=== PATIENT | female | born 1985 | race Two or more races ===

== ENCOUNTER 2017-04-11 14:50 | Emergency (ER) | payer MEDICAID ==
[~2017-04-11] VITALS: Ht 160 cm; Wt 89.0 kg
[~2017-04-11 14:50] MED LIST: CLIN-79 PO; COMP-13 TOP; FURO-150 PO; FURO40TA4 PO; INSU100I25 SQ; INSU100V11 SQ; LANC-571; NAPR-1154 PO; NEUPHOSK PO; SYRI-641
[2017-04-11 15:45] LABS: URINE HCG NEGATIVE (NEG)
[2017-04-11 16:03] LABS: BASOPHILS # (AUTO) 0.1 X10'3 (0-0.2); BASOPHILS % (AUTO) 0.8 % (0-1); EOSINOPHILS # (AUTO) 0.4 X10'3 (0-0.9); EOSINOPHILS % (AUTO) 2.3 % (0-6); HEMATOCRIT 37.9 % (35.0-45.0); HEMOGLOBIN 12.8 g/dl (12.0-16.0); LYMPHOCYTES # (AUTO) 2.8 X10'3 (1.1-4.8); LYMPHOCYTES % (AUTO) 16.8 % (21-51); MEAN CORPUSCULAR HEMOGLOBIN 28.5 PG (27.0-31.0); MEAN CORPUSCULAR HGB CONC 33.8 % (33.0-36.5); MEAN CORPUSCULAR VOLUME 84.5 FL (78-98); MEAN PLATELET VOLUME 8.3 FL (7.4-10.4); MONOCYTES % (AUTO) 5.8 % (2-12); NEUTROPHILS # (AUTO) 12.3 X10'3 (1.8-7.7); NEUTROPHILS % (AUTO) 74.3 % (42-75); PLATELET COUNT 382 X10'3 (140-440); RED BLOOD COUNT 4.49 X10'6 (4.20-5.60); RED CELL DISTRIBUTION WIDTH 12.8 % (11.5-14.5); WHITE BLOOD COUNT 16.6 X10'3 (4.5-11.0)
[2017-04-11 16:04] LABS: CLARITY,URINE CLEAR (Clear); COLOR,URINE YELLOW (Yellow); GLUCOSE, URINE 500 mg/dl (Neg); KETONES,URINE NEGATIVE (Neg); LEUKOCYTE ESTERASE ,URINE NEGATIVE (Neg); NITRITES, URINE NEGATIVE (Neg); OCCULT BLOOD,URINE LARGE (Neg); PH,URINE 6.5 (4.8-8.0); PROTEIN,URINE >=300 mg/dl (Neg); UROBILINOGEN,URINE 0.2 E.U/dL (0.2-1.0)
[2017-04-11 16:05] LABS: UA COLLECTION TYPE CLN CATCH MIDSTREAM
[2017-04-11 16:12] LABS: WBC,URINE 50-100 /HPF (0-4)
[2017-04-11 16:13] LABS: BACTERIA,URINE 2+ /HPF (Neg); SQUAMOUS EPITHELIAL CELL,UR NONE SEEN /LPF (FEW); WBC CLUMPS,URINE MODERATE /HPF (NEGATIVE)
[2017-04-11 16:19] LABS: ALANINE AMINOTRANSFERASE 30 U/L (12-78); ALBUMIN 1.4 G/DL (3.4-5.0); ALBUMIN/GLOBULIN RATIO 0.3 (1.1-1.5); ALKALINE PHOSPHATASE 100 IU/L (46-116); ANION GAP 8 (8-16); ASPARTATE AMINO TRANSFERASE 28 U/L (10-37); BILIRUBIN,TOTAL 0.1 MG/DL (0.1-1.0); BLOOD UREA NITROGEN 25 MG/DL (7-18); BUN/CREATININE RATIO 15.6 (6.6-38.0); CALCIUM 8.7 MG/DL (8.5-10.1); CHLORIDE 109 MMOL/L (99-107); GLUCOSE 110 MG/DL (70-104); LIPASE 149 U/L (73-393); POTASSIUM 4.4 MMOL/L (3.5-5.1); SODIUM 140 MMOL/L (135-145); TOTAL PROTEIN 6.6 G/DL (6.4-8.2); eGFR 38 ML/MIN
[2017-04-11] MEDS ORDERED: furosemide 10 MG/1 ML 10ml inj IV ONE (16:55)
[2017-04-11] MEDS ORDERED: sulfamethoxazole/trimethoprim DS (800/160mg) tablet PO ONE (16:55)
[2017-04-11] MEDS ORDERED: SULF1TAB49 PO (17:13)
[2017-04-11] MEDS ORDERED: furosemide 20MG tablet PO ONE (17:20)
[2017-04-11 17:27] VITALS: BP 173/105
== END 2017-04-11 17:29 | disposition home or self-care (01) ==
LOC: ER 14:50
DX: R60.0 Localized edema (principal); N39.0 Urinary tract infection, site not specified; E10.9 Type 1 diabetes mellitus without complications; I10 Essential (primary) hypertension; Z88.0 Allergy status to penicillin; Z88.1 Allergy status to other antibiotic agents; Z91.012 Allergy to eggs; Z79.4 Long term (current) use of insulin
CPT/HCPCS: 36415; 71045; 80053; 81001; 81025; 83690; 83880; 84484; 85025; 87088; 93306; 99285; J1940

== ENCOUNTER 2018-02-05 23:36 | Inpatient (IN) | payer MEDICAID ==
[~2018-02-05] VITALS: Ht 160 cm; Wt 83.0 kg
[~2018-02-05 23:36] MED LIST changes: +APIX2.5T PO; +ATOR20TA66 PO; -CLIN-79 PO; -COMP-13 TOP; +FURO-149 PO; -FURO-150 PO; -FURO40TA4 PO; -INSU100I25 SQ; -INSU100V11 SQ; -LANC-571; +METO50TA16 PO; -NAPR-1154 PO; -NEUPHOSK PO; -SYRI-641
[2018-02-06] MEDS ORDERED: ondansetron/PF 4mg/2ml inj IV ONE (01:35)
[2018-02-06] MEDS ORDERED: normal saline 1000ML IV soln IVB ONE (01:35)
[2018-02-06] MEDS ORDERED: morphine 2 MG/ML inj. syringe IV PRN (01:35)
[2018-02-06 02:16] LABS: BASOPHILS # (AUTO) 0.1 X10'3 (0-0.2); BASOPHILS % (AUTO) 0.4 % (0-1); EOSINOPHILS # (AUTO) 0.4 X10'3 (0-0.9); EOSINOPHILS % (AUTO) 1.4 % (0-6); HEMATOCRIT 30.7 % (35.0-45.0); LYMPHOCYTES # (AUTO) 1.2 X10'3 (1.1-4.8); LYMPHOCYTES % (AUTO) 4.4 % (21-51); MEAN CORPUSCULAR HEMOGLOBIN 28.2 PG (27.0-31.0); MEAN CORPUSCULAR HGB CONC 32.6 % (33.0-36.5); MEAN CORPUSCULAR VOLUME 86.4 FL (78-98); MEAN PLATELET VOLUME 7.8 FL (7.4-10.4); MONOCYTES # (AUTO) 0.8 X10'3 (0-0.9); MONOCYTES % (AUTO) 2.9 % (2-12); NEUTROPHILS # (AUTO) 23.9 X10'3 (1.8-7.7); NEUTROPHILS % (AUTO) 90.9 % (42-75); PLATELET COUNT 421 X10'3 (140-440); RED BLOOD COUNT 3.55 X10'6 (4.20-5.60); RED CELL DISTRIBUTION WIDTH 13.5 % (11.5-14.5)
[2018-02-06 02:17] LABS: WHITE BLOOD COUNT 26.3 X10'3 (4.5-11.0)
[2018-02-06 02:18] LABS: URINE HCG NEGATIVE (NEG)
[2018-02-06 02:21] LABS: CLARITY,URINE CLEAR (Clear); COLOR,URINE YELLOW (Yellow); GLUCOSE, URINE 500 mg/dl (Neg); KETONES,URINE NEGATIVE (Neg); LEUKOCYTE ESTERASE ,URINE NEGATIVE (Neg); NITRITES, URINE NEGATIVE (Neg); OCCULT BLOOD,URINE MODERATE (Neg); PROTEIN,URINE >=300 mg/dl (Neg); UROBILINOGEN,URINE 0.2 E.U/dL (0.2-1.0)
[2018-02-06 02:26] LABS: UA COLLECTION TYPE CLN CATCH MIDSTREAM
[2018-02-06 02:27] LABS: BACTERIA,URINE FEW /HPF (Neg); SQUAMOUS EPITHELIAL CELL,UR FEW /LPF (FEW)
[2018-02-06 02:28] LABS: YEAST FEW /HPF (NEGATIVE)
[2018-02-06 02:31] LABS: ALANINE AMINOTRANSFERASE 18 U/L (12-78); ALBUMIN 1.3 G/DL (3.4-5.0); ALBUMIN/GLOBULIN RATIO 0.3 (1.1-1.5); ALKALINE PHOSPHATASE 104 IU/L (46-116); ANION GAP 13 (8-16); ASPARTATE AMINO TRANSFERASE 17 U/L (10-37); BILIRUBIN,TOTAL 0.2 MG/DL (0.1-1.0); BLOOD UREA NITROGEN 40 MG/DL (7-18); BUN/CREATININE RATIO 12.6 (6.6-38.0); CALCIUM 7.9 MG/DL (8.5-10.1); CHLORIDE 110 MMOL/L (99-107); CREATININE 3.17 MG/DL (0.40-0.90); GLUCOSE 210 MG/DL (70-104); LIPASE 102 U/L (73-393); PLATELET ESTIMATE NORMAL; POTASSIUM 5.4 MMOL/L (3.5-5.1); SODIUM 138 MMOL/L (135-145); TOTAL CARBON DIOXIDE 15.3 MMOL/L (24-32); TOTAL CELLS COUNTED 100; TOTAL PROTEIN 5.7 G/DL (6.4-8.2); eGFR 17 ML/MIN
[2018-02-06] MEDS ORDERED: CefTRIAXone/D5W-Rocephin 1gm 50 ML IV ONE (04:10)
[2018-02-06] MEDS ORDERED: levoFLOXACIN-Levaquin 250mg/D5 50 ML IV ONE ×2 (04:40→08:00)
[2018-02-06] MEDS ORDERED: ROSU40TA PO (04:46)
[2018-02-06] MEDS ORDERED: magnesium hydroxide 30ml (MOM) UD suspension PO PRN (05:10)
[2018-02-06] MEDS ORDERED: mag hydrox/Alum hydrox/simeth 30ml oral suspension PO PRN (05:10)
[2018-02-06] MEDS ORDERED: ondansetron/PF 4mg/2ml inj IV PRN (05:10)
[2018-02-06] MEDS ORDERED: insulin Lispro (HumaLOG) vial - multi-dose SQ SCH (05:20)
[2018-02-06] MEDS ORDERED: MESSAGE TO PHARMACY PO ONE (05:20)
[2018-02-06] MEDS ORDERED: dextrose ORAL solution 15 GM/59 ML bottle PO PRN ×2 (05:20)
[2018-02-06] MEDS ORDERED: glucagon, human recombinant 1mg kit SUBCUT PRN (05:20)
[2018-02-06] MEDS ORDERED: dextrose 50%-water 50ml dispensing syringe IV PRN ×2 (05:20)
[2018-02-06] MEDS: normal saline 1000ml 1,000 ML IV SCH (05:56)
[2018-02-06 07:30] VITALS: BP 132/82
[2018-02-06] MEDS ORDERED: apixaban 2.5mg tablet PO SCH (08:00)
[2018-02-06] MEDS: metoclopramide 5 mg/ml inj IV SCH ×3 (08:03→17:10)
[2018-02-06] MEDS: metoprolol tartrate 50mg tablet PO SCH ×2 (08:03→20:07)
[2018-02-06] MEDS: atorvastatin 20mg tablet PO SCH (08:03)
[2018-02-06] MEDS: furosemide 40mg tablet PO SCH ×2 (08:03→20:06)
[2018-02-06 10:10] LABS: BASOPHILS # (AUTO) 0.1 X10'3 (0-0.2); BASOPHILS % (AUTO) 0.4 % (0-1); EOSINOPHILS # (AUTO) 0.5 X10'3 (0-0.9); HEMATOCRIT 26.2 % (35.0-45.0); HEMOGLOBIN 8.4 g/dl (12.0-16.0); LYMPHOCYTES # (AUTO) 2.1 X10'3 (1.1-4.8); LYMPHOCYTES % (AUTO) 9.2 % (21-51); MEAN CORPUSCULAR HEMOGLOBIN 27.7 PG (27.0-31.0); MEAN CORPUSCULAR VOLUME 86.6 FL (78-98); MONOCYTES % (AUTO) 4.5 % (2-12); NEUTROPHILS # (AUTO) 19.6 X10'3 (1.8-7.7); NEUTROPHILS % (AUTO) 83.9 % (42-75); PLATELET COUNT 372 X10'3 (140-440); RED BLOOD COUNT 3.03 X10'6 (4.20-5.60); RED CELL DISTRIBUTION WIDTH 13.2 % (11.5-14.5); WHITE BLOOD COUNT 23.3 X10'3 (4.5-11.0)
[2018-02-06 10:24] LABS: ANION GAP 11 (8-16); BLOOD UREA NITROGEN 40 MG/DL (7-18); BUN/CREATININE RATIO 12.7 (6.6-38.0); CALCIUM 7.4 MG/DL (8.5-10.1); CHLORIDE 111 MMOL/L (99-107); CREATININE 3.15 MG/DL (0.40-0.90); GLUCOSE 186 MG/DL (70-104); POTASSIUM 5.7 MMOL/L (3.5-5.1); SODIUM 138 MMOL/L (135-145); TOTAL CARBON DIOXIDE 16.4 MMOL/L (24-32); eGFR 17 ML/MIN
[2018-02-06] MEDS ORDERED: RESCUE (10:56)
[2018-02-06 11:00] VITALS: BP 117/67
[2018-02-06] MEDS ORDERED: sodium polystyrene sulfonate 15gm/60ml oral suspension PO ONE (11:00)
[2018-02-06] MEDS: pantoprazole 40 MG vial IV SCH ×2 (11:59→20:04)
[2018-02-06] MEDS: cefepime 1GM/NS ADD-VANTAGE 100 ML IV SCH (14:43)
[2018-02-06 15:00] VITALS: BP 136/81
[2018-02-06] MEDS ORDERED: cefepime 1GM/NS ADD-VANTAGE 100 ML IV SCH (16:00)
[2018-02-06 16:11] LABS: HEMATOCRIT 29.6 % (35.0-45.0); HEMOGLOBIN 9.5 g/dl (12.0-16.0); MEAN CORPUSCULAR HGB CONC 32.1 % (33.0-36.5); MEAN CORPUSCULAR VOLUME 87.3 FL (78-98); MEAN PLATELET VOLUME 8.2 FL (7.4-10.4); PLATELET COUNT 394 X10'3 (140-440); RED BLOOD COUNT 3.39 X10'6 (4.20-5.60); RED CELL DISTRIBUTION WIDTH 13.6 % (11.5-14.5); WHITE BLOOD COUNT 20.6 X10'3 (4.5-11.0)
[2018-02-06 19:00] VITALS: BP 142/84
[2018-02-06] MEDS: acetaminophen 325mg tablet PO PRN (22:27)
[2018-02-06 23:00] VITALS: BP 142/85
[2018-02-07] MEDS: cefepime 1GM/NS ADD-VANTAGE 100 ML IV SCH ×2 (01:30→12:48)
[2018-02-07 02:21] LABS: OCCULT BLOOD STOOL NEGATIVE (Neg)
[2018-02-07 03:00] VITALS: BP 105/56
[2018-02-07 06:00] VITALS: BP 118/65
[2018-02-07 06:08] LABS: BASOPHILS # (AUTO) 0.1 X10'3 (0-0.2); BASOPHILS % (AUTO) 0.7 % (0-1); EOSINOPHILS # (AUTO) 0.6 X10'3 (0-0.9); EOSINOPHILS % (AUTO) 4.1 % (0-6); HEMATOCRIT 25.4 % (35.0-45.0); HEMOGLOBIN 8.1 g/dl (12.0-16.0); LYMPHOCYTES # (AUTO) 3.3 X10'3 (1.1-4.8); LYMPHOCYTES % (AUTO) 22.7 % (21-51); MEAN CORPUSCULAR HGB CONC 31.7 % (33.0-36.5); MEAN CORPUSCULAR VOLUME 88.1 FL (78-98); MEAN PLATELET VOLUME 8.4 FL (7.4-10.4); MONOCYTES # (AUTO) 0.9 X10'3 (0-0.9); MONOCYTES % (AUTO) 6.6 % (2-12); NEUTROPHILS # (AUTO) 9.5 X10'3 (1.8-7.7); NEUTROPHILS % (AUTO) 65.9 % (42-75); PLATELET COUNT 321 X10'3 (140-440); RED BLOOD COUNT 2.88 X10'6 (4.20-5.60); RED CELL DISTRIBUTION WIDTH 13.3 % (11.5-14.5); WHITE BLOOD COUNT 14.4 X10'3 (4.5-11.0)
[2018-02-07] MEDS: normal saline 1000ml 1,000 ML IV SCH (06:08)
[2018-02-07 06:17] LABS: ALANINE AMINOTRANSFERASE 18 U/L (12-78); ALBUMIN/GLOBULIN RATIO 0.3 (1.1-1.5); ALKALINE PHOSPHATASE 86 IU/L (46-116); ANION GAP 12 (8-16); ASPARTATE AMINO TRANSFERASE 16 U/L (10-37); BILIRUBIN,TOTAL 0.2 MG/DL (0.1-1.0); BLOOD UREA NITROGEN 43 MG/DL (7-18); BUN/CREATININE RATIO 11.5 (6.6-38.0); CALCIUM 7.8 MG/DL (8.5-10.1); CHLORIDE 111 MMOL/L (99-107); CREATININE 3.75 MG/DL (0.40-0.90); GLUCOSE 98 MG/DL (70-104); POTASSIUM 4.7 MMOL/L (3.5-5.1); SODIUM 140 MMOL/L (135-145); TOTAL CARBON DIOXIDE 16.7 MMOL/L (24-32); TOTAL PROTEIN 4.7 G/DL (6.4-8.2); eGFR 14 ML/MIN
[2018-02-07] MEDS: metoprolol tartrate 50mg tablet PO SCH ×2 (07:56→20:47)
[2018-02-07] MEDS: pantoprazole 40 MG vial IV SCH ×2 (07:56→20:49)
[2018-02-07] MEDS: furosemide 40mg tablet PO SCH (07:56)
[2018-02-07] MEDS: metoclopramide 5 mg/ml inj IV SCH ×3 (07:56→17:00)
[2018-02-07] MEDS: atorvastatin 20mg tablet PO SCH (07:56)
[2018-02-07] MEDS ORDERED: levoFLOXACIN-Levaquin 500mg/D5 100 ML IV SCH (08:00)
[2018-02-07] MEDS: acetaminophen 325mg tablet PO PRN (08:12)
[2018-02-07 11:00] VITALS: BP 129/79
[2018-02-07 15:00] VITALS: BP 150/88
[2018-02-07 19:00] VITALS: BP 162/99
[2018-02-07] MEDS: lactobacillus rhamnosus 10,000 MMU CELLS/CAPSULE PO SCH (20:47)
[2018-02-07] MEDS: furosemide 40mg/4ml inj IV SCH (20:48)
[2018-02-07 23:00] VITALS: BP 154/93
[2018-02-08] MEDS: cefepime 1GM/NS ADD-VANTAGE 100 ML IV SCH ×2 (01:09→12:15)
[2018-02-08 03:00] VITALS: BP 122/66
[2018-02-08] MEDS: acetaminophen 325mg tablet PO PRN (04:29)
[2018-02-08 06:10] LABS: BASOPHILS # (AUTO) 0.1 X10'3 (0-0.2); BASOPHILS % (AUTO) 0.6 % (0-1); EOSINOPHILS # (AUTO) 0.6 X10'3 (0-0.9); EOSINOPHILS % (AUTO) 4.9 % (0-6); HEMATOCRIT 25.2 % (35.0-45.0); HEMOGLOBIN 8.1 g/dl (12.0-16.0); LYMPHOCYTES # (AUTO) 2.4 X10'3 (1.1-4.8); MEAN CORPUSCULAR HEMOGLOBIN 27.8 PG (27.0-31.0); MEAN CORPUSCULAR VOLUME 86.9 FL (78-98); MEAN PLATELET VOLUME 8.4 FL (7.4-10.4); MONOCYTES # (AUTO) 0.8 X10'3 (0-0.9); MONOCYTES % (AUTO) 6.7 % (2-12); NEUTROPHILS # (AUTO) 7.7 X10'3 (1.8-7.7); NEUTROPHILS % (AUTO) 66.8 % (42-75); PLATELET COUNT 344 X10'3 (140-440); RED BLOOD COUNT 2.89 X10'6 (4.20-5.60); RED CELL DISTRIBUTION WIDTH 13.7 % (11.5-14.5); WHITE BLOOD COUNT 11.6 X10'3 (4.5-11.0)
[2018-02-08 06:46] VITALS: BP 107/57
[2018-02-08 06:58] LABS: ALANINE AMINOTRANSFERASE 18 U/L (12-78); ALBUMIN/GLOBULIN RATIO 0.3 (1.1-1.5); ALKALINE PHOSPHATASE 100 IU/L (46-116); ANION GAP 13 (8-16); ASPARTATE AMINO TRANSFERASE 18 U/L (10-37); BILIRUBIN,TOTAL 0.1 MG/DL (0.1-1.0); BLOOD UREA NITROGEN 43 MG/DL (7-18); BUN/CREATININE RATIO 10.6 (6.6-38.0); CALCIUM 7.6 MG/DL (8.5-10.1); CHLORIDE 110 MMOL/L (99-107); CREATININE 4.05 MG/DL (0.40-0.90); GLUCOSE 88 MG/DL (70-104); POTASSIUM 4.4 MMOL/L (3.5-5.1); SODIUM 140 MMOL/L (135-145); TOTAL CARBON DIOXIDE 16.8 MMOL/L (24-32); TOTAL PROTEIN 4.7 G/DL (6.4-8.2); eGFR 13 ML/MIN
[2018-02-08] MEDS: furosemide 40mg/4ml inj IV SCH (07:54)
[2018-02-08] MEDS: pantoprazole 40 MG vial IV SCH ×2 (07:54→20:28)
[2018-02-08] MEDS: metoclopramide 5 mg/ml inj IV SCH ×3 (07:55→17:53)
[2018-02-08] MEDS: lactobacillus rhamnosus 10,000 MMU CELLS/CAPSULE PO SCH ×2 (07:55→20:28)
[2018-02-08] MEDS: atorvastatin 20mg tablet PO SCH (07:55)
[2018-02-08] MEDS: metoprolol tartrate 50mg tablet PO SCH ×2 (07:56→20:28)
[2018-02-08 14:36] VITALS: BP 126/76
[2018-02-08 19:00] VITALS: BP 160/103
[2018-02-08] MEDS: furosemide 20 MG/2 ML vial IV SCH (20:28)
[2018-02-08 23:00] VITALS: BP 156/95
[2018-02-09] VITALS (7 sets, daily range): BP systolic 138–183; BP diastolic 76–111
[2018-02-09] MEDS: cefepime 1GM/NS ADD-VANTAGE 100 ML IV SCH ×2 (00:55→13:50)
[2018-02-09 05:20] LABS: BASOPHILS # (AUTO) 0.1 X10'3 (0-0.2); BASOPHILS % (AUTO) 1.1 % (0-1); EOSINOPHILS # (AUTO) 0.7 X10'3 (0-0.9); EOSINOPHILS % (AUTO) 6.9 % (0-6); HEMATOCRIT 26.1 % (35.0-45.0); HEMOGLOBIN 8.4 g/dl (12.0-16.0); LYMPHOCYTES # (AUTO) 2.5 X10'3 (1.1-4.8); LYMPHOCYTES % (AUTO) 23.1 % (21-51); MEAN CORPUSCULAR HEMOGLOBIN 27.8 PG (27.0-31.0); MEAN CORPUSCULAR HGB CONC 32.3 % (33.0-36.5); MEAN CORPUSCULAR VOLUME 86.1 FL (78-98); MONOCYTES # (AUTO) 0.8 X10'3 (0-0.9); MONOCYTES % (AUTO) 7.8 % (2-12); NEUTROPHILS # (AUTO) 6.5 X10'3 (1.8-7.7); NEUTROPHILS % (AUTO) 61.1 % (42-75); PLATELET COUNT 364 X10'3 (140-440); RED BLOOD COUNT 3.03 X10'6 (4.20-5.60); RED CELL DISTRIBUTION WIDTH 13.5 % (11.5-14.5); WHITE BLOOD COUNT 10.6 X10'3 (4.5-11.0)
[2018-02-09 05:44] LABS: ALANINE AMINOTRANSFERASE 21 U/L (12-78); ALBUMIN 1.1 G/DL (3.4-5.0); ALBUMIN/GLOBULIN RATIO 0.3 (1.1-1.5); ALKALINE PHOSPHATASE 102 IU/L (46-116); ANION GAP 13 (8-16); ASPARTATE AMINO TRANSFERASE 17 U/L (10-37); BILIRUBIN,TOTAL 0.2 MG/DL (0.1-1.0); BLOOD UREA NITROGEN 46 MG/DL (7-18); BUN/CREATININE RATIO 11.3 (6.6-38.0); CALCIUM 7.5 MG/DL (8.5-10.1); CHLORIDE 109 MMOL/L (99-107); CREATININE 4.08 MG/DL (0.40-0.90); GLUCOSE 93 MG/DL (70-104); POTASSIUM 4.3 MMOL/L (3.5-5.1); SODIUM 138 MMOL/L (135-145); TOTAL CARBON DIOXIDE 15.8 MMOL/L (24-32); TOTAL PROTEIN 5.1 G/DL (6.4-8.2); eGFR 13 ML/MIN
[2018-02-09] MEDS: metoclopramide 5 mg/ml inj IV SCH ×3 (07:49→17:03)
[2018-02-09] MEDS: furosemide 20 MG/2 ML vial IV SCH (07:49)
[2018-02-09] MEDS: pantoprazole 40 MG vial IV SCH (07:49)
[2018-02-09] MEDS: lactobacillus rhamnosus 10,000 MMU CELLS/CAPSULE PO SCH ×3 (07:54→19:47)
[2018-02-09] MEDS: atorvastatin 20mg tablet PO SCH ×2 (07:55→08:03)
[2018-02-09] MEDS: metoprolol tartrate 50mg tablet PO SCH ×3 (07:55→19:47)
[2018-02-09 13:11] LABS: CLARITY,URINE SLIGHTLY CLOUDY (Clear); COLOR,URINE STRAW (Yellow); GLUCOSE, URINE 250 mg/dl (Neg); KETONES,URINE NEGATIVE (Neg); LEUKOCYTE ESTERASE ,URINE NEGATIVE (Neg); NITRITES, URINE NEGATIVE (Neg); OCCULT BLOOD,URINE MODERATE (Neg); PROTEIN,URINE >=300 mg/dl (Neg); UROBILINOGEN,URINE 0.2 E.U/dL (0.2-1.0)
[2018-02-09 13:25] LABS: UA COLLECTION TYPE CLN CATCH MIDSTREAM
[2018-02-09 13:26] LABS: MUCUS STRANDS FEW /LPF (Neg); SQUAMOUS EPITHELIAL CELL,UR MANY /LPF (FEW)
[2018-02-09 13:27] LABS: HYALINE CASTS 0-3 /LPF (NEGATIVE)
[2018-02-09 13:28] LABS: BACTERIA,URINE FEW /HPF (Neg); RBC,URINE 0-2 /HPF (0-2)
[2018-02-09 14:55] LABS: UA EOSINOPHILS NO EOS /HPF
[2018-02-09 17:37] LABS: RHEUM FACTOR QUAL REFLEX TITER NEGATIVE (Neg)
[2018-02-09] MEDS: cloNIDine 0.1 mg tablet PO SCH (19:46)
[2018-02-09] MEDS: heparin, porcine 5000 units/ml vial SQ SCH (19:48)
[2018-02-09] MEDS: sodium bicarbonate 650mg tablet PO SCH (20:51)
[2018-02-10] VITALS (7 sets, daily range): BP systolic 95–168; BP diastolic 61–108
[2018-02-10] MEDS: cefepime 1GM/NS ADD-VANTAGE 100 ML IV SCH ×2 (02:01→12:40)
[2018-02-10] MEDS ORDERED: acetaminophen 325mg tablet PO PRN ×2 (03:05→03:13)
[2018-02-10] MEDS: acetaminophen 325mg tablet PO PRN ×2 (03:57→21:32)
[2018-02-10 06:57] LABS: BASOPHILS # (AUTO) 0.1 X10'3 (0-0.2); EOSINOPHILS # (AUTO) 0.7 X10'3 (0-0.9); HEMATOCRIT 23.8 % (35.0-45.0); HEMOGLOBIN 7.6 g/dl (12.0-16.0); LYMPHOCYTES # (AUTO) 2.5 X10'3 (1.1-4.8); LYMPHOCYTES % (AUTO) 23.1 % (21-51); MEAN CORPUSCULAR HEMOGLOBIN 27.8 PG (27.0-31.0); MEAN CORPUSCULAR HGB CONC 32.1 % (33.0-36.5); MEAN CORPUSCULAR VOLUME 86.6 FL (78-98); MEAN PLATELET VOLUME 8.5 FL (7.4-10.4); MONOCYTES # (AUTO) 0.9 X10'3 (0-0.9); MONOCYTES % (AUTO) 7.8 % (2-12); NEUTROPHILS # (AUTO) 6.7 X10'3 (1.8-7.7); NEUTROPHILS % (AUTO) 62.1 % (42-75); PLATELET COUNT 349 X10'3 (140-440); RED BLOOD COUNT 2.75 X10'6 (4.20-5.60); RED CELL DISTRIBUTION WIDTH 13.3 % (11.5-14.5); WHITE BLOOD COUNT 10.9 X10'3 (4.5-11.0)
[2018-02-10 07:27] LABS: ANION GAP 15 (8-16); BILIRUBIN,TOTAL 0.1 MG/DL (0.1-1.0); BLOOD UREA NITROGEN 47 MG/DL (7-18); BUN/CREATININE RATIO 11.8 (6.6-38.0); CALCIUM 7.6 MG/DL (8.5-10.1); CHLORIDE 110 MMOL/L (99-107); CREATININE 3.99 MG/DL (0.40-0.90); GLUCOSE 102 MG/DL (70-104); MAGNESIUM 1.7 MG/DL (1.5-2.4); PHOSPHORUS 4.8 MG/DL (2.3-4.5); POTASSIUM 4.7 MMOL/L (3.5-5.1); SODIUM 138 MMOL/L (135-145); TOTAL PROTEIN 4.9 G/DL (6.4-8.2); eGFR 13 ML/MIN
[2018-02-10 07:28] LABS: ALANINE AMINOTRANSFERASE 18 U/L (12-78); ALBUMIN/GLOBULIN RATIO 0.3 (1.1-1.5); ALKALINE PHOSPHATASE 97 IU/L (46-116); ASPARTATE AMINO TRANSFERASE 17 U/L (10-37)
[2018-02-10 07:32] LABS: TOTAL CARBON DIOXIDE 13.5 MMOL/L (24-32)
[2018-02-10] MEDS: lactobacillus rhamnosus 10,000 MMU CELLS/CAPSULE PO SCH ×2 (07:59→21:32)
[2018-02-10] MEDS: atorvastatin 20mg tablet PO SCH (07:59)
[2018-02-10] MEDS: cloNIDine 0.1 mg tablet PO SCH ×2 (07:59→21:31)
[2018-02-10] MEDS: metoprolol tartrate 50mg tablet PO SCH ×2 (07:59→21:31)
[2018-02-10] MEDS: metoclopramide 5 mg/ml inj IV SCH ×3 (08:00→16:57)
[2018-02-10] MEDS: heparin, porcine 5000 units/ml vial SQ SCH ×2 (08:00→21:31)
[2018-02-10] MEDS: sodium bicarbonate 650mg tablet PO SCH ×3 (09:28→21:29)
[2018-02-10] MEDS ORDERED: normal saline 1000ml 250 ML IV PRN (09:52)
[2018-02-10] MEDS ORDERED: epoetin 20,000 units/ml inj IV ONE (09:55)
[2018-02-10] MEDS ORDERED: heparin 1,000 units/ml 10ml inj IV ONE (09:55)
[2018-02-10] MEDS ORDERED: LIDOcaine 1% (10mg/ml) 2ml vial SQ ONE (09:55)
[2018-02-10] MEDS: sodium bicarbonate (8.4%) inj. 100 MEQ in sodium chloride 0.45% 1,000 ML IV SCH (10:38)
[2018-02-11] MEDS: cefepime 1GM/NS ADD-VANTAGE 100 ML IV SCH ×2 (01:15→12:14)
[2018-02-11] MEDS: sodium bicarbonate (8.4%) inj. 100 MEQ in sodium chloride 0.45% 1,000 ML IV SCH (01:15)
[2018-02-11 02:00] VITALS: BP 151/77
[2018-02-11 06:00] VITALS: BP 160/77
[2018-02-11 06:14] LABS: HBSAG SCREEN Negative (Negative); HEPATITIS C ANTIBODY <0.1 s/co ratio (0.0-0.9)
[2018-02-11 06:37] LABS: BASOPHILS # (AUTO) 0.1 X10'3 (0-0.2); EOSINOPHILS # (AUTO) 0.6 X10'3 (0-0.9); EOSINOPHILS % (AUTO) 6.2 % (0-6); HEMATOCRIT 25.1 % (35.0-45.0); HEMOGLOBIN 8.2 g/dl (12.0-16.0); LYMPHOCYTES # (AUTO) 2.4 X10'3 (1.1-4.8); LYMPHOCYTES % (AUTO) 23.3 % (21-51); MEAN CORPUSCULAR HEMOGLOBIN 27.9 PG (27.0-31.0); MEAN CORPUSCULAR HGB CONC 32.7 % (33.0-36.5); MEAN CORPUSCULAR VOLUME 85.4 FL (78-98); MEAN PLATELET VOLUME 8.2 FL (7.4-10.4); MONOCYTES # (AUTO) 0.8 X10'3 (0-0.9); MONOCYTES % (AUTO) 7.5 % (2-12); NEUTROPHILS # (AUTO) 6.4 X10'3 (1.8-7.7); PLATELET COUNT 355 X10'3 (140-440); RED BLOOD COUNT 2.94 X10'6 (4.20-5.60); RED CELL DISTRIBUTION WIDTH 13.2 % (11.5-14.5); WHITE BLOOD COUNT 10.3 X10'3 (4.5-11.0)
[2018-02-11 07:04] LABS: ALANINE AMINOTRANSFERASE 18 U/L (12-78); ALBUMIN/GLOBULIN RATIO 0.3 (1.1-1.5); ALKALINE PHOSPHATASE 95 IU/L (46-116); ANION GAP 12 (8-16); ASPARTATE AMINO TRANSFERASE 15 U/L (10-37); BILIRUBIN,TOTAL 0.1 MG/DL (0.1-1.0); BLOOD UREA NITROGEN 47 MG/DL (7-18); BUN/CREATININE RATIO 12.6 (6.6-38.0); CALCIUM 7.5 MG/DL (8.5-10.1); CHLORIDE 109 MMOL/L (99-107); CREATININE 3.74 MG/DL (0.40-0.90); GLUCOSE 135 MG/DL (70-104); MAGNESIUM 1.6 MG/DL (1.5-2.4); PHOSPHORUS 4.1 MG/DL (2.3-4.5); POTASSIUM 4.5 MMOL/L (3.5-5.1); SODIUM 139 MMOL/L (135-145); TOTAL CARBON DIOXIDE 18.3 MMOL/L (24-32); TOTAL PROTEIN 4.7 G/DL (6.4-8.2); eGFR 14 ML/MIN
[2018-02-11] MEDS: sodium bicarbonate 650mg tablet PO SCH ×2 (07:32→12:14)
[2018-02-11] MEDS: metoclopramide 5 mg/ml inj IV SCH ×2 (07:32→12:14)
[2018-02-11] MEDS: lactobacillus rhamnosus 10,000 MMU CELLS/CAPSULE PO SCH (07:32)
[2018-02-11] MEDS: atorvastatin 20mg tablet PO SCH (07:32)
[2018-02-11] MEDS: metoprolol tartrate 50mg tablet PO SCH (07:32)
[2018-02-11] MEDS: cloNIDine 0.1 mg tablet PO SCH (07:32)
[2018-02-11] MEDS: heparin, porcine 5000 units/ml vial SQ SCH (07:33)
[2018-02-11 09:14] LABS: ANTINUCLEAR ANTIBODIES Negative (Negative)
[2018-02-11 11:00] VITALS: BP 151/78
[2018-02-11] MEDS ORDERED: SODI650T29 PO (12:21)
[2018-02-11] MEDS ORDERED: CLON0.1T20 PO (12:21)
[2018-02-11] MEDS ORDERED: CEPH-572 PO (12:21)
[2018-02-11] MEDS ORDERED: APIX2.5T PO (12:21)
[2018-02-11] MEDS ORDERED: pneumococcal 23-VAL P-sac vacc 25 mcg/0.5ml vial IMVAC ONE (14:00)
[2018-02-14 05:32] LABS: COMPLEMENT C3, SERUM 132 mg/dL (82-167); COMPLEMENT C4, SERUM 30 mg/dL (14-44)
== END 2018-02-11 14:15 | disposition home or self-care (01) | DRG 720 ==
LOC: ER 23:37 → ED HOLD 02-06 05:08 → PCU 3S 02-06 07:20
PROVIDERS: ADMIT Internal Medicine; ATTEND Internal Medicine
DX: A41.9 Sepsis, unspecified organism (principal); I50.23 Acute on chronic systolic (congestive) heart failure; J18.9 Pneumonia, unspecified organism; N18.4 Chronic kidney disease, stage 4 (severe); E11.21 Type 2 diabetes mellitus with diabetic nephropathy; N17.9 Acute kidney failure, unspecified; E87.2 Acidosis; E11.40 Type 2 diabetes mellitus with diabetic neuropathy, unspecified; I13.0 Hypertensive heart and chronic kidney disease with heart failure and stage 1 through stage 4 chronic kidney disease, or unspecified chronic kidney disease; I42.9 Cardiomyopathy, unspecified; E11.22 Type 2 diabetes mellitus with diabetic chronic kidney disease; D63.8 Anemia in other chronic diseases classified elsewhere; E78.00 Pure hypercholesterolemia, unspecified; E11.69 Type 2 diabetes mellitus with other specified complication; E87.6 Hypokalemia; H54.62 Unqualified visual loss, left eye, normal vision right eye; N04.9 Nephrotic syndrome with unspecified morphologic changes; N05.9 Unspecified nephritic syndrome with unspecified morphologic changes; E11.319 Type 2 diabetes mellitus with unspecified diabetic retinopathy without macular edema; H54.40 Blindness, one eye, unspecified eye; K31.9 Disease of stomach and duodenum, unspecified; N18.9 Chronic kidney disease, unspecified; Z88.0 Allergy status to penicillin; Z88.8 Allergy status to other drugs, medicaments and biological substances; Z88.1 Allergy status to other antibiotic agents; Z91.012 Allergy to eggs
CPT/HCPCS: 36415; 71045; 74176; 80048; 80053; 81001; 81025; 82272; 82570; 82948; 83036; 83605; 83690; 83735; 84100; 84300; 85025; 85027; 86038; 86160; 86430; 86803; 87040; 87070; 87088; 87207; 87340; 90732; 96365; 96368; 96375; 99285; C9113; G0378; J0692; J0696; J0885; J1644; J1940; J1956; J2270; J2405; J2765; J7030

== ENCOUNTER 2018-02-22 15:07 | Inpatient (IN) | payer MEDICAID ==
[~2018-02-22] VITALS: Ht 160 cm; Wt 70.0 kg
[~2018-02-22 15:07] MED LIST changes: +0.9 % SODIUM CHLORIDE 10 ML VIAL ONE; -ATOR20TA66 PO; +CLON0.1T20 PO; -FURO-149 PO; +RESCUE; +ROSU40TA PO; +SODI650T29 PO; +atropine 1 MG/1 ML vial ONE; +etomidate 2mg/ml inj. ONE; +rocuronium 10mg/ml inj IV ONE
[2018-02-22 18:44] LABS: CLARITY,URINE SLIGHTLY CLOUDY (Clear); COLOR,URINE YELLOW (Yellow); GLUCOSE, URINE >=1000 mg/dl (Neg); KETONES,URINE 15 mg/dl (Neg); LEUKOCYTE ESTERASE ,URINE NEGATIVE (Neg); NITRITES, URINE NEGATIVE (Neg); OCCULT BLOOD,URINE MODERATE (Neg); PH,URINE 6.5 (4.8-8.0); PROTEIN,URINE >=300 mg/dl (Neg); UROBILINOGEN,URINE 0.2 E.U/dL (0.2-1.0)
[2018-02-22 18:47] LABS: UA COLLECTION TYPE CLN CATCH MIDSTREAM
[2018-02-22 18:52] LABS: HYALINE CASTS 0-3 /LPF (NEGATIVE); SQUAMOUS EPITHELIAL CELL,UR FEW /LPF (FEW)
[2018-02-22 18:53] LABS: BACTERIA,URINE 1+ /HPF (Neg)
[2018-02-22] MEDS ORDERED: CefTRIAXone/D5W-Rocephin 1gm 50 ML IV ONE (18:55)
[2018-02-22] MEDS ORDERED: normal saline 1000ML IV soln IV ONE (18:55)
[2018-02-22 18:58] LABS: BASOPHILS # (AUTO) 0.1 X10'3 (0-0.2); BASOPHILS % (AUTO) 0.5 % (0-1); EOSINOPHILS # (AUTO) 0.2 X10'3 (0-0.9); EOSINOPHILS % (AUTO) 1.2 % (0-6); HEMOGLOBIN 11.4 g/dl (12.0-16.0); LYMPHOCYTES # (AUTO) 0.5 X10'3 (1.1-4.8); LYMPHOCYTES % (AUTO) 3.3 % (21-51); MEAN CORPUSCULAR HEMOGLOBIN 27.9 PG (27.0-31.0); MEAN CORPUSCULAR HGB CONC 32.5 % (33.0-36.5); MEAN PLATELET VOLUME 8.9 FL (7.4-10.4); MONOCYTES # (AUTO) 0.3 X10'3 (0-0.9); MONOCYTES % (AUTO) 1.8 % (2-12); NEUTROPHILS # (AUTO) 15.6 X10'3 (1.8-7.7); NEUTROPHILS % (AUTO) 93.2 % (42-75); PLATELET COUNT 434 X10'3 (140-440); RED BLOOD COUNT 4.07 X10'6 (4.20-5.60); RED CELL DISTRIBUTION WIDTH 14.3 % (11.5-14.5); WHITE BLOOD COUNT 16.7 X10'3 (4.5-11.0)
[2018-02-22] MEDS ORDERED: furosemide 10 MG/1 ML 10ml inj IV ONE (19:10)
[2018-02-22] MEDS ORDERED: acetaminophen 325mg tablet PO ONE (19:10)
[2018-02-22] MEDS ORDERED: normal saline 1000ml 1,000 ML IV ONE (19:10)
[2018-02-22 19:12] LABS: ALANINE AMINOTRANSFERASE 25 U/L (12-78); ALBUMIN 1.6 G/DL (3.4-5.0); ALBUMIN/GLOBULIN RATIO 0.3 (1.1-1.5); ALKALINE PHOSPHATASE 156 IU/L (46-116); ANION GAP 16 (8-16); ASPARTATE AMINO TRANSFERASE 19 U/L (10-37); BILIRUBIN,TOTAL 0.3 MG/DL (0.1-1.0); BLOOD UREA NITROGEN 46 MG/DL (7-18); BUN/CREATININE RATIO 13.3 (6.6-38.0); CALCIUM 8.4 MG/DL (8.5-10.1); CHLORIDE 103 MMOL/L (99-107); CREATININE 3.45 MG/DL (0.40-0.90); GLUCOSE 256 MG/DL (70-104); POTASSIUM 5.1 MMOL/L (3.5-5.1); SODIUM 137 MMOL/L (135-145); TOTAL CARBON DIOXIDE 18.1 MMOL/L (24-32); TOTAL PROTEIN 6.4 G/DL (6.4-8.2); eGFR 15 ML/MIN
[2018-02-22 19:19] LABS: INR 1.1 INR; PARTIAL THROMBOPLASTIN TIME 31 SECONDS (22-32); PROTHROMBIN TIME 10.9 SECONDS (9.0-12.0)
[2018-02-22] MEDS ORDERED: ondansetron/PF 4mg/2ml inj IV ONE (19:40)
[2018-02-22] MEDS ORDERED: morphine 4 MG/ML inj SYRINge IV ONE (19:40)
[2018-02-22 20:11] LABS: URINE HCG NEGATIVE (NEG)
--- NOTE | 2018-02-22 20:25 | NUR ---
ASSUMED CARE OF PT FROM VINAY JOINER
--- NOTE | 2018-02-22 20:34 | NUR ---
PT TO CT
--- NOTE | 2018-02-22 21:17 | NUR ---
PT HAS RECEIVED 2 LITERS NS, DR GRANT AT BEDSIDE TO EVALUATE PT, GAVE VERBAL ORDER TO NOT GIVE 3RD LITER OF NS
[2018-02-22] MEDS: furosemide 10 MG/1 ML 10ml inj IV SCH (21:22)
[2018-02-22] MEDS ORDERED: ondansetron/PF 4mg/2ml inj IV PRN (21:25)
--- NOTE | 2018-02-22 21:29 | NUR ---
PT IS RESTING QUIETLY ON GURNEY, RESP EVEN AND SLIGHTLY LABORED, SKIN P/W/D, FAMILY AT BEDSIDE
--- NOTE | 2018-02-22 21:54 | NUR ---
report to Coretta JOINER
--- NOTE | 2018-02-22 22:32 | NUR ---
Patient in room . I have received report from Amy JOINER and had the opportunity to ask questions and assume patient care. Pt arrived from the ED on a gurney with all her belongings. She ambulated to the hospital with a slow and steady gait. Telemetry applied. Pt oriented to room, bed, and call light. Droplet precautions in place. VS stable. BS Addendum: 02/22/18 at 2234 by Mirela Green RN Will continue to monitor.
--- NOTE | 2018-02-22 22:32 | NUR ---
Two RN Skin Assessment has been completed at with Cruz JOINER,all skin assessed,with the no findings. Skin is intact
[2018-02-22 23:00] VITALS: BP 168/83
[2018-02-22] MEDS ORDERED: insulin Lispro (HumaLOG) vial - multi-dose SQ SCH (23:00)
[2018-02-22] MEDS ORDERED: MESSAGE TO PHARMACY PO ONE (23:00)
[2018-02-22] MEDS ORDERED: glucagon, human recombinant 1mg kit SUBCUT PRN (23:00)
[2018-02-22] MEDS ORDERED: dextrose ORAL solution 15 GM/59 ML bottle PO PRN ×2 (23:00)
[2018-02-22] MEDS: insulin glargine (Lantus) pen - multi-dose SQ SCH (23:59)
[2018-02-23] MEDS ORDERED: metoclopramide 5 mg/ml inj IV PRN (00:05)
[2018-02-23] MEDS: ondansetron/PF 4mg/2ml inj IV PRN ×3 (00:23→20:36)
[2018-02-23 03:00] VITALS: BP 166/100
--- NOTE | 2018-02-23 06:24 | NUR ---
A1C was done on 02/06/18 it was 7.2
--- NOTE | 2018-02-23 06:25 | NUR ---
Problems reprioritized. Patient report given, questions answered & plan of care reviewed with Jayesh JOINER.
[2018-02-23 06:56] VITALS: BP 143/89
[2018-02-23] MEDS: CefTRIAXone/D5W-Rocephin 1gm 50 ML IV SCH (07:38)
[2018-02-23] MEDS: apixaban 2.5mg tablet PO SCH ×2 (07:39→20:08)
[2018-02-23] MEDS: sodium bicarbonate 650mg tablet PO SCH ×3 (07:39→20:07)
[2018-02-23] MEDS: cloNIDine 0.1 mg tablet PO SCH ×2 (07:39→20:07)
[2018-02-23] MEDS: atorvastatin 20mg tablet PO SCH (07:40)
[2018-02-23] MEDS: metoprolol tartrate 50mg tablet PO SCH ×2 (07:41→20:08)
[2018-02-23] MEDS: furosemide 10 MG/1 ML 10ml inj IV SCH (07:42)
[2018-02-23] MEDS ORDERED: non-formulary drug (Rosuvastatin Calcium* (Crestor*) 1 TAB) PO SCH (08:00)
[2018-02-23] MEDS ORDERED: heparin, porcine 5000 units/ml vial SQ SCH (08:00)
[2018-02-23] MEDS: oseltamivir 30mg capsule PO SCH (09:53)
[2018-02-23 11:48] VITALS: BP 112/68
--- NOTE | 2018-02-23 13:03 | NUR ---
pt refused to have midline placed even after dr pantoja said it was ok to place it
--- NOTE | 2018-02-23 14:14 | NUR ---
Extended PIV inserted to the right upper arm brachial vein x 1 attempt using ultrasound. Jena well Addendum: 02/23/18 at 1415 by Genny Gomez RN Amended: Links added.
--- NOTE | 2018-02-23 14:39 | NUR ---
Nutrition consult received, A1C is 7.2; patient recently admitted and seen on 02/06/18 for DM education, was given written DM education handout with verbal review. Given additional written DM education handout with verbal reinforcement. Addendum: 02/23/18 at [address] Amended: Links added.
[2018-02-23 15:00] VITALS: BP 149/91
[2018-02-23 15:58] LABS: BASOPHILS # (AUTO) 0.1 X10'3 (0-0.2); BASOPHILS % (AUTO) 0.8 % (0-1); EOSINOPHILS % (AUTO) 0 % (0-6); HEMATOCRIT 29.3 % (35.0-45.0); HEMOGLOBIN 9.2 g/dl (12.0-16.0); LYMPHOCYTES # (AUTO) 0.5 X10'3 (1.1-4.8); LYMPHOCYTES % (AUTO) 4.5 % (21-51); MEAN CORPUSCULAR HEMOGLOBIN 27.1 PG (27.0-31.0); MEAN CORPUSCULAR HGB CONC 31.3 % (33.0-36.5); MEAN CORPUSCULAR VOLUME 86.5 FL (78-98); MONOCYTES # (AUTO) 0.5 X10'3 (0-0.9); MONOCYTES % (AUTO) 4.3 % (2-12); NEUTROPHILS # (AUTO) 9.8 X10'3 (1.8-7.7); NEUTROPHILS % (AUTO) 90.4 % (42-75); PLATELET COUNT 282 X10'3 (140-440); RED BLOOD COUNT 3.39 X10'6 (4.20-5.60); RED CELL DISTRIBUTION WIDTH 14.1 % (11.5-14.5); WHITE BLOOD COUNT 10.9 X10'3 (4.5-11.0)
[2018-02-23 16:10] LABS: ALANINE AMINOTRANSFERASE 20 U/L (12-78); ALBUMIN 1.2 G/DL (3.4-5.0); ALBUMIN/GLOBULIN RATIO 0.3 (1.1-1.5); ALKALINE PHOSPHATASE 84 IU/L (46-116); ANION GAP 9 (8-16); ASPARTATE AMINO TRANSFERASE 25 U/L (10-37); BILIRUBIN,TOTAL 0.2 MG/DL (0.1-1.0); BLOOD UREA NITROGEN 50 MG/DL (7-18); BUN/CREATININE RATIO 12.8 (6.6-38.0); CALCIUM 7.3 MG/DL (8.5-10.1); CHLORIDE 107 MMOL/L (99-107); CREATININE 3.92 MG/DL (0.40-0.90); GLUCOSE 113 MG/DL (70-104); POTASSIUM 5.4 MMOL/L (3.5-5.1); SODIUM 138 MMOL/L (135-145); TOTAL CARBON DIOXIDE 21.7 MMOL/L (24-32); TOTAL PROTEIN 5.3 G/DL (6.4-8.2); eGFR 13 ML/MIN
[2018-02-23 19:00] VITALS: BP 151/91
[2018-02-23] MEDS: sodium polystyrene sulfonate 15gm/60ml oral suspension PO ONE ×2 (20:06→22:07)
[2018-02-23] MEDS: lactobacillus rhamnosus 10,000 MMU CELLS/CAPSULE PO SCH (20:07)
[2018-02-23] MEDS: furosemide 40mg/4ml inj IV SCH (20:07)
--- NOTE | 2018-02-23 20:25 | NUR ---
Paged to Dr. Pineda in regards to pt C/O generalized pain r/t FLU. Requesting Tylenol PO PRN. Pending Response. PAGER ID: [phone] MESSAGE: [phone] Fatuma Maher. pt C/O generalized pain r/t low grade fever due to FLU. Requesting order for Tylenol PO PRN order. Please advise. RHYS Olivier. Isoj - [phone]
--- NOTE | 2018-02-23 20:30 | NUR ---
New order for Tylenol 975mg PO Q 6hrs PRN for Pain. Will cont to monitor.
[2018-02-23] MEDS: acetaminophen 325mg tablet PO PRN (20:36)
[2018-02-23 23:00] VITALS: BP 114/61
[2018-02-23] MEDS ORDERED: albuterol 2.5 MG/3 ML nebule NEB PRN (23:40)
[2018-02-23] MEDS: albuterol 2.5 MG/3 ML nebule NEB SCH (23:55)
[2018-02-24] VITALS (12 sets, daily range): BP systolic 107–169; BP diastolic 67–107
[2018-02-24] MEDS: albuterol 2.5 MG/3 ML nebule NEB SCH ×6 (03:56→23:17)
--- NOTE | 2018-02-24 06:10 | NUR ---
Patient in room PCU 3008. I have received report from RHYS Olivier and had the opportunity to ask questions and assume patient care. Patient resting, no distress, 5L O2.
[2018-02-24 07:06] LABS: BASOPHILS % (AUTO) 0.2 % (0-1); EOSINOPHILS % (AUTO) 0 % (0-6); HEMATOCRIT 27.3 % (35.0-45.0); HEMOGLOBIN 8.7 g/dl (12.0-16.0); LYMPHOCYTES # (AUTO) 0.4 X10'3 (1.1-4.8); LYMPHOCYTES % (AUTO) 4.3 % (21-51); MEAN CORPUSCULAR HEMOGLOBIN 27.6 PG (27.0-31.0); MEAN CORPUSCULAR VOLUME 86.3 FL (78-98); MEAN PLATELET VOLUME 8.8 FL (7.4-10.4); MONOCYTES # (AUTO) 0.2 X10'3 (0-0.9); MONOCYTES % (AUTO) 1.6 % (2-12); NEUTROPHILS # (AUTO) 9.4 X10'3 (1.8-7.7); NEUTROPHILS % (AUTO) 93.9 % (42-75); PLATELET COUNT 226 X10'3 (140-440); RED BLOOD COUNT 3.16 X10'6 (4.20-5.60); RED CELL DISTRIBUTION WIDTH 14.5 % (11.5-14.5); WHITE BLOOD COUNT 10.1 X10'3 (4.5-11.0)
[2018-02-24 07:24] LABS: ALANINE AMINOTRANSFERASE 30 U/L (12-78); ALBUMIN 1.1 G/DL (3.4-5.0); ALBUMIN/GLOBULIN RATIO 0.3 (1.1-1.5); ALKALINE PHOSPHATASE 75 IU/L (46-116); ANION GAP 10 (8-16); ASPARTATE AMINO TRANSFERASE 49 U/L (10-37); BILIRUBIN,TOTAL 0.2 MG/DL (0.1-1.0); BLOOD UREA NITROGEN 58 MG/DL (7-18); BUN/CREATININE RATIO 12.7 (6.6-38.0); CALCIUM 7.1 MG/DL (8.5-10.1); CHLORIDE 108 MMOL/L (99-107); CREATININE 4.58 MG/DL (0.40-0.90); GLUCOSE 132 MG/DL (70-104); POTASSIUM 5.1 MMOL/L (3.5-5.1); SODIUM 139 MMOL/L (135-145); TOTAL CARBON DIOXIDE 20.8 MMOL/L (24-32); eGFR 11 ML/MIN
[2018-02-24] MEDS: apixaban 2.5mg tablet PO SCH (07:35)
[2018-02-24] MEDS: ondansetron/PF 4mg/2ml inj IV PRN (07:35)
[2018-02-24] MEDS: atorvastatin 20mg tablet PO SCH (07:35)
[2018-02-24] MEDS: furosemide 40mg/4ml inj IV SCH ×2 (07:35→20:00)
[2018-02-24] MEDS: lactobacillus rhamnosus 10,000 MMU CELLS/CAPSULE PO SCH ×2 (07:35→20:18)
[2018-02-24] MEDS: CefTRIAXone/D5W-Rocephin 1gm 50 ML IV SCH (07:35)
[2018-02-24] MEDS: metoprolol tartrate 50mg tablet PO SCH ×2 (07:36→20:19)
[2018-02-24] MEDS: cloNIDine 0.1 mg tablet PO SCH ×2 (07:36→20:18)
[2018-02-24] MEDS: sodium bicarbonate 650mg tablet PO SCH ×3 (07:52→20:18)
[2018-02-24] MEDS: oseltamivir 30mg capsule PO SCH (07:53)
[2018-02-24 08:06] LABS: PLATELET ESTIMATE NORMAL; TOTAL CELLS COUNTED 100
[2018-02-24 08:07] LABS: ANISOCYTOSIS 1+; POIKILOCYTOSIS FEW; POLYCHROMASIA FEW
--- NOTE | 2018-02-24 08:30 | NUR ---
Patient blood sugar this am 122, patient states she is nauseous and does not want breakfast. will not administer humalog at this time-will recheck her blood glucose at 1200 and continue to monitor.
--- NOTE | 2018-02-24 12:30 | NUR ---
Patient still feeling nauseous, states does not want lunch. Blood glucose was 110, will not administer humalog at this time. will recheck blood glucose at 1700 and continue to monitor.
[2018-02-24] MEDS ORDERED: furosemide 10 MG/1 ML 10ml inj IV STA (13:17)
--- NOTE | 2018-02-24 15:44 | NUR ---
PAGER ID: [phone] MESSAGE: [phone] RAPID BEING CALLED. MIRIAN MARQUES Addendum: 02/24/18 at 1544 by Mirian Fabian RN Amended: Links added.
--- NOTE | 2018-02-24 15:51 | NUR ---
Rapid Response A rapid response was called on this patient. On arrival to bedside, the patient was hr 134, SHORT OF BREATH, O2 SATS 83, INCREASED O2 TO 13 LITERS. temp 100.6 F RR 24. BP 147./91 Interventions: ICU nurse at bedside, respiratory therapist at bedside, ABG's ordered, Doctor notified, lactic acid and proBNP labs ordered, chest x-ray Rapid response outcome: ABGs, lab draws, O2 saturation increased to 93%, Doctor at bedside interpreting ABGs, chest xray currently being taken, still gathering information. ICU nurse still at bedside.
[2018-02-24 15:56] LABS: ABG BASE EXCESS -6.4 mmol/L (-2.0-3.0); ABG HCO3 18.7 mmol/L (22.0-26.0); ABG PCO2 (T) 37.4 mmHg (32.0-45.0); ABG PH (T) 7.322 (7.350-7.450); ABG PO2 (T) 68.4 mmHg (83-108); FCOHb 0.3 % (0.5-1.5); FLOW 13 L/min; FMetHb 0.3 % (0.3-1.12); FO2Hb 90.5 % (94-100); PATIENT TEMPERATURE 38.1; RESPIRATORY RATE (OBSERVED) 30 b/min; TOTAL HEMOGLOBIN 9.7 G/dl (12.0-16.0)
--- NOTE | 2018-02-24 16:24 | NUR ---
Problems reprioritized. Patient report given, questions answered & plan of care reviewed with RHYS Blanco in ICU.
[2018-02-24 16:27] LABS: ALANINE AMINOTRANSFERASE 35 U/L (12-78); ALBUMIN 1.1 G/DL (3.4-5.0); ALBUMIN/GLOBULIN RATIO 0.3 (1.1-1.5); ALKALINE PHOSPHATASE 79 IU/L (46-116); ANION GAP 14 (8-16); ASPARTATE AMINO TRANSFERASE 72 U/L (10-37); BILIRUBIN,TOTAL 0.2 MG/DL (0.1-1.0); BLOOD UREA NITROGEN 63 MG/DL (7-18); BUN/CREATININE RATIO 13.2 (6.6-38.0); CALCIUM 6.5 MG/DL (8.5-10.1); CHLORIDE 105 MMOL/L (99-107); CREATININE 4.79 MG/DL (0.40-0.90); GLUCOSE 138 MG/DL (70-104); POTASSIUM 4.8 MMOL/L (3.5-5.1); SODIUM 139 MMOL/L (135-145); TOTAL CARBON DIOXIDE 20.1 MMOL/L (24-32); TOTAL PROTEIN 4.8 G/DL (6.4-8.2); eGFR 11 ML/MIN
[2018-02-24] MEDS: acetaminophen 325mg tablet PO PRN (17:04)
[2018-02-24] MEDS ORDERED: midazolam 2 mg/2 ml injection IV ONE (17:15)
[2018-02-24] MEDS: lactose-reduced food (Ensure High Protein) 237ml bottle PO SCH (18:00)
[2018-02-24] MEDS: FENTANYL-0.9 % NACL/PF 100 ML IV PRN (18:25)
--- NOTE | 2018-02-24 18:25 | NUR ---
Patient in room ICU 2041. I have received report from Bella JOINER and had the opportunity to ask questions and assume patient care.
[2018-02-24] MEDS: midazolam 100mg in NS 100ml 100 ML IV PRN (18:26)
[2018-02-24] MEDS: furosemide inj 100 ML IV SCH ×2 (18:27→19:04)
--- NOTE | 2018-02-24 19:04 | NUR ---
1630 Patient transferred from PCU to ICU bed 2041 Patient brought down via bed, stable on 10 liters high flow. AOX4, diaphoretic. C/O generalized all over body. REJ. +4 general b/l upper and lower ext. Labia +4 and painful to touch. [facility]. 1700 Per Pablo intubation done and cebt Addendum: 02/24/18 at 1909 by Bella Cheng RN 173 Per Pablo intubation done, quad lumen central line placed LIJ. Fentanyl @25mg, Versed @4mg
[2018-02-24 19:31] LABS: ABG BASE EXCESS -6.6 mmol/L (-2.0-3.0); ABG HCO3 19.2 mmol/L (22.0-26.0); ABG OXYGEN SATURATION 98.1 % (95-98); ABG PCO2 (T) 42.2 mmHg (32.0-45.0); ABG PH (T) 7.283 (7.350-7.450); ABG PO2 (T) 142.2 mmHg (83-108); ALLEN'S TEST Positive; FCOHb 0.3 % (0.5-1.5); FO2Hb 97.8 % (94-100); MINUTE VOLUME 7 L/min; PATIENT TEMPERATURE 38.5; PEEP 12 cm H2O; RESPIRATORY RATE 16 b/min; RESPIRATORY RATE (OBSERVED) 17 b/min; TIDAL VOLUME 400 mL; TOTAL HEMOGLOBIN 9.6 G/dl (12.0-16.0)
[2018-02-24] MEDS: furosemide 10 MG/1 ML 10ml inj IV SCH (20:00)
[2018-02-24] MEDS: albumin (human) 25% 100ml IV 100 ML IV SCH (20:18)
[2018-02-24] MEDS: insulin glargine (Lantus) pen - multi-dose SQ SCH (20:37)
[2018-02-25] VITALS (28 sets, daily range): BP systolic 86–120; BP diastolic 32–94
[2018-02-25 02:25] LABS: CLARITY,URINE SLIGHTLY CLOUDY (Clear); COLOR,URINE YELLOW (Yellow); GLUCOSE, URINE 100 mg/dl (Neg); KETONES,URINE NEGATIVE (Neg); LEUKOCYTE ESTERASE ,URINE NEGATIVE (Neg); NITRITES, URINE NEGATIVE (Neg); OCCULT BLOOD,URINE MODERATE (Neg); PROTEIN,URINE 100 mg/dl (Neg); UA COLLECTION TYPE CLN CATCH MIDSTREAM; UROBILINOGEN,URINE 0.2 E.U/dL (0.2-1.0)
[2018-02-25 02:38] LABS: BASOPHILS % (AUTO) 0 % (0-1); EOSINOPHILS % (AUTO) 0.1 % (0-6); HEMATOCRIT 22.1 % (35.0-45.0); HEMOGLOBIN 7.3 g/dl (12.0-16.0); LYMPHOCYTES # (AUTO) 0.3 X10'3 (1.1-4.8); LYMPHOCYTES % (AUTO) 10.6 % (21-51); MEAN CORPUSCULAR HEMOGLOBIN 28.4 PG (27.0-31.0); MEAN CORPUSCULAR HGB CONC 32.8 % (33.0-36.5); MEAN CORPUSCULAR VOLUME 86.4 FL (78-98); MEAN PLATELET VOLUME 9.1 FL (7.4-10.4); MONOCYTES % (AUTO) 1.4 % (2-12); NEUTROPHILS # (AUTO) 2.6 X10'3 (1.8-7.7); NEUTROPHILS % (AUTO) 87.9 % (42-75); PLATELET COUNT 185 X10'3 (140-440); RED BLOOD COUNT 2.56 X10'6 (4.20-5.60); RED CELL DISTRIBUTION WIDTH 14.3 % (11.5-14.5)
[2018-02-25] MEDS: albuterol 2.5 MG/3 ML nebule NEB SCH ×6 (02:41→23:39)
[2018-02-25 02:55] LABS: ALANINE AMINOTRANSFERASE 29 U/L (12-78); ALBUMIN 1.3 G/DL (3.4-5.0); ALBUMIN/GLOBULIN RATIO 0.4 (1.1-1.5); ALKALINE PHOSPHATASE 51 IU/L (46-116); ANION GAP 13 (8-16); ASPARTATE AMINO TRANSFERASE 59 U/L (10-37); BILIRUBIN,TOTAL 0.2 MG/DL (0.1-1.0); BLOOD UREA NITROGEN 65 MG/DL (7-18); BUN/CREATININE RATIO 12.7 (6.6-38.0); CHLORIDE 107 MMOL/L (99-107); CREATININE 5.11 MG/DL (0.40-0.90); GLUCOSE 88 MG/DL (70-104); POTASSIUM 3.8 MMOL/L (3.5-5.1); SODIUM 140 MMOL/L (135-145); TOTAL CARBON DIOXIDE 20.3 MMOL/L (24-32); TOTAL PROTEIN 4.2 G/DL (6.4-8.2); eGFR 10 ML/MIN
[2018-02-25] MEDS: midazolam 100mg in NS 100ml 100 ML IV PRN ×2 (02:58→13:50)
[2018-02-25 03:01] LABS: CALCIUM 5.9 MG/DL (8.5-10.1)
[2018-02-25 03:06] LABS: ABG BASE EXCESS -5.9 mmol/L (-2.0-3.0); ABG HCO3 19.5 mmol/L (22.0-26.0); ABG PCO2 (T) 36.1 mmHg (32.0-45.0); ABG PH (T) 7.345 (7.350-7.450); ABG PO2 (T) 125.6 mmHg (83-108); ALLEN'S TEST Positive; FCOHb 0.3 % (0.5-1.5); FMetHb 0.2 % (0.3-1.12); FO2Hb 97.5 % (94-100); MINUTE VOLUME 8 L/min; PATIENT TEMPERATURE 35.9; PEEP 12 cm H2O; RESPIRATORY RATE 16 b/min; RESPIRATORY RATE (OBSERVED) 17 b/min; TIDAL VOLUME 400 mL; TOTAL HEMOGLOBIN 8.2 G/dl (12.0-16.0)
[2018-02-25 03:17] LABS: RBC,URINE 0-2 /HPF (0-2)
[2018-02-25 03:18] LABS: BACTERIA,URINE FEW /HPF (Neg)
[2018-02-25 03:19] LABS: SQUAMOUS EPITHELIAL CELL,UR FEW /LPF (FEW)
[2018-02-25 03:32] LABS: MAGNESIUM 1.5 MG/DL (1.5-2.4)
[2018-02-25] MEDS: FENTANYL-0.9 % NACL/PF 100 ML IV PRN ×2 (03:32→17:01)
[2018-02-25] MEDS ORDERED: calcium chloride 100 MG/1 ML inj IV ONE (04:00)
--- NOTE | 2018-02-25 06:19 | NUR ---
Problems reprioritized. Patient report given, questions answered & plan of care reviewed with Bella JOINER.
--- NOTE | 2018-02-25 06:27 | NUR ---
Late entry, Called Dominic Barton NP with critical Ca of 5.9 received orders for 1gm Calcium chloride IV. H&H drop from previous lab draw, received orders to type and screen.
[2018-02-25 07:49] LABS: ANISOCYTOSIS 1+; LYMPHOCYTES % (MANUAL) 11.5 % (21-51); MONOCYTES % (MANUAL) 1.5 % (2-12); PLATELET ESTIMATE NORMAL; TOTAL CELLS COUNTED 200
[2018-02-25 07:50] LABS: POLYCHROMASIA FEW
[2018-02-25] MEDS: cloNIDine 0.1 mg tablet PO SCH ×2 (08:00→20:00)
[2018-02-25] MEDS: lactose-reduced food (Ensure High Protein) 237ml bottle PO SCH ×3 (08:00→18:00)
[2018-02-25] MEDS: metoprolol tartrate 50mg tablet PO SCH ×2 (08:00→20:00)
[2018-02-25] MEDS: furosemide 40mg/4ml inj IV SCH ×2 (08:00→20:00)
[2018-02-25] MEDS: furosemide 10 MG/1 ML 10ml inj IV SCH ×2 (08:00→20:00)
[2018-02-25] MEDS: albumin (human) 25% 100ml IV 100 ML IV SCH ×2 (08:43→21:25)
[2018-02-25] MEDS: CefTRIAXone/D5W-Rocephin 1gm 50 ML IV SCH (08:43)
[2018-02-25] MEDS: lactobacillus rhamnosus 10,000 MMU CELLS/CAPSULE PO SCH ×2 (08:43→21:28)
[2018-02-25] MEDS: atorvastatin 20mg tablet PO SCH (08:44)
[2018-02-25] MEDS: sodium bicarbonate 650mg tablet PO SCH ×3 (08:46→21:27)
[2018-02-25] MEDS: oseltamivir 30mg capsule PO SCH (12:38)
[2018-02-25] MEDS: dextrose 50%-water 50ml dispensing syringe IV PRN ×2 (14:22→21:04)
[2018-02-25 14:57] LABS: HEMATOCRIT 22.3 % (35.0-45.0); HEMOGLOBIN 7.2 g/dl (12.0-16.0); MEAN CORPUSCULAR HEMOGLOBIN 27.9 PG (27.0-31.0); MEAN CORPUSCULAR HGB CONC 32.1 % (33.0-36.5); MEAN CORPUSCULAR VOLUME 86.8 FL (78-98); MEAN PLATELET VOLUME 8.4 FL (7.4-10.4); PLATELET COUNT 170 X10'3 (140-440); RED BLOOD COUNT 2.57 X10'6 (4.20-5.60); WHITE BLOOD COUNT 8.3 X10'3 (4.5-11.0)
--- NOTE | 2018-02-25 15:15 | NUR ---
Tube feeding consult. Patient was rapid response and now intubated and sedated. Per MD note patient with ARDS and will receive thoracentesis and lasix or dialysis if needed to "dry her out." Patient has a temporary HD catheter. Per MD patient will receive Nepro starting at 10 ml/hr. Recommend a goal rate of 40 ml/hr. This formula will provide concentrated calories and minimal free water however will not meet protein needs on the vent. Patient was admitted with pneumonia and influenza A, h/o DM and CKD. Will continue to follow. Recommend: 1. Per MD begin tube feedings using Nepro at 10 ml/hr. Recommend to advance tube feeding by 20 ml q 8 to goal of 40 ml/hr will provide total volume of 1152 ml, 1728 cals, 78 gm protein, and 698 ml water. Does not meet patient's protein needs without overfeeding. 2. Daily Weight 3. Prealbumin q Tuesday and Addendum: 02/25/18 at [address] Amended: Links added.
[2018-02-25] MEDS ORDERED: LIDOcaine 1%/PF 5ML 10 MG/ML VIAL ONE (15:45)
--- NOTE | 2018-02-25 18:19 | NUR ---
Patient in room ICU 2041. I have received report from Bella JOINER and had the opportunity to ask questions and assume patient care. Pt getting prepared for transfer to IR with IR staff and RT.
[2018-02-25] MEDS ORDERED: heparin sodium, porcine/PF 100unit/ml 5ML syringe ONE ×2 (19:09→19:10)
[2018-02-25] MEDS: insulin glargine (Lantus) pen - multi-dose SQ SCH (21:00)
[2018-02-25 21:16] LABS: ALBUMIN 1.2 G/DL (3.4-5.0); ANION GAP 13 (8-16); BLOOD UREA NITROGEN 69 MG/DL (7-18); BUN/CREATININE RATIO 12.2 (6.6-38.0); CALCIUM 6.1 MG/DL (8.5-10.1); CHLORIDE 107 MMOL/L (99-107); CREATININE 5.64 MG/DL (0.40-0.90); GLUCOSE 53 MG/DL (70-104); MAGNESIUM 1.6 MG/DL (1.5-2.4); POTASSIUM 4.5 MMOL/L (3.5-5.1); SODIUM 141 MMOL/L (135-145); TOTAL CARBON DIOXIDE 20.6 MMOL/L (24-32); eGFR 9 ML/MIN
[2018-02-25] MEDS: mineral oil/petrolatum ophthal oint EACHEYE SCH (21:28)
--- NOTE | 2018-02-25 21:40 | NUR ---
Late entry, 1820: pt to IR with RT and IR RN. 1934: Pt returned from IR, not CT placed, HD cath placed LIJ.
--- NOTE | 2018-02-25 23:18 | NUR ---
Called Jas Barton OIL DRILLER regarding pts BP of 87/50 with MAP of 58. Pt already received 25% Albumin at 2125 per schedule. Received order for 500ML bolus of NS. Will continue to monitor.
[2018-02-25] MEDS ORDERED: normal saline 500ml IV soln 1,000 ML IV ONE (23:20)
[2018-02-26] VITALS (24 sets, daily range): BP systolic 81–119; BP diastolic 47–68
--- NOTE | 2018-02-26 00:34 | NUR ---
Called Jas Barton DAY TREATMENT CLINICIAN/ART THERAPIST regarding BP of 85/51 Map 58, was 78/39 MAP 47. Urine output dropped to 15ml hr when previous was 30-45ml/hr. Received order for Levophed gtt per protocol.
[2018-02-26] MEDS ORDERED: NORepinephrine 8mg/ 250ml NS 250 ML IV ONE (00:38)
[2018-02-26] MEDS: dextrose 50%-water 50ml dispensing syringe IV PRN (00:42)
[2018-02-26] MEDS: NORepinephrine 8mg/ 250ml NS 250 ML IV SCH (00:47)
[2018-02-26] MEDS: mineral oil/petrolatum ophthal oint EACHEYE SCH ×4 (02:26→20:18)
[2018-02-26 02:52] LABS: BASOPHILS % (AUTO) 0 % (0-1); EOSINOPHILS % (AUTO) 0 % (0-6); HEMATOCRIT 23.1 % (35.0-45.0); HEMOGLOBIN 7.3 g/dl (12.0-16.0); LYMPHOCYTES # (AUTO) 0.6 X10'3 (1.1-4.8); LYMPHOCYTES % (AUTO) 5.8 % (21-51); MEAN CORPUSCULAR HEMOGLOBIN 27.3 PG (27.0-31.0); MEAN CORPUSCULAR HGB CONC 31.6 % (33.0-36.5); MEAN CORPUSCULAR VOLUME 86.4 FL (78-98); MEAN PLATELET VOLUME 9.1 FL (7.4-10.4); MONOCYTES # (AUTO) 0.1 X10'3 (0-0.9); MONOCYTES % (AUTO) 0.6 % (2-12); NEUTROPHILS # (AUTO) 9.6 X10'3 (1.8-7.7); NEUTROPHILS % (AUTO) 93.6 % (42-75); PLATELET COUNT 163 X10'3 (140-440); RED BLOOD COUNT 2.67 X10'6 (4.20-5.60); RED CELL DISTRIBUTION WIDTH 14.4 % (11.5-14.5); WHITE BLOOD COUNT 10.3 X10'3 (4.5-11.0)
[2018-02-26 03:04] LABS: ALANINE AMINOTRANSFERASE 37 U/L (12-78); ALBUMIN 1.5 G/DL (3.4-5.0); ALBUMIN/GLOBULIN RATIO 0.6 (1.1-1.5); ALKALINE PHOSPHATASE 90 IU/L (46-116); ANION GAP 12 (8-16); ASPARTATE AMINO TRANSFERASE 96 U/L (10-37); BILIRUBIN,TOTAL 0.4 MG/DL (0.1-1.0); BLOOD UREA NITROGEN 71 MG/DL (7-18); BUN/CREATININE RATIO 12.4 (6.6-38.0); CHLORIDE 108 MMOL/L (99-107); CREATININE 5.73 MG/DL (0.40-0.90); GLUCOSE 88 MG/DL (70-104); MAGNESIUM 1.5 MG/DL (1.5-2.4); POTASSIUM 4.5 MMOL/L (3.5-5.1); SODIUM 142 MMOL/L (135-145); TOTAL CARBON DIOXIDE 22.4 MMOL/L (24-32); TOTAL PROTEIN 4.1 G/DL (6.4-8.2); eGFR 9 ML/MIN
[2018-02-26 03:15] LABS: CALCIUM 5.8 MG/DL (8.5-10.1)
--- NOTE | 2018-02-26 03:33 | NUR ---
critical Calcium level of 5.8 reported to Dominic Barton BUSINESS OBJECTS ARCHITECT, orders received to administer 1gm of calcium chloride.
[2018-02-26] MEDS ORDERED: calcium chloride 100 MG/1 ML inj IV ONE (03:35)
[2018-02-26] MEDS: albuterol 2.5 MG/3 ML nebule NEB SCH ×6 (03:42→23:00)
[2018-02-26 04:06] LABS: ABG OXYGEN SATURATION 95.5 % (95-98); ABG PCO2 (T) 41.6 mmHg (32.0-45.0); ABG PH (T) 7.317 (7.350-7.450); ABG PO2 (T) 80.5 mmHg (83-108); ALLEN'S TEST Positive; FCOHb 0.2 % (0.5-1.5); FMetHb 0.3 % (0.3-1.12); MINUTE VOLUME 7 L/min; PATIENT TEMPERATURE 36.3; PEEP 12 cm H2O; RESPIRATORY RATE 16 b/min; RESPIRATORY RATE (OBSERVED) 16 b/min; TIDAL VOLUME 400 mL; TOTAL HEMOGLOBIN 8.1 G/dl (12.0-16.0)
[2018-02-26] MEDS: midazolam 100mg in NS 100ml 100 ML IV PRN ×2 (04:35→14:38)
--- NOTE | 2018-02-26 06:26 | NUR ---
Problems reprioritized. Patient report given, questions answered & plan of care reviewed with Clarissa JOINER.
[2018-02-26 07:26] LABS: ANISOCYTOSIS 1+; PLATELET ESTIMATE NORMAL; TOTAL CELLS COUNTED 100
[2018-02-26] MEDS ORDERED: normal saline 1000ml 250 ML IV PRN (08:00)
[2018-02-26] MEDS ORDERED: LIDOcaine 1% (10mg/ml) 2ml vial SQ ONE (08:00)
[2018-02-26] MEDS: metoprolol tartrate 50mg tablet PO SCH ×2 (08:00→20:00)
[2018-02-26] MEDS ORDERED: heparin 1,000 units/ml 10ml inj HE ONE ×2 (08:00)
[2018-02-26] MEDS ORDERED: epoetin 20,000 units/ml inj IV ONE ×2 (08:00→11:15)
[2018-02-26] MEDS: furosemide 40mg/4ml inj IV SCH (08:00)
[2018-02-26] MEDS ORDERED: iron sucrose complex injection 100 MG in normal saline 100ml IV soln 95 ML IV SCH (08:00)
[2018-02-26] MEDS: cloNIDine 0.1 mg tablet PO SCH ×2 (08:00→20:00)
[2018-02-26] MEDS ORDERED: normal saline 1000ml 100 ML IV PRN (08:00)
[2018-02-26] MEDS: furosemide 10 MG/1 ML 10ml inj IV SCH (08:00)
[2018-02-26] MEDS: lactose-reduced food (Ensure High Protein) 237ml bottle PO SCH ×3 (08:00→18:00)
[2018-02-26 08:20] LABS: PHOSPHORUS 8.1 MG/DL (2.3-4.5)
[2018-02-26] MEDS: sodium bicarbonate 650mg tablet PO SCH ×3 (08:35→20:26)
[2018-02-26] MEDS: oseltamivir 30mg capsule PO SCH (08:35)
[2018-02-26] MEDS: atorvastatin 20mg tablet PO SCH (08:36)
[2018-02-26] MEDS: CefTRIAXone/D5W-Rocephin 1gm 50 ML IV SCH (08:36)
[2018-02-26] MEDS: albumin (human) 25% 100ml IV 100 ML IV SCH ×2 (08:37→20:19)
[2018-02-26] MEDS: lactobacillus rhamnosus 10,000 MMU CELLS/CAPSULE PO SCH ×2 (08:39→20:20)
[2018-02-26 09:12] LABS: ALBUMIN 1.4 G/DL (3.4-5.0); ANION GAP 13 (8-16); BLOOD UREA NITROGEN 73 MG/DL (7-18); BUN/CREATININE RATIO 12.6 (6.6-38.0); CHLORIDE 107 MMOL/L (99-107); CREATININE 5.81 MG/DL (0.40-0.90); GLUCOSE 79 MG/DL (70-104); MAGNESIUM 1.5 MG/DL (1.5-2.4); POTASSIUM 4.6 MMOL/L (3.5-5.1); SODIUM 141 MMOL/L (135-145); TOTAL CARBON DIOXIDE 21.3 MMOL/L (24-32); eGFR 8 ML/MIN
[2018-02-26] MEDS ORDERED: magnesium 2GM in 50ml NS 50 ML IV PRN (09:40)
[2018-02-26] MEDS ORDERED: magnesium 4gm in 100ml NS 100 ML IV PRN (09:40)
[2018-02-26] MEDS ORDERED: calcium chloride inj. 1,000 MG in normal saline 100ml IV soln 90 ML IV ONE (09:40)
[2018-02-26 10:21] LABS: PHOSPHORUS 8.2 MG/DL (2.3-4.5)
[2018-02-26] MEDS: FENTANYL-0.9 % NACL/PF 100 ML IV PRN (14:37)
[2018-02-26 15:04] LABS: % IRON SATURATION 12 % (11-46); IRON 8 UG/DL (49-151); TOTAL IRON BINDING CAPACITY 67 UG/DL (259-388)
[2018-02-26 15:05] LABS: ALBUMIN 1.8 G/DL (3.4-5.0); ANION GAP 10 (8-16); BLOOD UREA NITROGEN 37 MG/DL (7-18); BUN/CREATININE RATIO 11.1 (6.6-38.0); CALCIUM 6.9 MG/DL (8.5-10.1); CHLORIDE 104 MMOL/L (99-107); CREATININE 3.33 MG/DL (0.40-0.90); GLUCOSE 80 MG/DL (70-104); MAGNESIUM 1.6 MG/DL (1.5-2.4); PHOSPHORUS 4.7 MG/DL (2.3-4.5); POTASSIUM 3.7 MMOL/L (3.5-5.1); SODIUM 140 MMOL/L (135-145); TOTAL CARBON DIOXIDE 25.9 MMOL/L (24-32); eGFR 16 ML/MIN
[2018-02-26] MEDS: insulin glargine (Lantus) pen - multi-dose SQ SCH (21:00)
[2018-02-27] VITALS (26 sets, daily range): BP systolic 94–119; BP diastolic 54–74
[2018-02-27] MEDS: mineral oil/petrolatum ophthal oint EACHEYE SCH ×4 (02:20→21:04)
[2018-02-27 03:07] LABS: ALANINE AMINOTRANSFERASE 42 U/L (12-78); ALBUMIN 1.8 G/DL (3.4-5.0); ALBUMIN/GLOBULIN RATIO 0.8 (1.1-1.5); ALKALINE PHOSPHATASE 181 IU/L (46-116); ANION GAP 10 (8-16); ASPARTATE AMINO TRANSFERASE 122 U/L (10-37); BILIRUBIN,TOTAL 0.4 MG/DL (0.1-1.0); BLOOD UREA NITROGEN 44 MG/DL (7-18); BUN/CREATININE RATIO 10.6 (6.6-38.0); CALCIUM 6.3 MG/DL (8.5-10.1); CHLORIDE 106 MMOL/L (99-107); CREATININE 4.14 MG/DL (0.40-0.90); GLUCOSE 100 MG/DL (70-104); PHOSPHORUS 5.3 MG/DL (2.3-4.5); POTASSIUM 3.6 MMOL/L (3.5-5.1); PREALBUMIN 7.3 MG/DL (19-36); SODIUM 141 MMOL/L (135-145); TOTAL CARBON DIOXIDE 25.1 MMOL/L (24-32); TOTAL PROTEIN 4.2 G/DL (6.4-8.2); eGFR 13 ML/MIN
[2018-02-27 03:18] LABS: BASOPHILS % (AUTO) 0.1 % (0-1); EOSINOPHILS % (AUTO) 0 % (0-6); LYMPHOCYTES # (AUTO) 0.4 X10'3 (1.1-4.8); LYMPHOCYTES % (AUTO) 3.6 % (21-51); MEAN CORPUSCULAR HEMOGLOBIN 27.5 PG (27.0-31.0); MEAN CORPUSCULAR HGB CONC 32.1 % (33.0-36.5); MEAN CORPUSCULAR VOLUME 85.6 FL (78-98); MEAN PLATELET VOLUME 9.2 FL (7.4-10.4); MONOCYTES # (AUTO) 0.1 X10'3 (0-0.9); NEUTROPHILS # (AUTO) 10.1 X10'3 (1.8-7.7); NEUTROPHILS % (AUTO) 95.3 % (42-75); PLATELET COUNT 141 X10'3 (140-440); RED BLOOD COUNT 2.52 X10'6 (4.20-5.60); RED CELL DISTRIBUTION WIDTH 14.2 % (11.5-14.5); WHITE BLOOD COUNT 10.6 X10'3 (4.5-11.0)
[2018-02-27] MEDS: albuterol 2.5 MG/3 ML nebule NEB SCH ×6 (03:21→23:16)
[2018-02-27 03:23] LABS: HEMATOCRIT 21.6 % (35.0-45.0); HEMOGLOBIN 6.9 g/dl (12.0-16.0)
[2018-02-27 03:41] LABS: ABG BASE EXCESS -4.1 mmol/L (-2.0-3.0); ABG HCO3 21.4 mmol/L (22.0-26.0); ABG OXYGEN SATURATION 92.6 % (95-98); ABG PCO2 (T) 39.8 mmHg (32.0-45.0); ABG PH (T) 7.346 (7.350-7.450); ABG PO2 (T) 64.9 mmHg (83-108); ALLEN'S TEST Positive; FCOHb 0.1 % (0.5-1.5); FMetHb 0.3 % (0.3-1.12); FO2Hb 92.2 % (94-100); MINUTE VOLUME 7 L/min; PATIENT TEMPERATURE 36.3; PEEP 10 cm H2O; RESPIRATORY RATE 16 b/min; RESPIRATORY RATE (OBSERVED) 16 b/min; TIDAL VOLUME 400 mL
--- NOTE | 2018-02-27 06:30 | NUR ---
Problems reprioritized. Patient report given, questions answered & plan of care reviewed with Clarissa JOINER.
[2018-02-27] MEDS ORDERED: heparin 1,000 units/ml 10ml inj HE ONE ×2 (08:00)
[2018-02-27] MEDS: cloNIDine 0.1 mg tablet PO SCH ×2 (08:00→19:21)
[2018-02-27] MEDS: metoprolol tartrate 50mg tablet PO SCH ×2 (08:00→21:04)
[2018-02-27] MEDS ORDERED: LIDOcaine 1% (10mg/ml) 2ml vial SQ ONE (08:00)
[2018-02-27] MEDS ORDERED: epoetin 20,000 units/ml inj IV ONE ×2 (08:00→11:30)
[2018-02-27] MEDS: lactose-reduced food (Ensure High Protein) 237ml bottle PO SCH ×3 (08:00→18:00)
[2018-02-27] MEDS ORDERED: heparin 1,000 units/ml 10ml inj IV ONE (08:00)
[2018-02-27] MEDS ORDERED: normal saline 1000ml 250 ML IV PRN (08:00)
[2018-02-27] MEDS: CefTRIAXone/D5W-Rocephin 1gm 50 ML IV SCH (08:25)
[2018-02-27] MEDS: albumin (human) 25% 100ml IV 100 ML IV SCH ×2 (08:26→21:05)
[2018-02-27] MEDS: apixaban 2.5mg tablet PO SCH ×2 (08:27→21:04)
[2018-02-27] MEDS: oseltamivir 30mg capsule PO SCH (08:27)
[2018-02-27] MEDS: sodium bicarbonate 650mg tablet PO SCH ×3 (08:27→21:04)
[2018-02-27] MEDS: lactobacillus rhamnosus 10,000 MMU CELLS/CAPSULE PO SCH ×2 (08:28→21:04)
[2018-02-27] MEDS: atorvastatin 20mg tablet PO SCH (08:28)
[2018-02-27] MEDS: midazolam 100mg in NS 100ml 100 ML IV PRN (08:29)
[2018-02-27] MEDS: FENTANYL-0.9 % NACL/PF 100 ML IV PRN (08:30)
[2018-02-27] MEDS: sodium ferric gluc complex inj 125 MG in normal saline 100ml IV soln 100 ML IV SCH (08:45)
[2018-02-27 09:02] LABS: MAGNESIUM 1.7 MG/DL (1.5-2.4)
--- NOTE | 2018-02-27 09:58 | NUR ---
Reassessment: Pt remains intubated. TF has been advanced to recommended goal rate of 40 mL/hr, pt tolerating with low residuals 10-150 mL. Pt with dialysis with ultrafiltration to reduce edema and pulmonary congestion per MD progress notes. Pt with bilat generalized 4+ edema and bilat labia 4+ edema per physical assessment. LBM 02/26. Will continue to follow. Recommend: 1. Per MD begin tube feedings using Nepro at 10 ml/hr. Recommend to advance tube feeding by 20 ml q 8 to goal of 40 ml/hr will provide total volume of 1152 ml, 1728 cals, 78 gm protein, and 698 ml water. Does not meet patient's protein needs without overfeeding. 2. Daily Weight 3. Prealbumin q Tuesday and Addendum: 02/27/18 at [address] Amended: Links added.
[2018-02-27 10:08] LABS: PLATELET ESTIMATE NORMAL; TOTAL CELLS COUNTED 100
--- NOTE | 2018-02-27 18:30 | NUR ---
Patient in room ICU 2041. I have received report from SOFIA JOINER and had the opportunity to ask questions and assume patient care.
[2018-02-27] MEDS: insulin glargine (Lantus) pen - multi-dose SQ SCH (21:00)
[2018-02-28] VITALS (23 sets, daily range): BP systolic 81–118; BP diastolic 51–79
[2018-02-28] MEDS: NORepinephrine 8mg/ 250ml NS 250 ML IV SCH ×2 (00:35→10:53)
[2018-02-28] MEDS: mineral oil/petrolatum ophthal oint EACHEYE SCH ×4 (02:04→20:30)
[2018-02-28] MEDS: insulin regular, human vial - multi-dose SQ SCH ×4 (02:08→20:33)
[2018-02-28] MEDS: albuterol 2.5 MG/3 ML nebule NEB SCH ×6 (03:12→23:26)
[2018-02-28 04:23] LABS: BASOPHILS % (AUTO) 0.1 % (0-1); EOSINOPHILS # (AUTO) 0.1 X10'3 (0-0.9); EOSINOPHILS % (AUTO) 1.2 % (0-6); HEMATOCRIT 23.7 % (35.0-45.0); HEMOGLOBIN 7.7 g/dl (12.0-16.0); LYMPHOCYTES # (AUTO) 0.6 X10'3 (1.1-4.8); LYMPHOCYTES % (AUTO) 8.5 % (21-51); MEAN CORPUSCULAR HEMOGLOBIN 27.9 PG (27.0-31.0); MEAN CORPUSCULAR HGB CONC 32.4 % (33.0-36.5); MEAN CORPUSCULAR VOLUME 85.9 FL (78-98); MEAN PLATELET VOLUME 9.1 FL (7.4-10.4); MONOCYTES # (AUTO) 0.1 X10'3 (0-0.9); MONOCYTES % (AUTO) 1.2 % (2-12); NEUTROPHILS # (AUTO) 6.2 X10'3 (1.8-7.7); PLATELET COUNT 91 X10'3 (140-440); RED BLOOD COUNT 2.76 X10'6 (4.20-5.60); RED CELL DISTRIBUTION WIDTH 14.4 % (11.5-14.5); WHITE BLOOD COUNT 6.9 X10'3 (4.5-11.0)
[2018-02-28 04:25] LABS: ALANINE AMINOTRANSFERASE 43 U/L (12-78); ALBUMIN 1.9 G/DL (3.4-5.0); ALBUMIN/GLOBULIN RATIO 0.7 (1.1-1.5); ALKALINE PHOSPHATASE 205 IU/L (46-116); ANION GAP 8 (8-16); ASPARTATE AMINO TRANSFERASE 130 U/L (10-37); BILIRUBIN,TOTAL 0.3 MG/DL (0.1-1.0); BLOOD UREA NITROGEN 28 MG/DL (7-18); BUN/CREATININE RATIO 8.5 (6.6-38.0); CALCIUM 6.5 MG/DL (8.5-10.1); CHLORIDE 104 MMOL/L (99-107); GLUCOSE 227 MG/DL (70-104); MAGNESIUM 1.7 MG/DL (1.5-2.4); PHOSPHORUS 2.9 MG/DL (2.3-4.5); POTASSIUM 3.3 MMOL/L (3.5-5.1); SODIUM 139 MMOL/L (135-145); TOTAL CARBON DIOXIDE 26.9 MMOL/L (24-32); TOTAL PROTEIN 4.6 G/DL (6.4-8.2); eGFR 16 ML/MIN
[2018-02-28 05:09] LABS: HBSAG SCREEN Negative (Negative)
[2018-02-28 05:21] LABS: ABG BASE EXCESS -0.8 mmol/L (-2.0-3.0); ABG HCO3 24.4 mmol/L (22.0-26.0); ABG OXYGEN SATURATION 93.4 % (95-98); ABG PCO2 (T) 42.8 mmHg (32.0-45.0); ABG PH (T) 7.374 (7.350-7.450); ABG PO2 (T) 70.5 mmHg (83-108); ALLEN'S TEST Positive; FCOHb 0.3 % (0.5-1.5); FO2Hb 93.1 % (94-100); PATIENT TEMPERATURE 37.1; PEEP 10 cm H2O; RESPIRATORY RATE 16 b/min; RESPIRATORY RATE (OBSERVED) 16 b/min; TIDAL VOLUME 400 mL; TOTAL HEMOGLOBIN 8.7 G/dl (12.0-16.0)
[2018-02-28] MEDS: FENTANYL-0.9 % NACL/PF 100 ML IV PRN (05:30)
[2018-02-28 06:17] LABS: TOTAL CELLS COUNTED 100
--- NOTE | 2018-02-28 06:17 | NUR ---
Problems reprioritized. Patient report given, questions answered & plan of care reviewed with JABIER JOINER.
[2018-02-28 06:18] LABS: HYPOCHROMASIA 1+; PLATELET ESTIMATE DECREASED
[2018-02-28] MEDS: midazolam 100mg in NS 100ml 100 ML IV PRN (06:21)
--- NOTE | 2018-02-28 06:30 | NUR ---
Patient in room ICU 2041. I have received report from Bhavana RN and had the opportunity to ask questions and assume patient care.
[2018-02-28] MEDS ORDERED: epoetin 20,000 units/ml inj IV ONE (08:00)
[2018-02-28] MEDS: lactose-reduced food (Ensure High Protein) 237ml bottle PO SCH ×2 (08:00→13:00)
[2018-02-28] MEDS: cloNIDine 0.1 mg tablet PO SCH ×2 (08:00→20:00)
[2018-02-28] MEDS ORDERED: normal saline 1000ml 250 ML IV PRN (08:00)
[2018-02-28] MEDS ORDERED: albumin (human) 25% 100ml IV 100 ML IV PRN (08:00)
[2018-02-28] MEDS: albumin (human) 25% 100ml IV 100 ML IV SCH (08:28)
[2018-02-28] MEDS: apixaban 2.5mg tablet PO SCH ×2 (08:32→20:30)
[2018-02-28] MEDS: CefTRIAXone/D5W-Rocephin 1gm 50 ML IV SCH (08:32)
[2018-02-28] MEDS: sodium bicarbonate 650mg tablet PO SCH ×2 (08:32→13:16)
[2018-02-28] MEDS: atorvastatin 20mg tablet PO SCH (08:32)
[2018-02-28] MEDS: oseltamivir 30mg capsule PO SCH (08:32)
[2018-02-28] MEDS: lactobacillus rhamnosus 10,000 MMU CELLS/CAPSULE PO SCH ×2 (08:36→20:30)
[2018-02-28] MEDS: metoprolol tartrate 50mg tablet PO SCH ×2 (08:57→20:30)
[2018-02-28] MEDS: sodium ferric gluc complex inj 125 MG in normal saline 100ml IV soln 100 ML IV SCH (10:33)
--- NOTE | 2018-02-28 18:10 | NUR ---
Problems reprioritized. Patient report given, questions answered & plan of care reviewed with Bhavana RN.
--- NOTE | 2018-02-28 18:30 | NUR ---
Patient in room ICU 2041. I have received report from JABIER JOINER and had the opportunity to ask questions and assume patient care. Pt receiving dialysis
[2018-02-28] MEDS: insulin glargine (Lantus) pen - multi-dose SQ SCH (20:33)
[2018-03-01] VITALS (24 sets, daily range): BP systolic 84–121; BP diastolic 52–79
[2018-03-01] MEDS: mineral oil/petrolatum ophthal oint EACHEYE SCH ×4 (02:16→20:46)
[2018-03-01] MEDS: insulin regular, human vial - multi-dose SQ SCH ×4 (02:20→20:52)
[2018-03-01] MEDS: FENTANYL-0.9 % NACL/PF 100 ML IV PRN (02:21)
[2018-03-01] MEDS: midazolam 100mg in NS 100ml 100 ML IV PRN (02:21)
[2018-03-01] MEDS: albuterol 2.5 MG/3 ML nebule NEB SCH ×6 (03:20→23:25)
[2018-03-01 03:36] LABS: ABG BASE EXCESS 2.7 mmol/L (-2.0-3.0); ABG HCO3 27.9 mmol/L (22.0-26.0); ABG OXYGEN SATURATION 95.9 % (95-98); ABG PCO2 (T) 48.1 mmHg (32.0-45.0); ABG PH (T) 7.385 (7.350-7.450); ABG PO2 (T) 83.9 mmHg (83-108); FCOHb 0.3 % (0.5-1.5); FMetHb 0.3 % (0.3-1.12); FO2Hb 95.3 % (94-100); MINUTE VOLUME 7 L/min; PEEP 10 cm H2O; RESPIRATORY RATE 16 b/min; RESPIRATORY RATE (OBSERVED) 16 b/min; TIDAL VOLUME 400 mL; TOTAL HEMOGLOBIN 8.6 G/dl (12.0-16.0)
[2018-03-01 03:54] LABS: BASOPHILS % (AUTO) 0 % (0-1); EOSINOPHILS # (AUTO) 0.1 X10'3 (0-0.9); EOSINOPHILS % (AUTO) 2.2 % (0-6); HEMATOCRIT 24.3 % (35.0-45.0); HEMOGLOBIN 7.7 g/dl (12.0-16.0); LYMPHOCYTES # (AUTO) 1.1 X10'3 (1.1-4.8); LYMPHOCYTES % (AUTO) 15.9 % (21-51); MEAN CORPUSCULAR HEMOGLOBIN 27.4 PG (27.0-31.0); MEAN CORPUSCULAR HGB CONC 31.5 % (33.0-36.5); MEAN PLATELET VOLUME 8.9 FL (7.4-10.4); MONOCYTES # (AUTO) 0.3 X10'3 (0-0.9); MONOCYTES % (AUTO) 5.1 % (2-12); NEUTROPHILS # (AUTO) 5.2 X10'3 (1.8-7.7); NEUTROPHILS % (AUTO) 76.8 % (42-75); PLATELET COUNT 69 X10'3 (140-440); RED BLOOD COUNT 2.79 X10'6 (4.20-5.60); RED CELL DISTRIBUTION WIDTH 14.9 % (11.5-14.5); WHITE BLOOD COUNT 6.8 X10'3 (4.5-11.0)
[2018-03-01 04:10] LABS: ALANINE AMINOTRANSFERASE 43 U/L (12-78); ALBUMIN 2.2 G/DL (3.4-5.0); ALBUMIN/GLOBULIN RATIO 0.8 (1.1-1.5); ALKALINE PHOSPHATASE 262 IU/L (46-116); ANION GAP 8 (8-16); ASPARTATE AMINO TRANSFERASE 122 U/L (10-37); BILIRUBIN,TOTAL 0.3 MG/DL (0.1-1.0); BLOOD UREA NITROGEN 20 MG/DL (7-18); BUN/CREATININE RATIO 7.5 (6.6-38.0); CALCIUM 6.9 MG/DL (8.5-10.1); CHLORIDE 102 MMOL/L (99-107); CREATININE 2.65 MG/DL (0.40-0.90); GLUCOSE 108 MG/DL (70-104); MAGNESIUM 1.7 MG/DL (1.5-2.4); PHOSPHORUS 2.4 MG/DL (2.3-4.5); POTASSIUM 3.5 MMOL/L (3.5-5.1); SODIUM 138 MMOL/L (135-145); TOTAL CARBON DIOXIDE 28.2 MMOL/L (24-32); eGFR 21 ML/MIN
--- NOTE | 2018-03-01 06:18 | NUR ---
Problems reprioritized. Patient report given, questions answered & plan of care reviewed with CHAPARRITA JOINER .
[2018-03-01] MEDS: cloNIDine 0.1 mg tablet PO SCH ×2 (07:10→22:56)
[2018-03-01] MEDS: sodium ferric gluc complex inj 125 MG in normal saline 100ml IV soln 100 ML IV SCH (08:19)
[2018-03-01] MEDS: atorvastatin 20mg tablet PO SCH (08:31)
[2018-03-01] MEDS: metoprolol tartrate 50mg tablet PO SCH ×2 (08:31→20:45)
[2018-03-01] MEDS: CefTRIAXone/D5W-Rocephin 1gm 50 ML IV SCH (08:32)
[2018-03-01] MEDS: lactobacillus rhamnosus 10,000 MMU CELLS/CAPSULE PO SCH ×2 (08:33→20:44)
[2018-03-01] MEDS: apixaban 2.5mg tablet PO SCH ×2 (08:36→20:45)
--- NOTE | 2018-03-01 11:35 | NUR ---
RT notified about blood gas
[2018-03-01] MEDS: pantoprazole 40 MG vial IV SCH (12:23)
[2018-03-01 12:51] LABS: ABG HCO3 29.1 mmol/L (22.0-26.0); ABG OXYGEN SATURATION 94.6 % (95-98); ABG PCO2 (T) 46.5 mmHg (32.0-45.0); ABG PH (T) 7.414 (7.350-7.450); ABG PO2 (T) 68.1 mmHg (83-108); ALLEN'S TEST Positive; FCOHb 0.3 % (0.5-1.5); FO2Hb 94.3 % (94-100); MINUTE VOLUME 7 L/min; PEEP 8 cm H2O; RESPIRATORY RATE 16 b/min; TIDAL VOLUME 400 mL; TOTAL HEMOGLOBIN 8.2 G/dl (12.0-16.0)
--- NOTE | 2018-03-01 14:50 | NUR ---
Dr. Ramirez at bedside wondering if CVP reading of 18 correct. Orders to apply 1inch of Nitro paste for CVP >11 and to hold for dialysis. MD aware of blood pressure. After zeroing/transducing CVP line, CVP ranging from 9-11 with a good waveform. Will hold off on nitro paste until patient meets criteria.
[2018-03-01 15:05] LABS: OXYGEN SATURATION (MIXED VEN) 70.7 % (60-80); PO2 MIXED VENOUS (TEMP COR) 34.4 mmHg (35-46)
[2018-03-01] MEDS: nitroGLYCERIN 1gm ointment UD TP SCH ×2 (16:00→20:00)
--- NOTE | 2018-03-01 17:42 | NUR ---
Patient not voiding or having frequent bowel movements; during rounds, orders from Dr. Ramirez to D/C payton catheter and rectal tube. Both removed at 1715 with no difficulty; patient tolerated well.
--- NOTE | 2018-03-01 18:23 | NUR ---
Problems reprioritized. Patient report given, questions answered & plan of care reviewed with Ken JOINER.
--- NOTE | 2018-03-01 18:30 | NUR ---
Patient in room ICU 2041. I have received report from Sheng JOINER and had the opportunity to ask questions and assume patient care.
--- NOTE | 2018-03-01 20:00 | NUR ---
versed turned off at this time for sedation vacation. continue to monitor.
[2018-03-01] MEDS: insulin glargine (Lantus) pen - multi-dose SQ SCH (20:53)
[2018-03-02] VITALS (24 sets, daily range): BP systolic 87–170; BP diastolic 57–108
--- NOTE | 2018-03-02 | NUR ---
fentanyl turned off at 0000. versed has been off since 1999. pt remains unresponsive a this time. continue to monitor.
[2018-03-02] MEDS: NORepinephrine 8mg/ 250ml NS 250 ML IV SCH (00:35)
[2018-03-02] MEDS: mineral oil/petrolatum ophthal oint EACHEYE SCH ×4 (02:32→19:56)
[2018-03-02] MEDS: insulin regular, human vial - multi-dose SQ SCH ×4 (02:32→20:03)
[2018-03-02] MEDS: albuterol 2.5 MG/3 ML nebule NEB SCH ×6 (03:09→22:57)
[2018-03-02 03:13] LABS: BASOPHILS % (AUTO) 0.2 % (0-1); EOSINOPHILS # (AUTO) 0.2 X10'3 (0-0.9); EOSINOPHILS % (AUTO) 2.3 % (0-6); HEMATOCRIT 23.6 % (35.0-45.0); HEMOGLOBIN 7.7 g/dl (12.0-16.0); LYMPHOCYTES # (AUTO) 0.9 X10'3 (1.1-4.8); MEAN CORPUSCULAR HEMOGLOBIN 27.9 PG (27.0-31.0); MEAN CORPUSCULAR HGB CONC 32.5 % (33.0-36.5); MEAN CORPUSCULAR VOLUME 85.9 FL (78-98); MEAN PLATELET VOLUME 10.3 FL (7.4-10.4); MONOCYTES # (AUTO) 0.9 X10'3 (0-0.9); MONOCYTES % (AUTO) 10.1 % (2-12); NEUTROPHILS # (AUTO) 6.8 X10'3 (1.8-7.7); NEUTROPHILS % (AUTO) 77.4 % (42-75); PLATELET COUNT 67 X10'3 (140-440); RED BLOOD COUNT 2.75 X10'6 (4.20-5.60); RED CELL DISTRIBUTION WIDTH 15.4 % (11.5-14.5); WHITE BLOOD COUNT 8.8 X10'3 (4.5-11.0)
[2018-03-02 03:25] LABS: ABG BASE EXCESS 2.1 mmol/L (-2.0-3.0); ABG HCO3 26.4 mmol/L (22.0-26.0); ABG PCO2 (T) 39.9 mmHg (32.0-45.0); ABG PH (T) 7.439 (7.350-7.450); ABG PO2 (T) 64.2 mmHg (83-108); ALLEN'S TEST Positive; FCOHb 0.3 % (0.5-1.5); FMetHb 0.3 % (0.3-1.12); FO2Hb 93.4 % (94-100); MINUTE VOLUME 7 L/min; PEEP 5 cm H2O; RESPIRATORY RATE 16 b/min; RESPIRATORY RATE (OBSERVED) 17 b/min; TIDAL VOLUME 400 mL; TOTAL HEMOGLOBIN 8.8 G/dl (12.0-16.0)
[2018-03-02 03:36] LABS: ALANINE AMINOTRANSFERASE 43 U/L (12-78); ALBUMIN 1.9 G/DL (3.4-5.0); ALBUMIN/GLOBULIN RATIO 0.6 (1.1-1.5); ALKALINE PHOSPHATASE 303 IU/L (46-116); ANION GAP 9 (8-16); ASPARTATE AMINO TRANSFERASE 106 U/L (10-37); BILIRUBIN,TOTAL 0.3 MG/DL (0.1-1.0); BLOOD UREA NITROGEN 37 MG/DL (7-18); BUN/CREATININE RATIO 10.4 (6.6-38.0); CALCIUM 6.7 MG/DL (8.5-10.1); CHLORIDE 101 MMOL/L (99-107); CREATININE 3.55 MG/DL (0.40-0.90); GLUCOSE 99 MG/DL (70-104); MAGNESIUM 1.9 MG/DL (1.5-2.4); PHOSPHORUS 2.8 MG/DL (2.3-4.5); POTASSIUM 3.6 MMOL/L (3.5-5.1); PREALBUMIN 7.9 MG/DL (19-36); SODIUM 137 MMOL/L (135-145); TOTAL CARBON DIOXIDE 27.2 MMOL/L (24-32); eGFR 15 ML/MIN
[2018-03-02] MEDS: nitroGLYCERIN 1gm ointment UD TP SCH ×4 (04:27→12:00)
--- NOTE | 2018-03-02 04:32 | NUR ---
CVP has robin hanging out around 9-10 most of the shift. around 0400 CVP increased to 12. per MD order, nitro paste applied. administered to left chest. BP at this time is 150/91. continue to monitor closely.
--- NOTE | 2018-03-02 06:22 | NUR ---
Problems reprioritized. Patient report given, questions answered & plan of care reviewed with Sheng JOINER.
[2018-03-02] MEDS: cloNIDine 0.1 mg tablet PO SCH ×2 (08:00→19:55)
[2018-03-02] MEDS: metoprolol tartrate 50mg tablet PO SCH ×2 (08:00→19:56)
[2018-03-02] MEDS: sodium ferric gluc complex inj 125 MG in normal saline 100ml IV soln 100 ML IV SCH (08:21)
[2018-03-02] MEDS: CefTRIAXone/D5W-Rocephin 1gm 50 ML IV SCH (08:34)
[2018-03-02] MEDS: atorvastatin 20mg tablet PO SCH (08:34)
[2018-03-02] MEDS: apixaban 2.5mg tablet PO SCH ×2 (08:34→19:56)
[2018-03-02] MEDS: pantoprazole 40 MG vial IV SCH (08:34)
[2018-03-02] MEDS: lactobacillus rhamnosus 10,000 MMU CELLS/CAPSULE PO SCH ×2 (08:34→19:55)
[2018-03-02] MEDS ORDERED: normal saline 1000ml 250 ML IV PRN (08:53)
[2018-03-02] MEDS ORDERED: heparin 1,000unit/ml 10ml vial 10 ML IV ONE (08:53)
[2018-03-02] MEDS ORDERED: albumin (human) 25% 100ml IV 100 ML IV PRN (08:55)
[2018-03-02] MEDS ORDERED: epoetin 20,000 units/ml inj IV ONE (08:55)
[2018-03-02] MEDS ORDERED: heparin 1,000 units/ml 10ml inj HE ONE ×2 (09:00)
--- NOTE | 2018-03-02 11:00 | NUR ---
Brought up during rounds patient's edematous labia; per Dr. Ramirez he will assess. Patient on dialysis now with a goal to remove 4L to help with generalized edema.
--- NOTE | 2018-03-02 12:11 | NUR ---
Reassessment: Pt continues to tolerate TF at goal with low residuals 7-100 mL. Some decrease in edema per physical assessment. Pt continues with HD with fluid removal per MD. LBM 03/01. Will continue to follow. Recommend: 1. Per MD begin tube feedings using Nepro at 10 ml/hr. Recommend to advance tube feeding by 20 ml q 8 to goal of 40 ml/hr will provide total volume of 1152 ml, 1728 cals, 78 gm protein, and 698 ml water. Does not meet patient's protein needs without overfeeding. 2. Daily Weight 3. Prealbumin q Tuesday and Addendum: 03/02/18 at [address] Amended: Links added.
[2018-03-02] MEDS: FENTANYL-0.9 % NACL/PF 100 ML IV PRN (15:30)
--- NOTE | 2018-03-02 18:15 | NUR ---
Problems reprioritized. Patient report given, questions answered & plan of care reviewed with Ken JOINER.
--- NOTE | 2018-03-02 18:37 | NUR ---
Patient in room ICU 2041. I have received report from and had the opportunity to ask questions and assume patient care.
--- NOTE | 2018-03-02 19:30 | NUR ---
all sedation turned off at 1914. continue to monitor.
[2018-03-02] MEDS: insulin glargine (Lantus) pen - multi-dose SQ SCH (20:02)
[2018-03-03] VITALS (24 sets, daily range): BP systolic 113–156; BP diastolic 66–107
[2018-03-03] MEDS: mineral oil/petrolatum ophthal oint EACHEYE SCH ×4 (02:38→19:59)
[2018-03-03 02:40] LABS: BASOPHILS % (AUTO) 0.2 % (0-1); EOSINOPHILS # (AUTO) 0.3 X10'3 (0-0.9); EOSINOPHILS % (AUTO) 3.1 % (0-6); HEMATOCRIT 24.5 % (35.0-45.0); HEMOGLOBIN 7.9 g/dl (12.0-16.0); LYMPHOCYTES # (AUTO) 0.8 X10'3 (1.1-4.8); MEAN CORPUSCULAR HEMOGLOBIN 27.5 PG (27.0-31.0); MEAN CORPUSCULAR HGB CONC 32.2 % (33.0-36.5); MEAN CORPUSCULAR VOLUME 85.6 FL (78-98); MEAN PLATELET VOLUME 11.3 FL (7.4-10.4); MONOCYTES # (AUTO) 1.2 X10'3 (0-0.9); MONOCYTES % (AUTO) 12.2 % (2-12); NEUTROPHILS # (AUTO) 7.4 X10'3 (1.8-7.7); NEUTROPHILS % (AUTO) 76.5 % (42-75); PLATELET COUNT 80 X10'3 (140-440); RED BLOOD COUNT 2.86 X10'6 (4.20-5.60); RED CELL DISTRIBUTION WIDTH 14.7 % (11.5-14.5); WHITE BLOOD COUNT 9.6 X10'3 (4.5-11.0)
[2018-03-03] MEDS: insulin regular, human vial - multi-dose SQ SCH ×4 (02:41→20:03)
[2018-03-03] MEDS: albuterol 2.5 MG/3 ML nebule NEB SCH ×6 (02:50→23:26)
[2018-03-03 02:57] LABS: ALANINE AMINOTRANSFERASE 39 U/L (12-78); ALBUMIN 1.7 G/DL (3.4-5.0); ALBUMIN/GLOBULIN RATIO 0.5 (1.1-1.5); ALKALINE PHOSPHATASE 281 IU/L (46-116); ANION GAP 8 (8-16); ASPARTATE AMINO TRANSFERASE 69 U/L (10-37); BILIRUBIN,TOTAL 0.3 MG/DL (0.1-1.0); BLOOD UREA NITROGEN 31 MG/DL (7-18); BUN/CREATININE RATIO 10.6 (6.6-38.0); CALCIUM 7.1 MG/DL (8.5-10.1); CHLORIDE 101 MMOL/L (99-107); CREATININE 2.93 MG/DL (0.40-0.90); GLUCOSE 125 MG/DL (70-104); MAGNESIUM 1.9 MG/DL (1.5-2.4); PHOSPHORUS 1.8 MG/DL (2.3-4.5); POTASSIUM 3.7 MMOL/L (3.5-5.1); SODIUM 138 MMOL/L (135-145); TOTAL CARBON DIOXIDE 28.8 MMOL/L (24-32); TOTAL PROTEIN 5.2 G/DL (6.4-8.2); eGFR 19 ML/MIN
[2018-03-03 04:56] LABS: ABG BASE EXCESS 4.1 mmol/L (-2.0-3.0); ABG HCO3 27.5 mmol/L (22.0-26.0); ABG OXYGEN SATURATION 97.5 % (95-98); ABG PCO2 (T) 36.6 mmHg (32.0-45.0); ABG PH (T) 7.494 (7.350-7.450); ABG PO2 (T) 98.1 mmHg (83-108); ALLEN'S TEST Positive; FCOHb 0.3 % (0.5-1.5); FO2Hb 97.2 % (94-100); MINUTE VOLUME 7 L/min; PATIENT TEMPERATURE 37.3; PEEP 5 cm H2O; RESPIRATORY RATE 16 b/min; RESPIRATORY RATE (OBSERVED) 18 b/min; TIDAL VOLUME 400 mL; TOTAL HEMOGLOBIN 8.7 G/dl (12.0-16.0)
--- NOTE | 2018-03-03 06:40 | NUR ---
Problems reprioritized. Patient report given, questions answered & plan of care reviewed with Bella JOINER and Tessa JOINER.
[2018-03-03] MEDS: lactobacillus rhamnosus 10,000 MMU CELLS/CAPSULE PO SCH ×2 (07:49→19:59)
[2018-03-03] MEDS: atorvastatin 20mg tablet PO SCH (07:49)
[2018-03-03] MEDS: pantoprazole 40 MG vial IV SCH (07:49)
[2018-03-03] MEDS: cloNIDine 0.1 mg tablet PO SCH ×2 (07:49→20:00)
[2018-03-03] MEDS: apixaban 2.5mg tablet PO SCH ×2 (07:49→20:00)
[2018-03-03] MEDS: metoprolol tartrate 50mg tablet PO SCH ×2 (07:50→20:00)
[2018-03-03] MEDS: CefTRIAXone/D5W-Rocephin 1gm 50 ML IV SCH (07:50)
[2018-03-03] MEDS: sodium ferric gluc complex inj 125 MG in normal saline 100ml IV soln 100 ML IV SCH (10:13)
[2018-03-03] MEDS: epoetin 20,000 units/ml inj SQ SCH (14:18)
[2018-03-03] MEDS: hydrocortisone acetate 25mg rectal suppository RC SCH (16:16)
[2018-03-03] MEDS: insulin glargine (Lantus) pen - multi-dose SQ SCH (20:03)
[2018-03-04] VITALS (21 sets, daily range): BP systolic 112–163; BP diastolic 71–94
[2018-03-04] MEDS: NORepinephrine 8mg/ 250ml NS 250 ML IV SCH (00:30)
[2018-03-04] MEDS: hydrocortisone acetate 25mg rectal suppository RC SCH ×4 (01:10→23:22)
[2018-03-04] MEDS: mineral oil/petrolatum ophthal oint EACHEYE SCH ×4 (01:10→19:54)
[2018-03-04] MEDS: insulin regular, human vial - multi-dose SQ SCH ×4 (02:31→20:05)
[2018-03-04 02:59] LABS: BASOPHILS % (AUTO) 0.3 % (0-1); EOSINOPHILS # (AUTO) 0.1 X10'3 (0-0.9); HEMATOCRIT 22.3 % (35.0-45.0); HEMOGLOBIN 7.3 g/dl (12.0-16.0); MEAN CORPUSCULAR HEMOGLOBIN 28.4 PG (27.0-31.0); MEAN CORPUSCULAR HGB CONC 32.6 % (33.0-36.5); MEAN CORPUSCULAR VOLUME 86.8 FL (78-98); MONOCYTES # (AUTO) 1.2 X10'3 (0-0.9); MONOCYTES % (AUTO) 10.8 % (2-12); NEUTROPHILS # (AUTO) 8.4 X10'3 (1.8-7.7); NEUTROPHILS % (AUTO) 78.9 % (42-75); PLATELET COUNT 92 X10'3 (140-440); RED BLOOD COUNT 2.57 X10'6 (4.20-5.60); RED CELL DISTRIBUTION WIDTH 13.7 % (11.5-14.5); WHITE BLOOD COUNT 10.7 X10'3 (4.5-11.0)
[2018-03-04 03:07] LABS: ALANINE AMINOTRANSFERASE 36 U/L (12-78); ALBUMIN 1.6 G/DL (3.4-5.0); ALBUMIN/GLOBULIN RATIO 0.4 (1.1-1.5); ALKALINE PHOSPHATASE 274 IU/L (46-116); ANION GAP 9 (8-16); ASPARTATE AMINO TRANSFERASE 64 U/L (10-37); BILIRUBIN,TOTAL 0.2 MG/DL (0.1-1.0); BLOOD UREA NITROGEN 45 MG/DL (7-18); BUN/CREATININE RATIO 12.2 (6.6-38.0); CHLORIDE 100 MMOL/L (99-107); CREATININE 3.68 MG/DL (0.40-0.90); GLUCOSE 150 MG/DL (70-104); MAGNESIUM 2.1 MG/DL (1.5-2.4); POTASSIUM 3.9 MMOL/L (3.5-5.1); SODIUM 137 MMOL/L (135-145); TOTAL CARBON DIOXIDE 28.2 MMOL/L (24-32); TOTAL PROTEIN 5.2 G/DL (6.4-8.2); eGFR 14 ML/MIN
[2018-03-04] MEDS: albuterol 2.5 MG/3 ML nebule NEB SCH ×6 (03:08→22:52)
[2018-03-04 04:11] LABS: ABG BASE EXCESS -0.7 mmol/L (-2.0-3.0); ABG HCO3 22.7 mmol/L (22.0-26.0); ABG PCO2 (T) 32.9 mmHg (32.0-45.0); ABG PH (T) 7.458 (7.350-7.450); ABG PO2 (T) 119.7 mmHg (83-108); ALLEN'S TEST Positive; MINUTE VOLUME 6 L/min; PATIENT TEMPERATURE 37.5; PEEP 5 cm H2O; RESPIRATORY RATE 14 b/min; RESPIRATORY RATE (OBSERVED) 18 b/min; TIDAL VOLUME 400 mL; TOTAL HEMOGLOBIN 8.4 G/dl (12.0-16.0)
[2018-03-04 04:12] LABS: ABG OXYGEN SATURATION 98.4 % (95-98); FCOHb 0.6 % (0.5-1.5); FMetHb 0.3 % (0.3-1.12); FO2Hb 97.5 % (94-100)
--- NOTE | 2018-03-04 06:39 | NUR ---
Problems reprioritized. Patient report given, questions answered & plan of care reviewed with Nataliia JOINER.
--- NOTE | 2018-03-04 06:49 | NUR ---
Patient in room ICU 2041. I have received report from Chano JOINER and had the opportunity to ask questions and assume patient care. Addendum: 03/04/18 at 0650 by Salena Magana RN Ken JOINER
--- NOTE | 2018-03-04 07:00 | NUR ---
Auscultated correct placement of og tube.
[2018-03-04] MEDS: metoprolol tartrate 50mg tablet PO SCH ×2 (08:00→19:54)
[2018-03-04] MEDS ORDERED: heparin 1,000 units/ml 10ml inj HE ONE ×2 (08:00)
[2018-03-04] MEDS: cloNIDine 0.1 mg tablet PO SCH ×2 (08:00→19:53)
[2018-03-04] MEDS ORDERED: heparin 1,000unit/ml 10ml vial 10 ML IV ONE (08:00)
[2018-03-04] MEDS ORDERED: normal saline 1000ml 250 ML IV PRN (08:00)
[2018-03-04] MEDS: lactobacillus rhamnosus 10,000 MMU CELLS/CAPSULE PO SCH ×2 (11:23→19:54)
[2018-03-04] MEDS: pantoprazole 40 MG vial IV SCH (11:23)
[2018-03-04] MEDS: atorvastatin 20mg tablet PO SCH (11:24)
[2018-03-04] MEDS: apixaban 2.5mg tablet PO SCH ×2 (11:24→20:10)
[2018-03-04] MEDS: sodium ferric gluc complex inj 125 MG in normal saline 100ml IV soln 100 ML IV SCH (11:25)
[2018-03-04] MEDS: FENTANYL-0.9 % NACL/PF 100 ML IV PRN (16:48)
--- NOTE | 2018-03-04 18:18 | NUR ---
Problems reprioritized. Patient report given, questions answered & plan of care reviewed with Fiorella JOINER.
--- NOTE | 2018-03-04 18:29 | NUR ---
Patient in room ICU 2041. I have received report from previous shift and had the opportunity to ask questions and assume patient care.
[2018-03-04] MEDS: insulin glargine (Lantus) pen - multi-dose SQ SCH (20:07)
[2018-03-04] MEDS ORDERED: tPA-cathflo 2 MG/2 ml IV flush IVF ONE (20:30)
--- NOTE | 2018-03-04 20:35 | NUR ---
Central line ivan port reopened after cath zaynab. White port remains occluded. TKO attached at 10mL/hr
[2018-03-05] VITALS (27 sets, daily range): BP systolic 84–148; BP diastolic 71–96
[2018-03-05] MEDS: mineral oil/petrolatum ophthal oint EACHEYE SCH ×4 (02:11→20:17)
[2018-03-05] MEDS: insulin regular, human vial - multi-dose SQ SCH ×3 (02:14→20:21)
[2018-03-05 02:24] LABS: BASOPHILS % (AUTO) 0.2 % (0-1); EOSINOPHILS # (AUTO) 0.1 X10'3 (0-0.9); EOSINOPHILS % (AUTO) 1.2 % (0-6); HEMATOCRIT 22.9 % (35.0-45.0); HEMOGLOBIN 7.4 g/dl (12.0-16.0); LYMPHOCYTES % (AUTO) 8.8 % (21-51); MEAN CORPUSCULAR HEMOGLOBIN 28.1 PG (27.0-31.0); MEAN CORPUSCULAR HGB CONC 32.2 % (33.0-36.5); MEAN CORPUSCULAR VOLUME 87.2 FL (78-98); MEAN PLATELET VOLUME 10.6 FL (7.4-10.4); MONOCYTES # (AUTO) 1.3 X10'3 (0-0.9); MONOCYTES % (AUTO) 11.6 % (2-12); NEUTROPHILS # (AUTO) 9.2 X10'3 (1.8-7.7); NEUTROPHILS % (AUTO) 78.2 % (42-75); PLATELET COUNT 126 X10'3 (140-440); RED BLOOD COUNT 2.63 X10'6 (4.20-5.60); RED CELL DISTRIBUTION WIDTH 13.8 % (11.5-14.5); WHITE BLOOD COUNT 11.6 X10'3 (4.5-11.0)
[2018-03-05 02:31] LABS: ALANINE AMINOTRANSFERASE 43 U/L (12-78); ALBUMIN 1.7 G/DL (3.4-5.0); ALBUMIN/GLOBULIN RATIO 0.4 (1.1-1.5); ALKALINE PHOSPHATASE 305 IU/L (46-116); ANION GAP 8 (8-16); ASPARTATE AMINO TRANSFERASE 58 U/L (10-37); BILIRUBIN,TOTAL 0.3 MG/DL (0.1-1.0); BLOOD UREA NITROGEN 33 MG/DL (7-18); BUN/CREATININE RATIO 11.8 (6.6-38.0); CALCIUM 7.1 MG/DL (8.5-10.1); CHLORIDE 100 MMOL/L (99-107); CREATININE 2.79 MG/DL (0.40-0.90); GLUCOSE 106 MG/DL (70-104); MAGNESIUM 2.1 MG/DL (1.5-2.4); PHOSPHORUS 1.6 MG/DL (2.3-4.5); POTASSIUM 3.8 MMOL/L (3.5-5.1); SODIUM 136 MMOL/L (135-145); TOTAL CARBON DIOXIDE 27.9 MMOL/L (24-32); TOTAL PROTEIN 5.7 G/DL (6.4-8.2); eGFR 20 ML/MIN
[2018-03-05] MEDS: albuterol 2.5 MG/3 ML nebule NEB SCH ×6 (03:09→23:16)
--- NOTE | 2018-03-05 03:13 | NUR ---
AM labs reviewed. Phos:1.6, Jenny Black notified, no new orders.
[2018-03-05 03:30] LABS: ABG BASE EXCESS 4.9 mmol/L (-2.0-3.0); ABG HCO3 28.9 mmol/L (22.0-26.0); ABG OXYGEN SATURATION 94.5 % (95-98); ABG PCO2 (T) 40.4 mmHg (32.0-45.0); ABG PH (T) 7.473 (7.350-7.450); ABG PO2 (T) 68.6 mmHg (83-108); ALLEN'S TEST Positive; FCOHb 0.8 % (0.5-1.5); FMetHb 0.3 % (0.3-1.12); FO2Hb 93.5 % (94-100); MINUTE VOLUME 9 L/min; PATIENT TEMPERATURE 37.2; PEEP 5 cm H2O; RESPIRATORY RATE 14 b/min; RESPIRATORY RATE (OBSERVED) 21 b/min; TIDAL VOLUME 400 mL; TOTAL HEMOGLOBIN 7.8 G/dl (12.0-16.0)
--- NOTE | 2018-03-05 06:22 | NUR ---
Problems reprioritized. Patient report given, questions answered & plan of care reviewed with Hazel JOINER.
[2018-03-05] MEDS: atorvastatin 20mg tablet PO SCH (07:51)
[2018-03-05] MEDS: lactobacillus rhamnosus 10,000 MMU CELLS/CAPSULE PO SCH ×2 (07:51→20:17)
[2018-03-05] MEDS: hydrocortisone acetate 25mg rectal suppository RC SCH ×3 (07:52→23:44)
[2018-03-05] MEDS: pantoprazole 40 MG vial IV SCH (07:52)
[2018-03-05] MEDS: apixaban 2.5mg tablet PO SCH ×2 (07:52→20:00)
[2018-03-05] MEDS: metoprolol tartrate 50mg tablet PO SCH ×2 (07:52→20:17)
[2018-03-05] MEDS: sodium ferric gluc complex inj 125 MG in normal saline 100ml IV soln 100 ML IV SCH (08:56)
[2018-03-05] MEDS: dexmedetomidin/NS 400mcg/100ml 100 ML IV SCH ×2 (10:21→20:24)
[2018-03-05] MEDS: cloNIDine 0.1 mg tablet PO SCH ×2 (11:05→20:17)
--- NOTE | 2018-03-05 11:47 | NUR ---
Reassessment: Pt continues to tolerate TF at goal with low residuals 0mL. . Pt continues with HD. LBM 03/01. Would benefit from change to Vital High Protein at 70ml/hr to meet protein needs w/o overfeeding pt in addition to low Phos 1.6 today. Recs below; will address at rounds in AM and continue to follow. Recommend: 1. Per MD begin tube feedings using Nepro at 10 ml/hr. Recommend to advance tube feeding by 20 ml q 8 to goal of 40 ml/hr will provide total volume of 1152 ml, 1728 cals, 78 gm protein, and 698 ml water. Does not meet patient's protein needs without overfeeding. 2. Recommend change to Vital High Protein at 70 to meet protein needs w/o overfeeding on HD/vent per MD approval 3. additional free water per network contract manager 4. Daily Weight; Prealbumin q Tuesday and Addendum: 03/05/18 at [address] Amended: Links added.
[2018-03-05] MEDS: acetaminophen 325mg tablet PO PRN (15:49)
--- NOTE | 2018-03-05 18:23 | NUR ---
Patient in room ICU 2041. I have received report from Hazel JOINER and had the opportunity to ask questions and assume patient care.
--- NOTE | 2018-03-05 19:59 | NUR ---
Pt's tube residual 150mL,dark, thin, rust colored. Jenny Black notified, orders received. Mart foy tonight.
[2018-03-05] MEDS ORDERED: pantoprazole 40 MG vial IV ONE (20:00)
[2018-03-05] MEDS: insulin glargine (Lantus) pen - multi-dose SQ SCH (20:23)
[2018-03-05 20:28] LABS: BASOPHILS % (AUTO) 0.3 % (0-1); EOSINOPHILS # (AUTO) 0.1 X10'3 (0-0.9); EOSINOPHILS % (AUTO) 0.4 % (0-6); LYMPHOCYTES # (AUTO) 1.5 X10'3 (1.1-4.8); LYMPHOCYTES % (AUTO) 11.9 % (21-51); MEAN CORPUSCULAR HEMOGLOBIN 27.8 PG (27.0-31.0); MEAN CORPUSCULAR HGB CONC 31.6 % (33.0-36.5); MEAN CORPUSCULAR VOLUME 87.9 FL (78-98); MEAN PLATELET VOLUME 10.3 FL (7.4-10.4); MONOCYTES # (AUTO) 1.4 X10'3 (0-0.9); MONOCYTES % (AUTO) 11.2 % (2-12); NEUTROPHILS # (AUTO) 9.9 X10'3 (1.8-7.7); NEUTROPHILS % (AUTO) 76.2 % (42-75); PLATELET COUNT 137 X10'3 (140-440); RED BLOOD COUNT 2.46 X10'6 (4.20-5.60); RED CELL DISTRIBUTION WIDTH 13.6 % (11.5-14.5); WHITE BLOOD COUNT 12.9 X10'3 (4.5-11.0)
[2018-03-05 20:39] LABS: HEMOGLOBIN 6.9 g/dl (12.0-16.0)
[2018-03-05 20:40] LABS: HEMATOCRIT 21.6 % (35.0-45.0)
[2018-03-05] MEDS: pantoprazole 40MG/NS 100ML BAG 100 ML IV SCH (20:47)
[2018-03-06] VITALS (24 sets, daily range): BP systolic 83–152; BP diastolic 75–90
[2018-03-06] MEDS: NORepinephrine 8mg/ 250ml NS 250 ML IV SCH (00:35)
[2018-03-06] MEDS: pantoprazole 40MG/NS 100ML BAG 100 ML IV SCH ×5 (00:49→21:00)
[2018-03-06] MEDS: mineral oil/petrolatum ophthal oint EACHEYE SCH ×4 (02:00→19:34)
[2018-03-06] MEDS: albuterol 2.5 MG/3 ML nebule NEB SCH ×6 (03:38→23:06)
[2018-03-06] MEDS: dextrose 50%-water 50ml dispensing syringe IV PRN (03:40)
[2018-03-06 03:50] LABS: ABG BASE EXCESS -0.1 mmol/L (-2.0-3.0); ABG HCO3 23.2 mmol/L (22.0-26.0); ABG OXYGEN SATURATION 96.6 % (95-98); ABG PCO2 (T) 32.6 mmHg (32.0-45.0); ABG PO2 (T) 82.1 mmHg (83-108); ALLEN'S TEST Positive; FCOHb 0.8 % (0.5-1.5); FMetHb 0.3 % (0.3-1.12); FO2Hb 95.5 % (94-100); MINUTE VOLUME 10 L/min; PATIENT TEMPERATURE 37.3; PEEP 5 cm H2O; RESPIRATORY RATE 14 b/min; RESPIRATORY RATE (OBSERVED) 22 b/min; TIDAL VOLUME 400 mL; TOTAL HEMOGLOBIN 8.5 G/dl (12.0-16.0)
[2018-03-06] MEDS: dexmedetomidin/NS 400mcg/100ml 100 ML IV SCH ×3 (04:03→23:58)
[2018-03-06 04:06] LABS: BASOPHILS # (AUTO) 0.1 X10'3 (0-0.2); BASOPHILS % (AUTO) 0.4 % (0-1); EOSINOPHILS # (AUTO) 0.1 X10'3 (0-0.9); EOSINOPHILS % (AUTO) 0.6 % (0-6); HEMATOCRIT 23.3 % (35.0-45.0); HEMOGLOBIN 7.7 g/dl (12.0-16.0); LYMPHOCYTES # (AUTO) 1.7 X10'3 (1.1-4.8); LYMPHOCYTES % (AUTO) 11.7 % (21-51); MEAN CORPUSCULAR HEMOGLOBIN 29.4 PG (27.0-31.0); MEAN CORPUSCULAR HGB CONC 33.2 % (33.0-36.5); MEAN CORPUSCULAR VOLUME 88.4 FL (78-98); MEAN PLATELET VOLUME 10.1 FL (7.4-10.4); MONOCYTES # (AUTO) 1.4 X10'3 (0-0.9); MONOCYTES % (AUTO) 9.7 % (2-12); NEUTROPHILS # (AUTO) 10.8 X10'3 (1.8-7.7); NEUTROPHILS % (AUTO) 77.6 % (42-75); PLATELET COUNT 137 X10'3 (140-440); RED BLOOD COUNT 2.64 X10'6 (4.20-5.60); RED CELL DISTRIBUTION WIDTH 13.9 % (11.5-14.5); WHITE BLOOD COUNT 14.1 X10'3 (4.5-11.0)
[2018-03-06 04:07] LABS: ALANINE AMINOTRANSFERASE 59 U/L (12-78); ALBUMIN 1.7 G/DL (3.4-5.0); ALBUMIN/GLOBULIN RATIO 0.4 (1.1-1.5); ALKALINE PHOSPHATASE 333 IU/L (46-116); ANION GAP 8 (8-16); ASPARTATE AMINO TRANSFERASE 85 U/L (10-37); BILIRUBIN,TOTAL 0.5 MG/DL (0.1-1.0); BLOOD UREA NITROGEN 55 MG/DL (7-18); BUN/CREATININE RATIO 14.7 (6.6-38.0); CALCIUM 7.1 MG/DL (8.5-10.1); CHLORIDE 100 MMOL/L (99-107); CREATININE 3.74 MG/DL (0.40-0.90); GLUCOSE 63 MG/DL (70-104); MAGNESIUM 2.2 MG/DL (1.5-2.4); PHOSPHORUS 2.4 MG/DL (2.3-4.5); POTASSIUM 4.1 MMOL/L (3.5-5.1); SODIUM 135 MMOL/L (135-145); TOTAL PROTEIN 5.7 G/DL (6.4-8.2); eGFR 14 ML/MIN
--- NOTE | 2018-03-06 04:15 | NUR ---
Melody updated regarding pt's latest dark brown, rust colored residual. Requested that AM Eliquis be held until okayed by Dr. Ramirez.
--- NOTE | 2018-03-06 06:22 | NUR ---
Problems reprioritized. Patient report given, questions answered & plan of care reviewed with Hazel JOINER.
[2018-03-06] MEDS: metoprolol tartrate 50mg tablet PO SCH ×2 (07:51→19:33)
[2018-03-06] MEDS: atorvastatin 20mg tablet PO SCH (07:51)
[2018-03-06] MEDS: lactobacillus rhamnosus 10,000 MMU CELLS/CAPSULE PO SCH ×2 (07:51→19:33)
[2018-03-06] MEDS: cloNIDine 0.1 mg tablet PO SCH ×2 (07:51→19:33)
[2018-03-06] MEDS: hydrocortisone acetate 25mg rectal suppository RC SCH ×3 (07:52→23:56)
[2018-03-06] MEDS: insulin regular, human vial - multi-dose SQ SCH ×2 (07:57→20:30)
[2018-03-06] MEDS: pantoprazole 40 MG vial IV SCH (08:00)
[2018-03-06] MEDS: sodium ferric gluc complex inj 125 MG in normal saline 100ml IV soln 100 ML IV SCH (08:42)
[2018-03-06] MEDS: apixaban 2.5mg tablet PO SCH ×2 (13:34→19:33)
--- NOTE | 2018-03-06 18:30 | NUR ---
Patient in room ICU 2041. I have received report from RHYS Oliva and had the opportunity to ask questions and assume patient care.
[2018-03-06] MEDS: insulin glargine (Lantus) pen - multi-dose SQ SCH (20:32)
[2018-03-07] VITALS (24 sets, daily range): BP systolic 99–164; BP diastolic 60–99
[2018-03-07] MEDS: pantoprazole 40MG/NS 100ML BAG 100 ML IV SCH ×5 (01:00→21:00)
[2018-03-07] MEDS: mineral oil/petrolatum ophthal oint EACHEYE SCH ×4 (02:07→20:06)
[2018-03-07] MEDS: insulin regular, human vial - multi-dose SQ SCH ×3 (02:11→20:08)
[2018-03-07] MEDS: albuterol 2.5 MG/3 ML nebule NEB SCH ×6 (02:34→22:36)
[2018-03-07 02:46] LABS: ABG BASE EXCESS -1.7 mmol/L (-2.0-3.0); ABG HCO3 21.8 mmol/L (22.0-26.0); ABG OXYGEN SATURATION 90.2 % (95-98); ABG PCO2 (T) 33.6 mmHg (32.0-45.0); ABG PH (T) 7.434 (7.350-7.450); ABG PO2 (T) 56.7 mmHg (83-108); ALLEN'S TEST Positive; FCOHb 0.6 % (0.5-1.5); FO2Hb 89.7 % (94-100); PATIENT TEMPERATURE 37.7; PEEP 5 cm H2O; RESPIRATORY RATE 14 b/min; RESPIRATORY RATE (OBSERVED) 26 b/min; TIDAL VOLUME 400 mL; TOTAL HEMOGLOBIN 9.8 G/dl (12.0-16.0)
[2018-03-07] MEDS: acetaminophen 325mg tablet PO PRN (02:49)
[2018-03-07 03:09] LABS: BASOPHILS % (AUTO) 0.2 % (0-1); EOSINOPHILS % (AUTO) 0.3 % (0-6); HEMATOCRIT 25.6 % (35.0-45.0); HEMOGLOBIN 8.2 g/dl (12.0-16.0); LYMPHOCYTES % (AUTO) 5.9 % (21-51); MEAN CORPUSCULAR HEMOGLOBIN 28.3 PG (27.0-31.0); MEAN CORPUSCULAR HGB CONC 31.8 % (33.0-36.5); MEAN CORPUSCULAR VOLUME 88.9 FL (78-98); MEAN PLATELET VOLUME 10.1 FL (7.4-10.4); MONOCYTES # (AUTO) 0.1 X10'3 (0-0.9); MONOCYTES % (AUTO) 0.6 % (2-12); NEUTROPHILS # (AUTO) 15.1 X10'3 (1.8-7.7); PLATELET COUNT 152 X10'3 (140-440); RED BLOOD COUNT 2.89 X10'6 (4.20-5.60); RED CELL DISTRIBUTION WIDTH 13.8 % (11.5-14.5); WHITE BLOOD COUNT 16.3 X10'3 (4.5-11.0)
[2018-03-07 03:15] LABS: ALBUMIN 1.7 G/DL (3.4-5.0); ANION GAP 13 (8-16); BLOOD UREA NITROGEN 69 MG/DL (7-18); BUN/CREATININE RATIO 15.4 (6.6-38.0); CALCIUM 7.3 MG/DL (8.5-10.1); CHLORIDE 99 MMOL/L (99-107); CREATININE 4.49 MG/DL (0.40-0.90); GLUCOSE 146 MG/DL (70-104); POTASSIUM 4.6 MMOL/L (3.5-5.1); SODIUM 134 MMOL/L (135-145); TOTAL CARBON DIOXIDE 22.4 MMOL/L (24-32); eGFR 11 ML/MIN
--- NOTE | 2018-03-07 03:54 | NUR ---
March ALUMINUM BOAT ASSEMBLY SUPERVISOR notified of patient's heart rate sustaining in the 130's and WBC trending up. ALUMINUM BOAT ASSEMBLY SUPERVISOR ordered a repeat blood cultures.
--- NOTE | 2018-03-07 06:12 | NUR ---
Problems reprioritized. Patient report given, questions answered & plan of care reviewed with RHYS Oliva.
[2018-03-07] MEDS: cloNIDine 0.1 mg tablet PO SCH ×2 (07:56→20:06)
[2018-03-07] MEDS: lactobacillus rhamnosus 10,000 MMU CELLS/CAPSULE PO SCH ×2 (07:56→20:06)
[2018-03-07] MEDS: atorvastatin 20mg tablet PO SCH (07:56)
[2018-03-07] MEDS: apixaban 2.5mg tablet PO SCH ×2 (07:57→20:06)
[2018-03-07] MEDS: metoprolol tartrate 50mg tablet PO SCH ×2 (07:57→20:06)
[2018-03-07] MEDS: hydrocortisone acetate 25mg rectal suppository RC SCH ×3 (08:04→23:52)
[2018-03-07] MEDS: sodium ferric gluc complex inj 125 MG in normal saline 100ml IV soln 100 ML IV SCH (08:10)
[2018-03-07] MEDS ORDERED: heparin 1,000unit/ml 10ml vial 10 ML IV ONE (08:20)
[2018-03-07] MEDS ORDERED: normal saline 1000ml 250 ML IV PRN (08:20)
[2018-03-07] MEDS ORDERED: heparin 1,000 units/ml 10ml inj HE ONE ×2 (08:25)
--- NOTE | 2018-03-07 13:43 | NUR ---
Reassessment: MD agrees to change TF to Vital High Protein at 70ml/hr goal; additional water per MD. Will be able to meet pt protein needs on vent/HD. EEG results pending. Will continue to monitor. Recommend: 1. Per MD OG feeds using Vital High Protein at 70 ml/hr goal; to provide. 1680ml fluid, 1680 kcals, 147 gm protein, and 1411ml free water. Does not meet patient's protein needs without overfeeding. 2. additional free water per vice president education 3. Daily Weight; Prealbumin q Tuesday and Addendum: 03/07/18 at [address] Amended: Links added.
[2018-03-07] MEDS: epoetin 20,000 units/ml inj SQ SCH (15:30)
[2018-03-07] MEDS: dexmedetomidin/NS 400mcg/100ml 100 ML IV SCH (17:54)
--- NOTE | 2018-03-07 18:30 | NUR ---
Patient in room ICU 2041. I have received report from RHYS Oliva and had the opportunity to ask questions and assume patient care.
[2018-03-07] MEDS: insulin glargine (Lantus) pen - multi-dose SQ SCH (20:09)
[2018-03-08] VITALS (24 sets, daily range): BP systolic 137–159; BP diastolic 75–98
[2018-03-08] MEDS: pantoprazole 40MG/NS 100ML BAG 100 ML IV SCH ×5 (01:00→20:11)
[2018-03-08] MEDS: mineral oil/petrolatum ophthal oint EACHEYE SCH ×4 (02:12→19:30)
[2018-03-08] MEDS: insulin regular, human vial - multi-dose SQ SCH ×4 (02:14→19:51)
[2018-03-08] MEDS: dexmedetomidin/NS 400mcg/100ml 100 ML IV SCH ×2 (02:20→09:56)
[2018-03-08] MEDS: albuterol 2.5 MG/3 ML nebule NEB SCH ×6 (02:24→22:57)
[2018-03-08 02:49] LABS: BASOPHILS % (AUTO) 0.1 % (0-1); EOSINOPHILS # (AUTO) 0.1 X10'3 (0-0.9); EOSINOPHILS % (AUTO) 0.3 % (0-6); HEMATOCRIT 22.9 % (35.0-45.0); HEMOGLOBIN 7.5 g/dl (12.0-16.0); LYMPHOCYTES # (AUTO) 1.4 X10'3 (1.1-4.8); MEAN CORPUSCULAR HEMOGLOBIN 29.1 PG (27.0-31.0); MEAN CORPUSCULAR HGB CONC 32.5 % (33.0-36.5); MEAN CORPUSCULAR VOLUME 89.6 FL (78-98); MONOCYTES # (AUTO) 1.4 X10'3 (0-0.9); NEUTROPHILS # (AUTO) 20.9 X10'3 (1.8-7.7); NEUTROPHILS % (AUTO) 87.6 % (42-75); PLATELET COUNT 169 X10'3 (140-440); RED BLOOD COUNT 2.56 X10'6 (4.20-5.60); RED CELL DISTRIBUTION WIDTH 14.3 % (11.5-14.5); WHITE BLOOD COUNT 23.8 X10'3 (4.5-11.0)
[2018-03-08 02:52] LABS: ALBUMIN 1.6 G/DL (3.4-5.0); ANION GAP 8 (8-16); BLOOD UREA NITROGEN 41 MG/DL (7-18); BUN/CREATININE RATIO 13.3 (6.6-38.0); CALCIUM 7.4 MG/DL (8.5-10.1); CHLORIDE 99 MMOL/L (99-107); CREATININE 3.09 MG/DL (0.40-0.90); GLUCOSE 168 MG/DL (70-104); SODIUM 134 MMOL/L (135-145); TOTAL CARBON DIOXIDE 27.1 MMOL/L (24-32); eGFR 18 ML/MIN
[2018-03-08 03:41] LABS: ABG BASE EXCESS 2.8 mmol/L (-2.0-3.0); ABG OXYGEN SATURATION 94.4 % (95-98); ABG PCO2 (T) 40.3 mmHg (32.0-45.0); ABG PH (T) 7.446 (7.350-7.450); ABG PO2 (T) 70.6 mmHg (83-108); FCOHb 0.8 % (0.5-1.5); FMetHb 0.2 % (0.3-1.12); FO2Hb 93.5 % (94-100); MINUTE VOLUME 10 L/min; PATIENT TEMPERATURE 37.2; PEEP 5 cm H2O; RESPIRATORY RATE 14 b/min; RESPIRATORY RATE (OBSERVED) 20 b/min; TIDAL VOLUME 400 mL
[2018-03-08 04:12] LABS: NUCLEATED RED BLOOD CELLS 1 /100WBC (0-0); PLATELET ESTIMATE NORMAL; TOTAL CELLS COUNTED 100
[2018-03-08 04:13] LABS: ACANTHOCYTES FEW; BURR CELLS FEW; GIANT PLATELET FEW; POIKILOCYTOSIS 1+; POLYCHROMASIA 1+; TARGET CELLS FEW
--- NOTE | 2018-03-08 06:35 | NUR ---
Patient in room ICU 2041. I have received report from Nancy JOINER and had the opportunity to ask questions and assume patient care.
--- NOTE | 2018-03-08 06:39 | NUR ---
Problems reprioritized. Patient report given, questions answered & plan of care reviewed with RHYS Corona.
--- NOTE | 2018-03-08 06:39 | NUR ---
Problems reprioritized. Patient report given, questions answered & plan of care reviewed with RHYS Corona.
[2018-03-08] MEDS: metoprolol tartrate 50mg tablet PO SCH ×2 (08:34→19:29)
[2018-03-08] MEDS: hydrocortisone acetate 25mg rectal suppository RC SCH ×3 (08:34→23:48)
[2018-03-08] MEDS: apixaban 2.5mg tablet PO SCH ×2 (08:34→19:29)
[2018-03-08] MEDS: cloNIDine 0.1 mg tablet PO SCH ×2 (08:34→19:30)
[2018-03-08] MEDS: atorvastatin 20mg tablet PO SCH (08:34)
[2018-03-08] MEDS: lactobacillus rhamnosus 10,000 MMU CELLS/CAPSULE PO SCH ×2 (08:34→19:29)
[2018-03-08] MEDS: sodium ferric gluc complex inj 125 MG in normal saline 100ml IV soln 100 ML IV SCH (09:56)
[2018-03-08] MEDS ORDERED: midazolam 100mg in NS 100ml 100 ML IV PRN (18:10)
--- NOTE | 2018-03-08 18:24 | NUR ---
Problems reprioritized. Patient report given, questions answered & plan of care reviewed with Nancy JOINER.
--- NOTE | 2018-03-08 18:30 | NUR ---
Patient in room ICU 2041. I have received report from RHYS Corona and had the opportunity to ask questions and assume patient care.
--- NOTE | 2018-03-08 18:30 | NUR ---
Patient in room ICU 2041. I have received report from RHYS Corona and had the opportunity to ask questions and assume patient care.
[2018-03-08] MEDS: FENTANYL-0.9 % NACL/PF 100 ML IV PRN (18:52)
[2018-03-08] MEDS: insulin glargine (Lantus) pen - multi-dose SQ SCH (19:52)
[2018-03-08] MEDS: acetaminophen 325mg tablet PO PRN (20:01)
[2018-03-09] VITALS (27 sets, daily range): BP systolic 107–173; BP diastolic 65–94
[2018-03-09] MEDS: pantoprazole 40MG/NS 100ML BAG 100 ML IV SCH ×5 (02:00→23:17)
[2018-03-09] MEDS: mineral oil/petrolatum ophthal oint EACHEYE SCH ×4 (02:01→20:24)
[2018-03-09] MEDS: insulin regular, human vial - multi-dose SQ SCH ×4 (02:25→20:46)
[2018-03-09 02:36] LABS: BASOPHILS % (AUTO) 0.2 % (0-1); EOSINOPHILS % (AUTO) 0.1 % (0-6); LYMPHOCYTES # (AUTO) 1.2 X10'3 (1.1-4.8); MEAN CORPUSCULAR HEMOGLOBIN 29.1 PG (27.0-31.0); MEAN CORPUSCULAR HGB CONC 32.5 % (33.0-36.5); MEAN CORPUSCULAR VOLUME 89.7 FL (78-98); MEAN PLATELET VOLUME 9.6 FL (7.4-10.4); MONOCYTES # (AUTO) 1.1 X10'3 (0-0.9); MONOCYTES % (AUTO) 5.6 % (2-12); NEUTROPHILS # (AUTO) 17.8 X10'3 (1.8-7.7); NEUTROPHILS % (AUTO) 88.1 % (42-75); PLATELET COUNT 230 X10'3 (140-440); RED BLOOD COUNT 2.41 X10'6 (4.20-5.60); RED CELL DISTRIBUTION WIDTH 15.1 % (11.5-14.5); WHITE BLOOD COUNT 20.1 X10'3 (4.5-11.0)
[2018-03-09] MEDS: albuterol 2.5 MG/3 ML nebule NEB SCH ×5 (02:39→18:55)
[2018-03-09 02:46] LABS: ALBUMIN 1.5 G/DL (3.4-5.0); ANION GAP 10 (8-16); BLOOD UREA NITROGEN 61 MG/DL (7-18); BUN/CREATININE RATIO 16.4 (6.6-38.0); CALCIUM 7.4 MG/DL (8.5-10.1); CHLORIDE 98 MMOL/L (99-107); CREATININE 3.72 MG/DL (0.40-0.90); GLUCOSE 185 MG/DL (70-104); HEMATOCRIT 21.6 % (35.0-45.0); POTASSIUM 4.2 MMOL/L (3.5-5.1); SODIUM 134 MMOL/L (135-145); TOTAL CARBON DIOXIDE 26.5 MMOL/L (24-32); eGFR 14 ML/MIN
[2018-03-09 02:56] LABS: ABG BASE EXCESS 2.3 mmol/L (-2.0-3.0); ABG HCO3 26.8 mmol/L (22.0-26.0); ABG OXYGEN SATURATION 96.5 % (95-98); ABG PCO2 (T) 42.1 mmHg (32.0-45.0); ABG PH (T) 7.424 (7.350-7.450); ALLEN'S TEST Positive; FCOHb 0.8 % (0.5-1.5); FMetHb 0.1 % (0.3-1.12); FO2Hb 95.6 % (94-100); MINUTE VOLUME 10 L/min; PATIENT TEMPERATURE 37.6; PEEP 5 cm H2O; RESPIRATORY RATE 14 b/min; RESPIRATORY RATE (OBSERVED) 21 b/min; TIDAL VOLUME 400 mL; TOTAL HEMOGLOBIN 7.8 G/dl (12.0-16.0)
--- NOTE | 2018-03-09 06:00 | NUR ---
report received from third shift lieutenant.
--- NOTE | 2018-03-09 06:27 | NUR ---
Problems reprioritized. Patient report given, questions answered & plan of care reviewed with RHYS Corona.
--- NOTE | 2018-03-09 06:27 | NUR ---
Patient in room ICU 2041. I have received report from Nancy JOINER and had the opportunity to ask questions and assume patient care.
[2018-03-09] MEDS: hydrocortisone acetate 25mg rectal suppository RC SCH ×2 (07:27→16:27)
[2018-03-09] MEDS: cloNIDine 0.1 mg tablet PO SCH ×2 (07:48→20:24)
[2018-03-09] MEDS: atorvastatin 20mg tablet PO SCH (07:49)
[2018-03-09] MEDS: metoprolol tartrate 50mg tablet PO SCH ×2 (07:51→20:24)
[2018-03-09] MEDS: lactobacillus rhamnosus 10,000 MMU CELLS/CAPSULE PO SCH ×2 (07:52→20:24)
[2018-03-09] MEDS: apixaban 2.5mg tablet PO SCH (08:00)
--- NOTE | 2018-03-09 08:45 | NUR ---
weaning attempted by respiratory therapy, unsuccessful, see respiratory notes
[2018-03-09] MEDS ORDERED: epoetin 20,000 units/ml inj IV ONE (09:10)
[2018-03-09] MEDS ORDERED: heparin 1,000unit/ml 10ml vial 10 ML IV ONE (09:10)
[2018-03-09] MEDS ORDERED: normal saline 1000ml 250 ML IV PRN (09:10)
[2018-03-09] MEDS ORDERED: heparin 1,000 units/ml 10ml inj HE ONE (09:15)
[2018-03-09 10:18] LABS: MEAN CORPUSCULAR HEMOGLOBIN 28.6 PG (27.0-31.0); MEAN CORPUSCULAR HGB CONC 32.1 % (33.0-36.5); MEAN CORPUSCULAR VOLUME 89.1 FL (78-98); RED BLOOD COUNT 2.31 X10'6 (4.20-5.60); RED CELL DISTRIBUTION WIDTH 15.9 % (11.5-14.5); WHITE BLOOD COUNT 22.2 X10'3 (4.5-11.0)
[2018-03-09 10:24] LABS: HEMATOCRIT 20.6 % (35.0-45.0); HEMOGLOBIN 6.6 g/dl (12.0-16.0)
[2018-03-09 10:30] LABS: PLATELET COUNT 211 X10'3 (140-440)
[2018-03-09] MEDS: sodium ferric gluc complex inj 125 MG in normal saline 100ml IV soln 100 ML IV SCH (10:30)
[2018-03-09 10:31] LABS: MEAN PLATELET VOLUME 10.2 FL (7.4-10.4)
[2018-03-09 10:38] LABS: LARGE PLATELETS FEW; PLATELET ESTIMATE NORMAL
--- NOTE | 2018-03-09 16:30 | NUR ---
hr elevated and bp elevated, does not appear to be in distress, fent gtt increased and call placed to Dr May to update on same, no orders from same, states just observe for now.
--- NOTE | 2018-03-09 17:00 | NUR ---
dr may making rounds, updated on continued elevated bp and hr, see flowsheet, no orders as per Dr May.
[2018-03-09] MEDS: FENTANYL-0.9 % NACL/PF 100 ML IV PRN ×2 (18:09→20:24)
--- NOTE | 2018-03-09 18:34 | NUR ---
Problems reprioritized. Patient report given, questions answered & plan of care reviewed with Toney Ragsdale RN.
[2018-03-09 19:38] LABS: HEMATOCRIT 23.8 % (35.0-45.0); HEMOGLOBIN 7.9 g/dl (12.0-16.0); MEAN CORPUSCULAR HGB CONC 33.3 % (33.0-36.5); MEAN CORPUSCULAR VOLUME 87.2 FL (78-98); MEAN PLATELET VOLUME 9.2 FL (7.4-10.4); PLATELET COUNT 246 X10'3 (140-440); RED BLOOD COUNT 2.73 X10'6 (4.20-5.60); RED CELL DISTRIBUTION WIDTH 16.5 % (11.5-14.5)
[2018-03-09 19:45] LABS: WHITE BLOOD COUNT 25.2 X10'3 (4.5-11.0)
[2018-03-09] MEDS: dexmedetomidin/NS 400mcg/100ml 100 ML IV SCH (20:06)
[2018-03-09] MEDS: insulin glargine (Lantus) pen - multi-dose SQ SCH (20:45)
[2018-03-10] VITALS (29 sets, daily range): BP systolic 93–150; BP diastolic 56–92
[2018-03-10] MEDS: albuterol 2.5 MG/3 ML nebule NEB SCH ×7 (00:01→23:29)
[2018-03-10] MEDS: hydrocortisone acetate 25mg rectal suppository RC SCH ×3 (00:52→17:06)
[2018-03-10] MEDS: mineral oil/petrolatum ophthal oint EACHEYE SCH ×4 (02:15→19:40)
[2018-03-10] MEDS: insulin regular, human vial - multi-dose SQ SCH ×4 (02:17→19:44)
[2018-03-10 02:46] LABS: BASOPHILS % (AUTO) 0.2 % (0-1); EOSINOPHILS # (AUTO) 0.1 X10'3 (0-0.9); EOSINOPHILS % (AUTO) 0.6 % (0-6); HEMATOCRIT 23.8 % (35.0-45.0); HEMOGLOBIN 7.8 g/dl (12.0-16.0); LYMPHOCYTES # (AUTO) 1.7 X10'3 (1.1-4.8); LYMPHOCYTES % (AUTO) 7.2 % (21-51); MEAN CORPUSCULAR HEMOGLOBIN 29.6 PG (27.0-31.0); MEAN CORPUSCULAR HGB CONC 32.9 % (33.0-36.5); MEAN CORPUSCULAR VOLUME 90.1 FL (78-98); MEAN PLATELET VOLUME 9.3 FL (7.4-10.4); MONOCYTES # (AUTO) 1.4 X10'3 (0-0.9); MONOCYTES % (AUTO) 5.8 % (2-12); NEUTROPHILS # (AUTO) 20.3 X10'3 (1.8-7.7); NEUTROPHILS % (AUTO) 86.2 % (42-75); PLATELET COUNT 264 X10'3 (140-440); RED BLOOD COUNT 2.65 X10'6 (4.20-5.60); RED CELL DISTRIBUTION WIDTH 16.2 % (11.5-14.5); WHITE BLOOD COUNT 23.5 X10'3 (4.5-11.0)
[2018-03-10 02:51] LABS: ALBUMIN 1.6 G/DL (3.4-5.0); ANION GAP 7 (8-16); BLOOD UREA NITROGEN 33 MG/DL (7-18); CALCIUM 7.5 MG/DL (8.5-10.1); CHLORIDE 101 MMOL/L (99-107); CREATININE 2.35 MG/DL (0.40-0.90); GLUCOSE 99 MG/DL (70-104); POTASSIUM 3.8 MMOL/L (3.5-5.1); SODIUM 138 MMOL/L (135-145); TOTAL CARBON DIOXIDE 29.7 MMOL/L (24-32); eGFR 24 ML/MIN
[2018-03-10 02:51] LABS: ABG BASE EXCESS 2.3 mmol/L (-2.0-3.0); ABG OXYGEN SATURATION 94.8 % (95-98); ABG PCO2 (T) 42.7 mmHg (32.0-45.0); ABG PO2 (T) 75.3 mmHg (83-108); ALLEN'S TEST Positive; FCOHb 0.7 % (0.5-1.5); FMetHb 0.3 % (0.3-1.12); FO2Hb 93.9 % (94-100); MINUTE VOLUME 9 L/min; PATIENT TEMPERATURE 37.2; PEEP 5 cm H2O; RESPIRATORY RATE 14 b/min; RESPIRATORY RATE (OBSERVED) 18 b/min; TIDAL VOLUME 400 mL; TOTAL HEMOGLOBIN 8.7 G/dl (12.0-16.0)
[2018-03-10] MEDS: pantoprazole 40MG/NS 100ML BAG 100 ML IV SCH ×5 (05:04→21:09)
--- NOTE | 2018-03-10 06:00 | NUR ---
Patient in room ICU 2041. I have received report from RHYS Rudolph and had the opportunity to ask questions and assume patient care.
[2018-03-10] MEDS: cloNIDine 0.1 mg tablet PO SCH ×2 (07:51→19:40)
[2018-03-10] MEDS: lactobacillus rhamnosus 10,000 MMU CELLS/CAPSULE PO SCH ×2 (07:51→19:40)
[2018-03-10] MEDS: metoprolol tartrate 50mg tablet PO SCH ×2 (07:51→19:40)
[2018-03-10] MEDS: atorvastatin 20mg tablet PO SCH (07:52)
[2018-03-10] MEDS: apixaban 2.5mg tablet PO SCH ×2 (07:56→19:50)
[2018-03-10] MEDS: sodium ferric gluc complex inj 125 MG in normal saline 100ml IV soln 100 ML IV SCH (08:35)
[2018-03-10] MEDS: FENTANYL-0.9 % NACL/PF 100 ML IV PRN (14:53)
[2018-03-10] MEDS: epoetin 20,000 units/ml inj SQ SCH (15:15)
--- NOTE | 2018-03-10 15:17 | NUR ---
Reassessment: Patient is intubated, tolerating tube feeding at goal with low gastric residuals. No changes to nutrition care at this time. Will continue to monitor. Recommend: 1. Continue OG feeds using Vital High Protein at 70 ml/hr goal; to provide. 1680ml fluid, 1680 kcals, 147 gm protein, and 1411ml free water. Does not meet patient's protein needs without overfeeding. 2. additional free water per masking machine operator 3. Daily Weight; Prealbumin q Tuesday and Addendum: 03/10/18 at [address] Amended: Links added.
[2018-03-10] MEDS ORDERED: heparin 1,000unit/ml 10ml vial 10 ML ONE (15:44)
[2018-03-10] MEDS ORDERED: LIDOcaine 1%/PF 5ML 10 MG/ML VIAL ONE (15:44)
--- NOTE | 2018-03-10 15:55 | NUR ---
1500 svn tx not given in procedure IR
--- NOTE | 2018-03-10 18:09 | NUR ---
Problems reprioritized. Patient report given, questions answered & plan of care reviewed with RHYS Rudolph.
--- NOTE | 2018-03-10 18:30 | NUR ---
Patient in room ICU 2041. I have received report from Dashawn JOINER and had the opportunity to ask questions and assume patient care.
[2018-03-10] MEDS: insulin glargine (Lantus) pen - multi-dose SQ SCH (19:43)
--- NOTE | 2018-03-10 20:02 | NUR ---
Pt's Eloquis to be held tonight (per MD) according to directions given by day shift RN.
[2018-03-10] MEDS: dexmedetomidin/NS 400mcg/100ml 100 ML IV SCH (22:40)
[2018-03-11] VITALS (24 sets, daily range): BP systolic 96–169; BP diastolic 65–99
[2018-03-11] MEDS: mineral oil/petrolatum ophthal oint EACHEYE SCH ×4 (02:41→19:29)
[2018-03-11] MEDS: pantoprazole 40MG/NS 100ML BAG 100 ML IV SCH ×5 (02:41→23:25)
[2018-03-11] MEDS: insulin regular, human vial - multi-dose SQ SCH ×4 (02:51→19:46)
[2018-03-11] MEDS: hydrocortisone acetate 25mg rectal suppository RC SCH ×3 (02:51→16:07)
[2018-03-11 03:05] LABS: BASOPHILS % (AUTO) 0.1 % (0-1); EOSINOPHILS # (AUTO) 0.3 X10'3 (0-0.9); EOSINOPHILS % (AUTO) 1.2 % (0-6); HEMOGLOBIN 7.2 g/dl (12.0-16.0); LYMPHOCYTES # (AUTO) 1.4 X10'3 (1.1-4.8); LYMPHOCYTES % (AUTO) 5.4 % (21-51); MEAN CORPUSCULAR HEMOGLOBIN 27.9 PG (27.0-31.0); MEAN CORPUSCULAR HGB CONC 31.3 % (33.0-36.5); MEAN CORPUSCULAR VOLUME 89.3 FL (78-98); MEAN PLATELET VOLUME 9.2 FL (7.4-10.4); MONOCYTES % (AUTO) 7.4 % (2-12); NEUTROPHILS # (AUTO) 23.1 X10'3 (1.8-7.7); NEUTROPHILS % (AUTO) 85.9 % (42-75); PLATELET COUNT 312 X10'3 (140-440); RED BLOOD COUNT 2.58 X10'6 (4.20-5.60); RED CELL DISTRIBUTION WIDTH 18.1 % (11.5-14.5)
[2018-03-11 03:08] LABS: WHITE BLOOD COUNT 26.9 X10'3 (4.5-11.0)
[2018-03-11 03:16] LABS: ALANINE AMINOTRANSFERASE 165 U/L (12-78); ALBUMIN 1.5 G/DL (3.4-5.0); ALBUMIN/GLOBULIN RATIO 0.3 (1.1-1.5); ALKALINE PHOSPHATASE 887 IU/L (46-116); ANION GAP 10 (8-16); ASPARTATE AMINO TRANSFERASE 214 U/L (10-37); BILIRUBIN,TOTAL 0.8 MG/DL (0.1-1.0); BLOOD UREA NITROGEN 53 MG/DL (7-18); BUN/CREATININE RATIO 16.7 (6.6-38.0); CALCIUM 7.9 MG/DL (8.5-10.1); CHLORIDE 99 MMOL/L (99-107); CREATININE 3.18 MG/DL (0.40-0.90); GLUCOSE 115 MG/DL (70-104); POTASSIUM 4.5 MMOL/L (3.5-5.1); SODIUM 137 MMOL/L (135-145); TOTAL CARBON DIOXIDE 28.4 MMOL/L (24-32); TOTAL PROTEIN 6.3 G/DL (6.4-8.2); eGFR 17 ML/MIN
[2018-03-11] MEDS: albuterol 2.5 MG/3 ML nebule NEB SCH ×6 (03:20→23:12)
[2018-03-11 03:35] LABS: ABG BASE EXCESS 3.8 mmol/L (-2.0-3.0); ABG HCO3 28.5 mmol/L (22.0-26.0); ABG PCO2 (T) 44.7 mmHg (32.0-45.0); ABG PH (T) 7.425 (7.350-7.450); ABG PO2 (T) 70.4 mmHg (83-108); ALLEN'S TEST Positive; FCOHb 1.3 % (0.5-1.5); FMetHb 0.3 % (0.3-1.12); FO2Hb 93.5 % (94-100); MINUTE VOLUME 9 L/min; PATIENT TEMPERATURE 37.3; PEEP 5 cm H2O; RESPIRATORY RATE 14 b/min; RESPIRATORY RATE (OBSERVED) 17 b/min; TIDAL VOLUME 400 mL; TOTAL HEMOGLOBIN 8.1 G/dl (12.0-16.0)
--- NOTE | 2018-03-11 06:10 | NUR ---
Patient in room ICU 2041. I have received report from RHYS Rudolph and had the opportunity to ask questions and assume patient care.
--- NOTE | 2018-03-11 06:38 | NUR ---
Problems reprioritized. Patient report given, questions answered & plan of care reviewed with Dashawn RN.
[2018-03-11 06:55] LABS: ANISOCYTOSIS 2+; PLATELET ESTIMATE NORMAL; TOTAL CELLS COUNTED 100
[2018-03-11 06:56] LABS: HYPOCHROMASIA 1+; POIKILOCYTOSIS 1+; POLYCHROMASIA 2+; TARGET CELLS 1+; TOXIC GRANULATION 1+
[2018-03-11] MEDS: apixaban 2.5mg tablet PO SCH ×2 (07:10→19:11)
[2018-03-11] MEDS: atorvastatin 20mg tablet PO SCH (07:22)
[2018-03-11] MEDS: lactobacillus rhamnosus 10,000 MMU CELLS/CAPSULE PO SCH ×2 (07:22→19:29)
[2018-03-11] MEDS: metoprolol tartrate 50mg tablet PO SCH ×2 (07:22→19:29)
[2018-03-11] MEDS: cloNIDine 0.1 mg tablet PO SCH ×2 (07:22→19:29)
[2018-03-11] MEDS ORDERED: normal saline 1000ml 250 ML IV PRN (09:04)
[2018-03-11] MEDS ORDERED: epoetin 20,000 units/ml inj IV ONE (09:05)
[2018-03-11] MEDS ORDERED: heparin 1,000 units/ml 10ml inj HE ONE ×2 (09:10)
[2018-03-11] MEDS: sodium ferric gluc complex inj 125 MG in normal saline 100ml IV soln 100 ML IV SCH (09:32)
[2018-03-11] MEDS: FENTANYL-0.9 % NACL/PF 100 ML IV PRN (10:55)
--- NOTE | 2018-03-11 17:22 | NUR ---
Dr. May notified of increasing BP (172/99). No new orders received. Will continue to monitor.
--- NOTE | 2018-03-11 18:01 | NUR ---
Problems reprioritized. Patient report given, questions answered & plan of care reviewed with RHYS Rudolph.
[2018-03-11] MEDS: insulin glargine (Lantus) pen - multi-dose SQ SCH (19:45)
[2018-03-12] VITALS (17 sets, daily range): BP systolic 122–156; BP diastolic 69–90
[2018-03-12] MEDS: dexmedetomidin/NS 400mcg/100ml 100 ML IV SCH (01:14)
[2018-03-12] MEDS: hydrocortisone acetate 25mg rectal suppository RC SCH ×3 (01:31→16:35)
[2018-03-12] MEDS: mineral oil/petrolatum ophthal oint EACHEYE SCH ×4 (02:07→19:38)
[2018-03-12] MEDS: insulin regular, human vial - multi-dose SQ SCH ×4 (02:38→19:50)
[2018-03-12 03:01] LABS: BASOPHILS # (AUTO) 0.2 X10'3 (0-0.2); BASOPHILS % (AUTO) 0.6 % (0-1); EOSINOPHILS # (AUTO) 0.4 X10'3 (0-0.9); EOSINOPHILS % (AUTO) 1.6 % (0-6); HEMATOCRIT 23.1 % (35.0-45.0); HEMOGLOBIN 7.2 g/dl (12.0-16.0); LYMPHOCYTES # (AUTO) 1.3 X10'3 (1.1-4.8); MEAN CORPUSCULAR HEMOGLOBIN 27.9 PG (27.0-31.0); MEAN CORPUSCULAR HGB CONC 30.9 % (33.0-36.5); MEAN PLATELET VOLUME 8.9 FL (7.4-10.4); MONOCYTES # (AUTO) 1.9 X10'3 (0-0.9); MONOCYTES % (AUTO) 7.4 % (2-12); NEUTROPHILS # (AUTO) 21.8 X10'3 (1.8-7.7); NEUTROPHILS % (AUTO) 85.4 % (42-75); PLATELET COUNT 354 X10'3 (140-440); RED BLOOD COUNT 2.57 X10'6 (4.20-5.60); RED CELL DISTRIBUTION WIDTH 18.6 % (11.5-14.5)
[2018-03-12 03:06] LABS: WHITE BLOOD COUNT 25.6 X10'3 (4.5-11.0)
[2018-03-12 03:09] LABS: ALBUMIN 1.5 G/DL (3.4-5.0); ANION GAP 11 (8-16); BLOOD UREA NITROGEN 32 MG/DL (7-18); BUN/CREATININE RATIO 15.8 (6.6-38.0); CALCIUM 7.9 MG/DL (8.5-10.1); CHLORIDE 99 MMOL/L (99-107); CREATININE 2.03 MG/DL (0.40-0.90); GLUCOSE 83 MG/DL (70-104); SODIUM 139 MMOL/L (135-145); TOTAL CARBON DIOXIDE 29.1 MMOL/L (24-32); eGFR 29 ML/MIN
[2018-03-12] MEDS: albuterol 2.5 MG/3 ML nebule NEB SCH ×6 (03:36→23:00)
[2018-03-12 04:01] LABS: ABG BASE EXCESS 7.7 mmol/L (-2.0-3.0); ABG OXYGEN SATURATION 94.2 % (95-98); ABG PCO2 (T) 51.9 mmHg (32.0-45.0); ABG PH (T) 7.423 (7.350-7.450); ABG PO2 (T) 66.1 mmHg (83-108); ALLEN'S TEST Positive; FCOHb 0.8 % (0.5-1.5); FMetHb 0.3 % (0.3-1.12); FO2Hb 93.2 % (94-100); MINUTE VOLUME 7 L/min; PATIENT TEMPERATURE 37.3; PEEP 5 cm H2O; RESPIRATORY RATE 145 b/min; RESPIRATORY RATE (OBSERVED) 16 b/min; TIDAL VOLUME 400 mL
[2018-03-12] MEDS: FENTANYL-0.9 % NACL/PF 100 ML IV PRN ×2 (04:59→21:29)
[2018-03-12] MEDS: pantoprazole 40MG/NS 100ML BAG 100 ML IV SCH ×5 (05:00→19:39)
--- NOTE | 2018-03-12 06:39 | NUR ---
Problems reprioritized. Patient report given, questions answered & plan of care reviewed with Kesha JOINER.
--- NOTE | 2018-03-12 06:40 | NUR ---
Patient in room ICU 2041. I have received report from RHYS Rudolph and had the opportunity to ask questions and assume patient care.
[2018-03-12] MEDS: dextrose 50%-water 50ml dispensing syringe IV PRN (07:04)
[2018-03-12 07:12] LABS: ANISOCYTOSIS 2+; PLATELET ESTIMATE NORMAL; TOTAL CELLS COUNTED 100
[2018-03-12 07:13] LABS: HYPOCHROMASIA 1+; POLYCHROMASIA 3+; ROULEAUX 1+; TOXIC GRANULATION 1+
[2018-03-12 07:14] LABS: ACANTHOCYTES 1+; TARGET CELLS 1+
[2018-03-12] MEDS: apixaban 2.5mg tablet PO SCH ×2 (08:00→19:48)
[2018-03-12] MEDS: dexamethasone 4mg/ml inj IV SCH ×2 (08:46→19:38)
[2018-03-12] MEDS: lactobacillus rhamnosus 10,000 MMU CELLS/CAPSULE PO SCH ×2 (08:46→19:38)
[2018-03-12] MEDS: atorvastatin 20mg tablet PO SCH (08:46)
[2018-03-12] MEDS: cloNIDine 0.1 mg tablet PO SCH ×2 (08:46→19:38)
[2018-03-12] MEDS: metoprolol tartrate 50mg tablet PO SCH ×2 (08:47→19:38)
[2018-03-12] MEDS: sodium ferric gluc complex inj 125 MG in normal saline 100ml IV soln 100 ML IV SCH (09:03)
--- NOTE | 2018-03-12 14:08 | NUR ---
Reassessment: Patient is intubated, tolerating tube feeding at goal with low gastric residuals. LBM 03/10. No changes to nutrition care at this time. Will continue to monitor. Recommend: 1. Continue OG feeds using Vital High Protein at 70 ml/hr goal; to provide. 1680ml fluid, 1680 kcals, 147 gm protein, and 1411ml free water. Does not meet patient's protein needs without overfeeding. 2. additional free water per stud sheep farmer 3. Daily Weight; Prealbumin q Tuesday and Addendum: 03/12/18 at [address] Amended: Links added.
[2018-03-12] MEDS: insulin glargine (Lantus) pen - multi-dose SQ SCH (19:50)
[2018-03-13] VITALS (22 sets, daily range): BP systolic 143–171; BP diastolic 75–97
[2018-03-13] MEDS: mineral oil/petrolatum ophthal oint EACHEYE SCH ×4 (02:56→19:49)
[2018-03-13] MEDS: hydrocortisone acetate 25mg rectal suppository RC SCH ×3 (02:56→15:02)
[2018-03-13] MEDS: pantoprazole 40MG/NS 100ML BAG 100 ML IV SCH ×2 (02:57→09:29)
[2018-03-13] MEDS: insulin regular, human vial - multi-dose SQ SCH ×3 (03:00→21:04)
[2018-03-13] MEDS: albuterol 2.5 MG/3 ML nebule NEB SCH ×6 (03:05→23:08)
[2018-03-13 03:28] LABS: ALBUMIN 1.4 G/DL (3.4-5.0); ANION GAP 11 (8-16); BLOOD UREA NITROGEN 55 MG/DL (7-18); BUN/CREATININE RATIO 18.6 (6.6-38.0); CALCIUM 8.1 MG/DL (8.5-10.1); CHLORIDE 97 MMOL/L (99-107); CREATININE 2.95 MG/DL (0.40-0.90); GLUCOSE 207 MG/DL (70-104); POTASSIUM 5.1 MMOL/L (3.5-5.1); SODIUM 136 MMOL/L (135-145); TOTAL CARBON DIOXIDE 28.2 MMOL/L (24-32); eGFR 19 ML/MIN
[2018-03-13] MEDS: dexmedetomidin/NS 400mcg/100ml 100 ML IV SCH (03:48)
[2018-03-13 03:55] LABS: ABG BASE EXCESS 3.9 mmol/L (-2.0-3.0); ABG HCO3 28.8 mmol/L (22.0-26.0); ABG OXYGEN SATURATION 96.3 % (95-98); ABG PCO2 (T) 45.9 mmHg (32.0-45.0); ABG PH (T) 7.417 (7.350-7.450); ABG PO2 (T) 80.7 mmHg (83-108); ALLEN'S TEST Positive; FCOHb 0.7 % (0.5-1.5); FO2Hb 95.6 % (94-100); MINUTE VOLUME 9 L/min; PATIENT TEMPERATURE 37.3; PEEP 5 cm H2O; RESPIRATORY RATE 14 b/min; RESPIRATORY RATE (OBSERVED) 17 b/min; TIDAL VOLUME 400 mL; TOTAL HEMOGLOBIN 8.3 G/dl (12.0-16.0)
[2018-03-13 03:59] LABS: BASOPHILS % (AUTO) 0 % (0-1); EOSINOPHILS % (AUTO) 0 % (0-6); HEMATOCRIT 23.1 % (35.0-45.0); HEMOGLOBIN 7.1 g/dl (12.0-16.0); LYMPHOCYTES # (AUTO) 1.1 X10'3 (1.1-4.8); MEAN CORPUSCULAR HEMOGLOBIN 27.5 PG (27.0-31.0); MEAN CORPUSCULAR HGB CONC 30.8 % (33.0-36.5); MEAN CORPUSCULAR VOLUME 89.4 FL (78-98); MEAN PLATELET VOLUME 9.2 FL (7.4-10.4); MONOCYTES # (AUTO) 1.7 X10'3 (0-0.9); MONOCYTES % (AUTO) 6.4 % (2-12); NEUTROPHILS # (AUTO) 23.9 X10'3 (1.8-7.7); NEUTROPHILS % (AUTO) 89.6 % (42-75); PLATELET COUNT 437 X10'3 (140-440); RED BLOOD COUNT 2.58 X10'6 (4.20-5.60); RED CELL DISTRIBUTION WIDTH 18.7 % (11.5-14.5)
[2018-03-13 04:02] LABS: WHITE BLOOD COUNT 26.7 X10'3 (4.5-11.0)
[2018-03-13 06:15] LABS: TOTAL CELLS COUNTED 100
[2018-03-13 06:16] LABS: ANISOCYTOSIS 2+; PLATELET ESTIMATE NORMAL
--- NOTE | 2018-03-13 06:17 | NUR ---
Problems reprioritized. Patient report given, questions answered & plan of care reviewed with Kesha JOINER.
[2018-03-13 06:18] LABS: POLYCHROMASIA 2+; TARGET CELLS FEW
[2018-03-13 06:21] LABS: POIKILOCYTOSIS 1+
--- NOTE | 2018-03-13 06:28 | NUR ---
Patient in room ICU 2041. I have received report from RHYS Rudolph and had the opportunity to ask questions and assume patient care.
[2018-03-13] MEDS: apixaban 2.5mg tablet PO SCH ×2 (08:00→19:49)
[2018-03-13] MEDS: dexamethasone 4mg/ml inj IV SCH ×3 (09:27→19:49)
[2018-03-13] MEDS: atorvastatin 20mg tablet PO SCH (09:28)
[2018-03-13] MEDS: lactobacillus rhamnosus 10,000 MMU CELLS/CAPSULE PO SCH ×2 (09:28→19:48)
[2018-03-13] MEDS: metoprolol tartrate 50mg tablet PO SCH ×2 (09:28→19:48)
[2018-03-13] MEDS: cloNIDine 0.1 mg tablet PO SCH ×2 (09:28→19:48)
[2018-03-13] MEDS: sodium ferric gluc complex inj 125 MG in normal saline 100ml IV soln 100 ML IV SCH (09:29)
[2018-03-13 09:41] LABS: PREALBUMIN 12.7 MG/DL (19-36)
[2018-03-13] MEDS: FENTANYL-0.9 % NACL/PF 100 ML IV PRN (17:41)
--- NOTE | 2018-03-13 18:39 | NUR ---
Problems reprioritized. Patient report given, questions answered & plan of care reviewed with RHYS Rudolph.
[2018-03-13] MEDS: insulin glargine (Lantus) pen - multi-dose SQ SCH (21:04)
[2018-03-14] VITALS (26 sets, daily range): BP systolic 140–193; BP diastolic 86–119
[2018-03-14 02:23] LABS: BASOPHILS % (AUTO) 0.1 % (0-1); EOSINOPHILS # (AUTO) 0.4 X10'3 (0-0.9); EOSINOPHILS % (AUTO) 1.6 % (0-6); HEMATOCRIT 22.5 % (35.0-45.0); HEMOGLOBIN 7.1 g/dl (12.0-16.0); LYMPHOCYTES % (AUTO) 3.9 % (21-51); MEAN CORPUSCULAR HEMOGLOBIN 28.1 PG (27.0-31.0); MEAN CORPUSCULAR HGB CONC 31.5 % (33.0-36.5); MEAN CORPUSCULAR VOLUME 89.2 FL (78-98); MEAN PLATELET VOLUME 8.8 FL (7.4-10.4); MONOCYTES # (AUTO) 1.7 X10'3 (0-0.9); MONOCYTES % (AUTO) 6.8 % (2-12); NEUTROPHILS # (AUTO) 22.3 X10'3 (1.8-7.7); NEUTROPHILS % (AUTO) 87.6 % (42-75); PLATELET COUNT 524 X10'3 (140-440); RED BLOOD COUNT 2.53 X10'6 (4.20-5.60)
[2018-03-14 02:38] LABS: WHITE BLOOD COUNT 25.4 X10'3 (4.5-11.0)
[2018-03-14 02:44] LABS: ALBUMIN 1.5 G/DL (3.4-5.0); ANION GAP 12 (8-16); BLOOD UREA NITROGEN 78 MG/DL (7-18); BUN/CREATININE RATIO 21.8 (6.6-38.0); CALCIUM 8.3 MG/DL (8.5-10.1); CHLORIDE 97 MMOL/L (99-107); CREATININE 3.57 MG/DL (0.40-0.90); GLUCOSE 221 MG/DL (70-104); POTASSIUM 5.6 MMOL/L (3.5-5.1); SODIUM 135 MMOL/L (135-145); TOTAL CARBON DIOXIDE 25.8 MMOL/L (24-32); eGFR 15 ML/MIN
[2018-03-14] MEDS: mineral oil/petrolatum ophthal oint EACHEYE SCH ×4 (02:46→20:00)
[2018-03-14] MEDS: dexamethasone 4mg/ml inj IV SCH ×4 (02:46→19:57)
[2018-03-14] MEDS: insulin regular, human vial - multi-dose SQ SCH ×4 (02:47→20:10)
[2018-03-14] MEDS: albuterol 2.5 MG/3 ML nebule NEB SCH ×6 (03:29→23:29)
[2018-03-14 03:45] LABS: ABG BASE EXCESS 2.4 mmol/L (-2.0-3.0); ABG HCO3 27.1 mmol/L (22.0-26.0); ABG OXYGEN SATURATION 98.2 % (95-98); ABG PCO2 (T) 42.7 mmHg (32.0-45.0); ABG PO2 (T) 110.3 mmHg (83-108); ALLEN'S TEST Positive; FCOHb 0.6 % (0.5-1.5); FMetHb 0.3 % (0.3-1.12); FO2Hb 97.3 % (94-100); MINUTE VOLUME 11 L/min; PEEP 5 cm H2O; RESPIRATORY RATE 14 b/min; RESPIRATORY RATE (OBSERVED) 23 b/min; TIDAL VOLUME 400 mL
[2018-03-14 04:18] LABS: TOTAL CELLS COUNTED 100
[2018-03-14 04:19] LABS: ANISOCYTOSIS 2+; PLATELET ESTIMATE INCREASED; POIKILOCYTOSIS 1+; POLYCHROMASIA 1+
[2018-03-14 04:20] LABS: ELLIPTOCYTES FEW; SCHISTOCYTES FEW
--- NOTE | 2018-03-14 06:41 | NUR ---
Patient in room ICU 2041. I have received report from RHYS Rudolph and had the opportunity to ask questions and assume patient care.
[2018-03-14] MEDS: apixaban 2.5mg tablet PO SCH (08:00)
[2018-03-14] MEDS ORDERED: epoetin 20,000 units/ml inj IV ONE (08:00)
[2018-03-14] MEDS ORDERED: normal saline 1000ml 250 ML IV PRN (08:00)
[2018-03-14] MEDS ORDERED: heparin 1,000unit/ml 10ml vial 10 ML IV ONE (08:00)
[2018-03-14] MEDS ORDERED: heparin 1,000 units/ml 10ml inj HE ONE ×2 (08:00)
[2018-03-14] MEDS: pantoprazole 40 MG vial IV SCH (08:24)
[2018-03-14] MEDS: metoprolol tartrate 50mg tablet PO SCH (08:25)
[2018-03-14] MEDS: lactobacillus rhamnosus 10,000 MMU CELLS/CAPSULE PO SCH ×2 (08:25→19:57)
[2018-03-14] MEDS: cloNIDine 0.1 mg tablet PO SCH ×2 (08:25→19:04)
[2018-03-14] MEDS: atorvastatin 20mg tablet PO SCH (08:25)
[2018-03-14] MEDS: hydrocortisone acetate 25mg rectal suppository RC SCH ×3 (08:26→17:56)
[2018-03-14] MEDS: sodium ferric gluc complex inj 125 MG in normal saline 100ml IV soln 100 ML IV SCH (08:29)
[2018-03-14] MEDS: epoetin 20,000 units/ml inj SQ SCH (09:00)
[2018-03-14] MEDS: FENTANYL-0.9 % NACL/PF 100 ML IV PRN ×2 (10:43→21:19)
--- NOTE | 2018-03-14 16:15 | NUR ---
Notified Dr. May about pt's BP sustaining in the 180's, asked for order for coreg which he mentioned in rounds. MD stated he would enter orders.
--- NOTE | 2018-03-14 18:28 | NUR ---
Problems reprioritized. Patient report given, questions answered & plan of care reviewed with RHYS Rogers. Addendum: 03/14/18 at 1837 by Dayanna Estes RN wrong pt
--- NOTE | 2018-03-14 18:35 | NUR ---
Patient in room ICU 2041. I have received report from Dayanna and had the opportunity to ask questions and assume patient care.
--- NOTE | 2018-03-14 18:36 | NUR ---
Problems reprioritized. Patient report given, questions answered & plan of care reviewed with Jamie Holman RN.
--- NOTE | 2018-03-14 19:10 | NUR ---
RN Note -MD Communication Called Dominic Barton regarding pt's blood pressure has been high throughout the day and is currently 193/119. Received order for PRN hydralazine.
[2018-03-14] MEDS ORDERED: hydrALAZINE 20mg/ml inj. IV ONE (19:14)
[2018-03-14] MEDS: carVEDilol 12.5mg tablet PO SCH (19:57)
[2018-03-14] MEDS: insulin glargine (Lantus) pen - multi-dose SQ SCH (20:59)
[2018-03-15] VITALS (23 sets, daily range): BP systolic 113–197; BP diastolic 11–108
[2018-03-15] MEDS: hydrocortisone acetate 25mg rectal suppository RC SCH ×3 (00:57→16:55)
[2018-03-15] MEDS: mineral oil/petrolatum ophthal oint EACHEYE SCH ×3 (02:00→14:00)
[2018-03-15] MEDS: dexamethasone 4mg/ml inj IV SCH ×3 (02:46→16:55)
[2018-03-15] MEDS: insulin regular, human vial - multi-dose SQ SCH ×2 (02:52→08:02)
[2018-03-15 03:14] LABS: BASOPHILS # (AUTO) 0.1 X10'3 (0-0.2); BASOPHILS % (AUTO) 0.2 % (0-1); EOSINOPHILS % (AUTO) 0 % (0-6); HEMATOCRIT 26.3 % (35.0-45.0); HEMOGLOBIN 8.5 g/dl (12.0-16.0); LYMPHOCYTES # (AUTO) 1.8 X10'3 (1.1-4.8); LYMPHOCYTES % (AUTO) 6.2 % (21-51); MEAN CORPUSCULAR HEMOGLOBIN 29.4 PG (27.0-31.0); MEAN CORPUSCULAR HGB CONC 32.2 % (33.0-36.5); MEAN CORPUSCULAR VOLUME 91.2 FL (78-98); MEAN PLATELET VOLUME 8.6 FL (7.4-10.4); MONOCYTES # (AUTO) 2.1 X10'3 (0-0.9); MONOCYTES % (AUTO) 7.3 % (2-12); NEUTROPHILS # (AUTO) 25.3 X10'3 (1.8-7.7); NEUTROPHILS % (AUTO) 86.3 % (42-75); PLATELET COUNT 556 X10'3 (140-440); RED BLOOD COUNT 2.88 X10'6 (4.20-5.60); RED CELL DISTRIBUTION WIDTH 18.8 % (11.5-14.5)
[2018-03-15 03:28] LABS: ALBUMIN 1.6 G/DL (3.4-5.0); ANION GAP 9 (8-16); BLOOD UREA NITROGEN 46 MG/DL (7-18); BUN/CREATININE RATIO 20.5 (6.6-38.0); CALCIUM 8.1 MG/DL (8.5-10.1); CHLORIDE 99 MMOL/L (99-107); CREATININE 2.24 MG/DL (0.40-0.90); GLUCOSE 167 MG/DL (70-104); POTASSIUM 4.2 MMOL/L (3.5-5.1); SODIUM 137 MMOL/L (135-145); TOTAL CARBON DIOXIDE 29.5 MMOL/L (24-32); eGFR 25 ML/MIN
[2018-03-15] MEDS: albuterol 2.5 MG/3 ML nebule NEB SCH ×6 (03:33→23:27)
[2018-03-15 03:43] LABS: WHITE BLOOD COUNT 29.3 X10'3 (4.5-11.0)
[2018-03-15 03:50] LABS: ABG BASE EXCESS 2.8 mmol/L (-2.0-3.0); ABG HCO3 27.4 mmol/L (22.0-26.0); ABG PCO2 (T) 43.1 mmHg (32.0-45.0); ABG PH (T) 7.422 (7.350-7.450); ABG PO2 (T) 104.1 mmHg (83-108); ALLEN'S TEST Positive; FCOHb 1.1 % (0.5-1.5); FMetHb 0.3 % (0.3-1.12); FO2Hb 96.6 % (94-100); MINUTE VOLUME 10 L/min; PATIENT TEMPERATURE 37.4; PEEP 5 cm H2O; RESPIRATORY RATE (OBSERVED) 17 b/min; TOTAL HEMOGLOBIN 9.4 G/dl (12.0-16.0)
[2018-03-15] MEDS: hydrALAZINE 20mg/ml inj. IV PRN (04:40)
[2018-03-15 05:28] LABS: NUCLEATED RED BLOOD CELLS 3 /100WBC (0-0); TOTAL CELLS COUNTED 100
[2018-03-15 05:34] LABS: ANISOCYTOSIS 2+; LARGE PLATELETS FEW; PLATELET ESTIMATE INCREASED; POLYCHROMASIA 1+; SCHISTOCYTES FEW
--- NOTE | 2018-03-15 06:30 | NUR ---
Patient in room ICU 2041. I have received report from Jamie Holman RN and had the opportunity to ask questions and assume patient care.
[2018-03-15] MEDS: carVEDilol 12.5mg tablet PO SCH ×2 (07:48→19:18)
[2018-03-15] MEDS: pantoprazole 40 MG vial IV SCH (07:48)
[2018-03-15] MEDS: atorvastatin 20mg tablet PO SCH (07:48)
[2018-03-15] MEDS: cloNIDine 0.1 mg tablet PO SCH ×2 (07:48→19:18)
[2018-03-15] MEDS: lactobacillus rhamnosus 10,000 MMU CELLS/CAPSULE PO SCH ×2 (07:48→19:18)
[2018-03-15] MEDS: FENTANYL-0.9 % NACL/PF 100 ML IV PRN ×2 (08:15→23:34)
[2018-03-15] MEDS: sodium ferric gluc complex inj 125 MG in normal saline 100ml IV soln 100 ML IV SCH (09:11)
--- NOTE | 2018-03-15 10:15 | NUR ---
Rounded with Dr. May and team possible tube exchange today depending on Dr. Tam. Otherwise pt in stable condition, addressed BP and Dr. May is ok with SBP in the 180's, pt on scheduled meds for BP. Pt awake and following command with copious secretions oral and from ET tube. Mother at bedside and in agreement with plan for today.
[2018-03-15] MEDS: acetaminophen 325mg tablet PO PRN (13:07)
--- NOTE | 2018-03-15 14:00 | NUR ---
Pt extubated to NC 5L, Dr. Tam at the bedside to assess pt, put orders into extubate. RT and cupola charger insulation at bedside, pt has moderate amount of secretions but has a good cough s/p extubation. Lungs are coarse and breath sounds heard bilaterally, with no stridor in the neck. Pt saturating in the high 90's on 5L NC will titrate down as tolerated.
--- NOTE | 2018-03-15 18:30 | NUR ---
Patient in room ICU 2041. I have received report and had the opportunity to ask questions and assume patient care.
--- NOTE | 2018-03-15 18:30 | NUR ---
Problems reprioritized. Patient report given, questions answered & plan of care reviewed with RHYS Toro.
--- NOTE | 2018-03-15 18:46 | NUR ---
pt has po meds due tonight. swallow evaluation performed with the patient. pt started to cough, patient suctioned. pt unable to swallow safely at this time. notified. orders received
[2018-03-15] MEDS ORDERED: cloNIDine 0.1 MG/24 HOUR patch (7 day patch) TD ONE (18:50)
--- NOTE | 2018-03-15 19:00 | NUR ---
pt has increased labored, retractive respirations. pt started on bipap
[2018-03-15] MEDS: enalaprilat dihydrate 2.5mg/2ml vial IV SCH ×2 (19:19→20:00)
[2018-03-15 20:51] LABS: ABG BASE EXCESS 1.6 mmol/L (-2.0-3.0); ABG HCO3 28.9 mmol/L (22.0-26.0); ABG OXYGEN SATURATION 95.7 % (95-98); ABG PCO2 (T) 60.7 mmHg (32.0-45.0); ABG PH (T) 7.296 (7.350-7.450); ABG PO2 (T) 88.3 mmHg (83-108); ALLEN'S TEST Positive; FCOHb 0.8 % (0.5-1.5); FO2Hb 94.9 % (94-100); RESPIRATORY RATE (OBSERVED) 24 b/min; TOTAL HEMOGLOBIN 10.1 G/dl (12.0-16.0)
[2018-03-15] MEDS: insulin glargine (Lantus) pen - multi-dose SQ SCH (20:58)
--- NOTE | 2018-03-15 21:30 | NUR ---
pt o2 sat is maintaining Between 87 AND 90%. O2 INCREASED TO 60% PT RESPIRATIONS REMAIN SHALLOW AND LABORED. NOTIFIED
--- NOTE | 2018-03-15 21:45 | NUR ---
ADONIS CLAYTON AT BEDSIDE. PT 02 SAT AT 82% AND DECLINING. PAGED ER TO PERFORM RAPID INTUBATION. PT REMOVED FROM BIPAP AND MANICALLY BAGGING PT. PT HR DROPPED INTO THE 40'S, BP DECREASED TO 60/40. 2150 NS BOLUS GIVEN 2151 1 AMP ATROPINE PUSHED 2152 20 ETOMIDATE AND 100 OF ROCURONIUM PUSHED 2155 PT INTUBATED, 22 at the lip, vocal cords visualized, positive color change noted.
[2018-03-15] MEDS ORDERED: ipratropium/albuterol 3ml nebule NEB PRN (22:00)
--- NOTE | 2018-03-15 22:00 | NUR ---
oral gastric tube placed. positive placements confirmed by auscultation and positive for gastric contents. gastic tube to low intermittent suction. pt npo. ot tolerated procedure well. will continue to monitor.
[2018-03-15] MEDS ORDERED: NORepinephrine 8mg/ 250ml NS 250 ML IV ONE (22:10)
[2018-03-15 22:25] LABS: ABG BASE EXCESS -6.1 mmol/L (-2.0-3.0); ABG HCO3 23.2 mmol/L (22.0-26.0); ABG OXYGEN SATURATION 98.9 % (95-98); ABG PCO2 (T) 68.4 mmHg (32.0-45.0); ABG PH (T) 7.148 (7.350-7.450); ALLEN'S TEST Positive; FCOHb 1.1 % (0.5-1.5); FMetHb 0.3 % (0.3-1.12); FO2Hb 97.5 % (94-100); PEEP 5 cm H2O; RESPIRATORY RATE 18 b/min; RESPIRATORY RATE (OBSERVED) 18 b/min; TIDAL VOLUME 400 mL; TOTAL HEMOGLOBIN 9.5 G/dl (12.0-16.0)
[2018-03-15] MEDS: midazolam 100mg in NS 100ml 100 ML IV PRN (23:34)
[2018-03-16] VITALS (23 sets, daily range): BP systolic 126–176; BP diastolic 68–98
[2018-03-16] MEDS: hydrocortisone acetate 25mg rectal suppository RC SCH ×3 (00:20→16:48)
[2018-03-16] MEDS: enalaprilat dihydrate 2.5mg/2ml vial IV SCH ×4 (01:38→22:00)
[2018-03-16] MEDS: albuterol 2.5 MG/3 ML nebule NEB SCH ×6 (02:16→23:40)
[2018-03-16 02:35] LABS: ABG HCO3 19.3 mmol/L (22.0-26.0); ABG OXYGEN SATURATION 99.2 % (95-98); ABG PCO2 (T) 27.1 mmHg (32.0-45.0); ABG PH (T) 7.468 (7.350-7.450); ALLEN'S TEST Positive; FCOHb 1.1 % (0.5-1.5); FO2Hb 98.1 % (94-100); MINUTE VOLUME 9 L/min; PATIENT TEMPERATURE 36.4; PEEP 5 cm H2O; RESPIRATORY RATE 22 b/min; RESPIRATORY RATE (OBSERVED) 22 b/min; TIDAL VOLUME 400 mL; TOTAL HEMOGLOBIN 7.2 G/dl (12.0-16.0)
[2018-03-16 02:43] LABS: BASOPHILS # (AUTO) 0.1 X10'3 (0-0.2); BASOPHILS % (AUTO) 0.3 % (0-1); EOSINOPHILS % (AUTO) 0 % (0-6); HEMATOCRIT 26.5 % (35.0-45.0); HEMOGLOBIN 8.5 g/dl (12.0-16.0); LYMPHOCYTES # (AUTO) 1.3 X10'3 (1.1-4.8); LYMPHOCYTES % (AUTO) 3.5 % (21-51); MEAN CORPUSCULAR HEMOGLOBIN 29.4 PG (27.0-31.0); MEAN CORPUSCULAR VOLUME 91.9 FL (78-98); MEAN PLATELET VOLUME 8.8 FL (7.4-10.4); MONOCYTES # (AUTO) 1.7 X10'3 (0-0.9); MONOCYTES % (AUTO) 4.7 % (2-12); NEUTROPHILS # (AUTO) 33.4 X10'3 (1.8-7.7); NEUTROPHILS % (AUTO) 91.5 % (42-75); PLATELET COUNT 550 X10'3 (140-440); RED BLOOD COUNT 2.88 X10'6 (4.20-5.60); RED CELL DISTRIBUTION WIDTH 19.7 % (11.5-14.5)
[2018-03-16 02:49] LABS: ALBUMIN 1.7 G/DL (3.4-5.0); ANION GAP 14 (8-16); BLOOD UREA NITROGEN 67 MG/DL (7-18); BUN/CREATININE RATIO 23.2 (6.6-38.0); CHLORIDE 97 MMOL/L (99-107); CREATININE 2.89 MG/DL (0.40-0.90); GLUCOSE 208 MG/DL (70-104); POTASSIUM 4.5 MMOL/L (3.5-5.1); SODIUM 135 MMOL/L (135-145); eGFR 19 ML/MIN
[2018-03-16 02:53] LABS: WHITE BLOOD COUNT 36.5 X10'3 (4.5-11.0)
[2018-03-16 03:36] LABS: TOTAL CELLS COUNTED 100
[2018-03-16 03:37] LABS: ANISOCYTOSIS 2+; PLATELET ESTIMATE INCREASED; POLYCHROMASIA 1+
--- NOTE | 2018-03-16 06:20 | NUR ---
Patient in room ICU 2041. I have received report from Muna JOINER and had the opportunity to ask questions and assume patient care.
[2018-03-16] MEDS ORDERED: epoetin 20,000 units/ml inj IV ONE (08:00)
[2018-03-16] MEDS ORDERED: heparin 1,000unit/ml 10ml vial 10 ML IV ONE (08:00)
[2018-03-16] MEDS ORDERED: normal saline 1000ml 250 ML IV PRN (08:00)
[2018-03-16] MEDS ORDERED: heparin 1,000 units/ml 10ml inj HE ONE ×2 (08:00)
[2018-03-16] MEDS: lactobacillus rhamnosus 10,000 MMU CELLS/CAPSULE PO SCH ×2 (08:22→21:27)
[2018-03-16] MEDS: cloNIDine 0.1 mg tablet PO SCH ×2 (08:22→21:26)
[2018-03-16] MEDS: atorvastatin 20mg tablet PO SCH (08:22)
[2018-03-16] MEDS: pantoprazole 40 MG vial IV SCH (08:22)
[2018-03-16] MEDS: carVEDilol 12.5mg tablet PO SCH ×2 (08:23→21:26)
[2018-03-16] MEDS: FENTANYL-0.9 % NACL/PF 100 ML IV PRN (10:23)
[2018-03-16] MEDS: dexamethasone 4mg/ml inj IV SCH ×2 (13:20→21:29)
--- NOTE | 2018-03-16 14:53 | NUR ---
Reassessment: Patient was extubated and re-intubated within 24 hours, tube feedings have been restarted and is tolerating tube feeding at goal with low gastric residuals. LBM 03/14. No changes to nutrition care at this time. Will continue to monitor. Recommend: 1. Continue OG feeds using Vital High Protein at 70 ml/hr goal; to provide. 1680ml fluid, 1680 kcals, 147 gm protein, and 1411ml free water. Does not meet patient's protein needs without overfeeding. 2. additional free water per pail tester 3. Daily Weight; Prealbumin q Tuesday and Addendum: 03/16/18 at [address] Amended: Links added.
[2018-03-16] MEDS: midazolam 100mg in NS 100ml 100 ML IV PRN (16:59)
--- NOTE | 2018-03-16 18:20 | NUR ---
Problems reprioritized. Patient report given, questions answered & plan of care reviewed with Joel JOINER.
[2018-03-16] MEDS: insulin regular, human vial - multi-dose SQ SCH (21:55)
[2018-03-16] MEDS: insulin glargine (Lantus) pen - multi-dose SQ SCH (21:56)
[2018-03-16] MEDS: hydrALAZINE 20mg/ml inj. IV PRN (23:18)
[2018-03-17] VITALS (24 sets, daily range): BP systolic 136–186; BP diastolic 69–99
[2018-03-17] MEDS: albuterol 2.5 MG/3 ML nebule NEB SCH ×6 (02:24→22:30)
[2018-03-17 02:41] LABS: ABG BASE EXCESS 3.7 mmol/L (-2.0-3.0); ABG HCO3 27.2 mmol/L (22.0-26.0); ABG OXYGEN SATURATION 96.9 % (95-98); ABG PCO2 (T) 37.5 mmHg (32.0-45.0); ABG PO2 (T) 87.8 mmHg (83-108); ALLEN'S TEST Positive; FCOHb 0.9 % (0.5-1.5); MINUTE VOLUME 11 L/min; PATIENT TEMPERATURE 37.5; PEEP 5 cm H2O; RESPIRATORY RATE 20 b/min; RESPIRATORY RATE (OBSERVED) 20 b/min; TIDAL VOLUME 400 mL; TOTAL HEMOGLOBIN 8.9 G/dl (12.0-16.0)
[2018-03-17] MEDS: insulin regular, human vial - multi-dose SQ SCH ×4 (02:42→21:07)
[2018-03-17] MEDS: mineral oil/petrolatum ophthal oint EACHEYE SCH ×4 (02:51→21:03)
[2018-03-17] MEDS: enalaprilat dihydrate 2.5mg/2ml vial IV SCH ×4 (02:51→21:03)
[2018-03-17] MEDS: FENTANYL-0.9 % NACL/PF 100 ML IV PRN ×2 (02:58→18:19)
[2018-03-17] MEDS: dexamethasone 4mg/ml inj IV SCH ×4 (03:01→21:03)
[2018-03-17 03:49] LABS: BASOPHILS % (AUTO) 0.1 % (0-1); EOSINOPHILS % (AUTO) 0 % (0-6); HEMATOCRIT 24.9 % (35.0-45.0); LYMPHOCYTES # (AUTO) 1.4 X10'3 (1.1-4.8); LYMPHOCYTES % (AUTO) 4.4 % (21-51); MEAN CORPUSCULAR HEMOGLOBIN 29.4 PG (27.0-31.0); MEAN CORPUSCULAR HGB CONC 32.2 % (33.0-36.5); MEAN CORPUSCULAR VOLUME 91.4 FL (78-98); MEAN PLATELET VOLUME 8.7 FL (7.4-10.4); MONOCYTES # (AUTO) 1.2 X10'3 (0-0.9); NEUTROPHILS # (AUTO) 28.3 X10'3 (1.8-7.7); NEUTROPHILS % (AUTO) 91.5 % (42-75); PLATELET COUNT 484 X10'3 (140-440); RED BLOOD COUNT 2.73 X10'6 (4.20-5.60); RED CELL DISTRIBUTION WIDTH 19.2 % (11.5-14.5)
[2018-03-17 03:55] LABS: ALBUMIN 1.6 G/DL (3.4-5.0); ANION GAP 10 (8-16); BLOOD UREA NITROGEN 42 MG/DL (7-18); CALCIUM 7.4 MG/DL (8.5-10.1); CHLORIDE 99 MMOL/L (99-107); CREATININE 1.91 MG/DL (0.40-0.90); GLUCOSE 269 MG/DL (70-104); POTASSIUM 4.2 MMOL/L (3.5-5.1); PREALBUMIN 18.3 MG/DL (19-36); SODIUM 135 MMOL/L (135-145); eGFR 31 ML/MIN
[2018-03-17 04:10] LABS: WHITE BLOOD COUNT 30.9 X10'3 (4.5-11.0)
[2018-03-17 06:05] LABS: TOTAL CELLS COUNTED 100
[2018-03-17 06:06] LABS: ANISOCYTOSIS 2+; PLATELET ESTIMATE INCREASED; POIKILOCYTOSIS FEW; POLYCHROMASIA FEW
[2018-03-17] MEDS: midazolam 100mg in NS 100ml 100 ML IV PRN (06:13)
[2018-03-17] MEDS: hydrocortisone acetate 25mg rectal suppository RC SCH ×3 (08:00→16:06)
[2018-03-17] MEDS: carVEDilol 12.5mg tablet PO SCH ×2 (09:26→21:02)
[2018-03-17] MEDS: lactobacillus rhamnosus 10,000 MMU CELLS/CAPSULE PO SCH ×2 (09:26→21:02)
[2018-03-17] MEDS: atorvastatin 20mg tablet PO SCH (09:26)
[2018-03-17] MEDS: cloNIDine 0.1 mg tablet PO SCH ×2 (09:26→21:02)
[2018-03-17] MEDS: pantoprazole 40 MG vial IV SCH (09:26)
[2018-03-17] MEDS: epoetin 20,000 units/ml inj SQ SCH (10:41)
--- NOTE | 2018-03-17 15:42 | NUR ---
Reassessment: Patient intubated. Tube feedings tolerated at goal with low gastric residuals. LBM 03/16. No changes to nutrition care at this time. Will continue to monitor. Recommend: 1. Continue OG feeds using Vital High Protein at 70 ml/hr goal; to provide. 1680ml fluid, 1680 kcals, 147 gm protein, and 1411ml free water. Does not meet patient's protein needs without overfeeding. 2. additional free water per transportation aide 3. Daily Weight; Prealbumin q Tuesday and Addendum: 03/17/18 at [address] Amended: Links added.
--- NOTE | 2018-03-17 18:31 | NUR ---
Problems reprioritized. Patient report given, questions answered & plan of care reviewed with Tessa JOINER.
--- NOTE | 2018-03-17 19:43 | NUR ---
ASSUMED CARE ON MILD SEDATION , APPROPRIATELY NOD TO QUESTION , NOD FOR PAIN QUESTION , BP UP
[2018-03-17] MEDS: insulin glargine (Lantus) pen - multi-dose SQ SCH (21:09)
[2018-03-17] MEDS: hydrALAZINE 20mg/ml inj. IV PRN (22:50)
[2018-03-18] VITALS (23 sets, daily range): BP systolic 157–190; BP diastolic 72–109
[2018-03-18] MEDS: hydrocortisone acetate 25mg rectal suppository RC SCH ×3 (00:20→16:00)
[2018-03-18] MEDS: dexamethasone 4mg/ml inj IV SCH ×4 (02:26→22:42)
[2018-03-18] MEDS: mineral oil/petrolatum ophthal oint EACHEYE SCH ×4 (02:26→22:43)
[2018-03-18] MEDS: enalaprilat dihydrate 2.5mg/2ml vial IV SCH ×4 (02:26→22:42)
[2018-03-18] MEDS: insulin regular, human vial - multi-dose SQ SCH ×3 (02:28→14:18)
[2018-03-18 02:56] LABS: ALBUMIN 1.7 G/DL (3.4-5.0); ANION GAP 9 (8-16); BLOOD UREA NITROGEN 61 MG/DL (7-18); BUN/CREATININE RATIO 23.5 (6.6-38.0); CHLORIDE 97 MMOL/L (99-107); GLUCOSE 221 MG/DL (70-104); POTASSIUM 4.7 MMOL/L (3.5-5.1); SODIUM 133 MMOL/L (135-145); TOTAL CARBON DIOXIDE 27.5 MMOL/L (24-32); eGFR 21 ML/MIN
[2018-03-18 03:06] LABS: HEMATOCRIT 26.5 % (35.0-45.0); HEMOGLOBIN 8.8 g/dl (12.0-16.0); MEAN CORPUSCULAR HEMOGLOBIN 31.1 PG (27.0-31.0); MEAN CORPUSCULAR HGB CONC 33.3 % (33.0-36.5); MEAN CORPUSCULAR VOLUME 93.4 FL (78-98); MEAN PLATELET VOLUME 8.5 FL (7.4-10.4); PLATELET COUNT 511 X10'3 (140-440); RED BLOOD COUNT 2.84 X10'6 (4.20-5.60)
[2018-03-18] MEDS: albuterol 2.5 MG/3 ML nebule NEB SCH ×6 (03:07→23:05)
[2018-03-18 03:16] LABS: WHITE BLOOD COUNT 38.5 X10'3 (4.5-11.0)
[2018-03-18 03:26] LABS: ABG BASE EXCESS 2.5 mmol/L (-2.0-3.0); ABG HCO3 27.1 mmol/L (22.0-26.0); ABG OXYGEN SATURATION 94.8 % (95-98); ABG PCO2 (T) 41.6 mmHg (32.0-45.0); ABG PH (T) 7.431 (7.350-7.450); ABG PO2 (T) 71.5 mmHg (83-108); ALLEN'S TEST Positive; FCOHb 0.5 % (0.5-1.5); FMetHb 0.3 % (0.3-1.12); MINUTE VOLUME 9 L/min; PEEP 5 cm H2O; RESPIRATORY RATE 16 b/min; RESPIRATORY RATE (OBSERVED) 22 b/min; TIDAL VOLUME 400 mL; TOTAL HEMOGLOBIN 9.3 G/dl (12.0-16.0)
[2018-03-18] MEDS: FENTANYL-0.9 % NACL/PF 100 ML IV PRN ×3 (03:28→22:11)
[2018-03-18 03:38] LABS: ANISOCYTOSIS 3+; NUCLEATED RED BLOOD CELLS 1 /100WBC (0-0); PLATELET ESTIMATE INCREASED; POIKILOCYTOSIS FEW; POLYCHROMASIA 1+; TOTAL CELLS COUNTED 100
[2018-03-18 03:39] LABS: BURR CELLS FEW
[2018-03-18] MEDS: hydrALAZINE 20mg/ml inj. IV PRN (05:24)
[2018-03-18] MEDS: lactobacillus rhamnosus 10,000 MMU CELLS/CAPSULE PO SCH ×2 (07:17→22:41)
[2018-03-18] MEDS: pantoprazole 40 MG vial IV SCH (07:18)
[2018-03-18] MEDS: atorvastatin 20mg tablet PO SCH (07:18)
[2018-03-18] MEDS ORDERED: heparin 1,000unit/ml 10ml vial 10 ML IV ONE (08:00)
[2018-03-18] MEDS ORDERED: epoetin 20,000 units/ml inj IV ONE (08:00)
[2018-03-18] MEDS ORDERED: heparin 1,000 units/ml 10ml inj HE ONE ×2 (08:00)
[2018-03-18] MEDS ORDERED: vancomycin/NS 1 GM ADD-VANTAGE 250 ML IV ONE (09:20)
[2018-03-18] MEDS ORDERED: piperacillin/tazo 3.375gm/50ml 50 ML IV ONE (09:20)
[2018-03-18] MEDS: cloNIDine 0.1 mg tablet PO SCH ×2 (10:59→22:41)
[2018-03-18] MEDS: carVEDilol 12.5mg tablet PO SCH ×2 (10:59→22:41)
[2018-03-18] MEDS: piperacillin/tazo 3.375gm/50ml 50 ML IV SCH ×2 (15:16→22:41)
--- NOTE | 2018-03-18 18:28 | NUR ---
Problems reprioritized. Patient report given, questions answered & plan of care reviewed with Ronni JOINER.
--- NOTE | 2018-03-18 18:30 | NUR ---
Patient in room ICU 2041. I have received report from Sheng JOINER and had the opportunity to ask questions and assume patient care.
--- NOTE | 2018-03-18 20:00 | NUR ---
Pt's meds are being held until after the dialysis run has been completed (2129 according to brass plater).
[2018-03-19] VITALS (23 sets, daily range): BP systolic 128–193; BP diastolic 74–112
[2018-03-19] MEDS: hydrALAZINE 20mg/ml inj. IV PRN (00:19)
[2018-03-19] MEDS: insulin glargine (Lantus) pen - multi-dose SQ SCH ×2 (00:22→19:37)
[2018-03-19] MEDS: dexamethasone 4mg/ml inj IV SCH ×4 (01:41→19:34)
[2018-03-19] MEDS: piperacillin/tazo 3.375gm/50ml 50 ML IV SCH ×4 (01:41→19:34)
[2018-03-19] MEDS: enalaprilat dihydrate 2.5mg/2ml vial IV SCH ×4 (01:41→19:34)
[2018-03-19] MEDS: mineral oil/petrolatum ophthal oint EACHEYE SCH ×4 (01:41→19:35)
[2018-03-19] MEDS: insulin regular, human vial - multi-dose SQ SCH ×4 (02:19→19:38)
[2018-03-19] MEDS: albuterol 2.5 MG/3 ML nebule NEB SCH ×6 (03:00→23:15)
[2018-03-19 03:15] LABS: ABG BASE EXCESS 4.8 mmol/L (-2.0-3.0); ABG HCO3 27.6 mmol/L (22.0-26.0); ABG OXYGEN SATURATION 97.5 % (95-98); ABG PCO2 (T) 34.4 mmHg (32.0-45.0); ABG PH (T) 7.522 (7.350-7.450); ABG PO2 (T) 92.8 mmHg (83-108); ALLEN'S TEST Positive; FCOHb 0.7 % (0.5-1.5); FMetHb 0.3 % (0.3-1.12); FO2Hb 96.5 % (94-100); MINUTE VOLUME 9 L/min; PATIENT TEMPERATURE 37.3; PEEP 5 cm H2O; RESPIRATORY RATE 16 b/min; RESPIRATORY RATE (OBSERVED) 18 b/min; TIDAL VOLUME 400 mL
[2018-03-19 03:21] LABS: BASOPHILS # (AUTO) 0.2 X10'3 (0-0.2); BASOPHILS % (AUTO) 0.5 % (0-1); EOSINOPHILS % (AUTO) 0.1 % (0-6); HEMATOCRIT 28.5 % (35.0-45.0); HEMOGLOBIN 9.1 g/dl (12.0-16.0); LYMPHOCYTES # (AUTO) 1.3 X10'3 (1.1-4.8); LYMPHOCYTES % (AUTO) 3.4 % (21-51); MEAN CORPUSCULAR HEMOGLOBIN 29.5 PG (27.0-31.0); MEAN CORPUSCULAR HGB CONC 31.8 % (33.0-36.5); MEAN CORPUSCULAR VOLUME 92.7 FL (78-98); MEAN PLATELET VOLUME 8.4 FL (7.4-10.4); MONOCYTES # (AUTO) 0.8 X10'3 (0-0.9); MONOCYTES % (AUTO) 2.1 % (2-12); NEUTROPHILS # (AUTO) 35.8 X10'3 (1.8-7.7); NEUTROPHILS % (AUTO) 93.9 % (42-75); PLATELET COUNT 462 X10'3 (140-440); RED BLOOD COUNT 3.07 X10'6 (4.20-5.60); RED CELL DISTRIBUTION WIDTH 22.1 % (11.5-14.5)
[2018-03-19 03:27] LABS: WHITE BLOOD COUNT 38.1 X10'3 (4.5-11.0)
[2018-03-19 03:30] LABS: ALBUMIN 1.6 G/DL (3.4-5.0); ANION GAP 11 (8-16); BLOOD UREA NITROGEN 34 MG/DL (7-18); BUN/CREATININE RATIO 21.4 (6.6-38.0); CALCIUM 7.6 MG/DL (8.5-10.1); CHLORIDE 98 MMOL/L (99-107); CREATININE 1.59 MG/DL (0.40-0.90); GLUCOSE 216 MG/DL (70-104); POTASSIUM 4.2 MMOL/L (3.5-5.1); SODIUM 136 MMOL/L (135-145); TOTAL CARBON DIOXIDE 26.8 MMOL/L (24-32); eGFR 38 ML/MIN
[2018-03-19 04:04] LABS: ANISOCYTOSIS 3+; PLATELET ESTIMATE INCREASED; TOTAL CELLS COUNTED 100
[2018-03-19 04:05] LABS: BURR CELLS FEW; POIKILOCYTOSIS FEW; POLYCHROMASIA FEW
[2018-03-19] MEDS: FENTANYL-0.9 % NACL/PF 100 ML IV PRN ×3 (05:42→21:35)
--- NOTE | 2018-03-19 06:30 | NUR ---
Problems reprioritized. Patient report given, questions answered & plan of care reviewed with Kesha JOINER.
--- NOTE | 2018-03-19 06:41 | NUR ---
Patient in room ICU 2041. I have received report from RHYS Rudolph and had the opportunity to ask questions and assume patient care.
[2018-03-19] MEDS: pantoprazole 40 MG vial IV SCH (09:19)
[2018-03-19] MEDS: lactobacillus rhamnosus 10,000 MMU CELLS/CAPSULE PO SCH ×2 (09:19→19:34)
[2018-03-19] MEDS: atorvastatin 20mg tablet PO SCH (09:20)
[2018-03-19] MEDS: cloNIDine 0.1 mg tablet PO SCH ×2 (09:20→19:34)
[2018-03-19] MEDS: carVEDilol 12.5mg tablet PO SCH ×2 (09:20→19:34)
[2018-03-19] MEDS ORDERED: vancomycin inj 1,250 MG in normal saline 250ml IV soln 250 ML IV SCH (10:00)
[2018-03-19] MEDS: vancomycin inj 1,250 MG in normal saline 250ml IV soln 250 ML IV SCH ×2 (11:22→22:49)
[2018-03-19] MEDS ORDERED: normal saline 1000ml 250 ML IV PRN (11:45)
[2018-03-19] MEDS ORDERED: heparin 1,000 units/ml 10ml inj IV ONE (11:45)
[2018-03-19] MEDS ORDERED: heparin 1,000unit/ml 10ml vial 10 ML IV ONE (11:45)
[2018-03-19] MEDS ORDERED: heparin 1,000 units/ml 10ml inj HE ONE ×2 (11:50)
[2018-03-19] MEDS ORDERED: albumin (Human) 5% 250ml 250 ML IV PRN (12:55)
--- NOTE | 2018-03-19 18:30 | NUR ---
Patient in room ICU 2041. I have received report from Kesha JOINER and had the opportunity to ask questions and assume patient care.
[2018-03-20] VITALS (22 sets, daily range): BP systolic 141–178; BP diastolic 72–107
[2018-03-20] MEDS: mineral oil/petrolatum ophthal oint EACHEYE SCH ×4 (02:15→19:50)
[2018-03-20] MEDS: enalaprilat dihydrate 2.5mg/2ml vial IV SCH ×4 (02:15→19:50)
[2018-03-20] MEDS: piperacillin/tazo 3.375gm/50ml 50 ML IV SCH ×4 (02:15→19:50)
[2018-03-20] MEDS: dexamethasone 4mg/ml inj IV SCH ×4 (02:15→19:50)
[2018-03-20] MEDS: insulin regular, human vial - multi-dose SQ SCH ×4 (02:16→21:15)
[2018-03-20] MEDS: albuterol 2.5 MG/3 ML nebule NEB SCH ×6 (03:08→23:08)
[2018-03-20 03:16] LABS: HEMOGLOBIN 9.3 g/dl (12.0-16.0); MEAN CORPUSCULAR HEMOGLOBIN 29.8 PG (27.0-31.0); MEAN CORPUSCULAR VOLUME 93.2 FL (78-98); MEAN PLATELET VOLUME 8.4 FL (7.4-10.4); PLATELET COUNT 466 X10'3 (140-440); RED BLOOD COUNT 3.11 X10'6 (4.20-5.60)
[2018-03-20 03:24] LABS: WHITE BLOOD COUNT 37.5 X10'3 (4.5-11.0)
[2018-03-20 03:26] LABS: ABG HCO3 25.1 mmol/L (22.0-26.0); ABG OXYGEN SATURATION 98.3 % (95-98); ABG PCO2 (T) 37.2 mmHg (32.0-45.0); ABG PH (T) 7.445 (7.350-7.450); ABG PO2 (T) 113.4 mmHg (83-108); ALLEN'S TEST Positive; FCOHb 0.8 % (0.5-1.5); FMetHb 0.1 % (0.3-1.12); FO2Hb 97.4 % (94-100); MINUTE VOLUME 6 L/min; PATIENT TEMPERATURE 36.7; PEEP 5 cm H2O; RESPIRATORY RATE 14 b/min; RESPIRATORY RATE (OBSERVED) 14 b/min; TIDAL VOLUME 400 mL
[2018-03-20 03:52] LABS: ALBUMIN 1.6 G/DL (3.4-5.0); ANION GAP 14 (8-16); BLOOD UREA NITROGEN 61 MG/DL (7-18); BUN/CREATININE RATIO 27.5 (6.6-38.0); CALCIUM 7.7 MG/DL (8.5-10.1); CHLORIDE 98 MMOL/L (99-107); CREATININE 2.22 MG/DL (0.40-0.90); GLUCOSE 197 MG/DL (70-104); POTASSIUM 4.8 MMOL/L (3.5-5.1); SODIUM 137 MMOL/L (135-145); TOTAL CARBON DIOXIDE 25.5 MMOL/L (24-32); eGFR 26 ML/MIN
[2018-03-20 04:01] LABS: ANISOCYTOSIS 3+; PLATELET ESTIMATE INCREASED; TOTAL CELLS COUNTED 100
[2018-03-20 04:02] LABS: BURR CELLS 1+; POLYCHROMASIA FEW
[2018-03-20] MEDS: FENTANYL-0.9 % NACL/PF 100 ML IV PRN ×3 (04:55→19:12)
--- NOTE | 2018-03-20 06:16 | NUR ---
Patient in room ICU 2041. I have received report from RHYS Rudolph and had the opportunity to ask questions and assume patient care.
--- NOTE | 2018-03-20 06:16 | NUR ---
Problems reprioritized. Patient report given, questions answered & plan of care reviewed with Kesha JOINER.
[2018-03-20] MEDS: pantoprazole 40 MG vial IV SCH (08:15)
[2018-03-20] MEDS: lactobacillus rhamnosus 10,000 MMU CELLS/CAPSULE PO SCH ×2 (08:15→19:50)
[2018-03-20] MEDS: cloNIDine 0.1 mg tablet PO SCH ×2 (08:16→19:50)
[2018-03-20] MEDS: carVEDilol 12.5mg tablet PO SCH ×2 (08:16→19:50)
[2018-03-20 08:45] LABS: MAGNESIUM 1.9 MG/DL (1.5-2.4); PHOSPHORUS 4.5 MG/DL (2.3-4.5)
[2018-03-20] MEDS: vancomycin inj 1,250 MG in normal saline 250ml IV soln 250 ML IV SCH ×2 (10:58→22:00)
--- NOTE | 2018-03-20 13:50 | NUR ---
Hemodialysis Addendum: 03/20/18 at 1351 by Baljinder BLACKMAN Amended: Links added.
[2018-03-20] MEDS: atorvastatin 20mg tablet PO SCH (14:38)
[2018-03-20] MEDS: hydrALAZINE 20mg/ml inj. IV PRN (17:32)
[2018-03-20] MEDS: insulin glargine (Lantus) pen - multi-dose SQ SCH (21:14)
[2018-03-20] MEDS ORDERED: VANCOMYCIN LEVEL IV ONE (21:30)
--- NOTE | 2018-03-20 22:00 | NUR ---
Pt's skin is becoming flushed and reddened, especially in her cheeks and forehead. Pt's vanco trough came back high at 41. Pharmacy was called and they put this evening's dose of Vancomycin on hold. Will inform the dayshift RN of possible vanco toxicity, and the risk of giving her Red Man's syndrome with further doses.
[2018-03-21] VITALS (24 sets, daily range): BP systolic 140–185; BP diastolic 73–112
[2018-03-21] MEDS: FENTANYL-0.9 % NACL/PF 100 ML IV PRN ×2 (00:59→07:54)
[2018-03-21] MEDS: insulin regular, human vial - multi-dose SQ SCH ×4 (02:16→20:13)
[2018-03-21] MEDS: piperacillin/tazo 3.375gm/50ml 50 ML IV SCH ×3 (02:36→14:02)
[2018-03-21] MEDS: mineral oil/petrolatum ophthal oint EACHEYE SCH ×4 (02:37→19:45)
[2018-03-21] MEDS: dexamethasone 4mg/ml inj IV SCH ×4 (02:37→19:46)
[2018-03-21] MEDS: enalaprilat dihydrate 2.5mg/2ml vial IV SCH ×4 (02:37→19:46)
[2018-03-21 02:46] LABS: BASOPHILS # (AUTO) 0.3 X10'3 (0-0.2); BASOPHILS % (AUTO) 0.8 % (0-1); EOSINOPHILS % (AUTO) 0.1 % (0-6); HEMATOCRIT 28.6 % (35.0-45.0); HEMOGLOBIN 9.2 g/dl (12.0-16.0); LYMPHOCYTES # (AUTO) 1.2 X10'3 (1.1-4.8); LYMPHOCYTES % (AUTO) 3.3 % (21-51); MEAN CORPUSCULAR HEMOGLOBIN 30.1 PG (27.0-31.0); MEAN CORPUSCULAR HGB CONC 32.1 % (33.0-36.5); MEAN CORPUSCULAR VOLUME 93.8 FL (78-98); MEAN PLATELET VOLUME 8.4 FL (7.4-10.4); MONOCYTES # (AUTO) 1.5 X10'3 (0-0.9); MONOCYTES % (AUTO) 4.1 % (2-12); NEUTROPHILS # (AUTO) 33.8 X10'3 (1.8-7.7); NEUTROPHILS % (AUTO) 91.7 % (42-75); PLATELET COUNT 407 X10'3 (140-440); RED BLOOD COUNT 3.05 X10'6 (4.20-5.60); RED CELL DISTRIBUTION WIDTH 23.8 % (11.5-14.5)
[2018-03-21 02:57] LABS: ALBUMIN 1.5 G/DL (3.4-5.0); ANION GAP 9 (8-16); BLOOD UREA NITROGEN 40 MG/DL (7-18); BUN/CREATININE RATIO 23.1 (6.6-38.0); CALCIUM 7.4 MG/DL (8.5-10.1); CHLORIDE 99 MMOL/L (99-107); CREATININE 1.73 MG/DL (0.40-0.90); GLUCOSE 234 MG/DL (70-104); MAGNESIUM 1.8 MG/DL (1.5-2.4); PHOSPHORUS 3.6 MG/DL (2.3-4.5); POTASSIUM 4.5 MMOL/L (3.5-5.1); SODIUM 136 MMOL/L (135-145); TOTAL CARBON DIOXIDE 27.9 MMOL/L (24-32); eGFR 34 ML/MIN
[2018-03-21] MEDS: albuterol 2.5 MG/3 ML nebule NEB SCH ×6 (03:06→23:04)
[2018-03-21 03:09] LABS: WHITE BLOOD COUNT 36.8 X10'3 (4.5-11.0)
[2018-03-21 03:40] LABS: ABG HCO3 28.4 mmol/L (22.0-26.0); ABG OXYGEN SATURATION 97.2 % (95-98); ABG PCO2 (T) 42.8 mmHg (32.0-45.0); ABG PH (T) 7.441 (7.350-7.450); ABG PO2 (T) 91.9 mmHg (83-108); ALLEN'S TEST Positive; FCOHb 1.1 % (0.5-1.5); FMetHb 0.1 % (0.3-1.12); MINUTE VOLUME 6 L/min; PATIENT TEMPERATURE 37.5; PEEP 5 cm H2O; RESPIRATORY RATE 14 b/min; RESPIRATORY RATE (OBSERVED) 14 b/min; TIDAL VOLUME 400 mL; TOTAL HEMOGLOBIN 9.8 G/dl (12.0-16.0)
[2018-03-21 03:49] LABS: TOTAL CELLS COUNTED 100
[2018-03-21 03:50] LABS: ANISOCYTOSIS 3+; BURR CELLS 1+; PLATELET ESTIMATE INCREASED; POLYCHROMASIA FEW
--- NOTE | 2018-03-21 06:20 | NUR ---
Problems reprioritized. Patient report given, questions answered & plan of care reviewed with Clarissa JOINER.
[2018-03-21] MEDS: cloNIDine 0.1 mg tablet PO SCH ×2 (07:23→19:45)
[2018-03-21] MEDS: atorvastatin 20mg tablet PO SCH (07:23)
[2018-03-21] MEDS: lactobacillus rhamnosus 10,000 MMU CELLS/CAPSULE PO SCH ×2 (07:23→19:47)
[2018-03-21] MEDS: pantoprazole 40 MG vial IV SCH (07:23)
[2018-03-21] MEDS: carVEDilol 12.5mg tablet PO SCH ×2 (07:23→19:46)
[2018-03-21] MEDS: epoetin 20,000 units/ml inj SQ SCH (08:20)
--- NOTE | 2018-03-21 14:34 | NUR ---
Reassessment: Patient intubated. Tube feedings tolerated at goal with low gastric residuals. LBM 03/16. No changes to nutrition care at this time. Will continue to monitor. Recommend: 1. Continue OG feeds using Vital High Protein at 70 ml/hr goal; to provide. 1680ml fluid, 1680 kcals, 147 gm protein, and 1411ml free water. Using IBW recommend to change TF to 55 ml/hr to meet needs. 2. additional free water per net architect 3. Daily Weight; Prealbumin q Tuesday and Addendum: 03/21/18 at [address] Amended: Links added.
--- NOTE | 2018-03-21 18:30 | NUR ---
Patient in room ICU 2041. I have received report from Clarissa RN and Ziggy RN and had the opportunity to ask questions and assume patient care.
[2018-03-21] MEDS: insulin glargine (Lantus) pen - multi-dose SQ SCH (20:14)
[2018-03-22] VITALS (24 sets, daily range): BP systolic 139–191; BP diastolic 73–107
[2018-03-22] MEDS: enalaprilat dihydrate 2.5mg/2ml vial IV SCH ×4 (02:07→20:04)
[2018-03-22] MEDS: dexamethasone 4mg/ml inj IV SCH ×4 (02:07→20:04)
[2018-03-22] MEDS: mineral oil/petrolatum ophthal oint EACHEYE SCH ×5 (02:07→20:13)
[2018-03-22] MEDS: insulin regular, human vial - multi-dose SQ SCH ×2 (02:24→14:57)
[2018-03-22] MEDS: albuterol 2.5 MG/3 ML nebule NEB SCH ×6 (02:56→23:29)
[2018-03-22] MEDS ORDERED: VANCOMYCIN LEVEL IV SCH (03:00)
[2018-03-22 03:35] LABS: BASOPHILS % (AUTO) 0 % (0-1); EOSINOPHILS # (AUTO) 0.6 X10'3 (0-0.9); EOSINOPHILS % (AUTO) 1.6 % (0-6); HEMATOCRIT 28.4 % (35.0-45.0); HEMOGLOBIN 9.1 g/dl (12.0-16.0); LYMPHOCYTES # (AUTO) 1.3 X10'3 (1.1-4.8); LYMPHOCYTES % (AUTO) 3.4 % (21-51); MEAN CORPUSCULAR HEMOGLOBIN 29.7 PG (27.0-31.0); MEAN CORPUSCULAR HGB CONC 31.8 % (33.0-36.5); MEAN CORPUSCULAR VOLUME 93.4 FL (78-98); MEAN PLATELET VOLUME 8.5 FL (7.4-10.4); MONOCYTES # (AUTO) 1.1 X10'3 (0-0.9); MONOCYTES % (AUTO) 2.9 % (2-12); NEUTROPHILS # (AUTO) 34.9 X10'3 (1.8-7.7); NEUTROPHILS % (AUTO) 92.1 % (42-75); PLATELET COUNT 357 X10'3 (140-440); RED BLOOD COUNT 3.04 X10'6 (4.20-5.60); RED CELL DISTRIBUTION WIDTH 26.3 % (11.5-14.5)
[2018-03-22 03:39] LABS: WHITE BLOOD COUNT 37.9 X10'3 (4.5-11.0)
[2018-03-22 03:48] LABS: ALBUMIN 1.5 G/DL (3.4-5.0); ANION GAP 12 (8-16); BLOOD UREA NITROGEN 65 MG/DL (7-18); BUN/CREATININE RATIO 27.9 (6.6-38.0); CALCIUM 7.7 MG/DL (8.5-10.1); CHLORIDE 98 MMOL/L (99-107); CREATININE 2.33 MG/DL (0.40-0.90); GLUCOSE 229 MG/DL (70-104); POTASSIUM 4.2 MMOL/L (3.5-5.1); SODIUM 135 MMOL/L (135-145); TOTAL CARBON DIOXIDE 25.5 MMOL/L (24-32); eGFR 24 ML/MIN
[2018-03-22 04:02] LABS: TOTAL CELLS COUNTED 100
[2018-03-22 04:05] LABS: ANISOCYTOSIS 3+; BURR CELLS 1+; PLATELET ESTIMATE NORMAL; POLYCHROMASIA FEW; TARGET CELLS FEW
[2018-03-22 04:06] LABS: LARGE PLATELETS MODERATE
[2018-03-22] MEDS: FENTANYL-0.9 % NACL/PF 100 ML IV PRN (04:50)
--- NOTE | 2018-03-22 06:30 | NUR ---
Patient in room ICU 2041. I have received report from RHYS Cruz and had the opportunity to ask questions and assume patient care.
--- NOTE | 2018-03-22 06:31 | NUR ---
Problems reprioritized. Patient report given, questions answered & plan of care reviewed with RHYS Anderson.
[2018-03-22] MEDS: cloNIDine 0.1 mg tablet PO SCH ×2 (07:44→19:51)
[2018-03-22] MEDS: pantoprazole 40 MG vial IV SCH (07:44)
[2018-03-22] MEDS: lactobacillus rhamnosus 10,000 MMU CELLS/CAPSULE PO SCH ×2 (07:44→19:51)
[2018-03-22] MEDS: atorvastatin 20mg tablet PO SCH (07:44)
[2018-03-22] MEDS: carVEDilol 12.5mg tablet PO SCH ×2 (07:45→19:51)
[2018-03-22] MEDS ORDERED: vancomycin inj 1,250 MG in normal saline 250ml IV soln 250 ML IV PRN (08:00)
[2018-03-22] MEDS ORDERED: heparin 1,000 units/ml 10ml inj IV ONE (08:00)
[2018-03-22] MEDS ORDERED: heparin 1,000 units/ml 10ml inj HE ONE ×2 (08:00)
[2018-03-22] MEDS ORDERED: epoetin 20,000 units/ml inj IV ONE (08:00)
[2018-03-22] MEDS ORDERED: normal saline 1000ml 250 ML IV PRN (08:00)
[2018-03-22] MEDS ORDERED: VANCOMYCIN LEVEL IV ONE (09:30)
--- NOTE | 2018-03-22 11:45 | NUR ---
Pt extubated by RT with RN in the room. Extubated to 3L NC, tolerating well. Educated pt on how to suction self and the importance of coughing up pt's sputum. Pt's mother at bedside educated her as well reenforced the need for a calm environment. RN will continue to monitor.
--- NOTE | 2018-03-22 14:06 | NUR ---
Reassessment: Pt tube feeds on hold w/ plans to extubate and receive HD today per MD. Will monitor for diet advancement s/p extubation. Previously tolerating OG feeds at goal. Recommend: 1. Continue OG feeds using Vital High Protein at 70 ml/hr goal; to provide. 1680ml fluid, 1680 kcals, 147 gm protein, and 1411ml free water. Using IBW recommend to change TF to 55 ml/hr to meet needs. 2. additional free water per bus assistant 3. Daily Weight; Prealbumin q Tuesday and 4. Advance diet per MD to carb controlled 5. DM ed prior to d/c A1C 7.2. Addendum: 03/22/18 at [address] Amended: Links added.
[2018-03-22] MEDS ORDERED: Chloraseptic (Phenol) Spray 177ml MM PRN (16:05)
--- NOTE | 2018-03-22 16:05 | NUR ---
Contacted Dr. Martinez about pts' SBP being over 180 during dialysis. Telephone order to give PRN hydralazine for SBP greater 160. Also received an order for Chloraseptic spray for pt's sore throat, informing Dr. Martinez about the pt's excessive sputum now that she's been extubated.
[2018-03-22] MEDS: hydrALAZINE 20mg/ml inj. IV PRN ×2 (16:38→23:15)
--- NOTE | 2018-03-22 18:30 | NUR ---
Patient in room ICU 2041. I have received report from RHYS Alan and had the opportunity to ask questions and assume patient care.
--- NOTE | 2018-03-22 18:40 | NUR ---
Problems reprioritized. Patient report given, questions answered & plan of care reviewed with RHYS Cruz.
[2018-03-22 19:29] LABS: ABG BASE EXCESS 2.4 mmol/L (-2.0-3.0); ABG HCO3 26.6 mmol/L (22.0-26.0); ABG OXYGEN SATURATION 98.4 % (95-98); ABG PCO2 (T) 39.8 mmHg (32.0-45.0); ABG PH (T) 7.443 (7.350-7.450); ABG PO2 (T) 114.7 mmHg (83-108); ALLEN'S TEST Positive; FCOHb 0.7 % (0.5-1.5); FMetHb 0.1 % (0.3-1.12); FO2Hb 97.6 % (94-100); MINUTE VOLUME 6 L/min; PEEP 5 cm H2O; RESPIRATORY RATE 14 b/min; RESPIRATORY RATE (OBSERVED) 14 b/min; TIDAL VOLUME 400 mL; TOTAL HEMOGLOBIN 10.3 G/dl (12.0-16.0)
[2018-03-22] MEDS: apixaban 2.5mg tablet PO SCH (19:51)
[2018-03-22] MEDS: insulin glargine (Lantus) pen - multi-dose SQ SCH (21:12)
--- NOTE | 2018-03-22 21:49 | NUR ---
Patient's cough getting stronger than what it was at beginning of shift. Patient able to suction self at this time.
--- NOTE | 2018-03-22 23:15 | NUR ---
PRN hydralazine given for blood pressure of 191/107. Will reassess.
[2018-03-23] VITALS (24 sets, daily range): BP systolic 161–189; BP diastolic 87–112
[2018-03-23] MEDS: enalaprilat dihydrate 2.5mg/2ml vial IV SCH ×4 (02:16→20:09)
[2018-03-23] MEDS: dexamethasone 4mg/ml inj IV SCH ×4 (02:16→20:09)
[2018-03-23] MEDS: insulin regular, human vial - multi-dose SQ SCH (03:28)
[2018-03-23] MEDS: albuterol 2.5 MG/3 ML nebule NEB SCH ×6 (03:43→23:33)
[2018-03-23 03:45] LABS: BASOPHILS % (AUTO) 0.1 % (0-1); EOSINOPHILS # (AUTO) 0.5 X10'3 (0-0.9); EOSINOPHILS % (AUTO) 1.1 % (0-6); HEMATOCRIT 33.7 % (35.0-45.0); HEMOGLOBIN 10.7 g/dl (12.0-16.0); LYMPHOCYTES # (AUTO) 1.9 X10'3 (1.1-4.8); LYMPHOCYTES % (AUTO) 4.2 % (21-51); MEAN CORPUSCULAR HEMOGLOBIN 29.9 PG (27.0-31.0); MEAN CORPUSCULAR HGB CONC 31.6 % (33.0-36.5); MEAN CORPUSCULAR VOLUME 94.8 FL (78-98); MEAN PLATELET VOLUME 8.6 FL (7.4-10.4); MONOCYTES # (AUTO) 1.6 X10'3 (0-0.9); MONOCYTES % (AUTO) 3.6 % (2-12); NEUTROPHILS # (AUTO) 40.7 X10'3 (1.8-7.7); PLATELET COUNT 410 X10'3 (140-440); RED BLOOD COUNT 3.56 X10'6 (4.20-5.60); RED CELL DISTRIBUTION WIDTH 26.6 % (11.5-14.5)
[2018-03-23 03:48] LABS: WHITE BLOOD COUNT 44.7 X10'3 (4.5-11.0)
[2018-03-23 03:57] LABS: ALBUMIN 1.7 G/DL (3.4-5.0); ANION GAP 12 (8-16); BLOOD UREA NITROGEN 34 MG/DL (7-18); BUN/CREATININE RATIO 20.5 (6.6-38.0); CALCIUM 7.8 MG/DL (8.5-10.1); CHLORIDE 100 MMOL/L (99-107); CREATININE 1.66 MG/DL (0.40-0.90); GLUCOSE 124 MG/DL (70-104); POTASSIUM 3.7 MMOL/L (3.5-5.1); SODIUM 139 MMOL/L (135-145); TOTAL CARBON DIOXIDE 27.4 MMOL/L (24-32); eGFR 36 ML/MIN
[2018-03-23] MEDS ORDERED: labetalol 20mg/4ml (5mg/ml) syringe IV ONE (04:15)
[2018-03-23 04:16] LABS: ANISOCYTOSIS 3+; NUCLEATED RED BLOOD CELLS 1 /100WBC (0-0); PLATELET ESTIMATE NORMAL; TOTAL CELLS COUNTED 100
[2018-03-23 04:17] LABS: BURR CELLS 1+; POLYCHROMASIA FEW; TARGET CELLS FEW; TEAR DROP CELLS FEW
--- NOTE | 2018-03-23 05:00 | NUR ---
ONSITE HEALTH COACH March informed of WBC of 44.7. Urine culture, sputum sample, and blood cultures were ordered and sent. She was also notified of patient's high blood pressure of 188/108 and was given a one time order of labetalol 10mg IV push. This was given, will reassess. Patient was thought to be anuric, however, when bladder scanned, it showed that greater than 999 mL was present. Patient was then straight cathed and 1L was put out. ONSITE HEALTH COACH notified of this as well and ordered that we bladder scan every shift.
[2018-03-23 05:25] LABS: CLARITY,URINE CLEAR (Clear); COLOR,URINE BROWN (Yellow); GLUCOSE, URINE 500 mg/dl (Neg); KETONES,URINE NEGATIVE (Neg); LEUKOCYTE ESTERASE ,URINE NEGATIVE (Neg); NITRITES, URINE NEGATIVE (Neg); OCCULT BLOOD,URINE NEGATIVE (Neg); PH,URINE 7.5 (4.8-8.0); PROTEIN,URINE >=300 mg/dl (Neg); UA COLLECTION TYPE NON-SPECIFIED; UROBILINOGEN,URINE 0.2 E.U/dL (0.2-1.0)
[2018-03-23 05:32] LABS: BACTERIA,URINE 1+ /HPF (Neg); RBC,URINE NONE SEEN /HPF (0-2); SQUAMOUS EPITHELIAL CELL,UR FEW /LPF (FEW)
[2018-03-23 05:33] LABS: AMORPHOUS PHOSPHATES 1+; RENAL CELLS, URINE FEW /HPF
--- NOTE | 2018-03-23 06:24 | NUR ---
Problems reprioritized. Patient report given, questions answered & plan of care reviewed with RHYS Alan.
--- NOTE | 2018-03-23 06:30 | NUR ---
Patient in room ICU 2041. I have received report from RHYS Cruz and had the opportunity to ask questions and assume patient care.
--- NOTE | 2018-03-23 07:05 | NUR ---
Dr. Martinez rounded briefly this AM, asked pt if she can swallow medications which she nodded head yes. RN to do bedside swallow and order a speech eval. Pt hypertensive at the time and MD changed catapress order to TID 0.3mg. RN will attempt to give meds if pt able to swallow without risk for aspiration. Asked MD about goal for her blood pressure, attempting to lower it to 130's/60's.
[2018-03-23] MEDS: pantoprazole 40 MG vial IV SCH (07:50)
[2018-03-23] MEDS: lactobacillus rhamnosus 10,000 MMU CELLS/CAPSULE PO SCH ×2 (08:00→19:57)
[2018-03-23] MEDS: carVEDilol 12.5mg tablet PO SCH ×2 (08:00→19:56)
[2018-03-23] MEDS: atorvastatin 20mg tablet PO SCH (08:00)
[2018-03-23] MEDS ORDERED: cloNIDine 0.1 mg tablet PO SCH (08:00)
[2018-03-23] MEDS: apixaban 2.5mg tablet PO SCH ×2 (08:00→19:57)
[2018-03-23] MEDS: mineral oil/petrolatum ophthal oint EACHEYE SCH ×3 (08:00→20:09)
--- NOTE | 2018-03-23 10:15 | NUR ---
During rounds this AM Dr. Martinez gave verbals for a Corpak to be placed to give pt's medications as well as restart tube feeds. RN expressed concern about pt's throat soreness and history of swelling. Dr. Martinez ok with ordering a clonidine patch if NG cannot be obtained. Pt is to stay in ICU for another day to continue to monitor her airway. No other concerns addressed during rounds.
--- NOTE | 2018-03-23 11:30 | NUR ---
Notified Dr. Martinez about failed attmept to place corpack and of pt's blood pressure sustaining in the 180's. Switching nutrition plan of care to TPN until another option can be established. Will treat with PRN hydralazine until patch can be placed. Discussed pt's throat swelling again and that she is refusing to swollow d/t it causing her to cough. RN has educated pt and pt's mother multiple times about the need for her to cough up her secretions.
[2018-03-23] MEDS: hydrALAZINE 20mg/ml inj. IV PRN (11:56)
[2018-03-23] MEDS ORDERED: sodium phosphate inj. 30 MMOL in dextrose 5%-water 250 ML IV PRN (13:50)
[2018-03-23] MEDS ORDERED: Neutra Phos packet PO PRN (13:50)
[2018-03-23] MEDS ORDERED: magnesium Cl slow-release 64mg tablet PO PRN (13:50)
[2018-03-23] MEDS ORDERED: potassium Cl 40MEQ/250ML bag 250 ML IV PRN ×2 (13:50)
[2018-03-23] MEDS ORDERED: magnesium 2GM in 50ml NS 50 ML IV PRN (13:50)
[2018-03-23] MEDS ORDERED: sodium phosphate inj. 15 MMOL in dextrose 5%-water 150 ML IV PRN (13:50)
[2018-03-23] MEDS ORDERED: magnesium 4gm in 100ml NS 100 ML IV PRN (13:50)
[2018-03-23] MEDS ORDERED: potassium Cl 20 mEq SR tablet PO PRN ×2 (13:50)
[2018-03-23] MEDS: labetalol 20mg/4ml (5mg/ml) syringe IV PRN ×2 (14:17→21:54)
--- NOTE | 2018-03-23 14:37 | NUR ---
TPN consult. Patient was extubated this morning. Per RN note corpak placement for TF was not successful. BSS was done by TIRE FABRICATOR, who reports effortful swallow and coughing after swallowing and recommends NPO and reassess tomorrow. While pending repeat BSS and since corpak placement failed, pt is to receive TPN to meet nutrition needs. Patient has increased protein needs d/t needing hemodialysis. Recommend: 1. 3:1 TPN using Clinimix E /15 with 100 ml 20% intralipids at 100 ml/hr will provide total volume 2400 ml, 2079 total cals, 114 gm protein, and 2.9 mg/kg/min CHO loading, d/w pharmacy. 2.Daily Weight; TG and Prealbumin q Tuesday and 3. Advance diet to carb controlled as medically indicated per TIRE FABRICATOR recs 4. DM ed prior to d/c A1C 7.2. Addendum: 03/23/18 at [address] Amended: Links added.
[2018-03-23] MEDS: K, MAG and/or Phos replacement - Verify level? MC SCH (19:59)
[2018-03-23] MEDS ORDERED: fat emulsion IV 100 ML, MVI, adult No.4 with vit. K 10 ML, Trace element-5 inj. 1 ML in... IV SCH ×4 (21:00)
[2018-03-23] MEDS ORDERED: Dextrose 10%-water IV solution 1,000 ML IV PRN (21:00)
[2018-03-23] MEDS: insulin glargine (Lantus) pen - multi-dose SQ SCH (21:00)
[2018-03-24] VITALS (22 sets, daily range): BP systolic 161–196; BP diastolic 92–129
[2018-03-24] MEDS: hydrALAZINE 20mg/ml inj. IV PRN ×2 (00:10→23:04)
[2018-03-24] MEDS: mineral oil/petrolatum ophthal oint EACHEYE SCH ×4 (02:00→19:54)
[2018-03-24] MEDS: albuterol 2.5 MG/3 ML nebule NEB SCH ×4 (02:41→19:00)
[2018-03-24 03:11] LABS: ALANINE AMINOTRANSFERASE 54 U/L (12-78); ALBUMIN 1.9 G/DL (3.4-5.0); ALBUMIN/GLOBULIN RATIO 0.4 (1.1-1.5); ALKALINE PHOSPHATASE 253 IU/L (46-116); ANION GAP 15 (8-16); ASPARTATE AMINO TRANSFERASE 25 U/L (10-37); BILIRUBIN,TOTAL 0.5 MG/DL (0.1-1.0); BLOOD UREA NITROGEN 49 MG/DL (7-18); BUN/CREATININE RATIO 19.2 (6.6-38.0); CALCIUM 7.9 MG/DL (8.5-10.1); CHLORIDE 102 MMOL/L (99-107); CREATININE 2.55 MG/DL (0.40-0.90); GLUCOSE 176 MG/DL (70-104); MAGNESIUM 2.1 MG/DL (1.5-2.4); PHOSPHORUS 6.7 MG/DL (2.3-4.5); POTASSIUM 4.2 MMOL/L (3.5-5.1); PREALBUMIN 26.9 MG/DL (19-36); SODIUM 141 MMOL/L (135-145); TOTAL CARBON DIOXIDE 23.9 MMOL/L (24-32); TOTAL PROTEIN 6.3 G/DL (6.4-8.2); TRIGLYCERIDES 142 MG/DL (20-135); eGFR 22 ML/MIN
[2018-03-24 03:25] LABS: BASOPHILS % (AUTO) 0 % (0-1); EOSINOPHILS # (AUTO) 0.8 X10'3 (0-0.9); EOSINOPHILS % (AUTO) 2.2 % (0-6); HEMATOCRIT 32.8 % (35.0-45.0); HEMOGLOBIN 10.4 g/dl (12.0-16.0); LYMPHOCYTES # (AUTO) 1.6 X10'3 (1.1-4.8); LYMPHOCYTES % (AUTO) 4.5 % (21-51); MEAN CORPUSCULAR HEMOGLOBIN 30.2 PG (27.0-31.0); MEAN CORPUSCULAR HGB CONC 31.7 % (33.0-36.5); MEAN CORPUSCULAR VOLUME 95.3 FL (78-98); MEAN PLATELET VOLUME 8.3 FL (7.4-10.4); MONOCYTES # (AUTO) 1.7 X10'3 (0-0.9); MONOCYTES % (AUTO) 4.5 % (2-12); NEUTROPHILS # (AUTO) 32.4 X10'3 (1.8-7.7); NEUTROPHILS % (AUTO) 88.8 % (42-75); PLATELET COUNT 405 X10'3 (140-440); RED BLOOD COUNT 3.45 X10'6 (4.20-5.60); RED CELL DISTRIBUTION WIDTH 27.5 % (11.5-14.5)
[2018-03-24 03:59] LABS: TOTAL CELLS COUNTED 100
[2018-03-24 04:01] LABS: ANISOCYTOSIS 3+; PLATELET ESTIMATE NORMAL; POLYCHROMASIA 1+
[2018-03-24] MEDS: enalaprilat dihydrate 2.5mg/2ml vial IV SCH ×4 (04:07→20:04)
[2018-03-24] MEDS: labetalol 20mg/4ml (5mg/ml) syringe IV PRN ×3 (04:07→22:22)
[2018-03-24] MEDS: dexamethasone 4mg/ml inj IV SCH ×4 (04:08→20:03)
[2018-03-24] MEDS ORDERED: racepinephrine 11.25mg/0.5ml nebule ONE (04:31)
[2018-03-24] MEDS ORDERED: racepinephrine 11.25mg/0.5ml nebule IH ONE (04:35)
--- NOTE | 2018-03-24 04:48 | NUR ---
Pt having increased work of breathing and stridor. Dominic RENTERIA notified RT and RN at bedside. Pt placed on no rebreather racemic epi tx given with little relief to pt. Pt cont with increased work of breathing, RR 30-40 BP and HR stable for pt. Pt unable to answer questions but able to follow commands. Will cont to closely monitor.
[2018-03-24 04:55] LABS: ABG BASE EXCESS -2.1 mmol/L (-2.0-3.0); ABG HCO3 27.3 mmol/L (22.0-26.0); ABG OXYGEN SATURATION 97.9 % (95-98); ABG PCO2 (T) 73.6 mmHg (32.0-45.0); ABG PH (T) 7.191 (7.350-7.450); ABG PO2 (T) 136.3 mmHg (83-108); FCOHb 0.6 % (0.5-1.5); FLOW 15 L/min; FMetHb 0.2 % (0.3-1.12); FO2Hb 97.1 % (94-100); PATIENT TEMPERATURE 37.7; RESPIRATORY RATE (OBSERVED) 32 b/min; TOTAL HEMOGLOBIN 12.3 G/dl (12.0-16.0)
[2018-03-24] MEDS ORDERED: morphine 4 MG/ML inj SYRINge IV PRN (05:05)
[2018-03-24] MEDS ORDERED: morphine 4 MG/ML inj SYRINge ONE (05:05)
--- NOTE | 2018-03-24 05:11 | NUR ---
Pt placed on Bipap. ABG results given to PA morphine ordered and given for work of breathing. Pt is tolerating Bipap and work of breathing is easing. Will cont to closely monitor.
--- NOTE | 2018-03-24 06:30 | NUR ---
Patient in room ICU 2041. I have received report from RHYS Gamino and had the opportunity to ask questions and assume patient care.
[2018-03-24] MEDS: pantoprazole 40 MG vial IV SCH (07:37)
[2018-03-24] MEDS: atorvastatin 20mg tablet PO SCH (08:00)
[2018-03-24] MEDS ORDERED: heparin 1,000 units/ml 10ml inj HE ONE (08:00)
[2018-03-24] MEDS: carVEDilol 12.5mg tablet PO SCH ×2 (08:00→19:54)
[2018-03-24] MEDS ORDERED: heparin 1,000unit/ml 10ml vial 10 ML IV ONE (08:00)
[2018-03-24] MEDS ORDERED: albumin (Human) 5% 250ml 250 ML IV PRN (08:00)
[2018-03-24] MEDS: lactobacillus rhamnosus 10,000 MMU CELLS/CAPSULE PO SCH ×2 (08:00→19:54)
[2018-03-24] MEDS: apixaban 2.5mg tablet PO SCH ×2 (08:00→19:54)
[2018-03-24] MEDS ORDERED: epoetin 20,000 units/ml inj IV ONE (08:00)
[2018-03-24] MEDS: insulin regular, human vial - multi-dose SQ SCH ×3 (08:06→21:41)
[2018-03-24 08:59] LABS: WHITE BLOOD COUNT 36.5 X10'3 (4.5-11.0)
[2018-03-24] MEDS: K, MAG and/or Phos replacement - Verify level? MC SCH (09:27)
[2018-03-24] MEDS ORDERED: diphenhydrAMINE 50 mg/ml inj IV PRN (10:25)
[2018-03-24] MEDS: morphine 4 MG/ML inj SYRINge IV PRN (10:37)
[2018-03-24] MEDS: ipratropium/albuterol 3ml nebule NEB SCH ×4 (11:00→23:12)
[2018-03-24] MEDS: cloNIDine 0.1 mg tablet PO SCH (16:00)
--- NOTE | 2018-03-24 18:30 | NUR ---
Patient in room ICU 2041. I have received report from Dayanna JOINER and had the opportunity to ask questions and assume patient care.
--- NOTE | 2018-03-24 18:54 | NUR ---
Problems reprioritized. Patient report given, questions answered & plan of care reviewed with RHYS Petty.
[2018-03-24] MEDS: insulin glargine (Lantus) pen - multi-dose SQ SCH (21:00)
--- NOTE | 2018-03-24 23:15 | NUR ---
Patient removed Corpak, will put new one in
[2018-03-25] VITALS (23 sets, daily range): BP systolic 165–192; BP diastolic 88–119
--- NOTE | 2018-03-25 01:22 | NUR ---
Patient was bladder scanned, showed >520cc. Straight cath: 475cc out.
[2018-03-25] MEDS: mineral oil/petrolatum ophthal oint EACHEYE SCH ×4 (02:00→19:47)
[2018-03-25] MEDS: enalaprilat dihydrate 2.5mg/2ml vial IV SCH ×4 (03:18→19:42)
[2018-03-25] MEDS: ipratropium/albuterol 3ml nebule NEB SCH ×6 (03:29→23:05)
[2018-03-25] MEDS: dexamethasone sod phosphate 10mg/ml inj IV SCH ×4 (03:52→19:46)
[2018-03-25 04:16] LABS: BASOPHILS # (AUTO) 0.2 X10'3 (0-0.2); BASOPHILS % (AUTO) 0.6 % (0-1); EOSINOPHILS % (AUTO) 0 % (0-6); HEMATOCRIT 32.7 % (35.0-45.0); HEMOGLOBIN 10.3 g/dl (12.0-16.0); LYMPHOCYTES # (AUTO) 1.4 X10'3 (1.1-4.8); LYMPHOCYTES % (AUTO) 4.8 % (21-51); MEAN CORPUSCULAR HEMOGLOBIN 29.8 PG (27.0-31.0); MEAN CORPUSCULAR HGB CONC 31.4 % (33.0-36.5); MEAN CORPUSCULAR VOLUME 95.2 FL (78-98); MEAN PLATELET VOLUME 8.4 FL (7.4-10.4); MONOCYTES # (AUTO) 1.3 X10'3 (0-0.9); MONOCYTES % (AUTO) 4.7 % (2-12); NEUTROPHILS # (AUTO) 25.2 X10'3 (1.8-7.7); NEUTROPHILS % (AUTO) 89.9 % (42-75); PLATELET COUNT 361 X10'3 (140-440); RED BLOOD COUNT 3.44 X10'6 (4.20-5.60); RED CELL DISTRIBUTION WIDTH 27.4 % (11.5-14.5)
[2018-03-25 04:21] LABS: ALANINE AMINOTRANSFERASE 48 U/L (12-78); ALBUMIN 2.1 G/DL (3.4-5.0); ALBUMIN/GLOBULIN RATIO 0.5 (1.1-1.5); ALKALINE PHOSPHATASE 256 IU/L (46-116); ANION GAP 13 (8-16); ASPARTATE AMINO TRANSFERASE 22 U/L (10-37); BILIRUBIN,TOTAL 0.5 MG/DL (0.1-1.0); BLOOD UREA NITROGEN 36 MG/DL (7-18); BUN/CREATININE RATIO 17.3 (6.6-38.0); CALCIUM 8.4 MG/DL (8.5-10.1); CHLORIDE 101 MMOL/L (99-107); CREATININE 2.08 MG/DL (0.40-0.90); GLUCOSE 165 MG/DL (70-104); PHOSPHORUS 5.6 MG/DL (2.3-4.5); POTASSIUM 4.5 MMOL/L (3.5-5.1); SODIUM 140 MMOL/L (135-145); TOTAL CARBON DIOXIDE 25.8 MMOL/L (24-32); TOTAL PROTEIN 6.5 G/DL (6.4-8.2); eGFR 28 ML/MIN
[2018-03-25] MEDS: hydrALAZINE 20mg/ml inj. IV PRN ×2 (05:08→17:13)
--- NOTE | 2018-03-25 05:37 | NUR ---
New corpak inserted, KUB ordered to verify placement
--- NOTE | 2018-03-25 06:41 | NUR ---
Problems reprioritized. Patient report given, questions answered & plan of care reviewed with Patti JOINER.
[2018-03-25 07:01] LABS: NUCLEATED RED BLOOD CELLS 1 /100WBC (0-0); TOTAL CELLS COUNTED 100
[2018-03-25 07:03] LABS: ACANTHOCYTES 1+; ANISOCYTOSIS 3+; HYPOCHROMASIA 1+; PLATELET ESTIMATE NORMAL; POLYCHROMASIA 2+; SCHISTOCYTES 1+
[2018-03-25] MEDS: carVEDilol 12.5mg tablet PO SCH ×2 (07:09→19:46)
[2018-03-25] MEDS: apixaban 2.5mg tablet PO SCH ×2 (07:09→19:46)
[2018-03-25] MEDS: cloNIDine 0.1 mg tablet PO SCH ×3 (07:09→16:40)
[2018-03-25] MEDS: lactobacillus rhamnosus 10,000 MMU CELLS/CAPSULE PO SCH ×2 (07:09→19:46)
[2018-03-25] MEDS: atorvastatin 20mg tablet PO SCH (07:10)
[2018-03-25] MEDS: pantoprazole 40 MG vial IV SCH (07:48)
[2018-03-25] MEDS: K, MAG and/or Phos replacement - Verify level? MC SCH (08:00)
[2018-03-25] MEDS ORDERED: MESSAGE TO NURSING IM NR (08:00)
[2018-03-25] MEDS: labetalol 20mg/4ml (5mg/ml) syringe IV PRN ×2 (09:10→10:14)
[2018-03-25] MEDS ORDERED: ALPRAZolam 0.25mg tablet PO PRN (10:15)
--- NOTE | 2018-03-25 10:45 | NUR ---
TF consult: Pt with Corpak placed with KUB verifying location. Noted that TPN has been d/c'ed. Pt with increased protein needs d/t dialysis. Recommend continuous TF of Nepro with goal rate of 50 mL/hr to provide total volume of 1200 mL/d, 2160 kcal, 97 g protein, and 872 water meeting 100% estimated energy needs and 99% estimated protein needs. Cannot fully meet estimated protein needs without overfeeding. Will continue to follow. Recommend: 1. Continuous TF of Nepro via Corpak with goal rate of 50 mL/hr to provide total volume of 1200 mL/d, 2160 kcal, 97 g protein, and 872 water 2. Additional water flush per MD 3. Daily Weight; TG and Prealbumin q Tuesday and 4. Advance diet to carb controlled as medically indicated per TRANSLATOR INTERPRETER recs 5. DM ed prior to d/c A1C 7.2 Addendum: 03/25/18 at [address] Amended: Links added.
[2018-03-25] MEDS: insulin regular, human vial - multi-dose SQ SCH ×2 (15:23→21:39)
[2018-03-25] MEDS: morphine 4 MG/ML inj SYRINge IV PRN (16:48)
--- NOTE | 2018-03-25 18:30 | NUR ---
Patient in room ICU 2041. I have received report from Marilou JOINER and had the opportunity to ask questions and assume patient care.
[2018-03-25] MEDS: insulin glargine (Lantus) pen - multi-dose SQ SCH (21:00)
[2018-03-26] VITALS (23 sets, daily range): BP systolic 148–179; BP diastolic 91–119
[2018-03-26] MEDS: cloNIDine 0.1 mg tablet PO SCH ×3 (00:19→16:37)
--- NOTE | 2018-03-26 01:00 | NUR ---
Patient pulled Corpak out, Nepro stopped. Attempted to place another one but patient struggled with it and started guarding her face and waving hands away. Will attempt again later.
[2018-03-26] MEDS: mineral oil/petrolatum ophthal oint EACHEYE SCH ×4 (02:00→20:00)
[2018-03-26] MEDS: enalaprilat dihydrate 2.5mg/2ml vial IV SCH ×4 (02:34→20:17)
[2018-03-26] MEDS: dexamethasone sod phosphate 10mg/ml inj IV SCH ×3 (02:36→20:17)
[2018-03-26] MEDS: ipratropium/albuterol 3ml nebule NEB SCH ×6 (03:19→23:14)
[2018-03-26 03:39] LABS: ALANINE AMINOTRANSFERASE 45 U/L (12-78); ALBUMIN 2.2 G/DL (3.4-5.0); ALBUMIN/GLOBULIN RATIO 0.5 (1.1-1.5); ALKALINE PHOSPHATASE 260 IU/L (46-116); ANION GAP 14 (8-16); ASPARTATE AMINO TRANSFERASE 20 U/L (10-37); BILIRUBIN,TOTAL 0.5 MG/DL (0.1-1.0); BLOOD UREA NITROGEN 53 MG/DL (7-18); BUN/CREATININE RATIO 17.8 (6.6-38.0); CALCIUM 8.2 MG/DL (8.5-10.1); CHLORIDE 101 MMOL/L (99-107); CREATININE 2.97 MG/DL (0.40-0.90); GLUCOSE 209 MG/DL (70-104); MAGNESIUM 2.4 MG/DL (1.5-2.4); PHOSPHORUS 7.3 MG/DL (2.3-4.5); POTASSIUM 4.9 MMOL/L (3.5-5.1); SODIUM 141 MMOL/L (135-145); TOTAL CARBON DIOXIDE 26.2 MMOL/L (24-32); TOTAL PROTEIN 6.5 G/DL (6.4-8.2); eGFR 18 ML/MIN
[2018-03-26] MEDS: insulin regular, human vial - multi-dose SQ SCH ×4 (03:47→20:45)
--- NOTE | 2018-03-26 04:13 | NUR ---
Patient was bladder scanned and showed 147cc, did not straight cath
--- NOTE | 2018-03-26 04:32 | NUR ---
Charlineak reinserted, will obtain KUB for placement verification
[2018-03-26 04:49] LABS: BASOPHILS % (AUTO) 0 % (0-1); EOSINOPHILS # (AUTO) 0.3 X10'3 (0-0.9); EOSINOPHILS % (AUTO) 1.3 % (0-6); HEMATOCRIT 32.5 % (35.0-45.0); HEMOGLOBIN 10.3 g/dl (12.0-16.0); LYMPHOCYTES # (AUTO) 1.1 X10'3 (1.1-4.8); LYMPHOCYTES % (AUTO) 3.8 % (21-51); MEAN CORPUSCULAR HEMOGLOBIN 30.7 PG (27.0-31.0); MEAN CORPUSCULAR HGB CONC 31.8 % (33.0-36.5); MEAN CORPUSCULAR VOLUME 96.6 FL (78-98); MEAN PLATELET VOLUME 8.7 FL (7.4-10.4); MONOCYTES # (AUTO) 1.5 X10'3 (0-0.9); MONOCYTES % (AUTO) 5.4 % (2-12); NEUTROPHILS # (AUTO) 24.8 X10'3 (1.8-7.7); NEUTROPHILS % (AUTO) 89.5 % (42-75); PLATELET COUNT 322 X10'3 (140-440); RED BLOOD COUNT 3.37 X10'6 (4.20-5.60); RED CELL DISTRIBUTION WIDTH 27.4 % (11.5-14.5)
[2018-03-26 06:10] LABS: WHITE BLOOD COUNT 27.7 X10'3 (4.5-11.0)
[2018-03-26] MEDS: hydrALAZINE 20mg/ml inj. IV PRN (06:15)
--- NOTE | 2018-03-26 06:32 | NUR ---
Problems reprioritized. Patient report given, questions answered & plan of care reviewed with Alfreda JOINER.
--- NOTE | 2018-03-26 06:56 | NUR ---
Patient in room ICU 2041. I have received report from Malinda and had the opportunity to ask questions and assume patient care.
[2018-03-26 07:04] LABS: ACANTHOCYTES FEW; ANISOCYTOSIS 3+; HYPOCHROMASIA 1+; NUCLEATED RED BLOOD CELLS 2 /100WBC (0-0); PLATELET ESTIMATE NORMAL; POLYCHROMASIA 2+; SCHISTOCYTES 1+; TOTAL CELLS COUNTED 100
[2018-03-26] MEDS: K, MAG and/or Phos replacement - Verify level? MC SCH (07:24)
[2018-03-26] MEDS: pantoprazole 40 MG vial IV SCH (07:42)
[2018-03-26] MEDS: labetalol 20mg/4ml (5mg/ml) syringe IV PRN (08:56)
[2018-03-26] MEDS: acetaminophen 325mg tablet PO PRN ×2 (10:38→20:42)
[2018-03-26] MEDS: carVEDilol 12.5mg tablet PO SCH ×2 (10:38→20:17)
[2018-03-26] MEDS: atorvastatin 20mg tablet PO SCH (10:39)
[2018-03-26] MEDS: apixaban 2.5mg tablet PO SCH ×2 (10:39→20:18)
[2018-03-26] MEDS: lactobacillus rhamnosus 10,000 MMU CELLS/CAPSULE PO SCH ×2 (10:39→20:17)
--- NOTE | 2018-03-26 12:00 | NUR ---
Dr Tam stated corpak is in right placed, to go ahead and start feedings. Informed him that per rim fire charger operator, I advanced corpak about 6 inches. He stated it's ok, it's in the right place. Go ahead and use it.
--- NOTE | 2018-03-26 13:18 | NUR ---
Mother, and physical therapist concerned over pts change in mental status. They both report that pt is much slower than usual, she is not answering questions. This was reported to Dr Tam and no orders were received.
--- NOTE | 2018-03-26 14:48 | NUR ---
Bladder scanner showing 345mls.
--- NOTE | 2018-03-26 15:00 | NUR ---
Straight cathed 300mls.
--- NOTE | 2018-03-26 18:30 | NUR ---
Patient in room ICU 2041. I have received report from Alfreda JOINER and had the opportunity to ask questions and assume patient care. Pt in bed, 3L NC with spo2 at 100%, all monitoring alarms audible, pt saline locked, corpak for tube feedings, no signs or symptoms of distress. pt mother at bedside. Will continue to monitor.
--- NOTE | 2018-03-26 18:31 | NUR ---
Problems reprioritized. Patient report given, questions answered & plan of care reviewed with tyree.
[2018-03-26 20:00] LABS: ABG BASE EXCESS -0.2 mmol/L (-2.0-3.0); ABG HCO3 24.9 mmol/L (22.0-26.0); ABG OXYGEN SATURATION 90.8 % (95-98); ABG PCO2 (T) 42.3 mmHg (32.0-45.0); ABG PH (T) 7.387 (7.350-7.450); ABG PO2 (T) 60.4 mmHg (83-108); ALLEN'S TEST Positive; FCOHb 0.6 % (0.5-1.5); FLOW 3 L/min; FMetHb 0.1 % (0.3-1.12); FO2Hb 90.2 % (94-100); RESPIRATORY RATE (OBSERVED) 22 b/min; TOTAL HEMOGLOBIN 11.7 G/dl (12.0-16.0)
[2018-03-26] MEDS: insulin glargine (Lantus) pen - multi-dose SQ SCH (20:46)
[2018-03-27] VITALS (20 sets, daily range): BP systolic 152–185; BP diastolic 92–127
--- NOTE | 2018-03-27 00:02 | NUR ---
KUB Xray for Corpak placement reviewed along with another RN and noted to be in proper position for initiation of tube feedings.
[2018-03-27] MEDS: cloNIDine 0.1 mg tablet PO SCH ×3 (00:08→16:42)
[2018-03-27] MEDS: enalaprilat dihydrate 2.5mg/2ml vial IV SCH ×4 (01:58→20:13)
[2018-03-27] MEDS: mineral oil/petrolatum ophthal oint EACHEYE SCH ×4 (02:00→20:00)
[2018-03-27] MEDS: insulin regular, human vial - multi-dose SQ SCH ×4 (02:10→20:29)
[2018-03-27] MEDS: ipratropium/albuterol 3ml nebule NEB SCH ×6 (02:29→23:52)
[2018-03-27 02:49] LABS: ALANINE AMINOTRANSFERASE 46 U/L (12-78); ALBUMIN/GLOBULIN RATIO 0.5 (1.1-1.5); ALKALINE PHOSPHATASE 294 IU/L (46-116); ANION GAP 12 (8-16); ASPARTATE AMINO TRANSFERASE 26 U/L (10-37); BILIRUBIN,TOTAL 0.5 MG/DL (0.1-1.0); BLOOD UREA NITROGEN 74 MG/DL (7-18); BUN/CREATININE RATIO 20.8 (6.6-38.0); CALCIUM 7.7 MG/DL (8.5-10.1); CHLORIDE 102 MMOL/L (99-107); CREATININE 3.56 MG/DL (0.40-0.90); GLUCOSE 159 MG/DL (70-104); MAGNESIUM 2.3 MG/DL (1.5-2.4); POTASSIUM 4.5 MMOL/L (3.5-5.1); SODIUM 140 MMOL/L (135-145); TOTAL CARBON DIOXIDE 25.7 MMOL/L (24-32); TOTAL PROTEIN 6.2 G/DL (6.4-8.2); TRIGLYCERIDES 66 MG/DL (20-135); eGFR 15 ML/MIN
[2018-03-27 02:58] LABS: BASOPHILS % (AUTO) 0.1 % (0-1); EOSINOPHILS # (AUTO) 0.4 X10'3 (0-0.9); EOSINOPHILS % (AUTO) 1.2 % (0-6); HEMATOCRIT 33.9 % (35.0-45.0); HEMOGLOBIN 10.7 g/dl (12.0-16.0); LYMPHOCYTES # (AUTO) 0.9 X10'3 (1.1-4.8); MEAN CORPUSCULAR HEMOGLOBIN 30.4 PG (27.0-31.0); MEAN CORPUSCULAR HGB CONC 31.5 % (33.0-36.5); MEAN CORPUSCULAR VOLUME 96.7 FL (78-98); MEAN PLATELET VOLUME 8.7 FL (7.4-10.4); MONOCYTES # (AUTO) 1.1 X10'3 (0-0.9); MONOCYTES % (AUTO) 3.7 % (2-12); PLATELET COUNT 303 X10'3 (140-440); RED BLOOD COUNT 3.51 X10'6 (4.20-5.60); RED CELL DISTRIBUTION WIDTH 28.3 % (11.5-14.5)
[2018-03-27 03:04] LABS: WHITE BLOOD COUNT 30.5 X10'3 (4.5-11.0)
[2018-03-27] MEDS: hydrALAZINE 20mg/ml inj. IV PRN (04:20)
[2018-03-27 05:11] LABS: TOTAL CELLS COUNTED 100
[2018-03-27 05:14] LABS: ACANTHOCYTES FEW; ANISOCYTOSIS 3+; PLATELET ESTIMATE NORMAL; POIKILOCYTOSIS 1+; POLYCHROMASIA 1+; SCHISTOCYTES FEW
[2018-03-27 05:15] LABS: BURR CELLS 1+
[2018-03-27 05:17] LABS: TEAR DROP CELLS FEW
--- NOTE | 2018-03-27 05:53 | NUR ---
bladder scan showing 165ml
--- NOTE | 2018-03-27 06:20 | NUR ---
Problems reprioritized. Patient report given, questions answered & plan of care reviewed with Mervat JOINER.
[2018-03-27] MEDS: K, MAG and/or Phos replacement - Verify level? MC SCH (08:00)
[2018-03-27] MEDS ORDERED: heparin 1,000unit/ml 10ml vial 10 ML IV ONE (08:01)
[2018-03-27] MEDS: dexamethasone sod phosphate 10mg/ml inj IV SCH ×2 (08:03→20:13)
[2018-03-27] MEDS: carVEDilol 12.5mg tablet PO SCH ×2 (08:03→20:12)
[2018-03-27] MEDS: pantoprazole 40 MG vial IV SCH (08:03)
[2018-03-27] MEDS: lactobacillus rhamnosus 10,000 MMU CELLS/CAPSULE PO SCH ×2 (08:04→20:11)
[2018-03-27] MEDS: apixaban 2.5mg tablet PO SCH ×2 (08:04→20:13)
[2018-03-27] MEDS: atorvastatin 20mg tablet PO SCH (08:04)
[2018-03-27] MEDS ORDERED: epoetin 20,000 units/ml inj IV ONE (08:05)
[2018-03-27] MEDS ORDERED: albumin (Human) 5% 250ml 250 ML IV PRN (08:05)
[2018-03-27] MEDS ORDERED: heparin 1,000 units/ml 10ml inj HE ONE ×2 (08:30)
[2018-03-27] MEDS: sevelamer carbonate 0.8gm powder pkt NG SCH ×2 (13:00→20:10)
--- NOTE | 2018-03-27 18:33 | NUR ---
Patient in room ICU 2041. I have received report from RYHS Crowell and had the opportunity to ask questions and assume patient care.
--- NOTE | 2018-03-27 19:45 | NUR ---
PT IS REFUSING METANEB TXS ,SVN NEB TX VIA MASK PT TOLERATED Addendum: 03/27/18 at 1946 by Sonia Wilkes RT Amended: Links added.
[2018-03-27] MEDS: insulin glargine (Lantus) pen - multi-dose SQ SCH (20:30)
[2018-03-28] VITALS (23 sets, daily range): BP systolic 152–194; BP diastolic 90–115
[2018-03-28] MEDS: cloNIDine 0.1 mg tablet PO SCH ×3 (00:56→16:09)
[2018-03-28] MEDS: mineral oil/petrolatum ophthal oint EACHEYE SCH (01:29)
[2018-03-28] MEDS: enalaprilat dihydrate 2.5mg/2ml vial IV SCH ×4 (02:00→20:16)
--- NOTE | 2018-03-28 02:00 | NUR ---
At start of night patient was not following commands (was not nodding head to questions/squeezing hands). She began following commands around this time. She whispered a little bit when she was asked to talk. she nodded her yes when she was asked if it hurts to talk. She was also asked to try to cough up some sputum. Patient was able to do so. I suctioned thick green secretions. Will continue to monitor and encourage cough and deep breathing.
[2018-03-28 02:54] LABS: BASOPHILS % (AUTO) 0 % (0-1); EOSINOPHILS # (AUTO) 0.2 X10'3 (0-0.9); EOSINOPHILS % (AUTO) 0.7 % (0-6); HEMATOCRIT 34.7 % (35.0-45.0); LYMPHOCYTES # (AUTO) 0.8 X10'3 (1.1-4.8); LYMPHOCYTES % (AUTO) 2.7 % (21-51); MEAN CORPUSCULAR HGB CONC 31.8 % (33.0-36.5); MEAN CORPUSCULAR VOLUME 97.5 FL (78-98); MEAN PLATELET VOLUME 8.7 FL (7.4-10.4); MONOCYTES # (AUTO) 1.1 X10'3 (0-0.9); MONOCYTES % (AUTO) 3.5 % (2-12); NEUTROPHILS # (AUTO) 28.8 X10'3 (1.8-7.7); NEUTROPHILS % (AUTO) 93.1 % (42-75); PLATELET COUNT 257 X10'3 (140-440); RED BLOOD COUNT 3.56 X10'6 (4.20-5.60); RED CELL DISTRIBUTION WIDTH 29.4 % (11.5-14.5)
[2018-03-28 03:05] LABS: ALBUMIN 1.9 G/DL (3.4-5.0); ANION GAP 7 (8-16); BLOOD UREA NITROGEN 46 MG/DL (7-18); BUN/CREATININE RATIO 19.2 (6.6-38.0); CALCIUM 7.4 MG/DL (8.5-10.1); CHLORIDE 104 MMOL/L (99-107); GLUCOSE 112 MG/DL (70-104); SODIUM 141 MMOL/L (135-145); WHITE BLOOD COUNT 30.9 X10'3 (4.5-11.0); eGFR 24 ML/MIN
[2018-03-28] MEDS: ipratropium/albuterol 3ml nebule NEB SCH ×6 (04:08→23:49)
[2018-03-28 04:43] LABS: NUCLEATED RED BLOOD CELLS 1 /100WBC (0-0); TOTAL CELLS COUNTED 100
[2018-03-28 04:46] LABS: ACANTHOCYTES FEW; ANISOCYTOSIS 3+; BURR CELLS 1+; PLATELET ESTIMATE NORMAL; POLYCHROMASIA FEW; SCHISTOCYTES FEW; TEAR DROP CELLS FEW
--- NOTE | 2018-03-28 06:15 | NUR ---
Problems reprioritized. Patient report given, questions answered & plan of care reviewed with RHYS Oliva.
[2018-03-28] MEDS: K, MAG and/or Phos replacement - Verify level? MC SCH (08:00)
[2018-03-28] MEDS: sevelamer carbonate 0.8gm powder pkt NG SCH ×2 (08:10→16:09)
[2018-03-28] MEDS: carVEDilol 12.5mg tablet PO SCH ×2 (08:10→20:12)
[2018-03-28] MEDS: lactobacillus rhamnosus 10,000 MMU CELLS/CAPSULE PO SCH ×2 (08:10→20:12)
[2018-03-28] MEDS: atorvastatin 20mg tablet PO SCH (08:11)
[2018-03-28] MEDS: dexamethasone sod phosphate 10mg/ml inj IV SCH ×2 (08:11→20:10)
[2018-03-28] MEDS: pantoprazole 40 MG vial IV SCH (08:11)
[2018-03-28] MEDS: apixaban 2.5mg tablet PO SCH ×2 (08:12→20:12)
[2018-03-28] MEDS: insulin regular, human vial - multi-dose SQ SCH ×3 (10:01→20:20)
--- NOTE | 2018-03-28 18:30 | NUR ---
Patient in room ICU 2041. I have received report from RHYS Oliva and had the opportunity to ask questions and assume patient care.
[2018-03-28] MEDS: insulin glargine (Lantus) pen - multi-dose SQ SCH (20:21)
[2018-03-28] MEDS: dextrose 50%-water 50ml dispensing syringe IV PRN (22:56)
--- NOTE | 2018-03-28 23:00 | NUR ---
At 2250, patient found to have pulled corpak out. Patient was lethargic, blood sugar was checked and it was 26. dexrose 50% was given. blood sugar was recheck and was 151 at 2259. Dominic Gilbertcock was notified and made aware of this and that patient was also desating in low 80's and had to be placed on a nonrebreather. He ordered PRN NT suctioning and bipap if patient declines on nonrebreather. Also, ordered to have corpak replaced when patient's respiratory status stabilizes. Patient sating at 94/95% on 15 L on nonrebreather. Will do ABG and continue to monitor patient's O2 sats and blood sugars.
[2018-03-28 23:25] LABS: ABG BASE EXCESS 1.9 mmol/L (-2.0-3.0); ABG HCO3 27.6 mmol/L (22.0-26.0); ABG OXYGEN SATURATION 99.1 % (95-98); ABG PCO2 (T) 46.9 mmHg (32.0-45.0); ABG PH (T) 7.385 (7.350-7.450); ABG PO2 (T) 165.2 mmHg (83-108); ALLEN'S TEST Positive; FCOHb 0.4 % (0.5-1.5); FLOW 15 L/min; FMetHb 0.1 % (0.3-1.12); FO2Hb 98.6 % (94-100); PATIENT TEMPERATURE 36.5; RESPIRATORY RATE (OBSERVED) 20 b/min; TOTAL HEMOGLOBIN 11.9 G/dl (12.0-16.0)
[2018-03-29] VITALS (23 sets, daily range): BP systolic 148–174; BP diastolic 87–106
[2018-03-29] MEDS: dextrose 50%-water 50ml dispensing syringe IV PRN (00:07)
[2018-03-29] MEDS ORDERED: sodium chloride inj. 154 MEQ in Dextrose 10%-water IV solution 961.5 ML IV SCH (00:20)
--- NOTE | 2018-03-29 00:30 | NUR ---
At 2336 blood sugar dropped to 82, it was recheck again at 0002 and it dropped to 53. Dextrose 50% was given again, PASTE MIXER Dominic Barton was called and notified and he ordered d10 to go at the same rate as the TF rate (50ml/hr) until a corpak can be placed and TF can be resumed. Will continue to monitor blood sugars throughout the night.
[2018-03-29] MEDS: enalaprilat dihydrate 2.5mg/2ml vial IV SCH ×4 (02:16→20:00)
[2018-03-29] MEDS: ipratropium/albuterol 3ml nebule NEB SCH ×6 (03:16→23:51)
--- NOTE | 2018-03-29 04:30 | NUR ---
Corpak attempted to be placed, trouble advancing tube. Will tape at current location and retry.
[2018-03-29 04:42] LABS: BASOPHILS % (AUTO) 0 % (0-1); EOSINOPHILS # (AUTO) 0.8 X10'3 (0-0.9); EOSINOPHILS % (AUTO) 2.5 % (0-6); HEMATOCRIT 34.4 % (35.0-45.0); HEMOGLOBIN 11.1 g/dl (12.0-16.0); LYMPHOCYTES # (AUTO) 0.7 X10'3 (1.1-4.8); LYMPHOCYTES % (AUTO) 2.2 % (21-51); MEAN CORPUSCULAR HEMOGLOBIN 31.5 PG (27.0-31.0); MEAN CORPUSCULAR HGB CONC 32.4 % (33.0-36.5); MEAN CORPUSCULAR VOLUME 97.2 FL (78-98); MEAN PLATELET VOLUME 9.2 FL (7.4-10.4); MONOCYTES # (AUTO) 0.2 X10'3 (0-0.9); MONOCYTES % (AUTO) 0.8 % (2-12); NEUTROPHILS # (AUTO) 29.6 X10'3 (1.8-7.7); NEUTROPHILS % (AUTO) 94.5 % (42-75); PLATELET COUNT 209 X10'3 (140-440); RED BLOOD COUNT 3.54 X10'6 (4.20-5.60); RED CELL DISTRIBUTION WIDTH 28.3 % (11.5-14.5)
[2018-03-29 05:02] LABS: WHITE BLOOD COUNT 31.4 X10'3 (4.5-11.0)
[2018-03-29 05:11] LABS: ALBUMIN 1.9 G/DL (3.4-5.0); ANION GAP 12 (8-16); BLOOD UREA NITROGEN 67 MG/DL (7-18); BUN/CREATININE RATIO 21.8 (6.6-38.0); CALCIUM 7.3 MG/DL (8.5-10.1); CHLORIDE 101 MMOL/L (99-107); CREATININE 3.08 MG/DL (0.40-0.90); GLUCOSE 128 MG/DL (70-104); POTASSIUM 4.5 MMOL/L (3.5-5.1); SODIUM 139 MMOL/L (135-145); TOTAL CARBON DIOXIDE 26.3 MMOL/L (24-32); eGFR 18 ML/MIN
[2018-03-29 05:34] LABS: TOTAL CELLS COUNTED 100
[2018-03-29 05:35] LABS: ANISOCYTOSIS 3+; BURR CELLS 1+; PLATELET ESTIMATE NORMAL; POLYCHROMASIA FEW; SCHISTOCYTES 1+
--- NOTE | 2018-03-29 06:05 | NUR ---
Patient in room ICU 2041. I have received report from Nancy JOINER and had the opportunity to ask questions and assume patient care.
--- NOTE | 2018-03-29 06:46 | NUR ---
Problems reprioritized. Patient report given, questions answered & plan of care reviewed with RHYS Mercedes.
[2018-03-29] MEDS: atorvastatin 20mg tablet PO SCH (08:00)
[2018-03-29] MEDS: lactobacillus rhamnosus 10,000 MMU CELLS/CAPSULE PO SCH ×3 (08:00→20:50)
[2018-03-29] MEDS: sevelamer carbonate 0.8gm powder pkt NG SCH ×5 (08:00→23:44)
[2018-03-29] MEDS: K, MAG and/or Phos replacement - Verify level? MC SCH (08:00)
[2018-03-29] MEDS ORDERED: albumin (Human) 5% 250ml 250 ML IV PRN (08:00)
[2018-03-29] MEDS: apixaban 2.5mg tablet PO SCH ×3 (08:00→20:50)
[2018-03-29] MEDS ORDERED: heparin 1,000unit/ml 10ml vial 10 ML IV ONE (08:00)
[2018-03-29] MEDS: carVEDilol 12.5mg tablet PO SCH ×3 (08:00→20:50)
[2018-03-29] MEDS: cloNIDine 0.1 mg tablet PO SCH ×5 (08:00→23:44)
[2018-03-29] MEDS: dexamethasone sod phosphate 10mg/ml inj IV SCH ×2 (10:09→20:50)
[2018-03-29] MEDS: pantoprazole 40 MG vial IV SCH (10:09)
[2018-03-29] MEDS: insulin regular, human vial - multi-dose SQ SCH ×2 (14:42→21:06)
--- NOTE | 2018-03-29 14:42 | NUR ---
Reassessment: patient pulled out corpak last night and was reinserted last night. Tube feedings will continue at goal rate when corpak confirmed. Patient pending transfer to LT[facility] hopefully with sitter. Noted that phosphorus is 8 today, discussed at rounds. Patient is receiving renvela with water flushes. BSS saw patient today for reassessment and reports she is not protecting her airway when she swallows and recommends NPO and reassess. HD continues. Recent bedscale from 03/28 has two different weight documented, one 72.5 kg and the other 69.2 kg. One week ago patient documented at 81.4 kg which is closer to her UBW. Weight has fluctuated up and down on bedscale throughout visit d/t edema and fluids d/t HD. Due to inconsistent weights recommend using UBW of 82 kg to calculate nutrition needs.Recommend increasing TF by 5 ml/hr to provide and additional 10 gm protein per day. DM education deferred. Will continue to follow. Recommend: 1. Continuous TF of Nepro via Corpak with goal rate of 50 mL/hr to provide total volume of 1200 mL/d, 2160 kcal, 97 g protein, and 872 water. Recommend to increase tube feeding by 5 ml, will discuss at rounds with MD and RN. 2. Additional water flush per MD 3. Daily Weight; TG and Prealbumin q Tuesday and 4. Advance diet to carb controlled as medically indicated per GEOSCIENCES PROFESSOR recs Addendum: 03/29/18 at [address] Amended: Links added.
[2018-03-29] MEDS ORDERED: heparin 1,000 units/ml 10ml inj HE ONE ×2 (14:50)
--- NOTE | 2018-03-29 18:29 | NUR ---
Problems reprioritized. Patient report given, questions answered & plan of care reviewed with Nancy JOINER.
--- NOTE | 2018-03-29 18:30 | NUR ---
Patient in room ICU 2041. I have received report from HRYS Mercedes and had the opportunity to ask questions and assume patient care.
--- NOTE | 2018-03-29 20:30 | NUR ---
Unable to give IV vasotec to patient, pyxis out of stock, message sent to pharmacy, will give medication when medication is restocked.
[2018-03-29] MEDS: insulin glargine (Lantus) pen - multi-dose SQ SCH (21:07)
--- NOTE | 2018-03-29 23:11 | NUR ---
Still waiting for vasotec, message resent to pharmacy.
[2018-03-30] VITALS (18 sets, daily range): BP systolic 143–163; BP diastolic 81–97
[2018-03-30] MEDS: enalaprilat dihydrate 2.5mg/2ml vial IV SCH ×3 (01:52→13:48)
[2018-03-30] MEDS: insulin regular, human vial - multi-dose SQ SCH ×3 (01:56→13:50)
[2018-03-30] MEDS: ipratropium/albuterol 3ml nebule NEB SCH ×4 (03:23→15:00)
[2018-03-30 05:30] LABS: BASOPHILS % (AUTO) 0 % (0-1); EOSINOPHILS # (AUTO) 0.4 X10'3 (0-0.9); EOSINOPHILS % (AUTO) 1.2 % (0-6); HEMATOCRIT 33.7 % (35.0-45.0); HEMOGLOBIN 10.6 g/dl (12.0-16.0); LYMPHOCYTES % (AUTO) 3.5 % (21-51); MEAN CORPUSCULAR HEMOGLOBIN 30.7 PG (27.0-31.0); MEAN CORPUSCULAR HGB CONC 31.6 % (33.0-36.5); MEAN CORPUSCULAR VOLUME 97.2 FL (78-98); MEAN PLATELET VOLUME 9.2 FL (7.4-10.4); MONOCYTES # (AUTO) 0.6 X10'3 (0-0.9); MONOCYTES % (AUTO) 2.1 % (2-12); NEUTROPHILS # (AUTO) 27.3 X10'3 (1.8-7.7); NEUTROPHILS % (AUTO) 93.2 % (42-75); PLATELET COUNT 176 X10'3 (140-440); RED BLOOD COUNT 3.46 X10'6 (4.20-5.60); RED CELL DISTRIBUTION WIDTH 27.7 % (11.5-14.5)
[2018-03-30 05:53] LABS: WHITE BLOOD COUNT 29.3 X10'3 (4.5-11.0)
[2018-03-30 06:01] LABS: ALANINE AMINOTRANSFERASE 38 U/L (12-78); ALBUMIN 1.8 G/DL (3.4-5.0); ALBUMIN/GLOBULIN RATIO 0.5 (1.1-1.5); ALKALINE PHOSPHATASE 255 IU/L (46-116); ANION GAP 10 (8-16); ASPARTATE AMINO TRANSFERASE 21 U/L (10-37); BILIRUBIN,TOTAL 0.4 MG/DL (0.1-1.0); BLOOD UREA NITROGEN 43 MG/DL (7-18); BUN/CREATININE RATIO 19.5 (6.6-38.0); CALCIUM 7.2 MG/DL (8.5-10.1); CHLORIDE 101 MMOL/L (99-107); CREATININE 2.21 MG/DL (0.40-0.90); GLUCOSE 72 MG/DL (70-104); PHOSPHORUS 3.4 MG/DL (2.3-4.5); POTASSIUM 4.1 MMOL/L (3.5-5.1); SODIUM 138 MMOL/L (135-145); TOTAL CARBON DIOXIDE 27.4 MMOL/L (24-32); TOTAL PROTEIN 5.8 G/DL (6.4-8.2); TRIGLYCERIDES 76 MG/DL (20-135); eGFR 26 ML/MIN
--- NOTE | 2018-03-30 06:36 | NUR ---
Problems reprioritized. Patient report given, questions answered & plan of care reviewed with RHYS Patricio.
[2018-03-30 07:06] LABS: TOTAL CELLS COUNTED 100
[2018-03-30 07:07] LABS: ANISOCYTOSIS 3+; PLATELET ESTIMATE NORMAL; SCHISTOCYTES 2+
[2018-03-30] MEDS: K, MAG and/or Phos replacement - Verify level? MC SCH (08:00)
[2018-03-30] MEDS: dexamethasone sod phosphate 10mg/ml inj IV SCH (08:24)
[2018-03-30] MEDS: atorvastatin 20mg tablet PO SCH (08:25)
[2018-03-30] MEDS: carVEDilol 12.5mg tablet PO SCH (08:25)
[2018-03-30] MEDS: sevelamer carbonate 0.8gm powder pkt NG SCH ×2 (08:25→16:26)
[2018-03-30] MEDS: apixaban 2.5mg tablet PO SCH (08:25)
[2018-03-30] MEDS: pantoprazole 40 MG vial IV SCH (08:25)
[2018-03-30] MEDS: lactobacillus rhamnosus 10,000 MMU CELLS/CAPSULE PO SCH (08:25)
[2018-03-30] MEDS: cloNIDine 0.1 mg tablet PO SCH ×2 (08:25→16:25)
--- NOTE | 2018-03-30 15:00 | NUR ---
During bed change, patient pulled corpak out of nare. New Corpak placed to 74cm. KUB performed; Dr. Camilo pineda with placement and okay to restart tube feeding. Will continue to monitor.
--- NOTE | 2018-03-30 17:20 | NUR ---
Attempted to call [facility] to give report; however, they were unable to accept report at this time. They will call back "in a little bit."
--- NOTE | 2018-03-30 17:33 | NUR ---
1500 SVN treatment triaged
--- NOTE | 2018-03-30 18:10 | NUR ---
[facility] came to transport patient to [facility]; personal belongings sent with family. MRSA swab and wound care pictures taken. Midline intact. Tried to call report twice to [facility]; however, they are unable to find a nurse to receive report. Written report sent with patient. Also, verbal report given to [facility]. Will try one more time before change of shift.
--- NOTE | 2018-03-30 18:38 | NUR ---
Report given to Paxton JOINER at [facility]; all questions answered.
[2018-03-30] MEDS ORDERED: dexamethasone 4mg/ml inj IV SCH (20:00)
== END 2018-03-30 18:11 | DRG 130 ==
LOC: ER 15:07 → MED 3N 21:24 → PCU 3S 22:00 → ICU 2S 02-24 16:30
PROVIDERS: ADMIT Internal Medicine; ATTEND Internal Medicine Critical Care Medicine
PROC: 5A1955Z Respiratory Ventilation, Greater than 96 Consecutive Hours (ICD-10-PCS; 2018-02-24)
PROC: 5A09357 Assistance with Respiratory Ventilation, Less than 24 Consecutive Hours, Continuous Positive Airway Pressure (ICD-10-PCS; 2018-02-24)
PROC: 0BH17EZ Insertion of Endotracheal Airway into Trachea, Via Natural or Artificial Opening (ICD-10-PCS; 2018-02-24)
PROC: 02HV33Z Insertion of Infusion Device into Superior Vena Cava, Percutaneous Approach (ICD-10-PCS; 2018-02-24)
PROC: B548ZZA Ultrasonography of Superior Vena Cava, Guidance (ICD-10-PCS; 2018-02-24)
PROC: 02H633Z Insertion of Infusion Device into Right Atrium, Percutaneous Approach (ICD-10-PCS; 2018-02-25)
PROC: B244ZZZ Ultrasonography of Right Heart (ICD-10-PCS; 2018-02-25)
PROC: 5A1D70Z Performance of Urinary Filtration, Intermittent, Less than 6 Hours Per Day (ICD-10-PCS; 2018-02-26)
PROC: 30233N1 Transfusion of Nonautologous Red Blood Cells into Peripheral Vein, Percutaneous Approach (ICD-10-PCS; 2018-02-27)
PROC: 5A1D70Z Performance of Urinary Filtration, Intermittent, Less than 6 Hours Per Day (ICD-10-PCS; 2018-02-27)
PROC: 5A1D70Z Performance of Urinary Filtration, Intermittent, Less than 6 Hours Per Day (ICD-10-PCS; 2018-02-28)
PROC: 5A1D70Z Performance of Urinary Filtration, Intermittent, Less than 6 Hours Per Day (ICD-10-PCS; 2018-03-02)
PROC: 5A1D70Z Performance of Urinary Filtration, Intermittent, Less than 6 Hours Per Day (ICD-10-PCS; 2018-03-04)
PROC: 30233N1 Transfusion of Nonautologous Red Blood Cells into Peripheral Vein, Percutaneous Approach (ICD-10-PCS; 2018-03-05)
PROC: 5A1D70Z Performance of Urinary Filtration, Intermittent, Less than 6 Hours Per Day (ICD-10-PCS; 2018-03-07)
PROC: 02HV33Z Insertion of Infusion Device into Superior Vena Cava, Percutaneous Approach (ICD-10-PCS; 2018-03-08)
PROC: B548ZZA Ultrasonography of Superior Vena Cava, Guidance (ICD-10-PCS; 2018-03-08)
PROC: 30233N1 Transfusion of Nonautologous Red Blood Cells into Peripheral Vein, Percutaneous Approach (ICD-10-PCS; principal; 2018-03-09)
PROC: 5A1D70Z Performance of Urinary Filtration, Intermittent, Less than 6 Hours Per Day (ICD-10-PCS; 2018-03-09)
PROC: 0JH63XZ Insertion of Tunneled Vascular Access Device into Chest Subcutaneous Tissue and Fascia, Percutaneous Approach (ICD-10-PCS; 2018-03-10)
PROC: 02H633Z Insertion of Infusion Device into Right Atrium, Percutaneous Approach (ICD-10-PCS; 2018-03-10)
PROC: B244ZZZ Ultrasonography of Right Heart (ICD-10-PCS; 2018-03-10)
PROC: 5A1D70Z Performance of Urinary Filtration, Intermittent, Less than 6 Hours Per Day (ICD-10-PCS; 2018-03-11)
PROC: 5A1D70Z Performance of Urinary Filtration, Intermittent, Less than 6 Hours Per Day (ICD-10-PCS; 2018-03-14)
PROC: 5A1D70Z Performance of Urinary Filtration, Intermittent, Less than 6 Hours Per Day (ICD-10-PCS; 2018-03-16)
PROC: 5A1D70Z Performance of Urinary Filtration, Intermittent, Less than 6 Hours Per Day (ICD-10-PCS; 2018-03-18)
PROC: 5A1D70Z Performance of Urinary Filtration, Intermittent, Less than 6 Hours Per Day (ICD-10-PCS; 2018-03-20)
PROC: 5A1D70Z Performance of Urinary Filtration, Intermittent, Less than 6 Hours Per Day (ICD-10-PCS; 2018-03-22)
PROC: 5A09357 Assistance with Respiratory Ventilation, Less than 24 Consecutive Hours, Continuous Positive Airway Pressure (ICD-10-PCS; 2018-03-24)
PROC: 5A1D70Z Performance of Urinary Filtration, Intermittent, Less than 6 Hours Per Day (ICD-10-PCS; 2018-03-24)
PROC: 5A1D70Z Performance of Urinary Filtration, Intermittent, Less than 6 Hours Per Day (ICD-10-PCS; 2018-03-27)
PROC: 5A1D70Z Performance of Urinary Filtration, Intermittent, Less than 6 Hours Per Day (ICD-10-PCS; 2018-03-29)
DX: J96.90 Respiratory failure, unspecified, unspecified whether with hypoxia or hypercapnia (principal); G93.40 Encephalopathy, unspecified; I13.2 Hypertensive heart and chronic kidney disease with heart failure and with stage 5 chronic kidney disease, or end stage renal disease; E11.22 Type 2 diabetes mellitus with diabetic chronic kidney disease; E11.319 Type 2 diabetes mellitus with unspecified diabetic retinopathy without macular edema; I42.9 Cardiomyopathy, unspecified; N18.6 End stage renal disease; J98.11 Atelectasis; N04.9 Nephrotic syndrome with unspecified morphologic changes; E11.40 Type 2 diabetes mellitus with diabetic neuropathy, unspecified; E78.00 Pure hypercholesterolemia, unspecified; E78.5 Hyperlipidemia, unspecified; F41.9 Anxiety disorder, unspecified; Z60.2 Problems related to living alone; I50.22 Chronic systolic (congestive) heart failure; D63.8 Anemia in other chronic diseases classified elsewhere; E87.5 Hyperkalemia; K64.9 Unspecified hemorrhoids; D50.9 Iron deficiency anemia, unspecified; H54.62 Unqualified visual loss, left eye, normal vision right eye; J10.1 Influenza due to other identified influenza virus with other respiratory manifestations; Z88.0 Allergy status to penicillin; Z88.1 Allergy status to other antibiotic agents; Z91.012 Allergy to eggs; Z79.899 Other long term (current) drug therapy; Z78.1 Physical restraint status; Z83.3 Family history of diabetes mellitus; Z87.01 Personal history of pneumonia (recurrent); Z99.2 Dependence on renal dialysis
CPT/HCPCS: 36415; 36558; 36573; 36580; 36600; 70450; 71045; 71250; 74018; 76937; 77013; 80048; 80053; 80202; 81001; 81025; 82330; 82570; 82803; 82810; 82948; 83540; 83550; 83605; 83735; 83880; 84100; 84134; 84145; 84156; 84300; 84478; 84540; 85018; 85025; 85027; 85610; 85730; 86885; 86900; 86901; 86920; 87040; 87070; 87088; 87340; 87502; 87503; 90935; 92616; 93005; 93306; 94002; 94003; 94640; 94660; 94667; 94668; 94760; 95816; 96365; 96375; 97110; 97161; 97530; 99285; A9270; C1750; C1894; C9113; G0257; G0378; J0360; J0461; J0696; J0885; J1100; J1200; J1642; J1644; J1815; J1940; J2001; J2150; J2250; J2270; J2405; J2543; J2916; J2997; J3370; J3490; J7030; J7131; P9016; P9047

== ENCOUNTER 2018-04-18 14:48 | Inpatient (IN) | payer MEDICAID | END 2018-05-08 18:10 | LOC: CICU 2S 04-26 06:30 → ER 14:48 → PCU 3S 04-20 18:48 → ED HOLD 17:07 → CICU 2S 18:21 ==

== ENCOUNTER 2018-06-09 15:57 | Outpatient (CLI) | payer MEDICAID ==
[~2018-06-09 15:57] MED LIST changes: -0.9 % SODIUM CHLORIDE 10 ML VIAL ONE; +ALBU2.5V12 NEB; +ANUHCR RC; -APIX2.5T PO; +ATOR-2 NG; +ATR0.5NEB IH; +CHOL4PAC2 NG; -CLON0.1T20 PO; +CLON0.3T NG; +DOCU50LI22 PO; +FOLI1CAP PO; +FOLI1TAB16 PO; +HYDR-3972 PO; +HYDR28.316 RC; +INSU100V11 SQ; +INSU100V9 SQ; +IPRA3AMP9 NEB; +MELA3TAB NG; -METO50TA16 PO; -RESCUE; -ROSU40TA PO; +SEVE800T8 NG; -SODI650T29 PO; +ZOF4I IV; -atropine 1 MG/1 ML vial ONE; -etomidate 2mg/ml inj. ONE; -rocuronium 10mg/ml inj IV ONE
== END 2018-06-09 23:59 | disposition home or self-care (01) ==
LOC: CARD DIAG 15:57
PROVIDERS: ATTEND Internal Medicine Critical Care Medicine
DX: I08.8 Other rheumatic multiple valve diseases (principal); I11.0 Hypertensive heart disease with heart failure; I50.9 Heart failure, unspecified; J45.909 Unspecified asthma, uncomplicated; E11.9 Type 2 diabetes mellitus without complications; Z88.0 Allergy status to penicillin; Z91.012 Allergy to eggs; Z88.1 Allergy status to other antibiotic agents; Z79.4 Long term (current) use of insulin; Z79.899 Other long term (current) drug therapy
CPT/HCPCS: 93306

== ENCOUNTER 2018-08-04 03:26 | Inpatient (IN) | payer MEDICAID ==
[~2018-08-04] VITALS: Ht 160 cm; Wt 60.5 kg
[2018-08-04] MEDS ORDERED: ondansetron/PF 4mg/2ml inj IV ONE (03:45)
[2018-08-04] MEDS ORDERED: morphine 4 MG/ML inj SYRINge IV PRN (03:45)
[2018-08-04 04:33] LABS: CLARITY,URINE SLIGHTLY CLOUDY (Clear); COLOR,URINE YELLOW (Yellow); GLUCOSE, URINE 250 mg/dl (Neg); KETONES,URINE NEGATIVE (Neg); LEUKOCYTE ESTERASE ,URINE SMALL (Neg); NITRITES, URINE NEGATIVE (Neg); OCCULT BLOOD,URINE TRACE-LYSED (Neg); PH,URINE 8.5 (4.8-8.0); PROTEIN,URINE >=300 mg/dl (Neg); UROBILINOGEN,URINE 0.2 E.U/dL (0.2-1.0)
[2018-08-04 04:34] LABS: BASOPHILS # (AUTO) 0.1 X10'3 (0-0.2); BASOPHILS % (AUTO) 0.8 % (0-1); EOSINOPHILS # (AUTO) 0.1 X10'3 (0-0.9); EOSINOPHILS % (AUTO) 0.7 % (0-6); HEMATOCRIT 39.7 % (35.0-45.0); HEMOGLOBIN 12.8 g/dl (12.0-16.0); LYMPHOCYTES # (AUTO) 1.5 X10'3 (1.1-4.8); LYMPHOCYTES % (AUTO) 9.8 % (21-51); MEAN CORPUSCULAR HEMOGLOBIN 28.8 PG (27.0-31.0); MEAN CORPUSCULAR HGB CONC 32.2 g/dL (33.0-36.5); MEAN CORPUSCULAR VOLUME 89.3 FL (78-98); MEAN PLATELET VOLUME 8.4 FL (7.4-10.4); MONOCYTES % (AUTO) 6.5 % (2-12); NEUTROPHILS # (AUTO) 12.8 X10'3 (1.8-7.7); NEUTROPHILS % (AUTO) 82.2 % (42-75); PLATELET COUNT 299 X10'3 (140-440); RED BLOOD COUNT 4.45 X10'6 (4.20-5.60); RED CELL DISTRIBUTION WIDTH 14.1 % (11.5-14.5); WHITE BLOOD COUNT 15.5 X10'3 (4.5-11.0)
--- NOTE | 2018-08-04 04:38 | NUR ---
Pt to CT and back without incident.
[2018-08-04 04:43] LABS: UA COLLECTION TYPE CLN CATCH MIDSTREAM
[2018-08-04 04:44] LABS: ALANINE AMINOTRANSFERASE 13 U/L (12-78); ALBUMIN/GLOBULIN RATIO 0.7 (1.1-1.5); ALKALINE PHOSPHATASE 111 IU/L (46-116); ANION GAP 7 (8-16); ASPARTATE AMINO TRANSFERASE 8 U/L (10-37); BILIRUBIN,TOTAL 0.4 MG/DL (0.1-1.0); BLOOD UREA NITROGEN 36 MG/DL (7-18); BUN/CREATININE RATIO 11.2 (6.6-38.0); CALCIUM 9.8 MG/DL (8.5-10.1); CHLORIDE 102 MMOL/L (99-107); CREATININE 3.21 MG/DL (0.40-0.90); GLUCOSE 123 MG/DL (70-104); LIPASE 107 U/L (73-393); POTASSIUM 4.7 MMOL/L (3.5-5.1); SODIUM 137 MMOL/L (135-145); TOTAL CARBON DIOXIDE 28.3 MMOL/L (24-32); TOTAL PROTEIN 7.1 G/DL (6.4-8.2); eGFR 17 ML/MIN
[2018-08-04 04:46] LABS: WBC,URINE 0-4 /HPF (0-4)
[2018-08-04 04:47] LABS: BACTERIA,URINE 2+ /HPF (Neg); MUCUS STRANDS NONE SEEN /LPF (Neg); RBC,URINE 0-2 /HPF (0-2); SQUAMOUS EPITHELIAL CELL,UR MANY /LPF (FEW); YEAST FEW /HPF (NEGATIVE)
[2018-08-04] MEDS ORDERED: doxycycline inj 100 MG in normal saline 100ml IV soln 100 ML IV ONE (05:30)
[2018-08-04] MEDS ORDERED: CefTRIAXone/D5W-Rocephin 1gm 50 ML IV ONE (05:30)
[2018-08-04] MEDS ORDERED: glucagon, human recombinant 1mg kit SUBCUT PRN (06:00)
[2018-08-04] MEDS ORDERED: HYDROcodone/acetaminophen 10/325mg tab PO PRN (06:00)
[2018-08-04] MEDS ORDERED: acetaminophen 650mg rectal suppository RC PRN (06:00)
[2018-08-04] MEDS ORDERED: MESSAGE TO PHARMACY PO ONE (06:00)
[2018-08-04] MEDS ORDERED: dextrose ORAL solution 15 GM/59 ML bottle PO PRN ×2 (06:00)
[2018-08-04] MEDS ORDERED: insulin Lispro (HumaLOG) vial - multi-dose SQ SCH (06:00)
[2018-08-04] MEDS ORDERED: ondansetron/PF 4mg/2ml inj IV PRN (06:00)
[2018-08-04] MEDS ORDERED: dextrose 50%-water 50ml dispensing syringe IV PRN ×2 (06:00)
[2018-08-04] MEDS ORDERED: acetaminophen 325mg tablet PO PRN (06:00)
[2018-08-04] MEDS ORDERED: HYDROcodone/acetaminophen 5mg/325mg tablet PO PRN (06:00)
[2018-08-04] MEDS ORDERED: lactulose 20gm/30ml cup PO ONE (06:00)
[2018-08-04] MEDS ORDERED: EPOE10006 (06:14)
[2018-08-04] MEDS ORDERED: ACET-2119 PO (06:14)
[2018-08-04] MEDS ORDERED: HYDR-4069 PO (06:14)
[2018-08-04] MEDS ORDERED: ISOS30TA9 PO (06:14)
[2018-08-04] MEDS ORDERED: TRAZ-251 PO (06:14)
[2018-08-04] MEDS ORDERED: METO-292 IV (06:14)
[2018-08-04] MEDS ORDERED: CALC667T6 PO (06:14)
[2018-08-04] MEDS ORDERED: OMEP40CA37 PO (06:14)
[2018-08-04] MEDS ORDERED: LACT1CAP65 PO (06:14)
[2018-08-04] MEDS ORDERED: POLY17PO10 PO (06:14)
[2018-08-04] MEDS ORDERED: DILT120C19 PO (06:14)
[2018-08-04] MEDS ORDERED: CARV-50 PO (06:14)
[2018-08-04] MEDS ORDERED: BISA10SU8 RC (06:14)
[2018-08-04] MEDS ORDERED: HYDR28CR14 TOP (06:14)
[2018-08-04] MEDS ORDERED: ONDA4TAB6 PO (06:14)
[2018-08-04] MEDS ORDERED: SENN-162 PO (06:14)
[2018-08-04] MEDS ORDERED: hydrocortisone 1% cream 28gm TP PRN (06:40)
[2018-08-04] MEDS ORDERED: lactulose 20gm/30ml cup PO PRN (06:40)
[2018-08-04] MEDS ORDERED: ipratropium/albuterol 3ml nebule NEB PRN (06:40)
[2018-08-04] MEDS ORDERED: docusate sodium 100mg/10ml UD cup PO PRN (06:40)
[2018-08-04 06:57] LABS: HEMOGLOBIN A1C 6.4 % (4.5-6.2)
[2018-08-04] MEDS ORDERED: ondansetron 4mg rapidly disintigrating tab PO PRN (07:00)
[2018-08-04] MEDS ORDERED: albuterol 2.5 MG/3 ML nebule NEB PRN (07:20)
[2018-08-04] MEDS: polyethylene glycol 3350 17gm powd pack PO SCH (08:00)
[2018-08-04] MEDS: sennosides 8.6mg tablet PO SCH ×2 (08:00→20:00)
[2018-08-04] MEDS ORDERED: ipratropium 0.5 MG/2.5ML nebule IH SCH (08:00)
[2018-08-04] MEDS ORDERED: sennosides/docusate sodium tablet PO SCH (08:00)
[2018-08-04] MEDS: bisacodyl 10mg suppository rectal RC SCH (08:00)
[2018-08-04] MEDS: calcium acetate 667mg (PhosLO) capsule PO SCH ×3 (08:01→18:00)
[2018-08-04] MEDS: pantoprazole 40mg Tablet.DR PO SCH (08:01)
[2018-08-04] MEDS: lactobacillus rhamnosus 10,000 MMU CELLS/CAPSULE PO SCH ×2 (08:01→20:00)
[2018-08-04] MEDS: carVEDilol 12.5mg tablet PO SCH ×2 (08:02→20:00)
[2018-08-04] MEDS: hydrALAZINE 25 MG tablet PO SCH ×3 (08:02→23:10)
[2018-08-04] MEDS: heparin, porcine 5000 units/ml vial SQ SCH ×2 (08:11→20:00)
[2018-08-04] MEDS: folic acid/vitamin B complex w/vitamin C 0.8mg tablet PO SCH (08:19)
--- NOTE | 2018-08-04 08:30 | NUR ---
Patient in room PCU 3025. I have received report from [facility] RN and had the opportunity to ask questions and assume patient care.
[2018-08-04] MEDS: ipratropium/albuterol 3ml nebule NEB SCH ×3 (09:00→20:52)
[2018-08-04 11:00] VITALS: BP 106/63
--- NOTE | 2018-08-04 12:00 | NUR ---
Pt's TDC in upper right chest is asymptomatic. Dressing is clean dry and intact. Pt will receive hemodialysis today through TDC.
[2018-08-04] MEDS ORDERED: heparin 1,000unit/ml 10ml vial 10 ML IV ONE (13:16)
[2018-08-04] MEDS ORDERED: normal saline 1000ml 250 ML IV PRN (13:16)
[2018-08-04] MEDS ORDERED: heparin 1,000 units/ml 10ml inj HE ONE ×2 (13:20)
[2018-08-04 15:00] VITALS: BP 127/79
[2018-08-04 18:00] VITALS: BP 144/95
--- NOTE | 2018-08-04 18:15 | NUR ---
Problems reprioritized. Patient report given, questions answered & plan of care reviewed with Bhavana JOINER. Addendum: 08/04/18 at 1908 by Sanju Rodriguez RN Problems reprioritized. Patient report given, questions answered & plan of care reviewed with Hemalatha JOINER .
[2018-08-04] MEDS: meropenem inj 500 MG in normal saline 100ml IV soln 100 ML IV SCH (21:00)
[2018-08-04] MEDS: atorvastatin 20mg tablet PO SCH (21:02)
[2018-08-04] MEDS: diltiazem CD 120mg capsule (once-daily) PO SCH (21:02)
[2018-08-04 22:00] VITALS: BP 131/84
[2018-08-04] MEDS: traZODone 50mg tablet PO SCH (23:00)
[2018-08-05 02:00] VITALS: BP 126/76
[2018-08-05] MEDS: ipratropium/albuterol 3ml nebule NEB SCH ×4 (03:18→20:26)
[2018-08-05 06:00] VITALS: BP 118/75
[2018-08-05] MEDS ORDERED: CefTRIAXone 2gm/D5W 50ml 50 ML IV SCH (06:00)
[2018-08-05 06:01] LABS: BASOPHILS # (AUTO) 0.1 X10'3 (0-0.2); BASOPHILS % (AUTO) 1.2 % (0-1); EOSINOPHILS # (AUTO) 0.3 X10'3 (0-0.9); EOSINOPHILS % (AUTO) 2.9 % (0-6); HEMATOCRIT 36.1 % (35.0-45.0); HEMOGLOBIN 11.8 g/dl (12.0-16.0); LYMPHOCYTES # (AUTO) 2.1 X10'3 (1.1-4.8); LYMPHOCYTES % (AUTO) 24.3 % (21-51); MEAN CORPUSCULAR HEMOGLOBIN 29.2 PG (27.0-31.0); MEAN CORPUSCULAR HGB CONC 32.6 g/dL (33.0-36.5); MEAN CORPUSCULAR VOLUME 89.6 FL (78-98); MEAN PLATELET VOLUME 8.3 FL (7.4-10.4); MONOCYTES # (AUTO) 0.5 X10'3 (0-0.9); MONOCYTES % (AUTO) 6.2 % (2-12); NEUTROPHILS # (AUTO) 5.7 X10'3 (1.8-7.7); NEUTROPHILS % (AUTO) 65.4 % (42-75); PLATELET COUNT 214 X10'3 (140-440); RED BLOOD COUNT 4.03 X10'6 (4.20-5.60); RED CELL DISTRIBUTION WIDTH 14.1 % (11.5-14.5); WHITE BLOOD COUNT 8.7 X10'3 (4.5-11.0)
--- NOTE | 2018-08-05 06:20 | NUR ---
Patient in room PCU 3025. I have received report from Hemalatha JOINER and had the opportunity to ask questions and assume patient care.
[2018-08-05 06:21] LABS: ALBUMIN 2.4 G/DL (3.4-5.0); ANION GAP 5 (8-16); BLOOD UREA NITROGEN 15 MG/DL (7-18); BUN/CREATININE RATIO 8.2 (6.6-38.0); CALCIUM 9.3 MG/DL (8.5-10.1); CHLORIDE 105 MMOL/L (99-107); CREATININE 1.84 MG/DL (0.40-0.90); GLUCOSE 64 MG/DL (70-104); MAGNESIUM 1.7 MG/DL (1.5-2.4); PHOSPHORUS 3.1 MG/DL (2.3-4.5); POTASSIUM 4.6 MMOL/L (3.5-5.1); SODIUM 139 MMOL/L (135-145); TOTAL CARBON DIOXIDE 29.1 MMOL/L (24-32); eGFR 32 ML/MIN
--- NOTE | 2018-08-05 07:30 | NUR ---
Pts blood sugar 53, Pt not sympomatic. I glucose shot given 15mg. Will recheck BS in 15 min.
--- NOTE | 2018-08-05 07:50 | NUR ---
Pts Blood sugar rechecked, now 78
[2018-08-05] MEDS: bisacodyl 10mg suppository rectal RC SCH (08:00)
[2018-08-05] MEDS: meropenem inj 500 MG in normal saline 100ml IV soln 100 ML IV SCH ×2 (08:49→20:49)
[2018-08-05] MEDS: carVEDilol 12.5mg tablet PO SCH ×2 (08:51→20:49)
[2018-08-05] MEDS: lactobacillus rhamnosus 10,000 MMU CELLS/CAPSULE PO SCH ×2 (08:51→20:49)
[2018-08-05] MEDS: calcium acetate 667mg (PhosLO) capsule PO SCH ×3 (08:51→17:45)
[2018-08-05] MEDS: sennosides 8.6mg tablet PO SCH ×2 (08:51→20:49)
[2018-08-05] MEDS: hydrALAZINE 25 MG tablet PO SCH ×3 (08:52→23:41)
[2018-08-05] MEDS: pantoprazole 40mg Tablet.DR PO SCH (08:52)
[2018-08-05] MEDS: folic acid/vitamin B complex w/vitamin C 0.8mg tablet PO SCH (08:52)
[2018-08-05] MEDS: polyethylene glycol 3350 17gm powd pack PO SCH (08:53)
[2018-08-05] MEDS: heparin, porcine 5000 units/ml vial SQ SCH ×2 (08:54→20:49)
[2018-08-05 11:00] VITALS: BP 113/68
[2018-08-05 15:00] VITALS: BP 130/88
[2018-08-05 18:00] VITALS: BP 123/81
--- NOTE | 2018-08-05 18:20 | NUR ---
Problems reprioritized. Patient report given, questions answered & plan of care reviewed with Hemalatha JOINER.
[2018-08-05] MEDS: diltiazem CD 120mg capsule (once-daily) PO SCH (20:49)
[2018-08-05] MEDS: atorvastatin 20mg tablet PO SCH (20:49)
[2018-08-05] MEDS: traZODone 50mg tablet PO SCH (20:49)
[2018-08-05 22:00] VITALS: BP 126/80
[2018-08-06] VITALS (21 sets, daily range): BP systolic 105–149; BP diastolic 66–98
[2018-08-06] MEDS: ipratropium/albuterol 3ml nebule NEB SCH ×4 (03:26→20:11)
[2018-08-06 06:45] LABS: BASOPHILS # (AUTO) 0.1 X10'3 (0-0.2); BASOPHILS % (AUTO) 1.4 % (0-1); EOSINOPHILS # (AUTO) 0.3 X10'3 (0-0.9); EOSINOPHILS % (AUTO) 2.6 % (0-6); HEMATOCRIT 35.8 % (35.0-45.0); HEMOGLOBIN 11.6 g/dl (12.0-16.0); LYMPHOCYTES # (AUTO) 1.9 X10'3 (1.1-4.8); LYMPHOCYTES % (AUTO) 19.1 % (21-51); MEAN CORPUSCULAR HEMOGLOBIN 28.9 PG (27.0-31.0); MEAN CORPUSCULAR HGB CONC 32.3 g/dL (33.0-36.5); MEAN CORPUSCULAR VOLUME 89.5 FL (78-98); MEAN PLATELET VOLUME 8.2 FL (7.4-10.4); MONOCYTES # (AUTO) 0.6 X10'3 (0-0.9); MONOCYTES % (AUTO) 6.1 % (2-12); NEUTROPHILS # (AUTO) 6.9 X10'3 (1.8-7.7); NEUTROPHILS % (AUTO) 70.8 % (42-75); PLATELET COUNT 227 X10'3 (140-440); RED CELL DISTRIBUTION WIDTH 13.9 % (11.5-14.5); WHITE BLOOD COUNT 9.8 X10'3 (4.5-11.0)
--- NOTE | 2018-08-06 06:45 | NUR ---
Patient in room PCU 3025. I have received report from Hemalatha JOINER and had the opportunity to ask questions and assume patient care.
[2018-08-06 07:02] LABS: ALBUMIN 2.3 G/DL (3.4-5.0); ANION GAP 8 (8-16); BLOOD UREA NITROGEN 36 MG/DL (7-18); CALCIUM 9.4 MG/DL (8.5-10.1); CHLORIDE 104 MMOL/L (99-107); GLUCOSE 106 MG/DL (70-104); MAGNESIUM 1.9 MG/DL (1.5-2.4); PHOSPHORUS 4.9 MG/DL (2.3-4.5); POTASSIUM 5.1 MMOL/L (3.5-5.1); SODIUM 137 MMOL/L (135-145); TOTAL CARBON DIOXIDE 25.2 MMOL/L (24-32)
[2018-08-06 07:13] LABS: CREATININE 3.26 MG/DL (0.40-0.90); eGFR 16 ML/MIN
[2018-08-06] MEDS: calcium acetate 667mg (PhosLO) capsule PO SCH ×3 (08:00→17:41)
[2018-08-06] MEDS: bisacodyl 10mg suppository rectal RC SCH ×2 (08:00→19:39)
[2018-08-06] MEDS ORDERED: fentaNYL/PF 50MCG/1 ML 2ML syringe IV ONE (08:30)
[2018-08-06] MEDS ORDERED: MIDAZolam 5mg/5ml vial IV ONE (08:30)
[2018-08-06] MEDS ORDERED: LIDOCAINE 4% (40MG/ML) topical solution 50ml **BRONCH ONLY ONE (08:31)
[2018-08-06] MEDS: heparin, porcine 5000 units/ml vial SQ SCH ×2 (11:10→20:38)
[2018-08-06] MEDS: pantoprazole 40mg Tablet.DR PO SCH (11:11)
[2018-08-06] MEDS: lactobacillus rhamnosus 10,000 MMU CELLS/CAPSULE PO SCH ×2 (11:11→20:38)
[2018-08-06] MEDS: sennosides 8.6mg tablet PO SCH ×2 (11:12→20:00)
[2018-08-06] MEDS: carVEDilol 12.5mg tablet PO SCH ×2 (11:13→20:00)
[2018-08-06] MEDS: folic acid/vitamin B complex w/vitamin C 0.8mg tablet PO SCH (11:14)
[2018-08-06] MEDS: hydrALAZINE 25 MG tablet PO SCH ×3 (11:15→23:03)
[2018-08-06] MEDS: polyethylene glycol 3350 17gm powd pack PO SCH (11:32)
[2018-08-06] MEDS: meropenem inj 500 MG in normal saline 100ml IV soln 100 ML IV SCH ×2 (11:32→20:00)
[2018-08-06] MEDS ORDERED: methylnaltrexone br 12mg/0.6ml inj***SubQ only SQ ONE (13:00)
--- NOTE | 2018-08-06 18:10 | NUR ---
Problems reprioritized. Patient report given, questions answered & plan of care reviewed with Hemalatha JOINER.
[2018-08-06] MEDS: traZODone 50mg tablet PO SCH (21:05)
[2018-08-06] MEDS: atorvastatin 20mg tablet PO SCH (21:05)
[2018-08-06] MEDS: diltiazem CD 120mg capsule (once-daily) PO SCH (21:05)
[2018-08-07] VITALS (7 sets, daily range): BP systolic 121–137; BP diastolic 81–93
[2018-08-07] MEDS: ipratropium/albuterol 3ml nebule NEB SCH ×3 (03:38→20:25)
[2018-08-07 05:58] LABS: BASOPHILS # (AUTO) 0.1 X10'3 (0-0.2); BASOPHILS % (AUTO) 1.2 % (0-1); EOSINOPHILS # (AUTO) 0.3 X10'3 (0-0.9); EOSINOPHILS % (AUTO) 3.9 % (0-6); HEMATOCRIT 34.8 % (35.0-45.0); HEMOGLOBIN 11.5 g/dl (12.0-16.0); LYMPHOCYTES % (AUTO) 23.1 % (21-51); MEAN CORPUSCULAR HEMOGLOBIN 29.4 PG (27.0-31.0); MEAN CORPUSCULAR HGB CONC 33.2 g/dL (33.0-36.5); MEAN CORPUSCULAR VOLUME 88.6 FL (78-98); MEAN PLATELET VOLUME 8.4 FL (7.4-10.4); MONOCYTES # (AUTO) 0.6 X10'3 (0-0.9); MONOCYTES % (AUTO) 6.7 % (2-12); NEUTROPHILS # (AUTO) 5.6 X10'3 (1.8-7.7); NEUTROPHILS % (AUTO) 65.1 % (42-75); PLATELET COUNT 244 X10'3 (140-440); RED BLOOD COUNT 3.93 X10'6 (4.20-5.60); WHITE BLOOD COUNT 8.6 X10'3 (4.5-11.0)
[2018-08-07 06:22] LABS: ALBUMIN 2.3 G/DL (3.4-5.0); ANION GAP 8 (8-16); BLOOD UREA NITROGEN 47 MG/DL (7-18); BUN/CREATININE RATIO 11.2 (6.6-38.0); CALCIUM 8.8 MG/DL (8.5-10.1); CHLORIDE 103 MMOL/L (99-107); CREATININE 4.19 MG/DL (0.40-0.90); GLUCOSE 124 MG/DL (70-104); PHOSPHORUS 5.3 MG/DL (2.3-4.5); POTASSIUM 5.2 MMOL/L (3.5-5.1); SODIUM 138 MMOL/L (135-145); TOTAL CARBON DIOXIDE 26.8 MMOL/L (24-32); eGFR 12 ML/MIN
--- NOTE | 2018-08-07 06:45 | NUR ---
Patient in room PCU 3025. I have received report from RHYS Penny and had the opportunity to ask questions and assume patient care.
[2018-08-07] MEDS: calcium acetate 667mg (PhosLO) capsule PO SCH ×3 (07:32→19:28)
[2018-08-07] MEDS: sennosides 8.6mg tablet PO SCH ×2 (07:33→20:44)
[2018-08-07] MEDS: heparin, porcine 5000 units/ml vial SQ SCH ×2 (07:33→20:46)
[2018-08-07] MEDS: pantoprazole 40mg Tablet.DR PO SCH (07:33)
[2018-08-07] MEDS: hydrALAZINE 25 MG tablet PO SCH ×2 (07:33→16:20)
[2018-08-07] MEDS: polyethylene glycol 3350 17gm powd pack PO SCH (07:34)
[2018-08-07] MEDS: carVEDilol 12.5mg tablet PO SCH ×2 (07:34→20:44)
[2018-08-07] MEDS: lactobacillus rhamnosus 10,000 MMU CELLS/CAPSULE PO SCH ×2 (07:34→20:43)
[2018-08-07] MEDS: folic acid/vitamin B complex w/vitamin C 0.8mg tablet PO SCH (07:34)
[2018-08-07] MEDS: meropenem inj 500 MG in normal saline 100ml IV soln 100 ML IV SCH ×2 (08:12→20:47)
[2018-08-07] MEDS ORDERED: heparin 1,000unit/ml 10ml vial 10 ML IV ONE (10:11)
[2018-08-07] MEDS ORDERED: heparin 1,000 units/ml 10ml inj HE ONE ×2 (10:15)
[2018-08-07] MEDS: NUT.TX.GLUC.INTOLER,LAC-FR,SOY (GLUCERNA) 237 ML PO SCH (13:00)
--- NOTE | 2018-08-07 15:58 | NUR ---
Initial: Pt admit w/ abdominal pain and vomiting 3days prior to admit. Hx T1DM, ESRD on HD, and tracheostomy w/o PEG since family refused. DX PNA; CT shows constipation, pulmonary edema, third spacing, and bilateral pleural effusions. False vocal cords very swollen and referred to ENT at [facility] per MD note. Pt PO remains low 25% avg meals not meeting needs on renal/fluid-restricted diet. MD OK w/ Glucerna TIDWM; Dietary notified. Pt would benefit from PEG for long-term nutrition needs given low PO hx, constipation, and PNA. LBM 08/02 receiving senna, miralax routinely and received once dose of lactulose. Will continue to monitor. Rec: 1. IF PO improves; advance to carb controlled/renal/fluid-restricted diet per MD 2. glucerna TIDWM 3. routine bowel care 4. weekly wts Addendum: 08/07/18 at [address] Amended: Links added.
--- NOTE | 2018-08-07 18:00 | NUR ---
Patient in room PCU 3025. I have received report from Gaby Rodriguez and had the opportunity to ask questions and assume patient care.
--- NOTE | 2018-08-07 18:39 | NUR ---
Problems reprioritized. Patient report given, questions answered & plan of care reviewed with RHYS Lara.
[2018-08-07] MEDS: bisacodyl 10mg suppository rectal RC SCH (20:00)
[2018-08-07] MEDS: diltiazem CD 120mg capsule (once-daily) PO SCH (20:44)
[2018-08-07] MEDS: atorvastatin 20mg tablet PO SCH (20:45)
[2018-08-07] MEDS: traZODone 50mg tablet PO SCH (20:46)
[2018-08-08] VITALS (8 sets, daily range): BP systolic 101–150; BP diastolic 68–93
[2018-08-08] MEDS: hydrALAZINE 25 MG tablet PO SCH ×3 (00:13→15:39)
[2018-08-08] MEDS: ipratropium/albuterol 3ml nebule NEB SCH ×4 (02:41→20:19)
[2018-08-08 05:06] LABS: BASOPHILS # (AUTO) 0.1 X10'3 (0-0.2); BASOPHILS % (AUTO) 1.4 % (0-1); EOSINOPHILS # (AUTO) 0.2 X10'3 (0-0.9); EOSINOPHILS % (AUTO) 2.7 % (0-6); HEMATOCRIT 35.3 % (35.0-45.0); HEMOGLOBIN 11.8 g/dl (12.0-16.0); LYMPHOCYTES # (AUTO) 1.6 X10'3 (1.1-4.8); LYMPHOCYTES % (AUTO) 18.7 % (21-51); MEAN CORPUSCULAR HEMOGLOBIN 29.4 PG (27.0-31.0); MEAN CORPUSCULAR HGB CONC 33.5 g/dL (33.0-36.5); MEAN CORPUSCULAR VOLUME 87.7 FL (78-98); MEAN PLATELET VOLUME 8.2 FL (7.4-10.4); MONOCYTES # (AUTO) 0.6 X10'3 (0-0.9); MONOCYTES % (AUTO) 6.7 % (2-12); NEUTROPHILS # (AUTO) 6.2 X10'3 (1.8-7.7); NEUTROPHILS % (AUTO) 70.5 % (42-75); PLATELET COUNT 255 X10'3 (140-440); RED BLOOD COUNT 4.03 X10'6 (4.20-5.60); RED CELL DISTRIBUTION WIDTH 13.9 % (11.5-14.5); WHITE BLOOD COUNT 8.8 X10'3 (4.5-11.0)
[2018-08-08 05:23] LABS: ALBUMIN 2.3 G/DL (3.4-5.0); ANION GAP 5 (8-16); BLOOD UREA NITROGEN 23 MG/DL (7-18); CALCIUM 9.1 MG/DL (8.5-10.1); CHLORIDE 105 MMOL/L (99-107); CREATININE 2.56 MG/DL (0.40-0.90); GLUCOSE 135 MG/DL (70-104); MAGNESIUM 1.9 MG/DL (1.5-2.4); PHOSPHORUS 4.1 MG/DL (2.3-4.5); POTASSIUM 4.3 MMOL/L (3.5-5.1); SODIUM 138 MMOL/L (135-145); TOTAL CARBON DIOXIDE 27.7 MMOL/L (24-32); eGFR 22 ML/MIN
--- NOTE | 2018-08-08 06:06 | NUR ---
Orientee documentation: I have reviewed and agree with all interventions, assessments performed and documented by Barbie JOINER.
--- NOTE | 2018-08-08 06:32 | NUR ---
Problems reprioritized. Patient report given, questions answered & plan of care reviewed with Naldo JOINER.
[2018-08-08] MEDS: carVEDilol 12.5mg tablet PO SCH ×2 (08:00→21:21)
[2018-08-08] MEDS: NUT.TX.GLUC.INTOLER,LAC-FR,SOY (GLUCERNA) 237 ML PO SCH ×3 (08:00→18:00)
[2018-08-08] MEDS: bisacodyl 10mg suppository rectal RC SCH (08:00)
[2018-08-08] MEDS: pantoprazole 40mg Tablet.DR PO SCH (08:20)
[2018-08-08] MEDS: lactobacillus rhamnosus 10,000 MMU CELLS/CAPSULE PO SCH ×2 (08:21→21:21)
[2018-08-08] MEDS: calcium acetate 667mg (PhosLO) capsule PO SCH ×3 (08:21→18:09)
[2018-08-08] MEDS: folic acid/vitamin B complex w/vitamin C 0.8mg tablet PO SCH (08:22)
[2018-08-08] MEDS: sennosides 8.6mg tablet PO SCH ×2 (08:22→21:20)
[2018-08-08] MEDS: polyethylene glycol 3350 17gm powd pack PO SCH (08:23)
[2018-08-08] MEDS: heparin, porcine 5000 units/ml vial SQ SCH ×2 (08:36→20:00)
[2018-08-08] MEDS: meropenem inj 500 MG in normal saline 100ml IV soln 100 ML IV SCH ×2 (09:37→21:21)
--- NOTE | 2018-08-08 18:00 | NUR ---
Patient in room PCU 3025. I have received report from Gaby Polanco and had the opportunity to ask questions and assume patient care.
--- NOTE | 2018-08-08 18:15 | NUR ---
Problems reprioritized. Patient report given, questions answered & plan of care reviewed with Jane JOINER.
--- NOTE | 2018-08-08 20:30 | NUR ---
Pt refused heparin. She stated it hurts and is causing welts on her abdomen. Educated pt as to DVT prophylaxis. Pt is wearing her SCDs and will talk to MD in the morning regarding heparin. Will continue to monitor.
[2018-08-08] MEDS: diltiazem CD 120mg capsule (once-daily) PO SCH (21:20)
[2018-08-08] MEDS: atorvastatin 20mg tablet PO SCH (21:21)
[2018-08-08] MEDS: traZODone 50mg tablet PO SCH (21:21)
[2018-08-09] MEDS: hydrALAZINE 25 MG tablet PO SCH ×4 (00:17→23:53)
[2018-08-09 03:00] VITALS: BP 135/86
[2018-08-09] MEDS: ipratropium/albuterol 3ml nebule NEB SCH ×4 (03:27→20:36)
[2018-08-09 05:18] LABS: BASOPHILS # (AUTO) 0.1 X10'3 (0-0.2); BASOPHILS % (AUTO) 1.4 % (0-1); EOSINOPHILS # (AUTO) 0.3 X10'3 (0-0.9); EOSINOPHILS % (AUTO) 3.4 % (0-6); HEMOGLOBIN 11.5 g/dl (12.0-16.0); LYMPHOCYTES # (AUTO) 2.2 X10'3 (1.1-4.8); LYMPHOCYTES % (AUTO) 24.9 % (21-51); MEAN CORPUSCULAR HEMOGLOBIN 28.7 PG (27.0-31.0); MEAN CORPUSCULAR HGB CONC 32.9 g/dL (33.0-36.5); MEAN CORPUSCULAR VOLUME 87.4 FL (78-98); MEAN PLATELET VOLUME 8.2 FL (7.4-10.4); MONOCYTES # (AUTO) 0.7 X10'3 (0-0.9); NEUTROPHILS # (AUTO) 5.5 X10'3 (1.8-7.7); NEUTROPHILS % (AUTO) 62.3 % (42-75); PLATELET COUNT 255 X10'3 (140-440); RED CELL DISTRIBUTION WIDTH 14.3 % (11.5-14.5); WHITE BLOOD COUNT 8.9 X10'3 (4.5-11.0)
[2018-08-09 05:34] LABS: ALBUMIN 2.3 G/DL (3.4-5.0); ANION GAP 8 (8-16); BLOOD UREA NITROGEN 34 MG/DL (7-18); BUN/CREATININE RATIO 9.7 (6.6-38.0); CALCIUM 9.2 MG/DL (8.5-10.1); CHLORIDE 104 MMOL/L (99-107); CREATININE 3.49 MG/DL (0.40-0.90); GLUCOSE 110 MG/DL (70-104); MAGNESIUM 2.2 MG/DL (1.5-2.4); PHOSPHORUS 5.2 MG/DL (2.3-4.5); POTASSIUM 4.5 MMOL/L (3.5-5.1); SODIUM 139 MMOL/L (135-145); TOTAL CARBON DIOXIDE 27.2 MMOL/L (24-32); eGFR 15 ML/MIN
--- NOTE | 2018-08-09 05:58 | NUR ---
Orientee documentation: I have reviewed and agree with all interventions, assessments performed and documented by Barbie JOINER. Medication Administration: For this medication-pass time frame, all medication were reviewed, dispensed, administered and documented per hospital policy.
--- NOTE | 2018-08-09 06:18 | NUR ---
Problems reprioritized. Patient report given, questions answered & plan of care reviewed with RHYS Cadet .
--- NOTE | 2018-08-09 06:23 | NUR ---
Patient in room PCU 3025. I have received report from Barbie JOINER and had the opportunity to ask questions and assume patient care.
[2018-08-09 07:00] VITALS: BP 135/88
[2018-08-09] MEDS: carVEDilol 12.5mg tablet PO SCH ×2 (07:35→21:01)
[2018-08-09] MEDS: sennosides 8.6mg tablet PO SCH ×2 (07:36→20:59)
[2018-08-09] MEDS: lactobacillus rhamnosus 10,000 MMU CELLS/CAPSULE PO SCH ×2 (07:36→21:01)
[2018-08-09] MEDS: calcium acetate 667mg (PhosLO) capsule PO SCH ×3 (07:36→18:54)
[2018-08-09] MEDS: polyethylene glycol 3350 17gm powd pack PO SCH (07:37)
[2018-08-09] MEDS: folic acid/vitamin B complex w/vitamin C 0.8mg tablet PO SCH (07:37)
[2018-08-09] MEDS: heparin, porcine 5000 units/ml vial SQ SCH ×3 (07:37→20:59)
[2018-08-09] MEDS: pantoprazole 40mg Tablet.DR PO SCH (07:37)
[2018-08-09] MEDS: meropenem inj 500 MG in normal saline 100ml IV soln 100 ML IV SCH (07:38)
[2018-08-09] MEDS: bisacodyl 10mg suppository rectal RC SCH (08:00)
[2018-08-09] MEDS: NUT.TX.GLUC.INTOLER,LAC-FR,SOY (GLUCERNA) 237 ML PO SCH ×3 (08:00→18:00)
[2018-08-09 11:00] VITALS: BP 120/78
[2018-08-09] MEDS ORDERED: heparin 1,000unit/ml 10ml vial 10 ML IV ONE ×2 (14:05→14:11)
[2018-08-09] MEDS ORDERED: albumin (Human) 5% 250ml 250 ML IV PRN (14:05)
[2018-08-09] MEDS ORDERED: heparin 1,000 units/ml 10ml inj HE ONE ×3 (14:10→14:15)
[2018-08-09 15:00] VITALS: BP 124/86
--- NOTE | 2018-08-09 16:22 | NUR ---
Problems reprioritized. Patient report given, questions answered & plan of care reviewed with Hemalatha JOINER.
--- NOTE | 2018-08-09 16:22 | NUR ---
Orientee documentation: I have reviewed and agree with all interventions, assessments performed and documented by Madai JOINER. [place] Medication Administration: For this medication-pass time frame, all medication were reviewed, dispensed, administered and documented per hospital policy by Madai JOINER.
--- NOTE | 2018-08-09 16:22 | NUR ---
Received report from Kassandra JOINER, patient stable and denies complaints at this time. Patient currently receiving dialysis and appears to be in no distress.
--- NOTE | 2018-08-09 17:17 | NUR ---
Hydralazine medication held. Patient receiving dialysis. Dialysis nurse states patients blood pressure has been unstable and will bring her blood pressure too low.
--- NOTE | 2018-08-09 17:53 | NUR ---
Orientee charting reviewed, constructive criticism given as needed
[2018-08-09 18:00] VITALS: BP 139/87
--- NOTE | 2018-08-09 18:22 | NUR ---
Problems reprioritized. Patient report given, questions answered & plan of care reviewed with Giovanni JOINER and Luis RN.
--- NOTE | 2018-08-09 19:47 | NUR ---
Patient in room PCU 3025. I have received report from Hemalatha JOINER and Jennifer JOINER and had the opportunity to ask questions and assume patient care.
[2018-08-09] MEDS: diltiazem CD 120mg capsule (once-daily) PO SCH (21:03)
[2018-08-09] MEDS: traZODone 50mg tablet PO SCH (21:04)
[2018-08-09] MEDS: atorvastatin 20mg tablet PO SCH (21:05)
[2018-08-09 23:00] VITALS: BP 139/87
[2018-08-10] MEDS: ipratropium/albuterol 3ml nebule NEB SCH ×2 (02:56→07:57)
[2018-08-10 03:00] VITALS: BP 142/89
--- NOTE | 2018-08-10 05:38 | NUR ---
[place]ee documentation: I have reviewed and agree with all interventions, assessments performed and documented by Sd Crowley RN . [place] Medication Administration: For this medication-pass time frame, all medication were reviewed, dispensed, administered and documented per hospital policy by Sd Crowley RN.
--- NOTE | 2018-08-10 06:24 | NUR ---
Patient in room PCU 3025. I have received report from RHYS Smith and had the opportunity to ask questions and assume patient care. Patient is currently resting in bed, bed locked and low, call light in reach. No acute distress, no needs at this time.
--- NOTE | 2018-08-10 06:28 | NUR ---
Problems reprioritized. Patient report given, questions answered & plan of care reviewed with Kassandra JOINER.
[2018-08-10 07:00] VITALS: BP 137/87
[2018-08-10] MEDS: lactobacillus rhamnosus 10,000 MMU CELLS/CAPSULE PO SCH (07:27)
[2018-08-10] MEDS: calcium acetate 667mg (PhosLO) capsule PO SCH (07:28)
[2018-08-10] MEDS: hydrALAZINE 25 MG tablet PO SCH (07:28)
[2018-08-10] MEDS: carVEDilol 12.5mg tablet PO SCH (07:28)
[2018-08-10] MEDS: pantoprazole 40mg Tablet.DR PO SCH (07:28)
[2018-08-10] MEDS: sennosides 8.6mg tablet PO SCH (07:28)
[2018-08-10] MEDS: folic acid/vitamin B complex w/vitamin C 0.8mg tablet PO SCH (07:28)
[2018-08-10] MEDS: polyethylene glycol 3350 17gm powd pack PO SCH (07:29)
[2018-08-10] MEDS: heparin, porcine 5000 units/ml vial SQ SCH (07:30)
[2018-08-10] MEDS: bisacodyl 10mg suppository rectal RC SCH (07:30)
[2018-08-10] MEDS: NUT.TX.GLUC.INTOLER,LAC-FR,SOY (GLUCERNA) 237 ML PO SCH (08:00)
[2018-08-10] MEDS ORDERED: CefTRIAXone 2gm/D5W 50ml 50 ML IV SCH (08:00)
[2018-08-10 11:00] VITALS: BP 131/80
--- NOTE | 2018-08-10 13:36 | NUR ---
Received orders to discharge patient, belongings gathered, discharge paperwork gone over and signed by patient. Patient in stable condition with no complaints at time of discharge. Going home with family, transported via wheelchair to vehicle with patient's home protable O2.
== END 2018-08-10 12:58 | disposition home or self-care (01) | DRG 139 ==
LOC: ER 03:26 → PCU 3S 08:40 → EDBEDREQ 08:52 → PCU 3S 08:53 → CMPBEDREQ 08-07 19:46
PROVIDERS: ADMIT Nurse Practitioner Family; ATTEND Internal Medicine Critical Care Medicine
PROC: 5A1D70Z Performance of Urinary Filtration, Intermittent, Less than 6 Hours Per Day (ICD-10-PCS; 2018-08-04)
PROC: 0BJ08ZZ Inspection of Tracheobronchial Tree, Via Natural or Artificial Opening Endoscopic (ICD-10-PCS; principal; 2018-08-06)
PROC: 5A1D70Z Performance of Urinary Filtration, Intermittent, Less than 6 Hours Per Day (ICD-10-PCS; 2018-08-07)
PROC: 5A1D70Z Performance of Urinary Filtration, Intermittent, Less than 6 Hours Per Day (ICD-10-PCS; 2018-08-09)
DX: J18.9 Pneumonia, unspecified organism (principal); I13.2 Hypertensive heart and chronic kidney disease with heart failure and with stage 5 chronic kidney disease, or end stage renal disease; Z93.0 Tracheostomy status; E10.21 Type 1 diabetes mellitus with diabetic nephropathy; N18.6 End stage renal disease; I50.9 Heart failure, unspecified; E78.00 Pure hypercholesterolemia, unspecified; Z60.2 Problems related to living alone; R04.2 Hemoptysis; E10.22 Type 1 diabetes mellitus with diabetic chronic kidney disease; J39.8 Other specified diseases of upper respiratory tract; J98.8 Other specified respiratory disorders; K59.00 Constipation, unspecified; Z83.3 Family history of diabetes mellitus; Z87.441 Personal history of nephrotic syndrome; Z99.2 Dependence on renal dialysis; Z87.440 Personal history of urinary (tract) infections; Z88.0 Allergy status to penicillin; Z88.1 Allergy status to other antibiotic agents; Z91.012 Allergy to eggs; Z99.3 Dependence on wheelchair; Z79.899 Other long term (current) drug therapy; Z79.4 Long term (current) use of insulin; Q32.1 Other congenital malformations of trachea
CPT/HCPCS: 31645; 36415; 71045; 74176; 80048; 80053; 81001; 82948; 83036; 83605; 83690; 83735; 84100; 84145; 85025; 87040; 87070; 87077; 87185; 92508; 92616; 94640; 94760; 96365; 96375; 97110; 97116; 97162; 97530; 99285; G0257; G0378; J0696; J1644; J2185; J2250; J2270; J2405; J3010; J3490; J7030

== ENCOUNTER 2019-11-06 07:22 | Day surgery (SDC) | payer MEDICARE, MEDICAID ==
[~2019-11-06] VITALS: Ht 162.6 cm; Wt 60.7 kg
[~2019-11-06 07:22] MED LIST changes: +ACET-2119 PO; -ANUHCR RC; +BISA10SU11 RC; +CALC667T6 PO; +CARV-50 PO; -CHOL4PAC2 NG; -CLON0.3T NG; +DILT120C19 PO; -FOLI1TAB16 PO; -HYDR-3972 PO; +HYDR-4069 PO; -HYDR28.316 RC; +HYDR28CR14 TOP; -INSU100V9 SQ; +ISOS30TA9 PO; +LACT1CAP65 PO; -MELA3TAB NG; +METO-292 IV; +OMEP40CA13 PO; +ONDA4TAB6 PO; +POLY17PO10 PO; +SENN-263 PO; -SEVE800T8 NG; +TRAZ-251 PO; -ZOF4I IV
[2019-11-06 07:47] VITALS: BP 129/77
[2019-11-06] MEDS ORDERED: normal saline 1000ml 1,000 ML IV PRN (08:10)
[2019-11-06] MEDS ORDERED: albumin 25% 100mL bottle x 1 IV PRN (08:10)
[2019-11-06 08:13] VITALS: BP 125/82
[2019-11-06] MEDS ORDERED: CETI10TA15 PO (08:15)
[2019-11-06] MEDS ORDERED: LOSA50TA3 PO (08:16)
[2019-11-06] MEDS ORDERED: METO5TAB85 PO (08:16)
[2019-11-06] MEDS ORDERED: CHOL20002 PO (08:16)
[2019-11-06 08:27] VITALS: BP 138/67
[2019-11-06 08:43] VITALS: BP 135/84
[2019-11-06 08:45] VITALS: BP 130/86
[2019-11-06 09:00] VITALS: BP 128/82
[2019-11-06 09:55] LABS: TOTAL PROTEIN,BODY FLUID 4.4 G/DL
[2019-11-06 10:20] LABS: EOSINOPHILS,BODY FLUID 1 %; LYMPHOCYTES,BODY FLUID 23 %; MONOCYTES,BODY FLUID 25 %; NEUTROPHILS,BODY FLUID 51 %
[2019-11-06 10:21] LABS: BF MESOTHELIAL CELLS FEW; BF RBC COUNT 1220 /CU MM; BF WBC COUNT 189 /CU MM (0-1000); BFAPPEAR HAZY; BFCOLOR YELLOW; BFVOLUME 45 ML
[2019-11-06 10:22] LABS: OTHER CELLS,BODY FLUID MACROPHAGES
== END 2019-11-06 09:00 | disposition home or self-care (01) ==
LOC: SSTAY O 07:22
PROVIDERS: ATTEND Radiology Vascular & Interventional Radiology
DX: R18.8 Other ascites (principal); E11.40 Type 2 diabetes mellitus with diabetic neuropathy, unspecified; N18.6 End stage renal disease; E11.22 Type 2 diabetes mellitus with diabetic chronic kidney disease; I12.0 Hypertensive chronic kidney disease with stage 5 chronic kidney disease or end stage renal disease; Z87.01 Personal history of pneumonia (recurrent); Z98.890 Other specified postprocedural states; Z93.0 Tracheostomy status; Z91.012 Allergy to eggs; Z88.0 Allergy status to penicillin; Z88.1 Allergy status to other antibiotic agents; Z79.899 Other long term (current) drug therapy
CPT/HCPCS: 49083; 82042; 84157; 87070; 89051

== ENCOUNTER 2020-01-07 06:25 | Day surgery (SDC) | payer MEDICARE, MEDICAID ==
[~2020-01-07] VITALS: Ht 162.6 cm; Wt 64.3 kg
[~2020-01-07 06:25] MED LIST changes: -ACET-2119 PO; -ALBU2.5V12 NEB; +AMIT10TA6 PO; -ATOR-2 NG; +ATOR-2 PO; -ATR0.5NEB IH; -BISA10SU11 RC; +CARCD120C PO; +CHOL20002 PO; -DILT120C19 PO; -DOCU50LI22 PO; -FOLI1CAP PO; -HYDR28CR14 TOP; +INSU100I31 SQ; -INSU100V11 SQ; -IPRA3AMP9 NEB; +ISOS10TA2 PO; -ISOS30TA9 PO; -LACT1CAP65 PO; +LOSA50TA3 PO; -METO-292 IV; +NOVLG SQ; -ONDA4TAB6 PO; -POLY17PO10 PO; -SENN-263 PO; +SODI454P9 PO; -TRAZ-251 PO
[2020-01-07 06:45] VITALS: BP 135/81
[2020-01-07] MEDS ORDERED: albumin 25% 100mL bottle x 1 IV PRN (06:55)
[2020-01-07 08:22] VITALS: BP 141/83
[2020-01-07 08:37] VITALS: BP 132/80
[2020-01-07 08:45] VITALS: BP 133/78
[2020-01-07 09:00] VITALS: BP 137/82
== END 2020-01-07 09:07 | disposition home or self-care (01) ==
LOC: SSTAY O 06:25
PROVIDERS: ATTEND Radiology Diagnostic Radiology
DX: R18.8 Other ascites (principal); E78.00 Pure hypercholesterolemia, unspecified; D64.9 Anemia, unspecified; E11.22 Type 2 diabetes mellitus with diabetic chronic kidney disease; I13.2 Hypertensive heart and chronic kidney disease with heart failure and with stage 5 chronic kidney disease, or end stage renal disease; N18.6 End stage renal disease; I50.9 Heart failure, unspecified; K74.60 Unspecified cirrhosis of liver; Z79.899 Other long term (current) drug therapy; Z99.2 Dependence on renal dialysis; Z93.0 Tracheostomy status; Z87.440 Personal history of urinary (tract) infections; Z98.890 Other specified postprocedural states; Z72.89 Other problems related to lifestyle; Z91.012 Allergy to eggs; Z88.0 Allergy status to penicillin; Z88.1 Allergy status to other antibiotic agents; Z83.3 Family history of diabetes mellitus
CPT/HCPCS: 49083

== ENCOUNTER 2020-01-10 12:41 | Outpatient (CLI) | payer MEDICARE, MEDICAID | END 2020-01-10 23:59 | disposition home or self-care (01) | LOC: CARD DIAG 12:41 | PROVIDERS: ATTEND Internal Medicine Gastroenterology | DX: I08.8 Other rheumatic multiple valve diseases (principal) | CPT/HCPCS: 93306 ==

== ENCOUNTER 2020-02-18 07:22 | Day surgery (SDC) | payer MEDICARE, MEDICAID ==
[~2020-02-18] VITALS: Ht 157.5 cm; Wt 65.0 kg
[2020-02-18 07:41] VITALS: BP 145/64
[2020-02-18] MEDS ORDERED: albumin 25% 100mL bottle x 1 IV PRN (08:05)
[2020-02-18 09:09] VITALS: BP 142/84
[2020-02-18 09:24] VITALS: BP 146/85
[2020-02-18 09:40] VITALS: BP 142/82
[2020-02-18 09:55] VITALS: BP 136/78
== END 2020-02-18 09:55 | disposition home or self-care (01) ==
LOC: SSTAY O 07:22
PROVIDERS: ATTEND Radiology Vascular & Interventional Radiology
DX: R18.8 Other ascites (principal); E11.22 Type 2 diabetes mellitus with diabetic chronic kidney disease; I13.2 Hypertensive heart and chronic kidney disease with heart failure and with stage 5 chronic kidney disease, or end stage renal disease; I50.9 Heart failure, unspecified; N18.6 End stage renal disease; E78.00 Pure hypercholesterolemia, unspecified; D64.9 Anemia, unspecified; Z87.01 Personal history of pneumonia (recurrent); Z87.440 Personal history of urinary (tract) infections; Z72.89 Other problems related to lifestyle; Z91.012 Allergy to eggs; Z88.0 Allergy status to penicillin; Z88.1 Allergy status to other antibiotic agents; Z79.4 Long term (current) use of insulin; Z79.899 Other long term (current) drug therapy; Z83.3 Family history of diabetes mellitus
CPT/HCPCS: 49083

== ENCOUNTER 2020-03-10 07:12 | Day surgery (SDC) | payer MEDICARE, MEDICAID ==
[~2020-03-10] VITALS: Ht 162.6 cm; Wt 68.0 kg
[2020-03-10] MEDS ORDERED: albumin 25% 100mL bottle x 1 IV PRN (07:55)
[2020-03-10 08:00] VITALS: BP 150/90
[2020-03-10 08:40] VITALS: BP 150/91
[2020-03-10 08:55] VITALS: BP 139/91
[2020-03-10 09:10] VITALS: BP 145/89
[2020-03-10 09:25] VITALS: BP 138/90
== END 2020-03-10 09:35 | disposition home or self-care (01) ==
LOC: SSTAY O 07:12
PROVIDERS: ATTEND Radiology Diagnostic Radiology
DX: R18.8 Other ascites (principal); K74.60 Unspecified cirrhosis of liver; E11.22 Type 2 diabetes mellitus with diabetic chronic kidney disease; I13.0 Hypertensive heart and chronic kidney disease with heart failure and stage 1 through stage 4 chronic kidney disease, or unspecified chronic kidney disease; N18.6 End stage renal disease; I50.9 Heart failure, unspecified; E78.00 Pure hypercholesterolemia, unspecified; Z87.01 Personal history of pneumonia (recurrent); J39.8 Other specified diseases of upper respiratory tract; Z87.440 Personal history of urinary (tract) infections; Z98.890 Other specified postprocedural states; Z72.89 Other problems related to lifestyle; Z91.012 Allergy to eggs; Z88.0 Allergy status to penicillin; Z88.1 Allergy status to other antibiotic agents; Z79.899 Other long term (current) drug therapy; Z79.4 Long term (current) use of insulin; Z83.3 Family history of diabetes mellitus
CPT/HCPCS: 49083

== ENCOUNTER 2020-03-24 07:28 | Day surgery (SDC) | payer MEDICARE, MEDICAID ==
[~2020-03-24] VITALS: Ht 162.6 cm; Wt 65.9 kg
[2020-03-24 08:03] VITALS: BP 130/76
[2020-03-24] MEDS ORDERED: normal saline 1000ml 1,000 ML IV PRN (08:05)
[2020-03-24] MEDS ORDERED: albumin 25% 100mL bottle x 1 IV PRN (08:05)
[2020-03-24 09:07] VITALS: BP 142/84
[2020-03-24 09:15] VITALS: BP 138/85
[2020-03-24 09:30] VITALS: BP 134/79
== END 2020-03-24 09:40 | disposition home or self-care (01) ==
LOC: SSTAY O 07:28
PROVIDERS: ATTEND Radiology Vascular & Interventional Radiology
DX: R18.8 Other ascites (principal); K74.60 Unspecified cirrhosis of liver; E11.22 Type 2 diabetes mellitus with diabetic chronic kidney disease; I13.2 Hypertensive heart and chronic kidney disease with heart failure and with stage 5 chronic kidney disease, or end stage renal disease; N18.6 End stage renal disease; I50.9 Heart failure, unspecified; E78.00 Pure hypercholesterolemia, unspecified; Z87.01 Personal history of pneumonia (recurrent); D64.9 Anemia, unspecified; Z87.440 Personal history of urinary (tract) infections; Z98.890 Other specified postprocedural states; Z93.0 Tracheostomy status; Z72.89 Other problems related to lifestyle; Z91.012 Allergy to eggs; Z88.0 Allergy status to penicillin; Z88.1 Allergy status to other antibiotic agents; Z83.3 Family history of diabetes mellitus
CPT/HCPCS: 49083

== ENCOUNTER 2020-04-08 06:56 | Day surgery (SDC) | payer MEDICARE, MEDICAID ==
[~2020-04-08] VITALS: Ht 162.6 cm; Wt 62.7 kg
[2020-04-08 07:40] VITALS: BP 111/66
[2020-04-08] MEDS ORDERED: albumin 25% 100mL bottle x 1 IV PRN (07:40)
[2020-04-08 08:10] VITALS: BP 110/69
[2020-04-08 08:15] VITALS: BP 110/69
[2020-04-08 08:30] VITALS: BP 119/74
[2020-04-08 08:45] VITALS: BP 117/76
[2020-04-08 09:00] VITALS: BP 105/62
== END 2020-04-08 09:20 | disposition home or self-care (01) ==
LOC: SSTAY O 06:56
PROVIDERS: ATTEND Radiology Vascular & Interventional Radiology
DX: J90 Pleural effusion, not elsewhere classified (principal); R18.8 Other ascites; K74.60 Unspecified cirrhosis of liver; E11.22 Type 2 diabetes mellitus with diabetic chronic kidney disease; I13.2 Hypertensive heart and chronic kidney disease with heart failure and with stage 5 chronic kidney disease, or end stage renal disease; N18.6 End stage renal disease; I50.9 Heart failure, unspecified; E78.00 Pure hypercholesterolemia, unspecified; D64.9 Anemia, unspecified; Z87.440 Personal history of urinary (tract) infections; Z87.01 Personal history of pneumonia (recurrent); Z72.89 Other problems related to lifestyle; Z91.012 Allergy to eggs; Z88.0 Allergy status to penicillin; Z88.1 Allergy status to other antibiotic agents; Z79.4 Long term (current) use of insulin; Z79.899 Other long term (current) drug therapy; Z83.3 Family history of diabetes mellitus
CPT/HCPCS: 32555; 71045

== ENCOUNTER 2020-04-15 06:34 | Day surgery (SDC) | payer MEDICARE, MEDICAID ==
[~2020-04-15] VITALS: Ht 162.6 cm; Wt 63.7 kg
[2020-04-15] MEDS ORDERED: albumin 25% 100mL bottle x 1 IV PRN (07:00)
[2020-04-15] MEDS ORDERED: oxyCODONE IR 5mg (immed. release) tablet PO PRN (07:00)
[2020-04-15 07:13] VITALS: BP 148/80
[2020-04-15 08:28] VITALS: BP 131/75
[2020-04-15 08:37] VITALS: BP 119/69
[2020-04-15 08:52] VITALS: BP 113/65
[2020-04-15 09:07] VITALS: BP 118/72
== END 2020-04-15 09:45 | disposition home or self-care (01) ==
LOC: SSTAY O 06:34
PROVIDERS: ATTEND Radiology Vascular & Interventional Radiology
DX: R18.8 Other ascites (principal); I50.9 Heart failure, unspecified; E78.00 Pure hypercholesterolemia, unspecified; I11.0 Hypertensive heart disease with heart failure; E11.22 Type 2 diabetes mellitus with diabetic chronic kidney disease; D64.9 Anemia, unspecified; Z87.01 Personal history of pneumonia (recurrent); N18.9 Chronic kidney disease, unspecified; Z87.440 Personal history of urinary (tract) infections; Z82.49 Family history of ischemic heart disease and other diseases of the circulatory system; Z98.890 Other specified postprocedural states; Z83.3 Family history of diabetes mellitus; Z88.0 Allergy status to penicillin; Z88.1 Allergy status to other antibiotic agents; Z88.8 Allergy status to other drugs, medicaments and biological substances; Z91.012 Allergy to eggs; Z79.899 Other long term (current) drug therapy
CPT/HCPCS: 49083

== ENCOUNTER 2020-04-29 06:55 | Day surgery (SDC) | payer MEDICARE, MEDICAID ==
[~2020-04-29] VITALS: Ht 162.6 cm; Wt 67.2 kg
[2020-04-29 07:22] VITALS: BP 134/86
[2020-04-29] MEDS ORDERED: albumin 25% 100mL bottle x 1 IV PRN (07:25)
[2020-04-29 08:32] VITALS: BP 137/78
[2020-04-29 08:45] VITALS: BP 132/80
[2020-04-29 09:00] VITALS: BP 134/76
[2020-04-29 09:15] VITALS: BP 132/78
[2020-04-29 09:30] VITALS: BP 136/78
== END 2020-04-29 09:40 | disposition home or self-care (01) ==
LOC: SSTAY O 06:55
PROVIDERS: ATTEND Radiology Diagnostic Radiology
DX: R18.8 Other ascites (principal); K74.60 Unspecified cirrhosis of liver; E11.22 Type 2 diabetes mellitus with diabetic chronic kidney disease; I13.0 Hypertensive heart and chronic kidney disease with heart failure and stage 1 through stage 4 chronic kidney disease, or unspecified chronic kidney disease; N18.6 End stage renal disease; I50.9 Heart failure, unspecified; E78.00 Pure hypercholesterolemia, unspecified; D64.9 Anemia, unspecified; Z87.440 Personal history of urinary (tract) infections; Z87.01 Personal history of pneumonia (recurrent); Z98.890 Other specified postprocedural states; Z72.89 Other problems related to lifestyle; Z91.012 Allergy to eggs; Z88.0 Allergy status to penicillin; Z88.1 Allergy status to other antibiotic agents; Z79.899 Other long term (current) drug therapy; Z83.3 Family history of diabetes mellitus
CPT/HCPCS: 49083

== ENCOUNTER 2020-05-15 07:54 | Day surgery (SDC) | payer MEDICARE, MEDICAID ==
[~2020-05-15] VITALS: Ht 162.6 cm; Wt 64.4 kg
[2020-05-15] MEDS ORDERED: albumin 25% 100mL bottle x 1 IV PRN (08:15)
[2020-05-15 08:23] VITALS: BP 115/72
[2020-05-15 09:28] VITALS: BP 120/68
[2020-05-15 09:35] VITALS: BP 120/72
[2020-05-15 09:45] VITALS: BP 120/69
[2020-05-15 09:50] VITALS: BP 118/68
[2020-05-15 10:10] VITALS: BP 113/75
== END 2020-05-15 10:10 | disposition home or self-care (01) ==
LOC: SSTAY O 07:54
PROVIDERS: ATTEND Radiology Vascular & Interventional Radiology
DX: R18.8 Other ascites (principal); K74.60 Unspecified cirrhosis of liver; E11.22 Type 2 diabetes mellitus with diabetic chronic kidney disease; I13.0 Hypertensive heart and chronic kidney disease with heart failure and stage 1 through stage 4 chronic kidney disease, or unspecified chronic kidney disease; N18.6 End stage renal disease; I50.9 Heart failure, unspecified; D64.9 Anemia, unspecified; J90 Pleural effusion, not elsewhere classified; E78.00 Pure hypercholesterolemia, unspecified; Z87.01 Personal history of pneumonia (recurrent); Z87.440 Personal history of urinary (tract) infections; Z98.890 Other specified postprocedural states; Z72.89 Other problems related to lifestyle; Z91.012 Allergy to eggs; Z88.0 Allergy status to penicillin; Z88.1 Allergy status to other antibiotic agents; Z79.4 Long term (current) use of insulin; Z79.899 Other long term (current) drug therapy; Z83.3 Family history of diabetes mellitus
CPT/HCPCS: 49083

== ENCOUNTER 2020-05-30 06:18 | Day surgery (SDC) | payer MEDICARE, MEDICAID ==
[~2020-05-30] VITALS: Ht 162.6 cm; Wt 66.4 kg
[2020-05-30] VITALS (9 sets, daily range): BP systolic 131–140; BP diastolic 76–85
[2020-05-30] MEDS ORDERED: albumin 25% 100mL bottle x 1 IV PRN (07:00)
== END 2020-05-30 09:35 | disposition home or self-care (01) ==
LOC: SSTAY O 06:18
PROVIDERS: ATTEND Radiology Vascular & Interventional Radiology
DX: R18.8 Other ascites (principal); E11.22 Type 2 diabetes mellitus with diabetic chronic kidney disease; I13.2 Hypertensive heart and chronic kidney disease with heart failure and with stage 5 chronic kidney disease, or end stage renal disease; N18.6 End stage renal disease; I50.9 Heart failure, unspecified; E78.00 Pure hypercholesterolemia, unspecified; D64.9 Anemia, unspecified; Z87.440 Personal history of urinary (tract) infections; Z98.890 Other specified postprocedural states; Z87.01 Personal history of pneumonia (recurrent); Z72.89 Other problems related to lifestyle; Z88.0 Allergy status to penicillin; Z88.1 Allergy status to other antibiotic agents; Z91.012 Allergy to eggs; Z79.4 Long term (current) use of insulin; Z79.899 Other long term (current) drug therapy; Z83.3 Family history of diabetes mellitus
CPT/HCPCS: 49083

== ENCOUNTER 2020-06-16 07:05 | Day surgery (SDC) | payer MEDICARE, MEDICAID ==
[~2020-06-16] VITALS: Ht 154.9 cm; Wt 66.6 kg
[2020-06-16 07:31] VITALS: BP 112/72
[2020-06-16] MEDS ORDERED: albumin 25% 100mL bottle x 1 IV PRN (07:35)
[2020-06-16 08:40] VITALS: BP 144/80
[2020-06-16 08:55] VITALS: BP 118/71
[2020-06-16 09:10] VITALS: BP 123/69
[2020-06-16 09:25] VITALS: BP 125/74
== END 2020-06-16 09:25 | disposition home or self-care (01) ==
LOC: SSTAY O 07:05
PROVIDERS: ATTEND Radiology Diagnostic Radiology
DX: R18.8 Other ascites (principal); K74.60 Unspecified cirrhosis of liver; E11.22 Type 2 diabetes mellitus with diabetic chronic kidney disease; I13.2 Hypertensive heart and chronic kidney disease with heart failure and with stage 5 chronic kidney disease, or end stage renal disease; N18.6 End stage renal disease; I50.9 Heart failure, unspecified; E78.00 Pure hypercholesterolemia, unspecified; D64.9 Anemia, unspecified; Z87.440 Personal history of urinary (tract) infections; Z87.01 Personal history of pneumonia (recurrent); Z99.2 Dependence on renal dialysis; Z98.890 Other specified postprocedural states; Z72.89 Other problems related to lifestyle; Z91.012 Allergy to eggs; Z88.0 Allergy status to penicillin; Z88.1 Allergy status to other antibiotic agents; Z79.899 Other long term (current) drug therapy; Z83.3 Family history of diabetes mellitus
CPT/HCPCS: 49083

== ENCOUNTER 2020-07-01 07:41 | Day surgery (SDC) | payer MEDICARE, MEDICAID ==
[~2020-07-01] VITALS: Ht 162.6 cm; Wt 67.0 kg
[2020-07-01] VITALS (9 sets, daily range): BP systolic 139–155; BP diastolic 74–90
[2020-07-01] MEDS ORDERED: albumin 25% 100mL bottle x 1 IV PRN (08:00)
[2020-07-01] MEDS ORDERED: normal saline 1000ml 1,000 ML IV PRN (08:00)
== END 2020-07-01 11:20 | disposition home or self-care (01) ==
LOC: SSTAY O 07:41
PROVIDERS: ATTEND Radiology Vascular & Interventional Radiology
DX: J90 Pleural effusion, not elsewhere classified (principal); E11.22 Type 2 diabetes mellitus with diabetic chronic kidney disease; I13.0 Hypertensive heart and chronic kidney disease with heart failure and stage 1 through stage 4 chronic kidney disease, or unspecified chronic kidney disease; I50.9 Heart failure, unspecified; N18.6 End stage renal disease; E78.00 Pure hypercholesterolemia, unspecified; D64.9 Anemia, unspecified; Z87.440 Personal history of urinary (tract) infections; Z87.01 Personal history of pneumonia (recurrent); Z98.890 Other specified postprocedural states; Z72.89 Other problems related to lifestyle; Z83.3 Family history of diabetes mellitus; Z91.012 Allergy to eggs; Z88.0 Allergy status to penicillin; Z88.1 Allergy status to other antibiotic agents; Z79.4 Long term (current) use of insulin; Z79.899 Other long term (current) drug therapy
CPT/HCPCS: 32555; 49083

== ENCOUNTER 2020-07-15 07:09 | Day surgery (SDC) | payer MEDICARE, MEDICAID ==
[~2020-07-15] VITALS: Ht 162.6 cm; Wt 68.4 kg
[2020-07-15] MEDS ORDERED: normal saline 1000ml 1,000 ML IV PRN (07:30)
[2020-07-15] MEDS ORDERED: albumin 25% 100mL bottle x 1 IV PRN (07:30)
[2020-07-15 07:33] VITALS: BP 163/95
[2020-07-15 08:30] VITALS: BP 149/90
[2020-07-15 08:45] VITALS: BP 148/85
[2020-07-15 08:55] VITALS: BP 152/92
[2020-07-15 09:05] VITALS: BP 148/92
== END 2020-07-15 09:10 | disposition home or self-care (01) ==
LOC: SSTAY O 07:09
PROVIDERS: ATTEND Radiology Vascular & Interventional Radiology
DX: R18.8 Other ascites (principal); K74.60 Unspecified cirrhosis of liver; E11.22 Type 2 diabetes mellitus with diabetic chronic kidney disease; I13.2 Hypertensive heart and chronic kidney disease with heart failure and with stage 5 chronic kidney disease, or end stage renal disease; N18.6 End stage renal disease; I50.9 Heart failure, unspecified; Z99.2 Dependence on renal dialysis; E78.00 Pure hypercholesterolemia, unspecified; Z87.01 Personal history of pneumonia (recurrent); D64.9 Anemia, unspecified; Z87.440 Personal history of urinary (tract) infections; Z98.890 Other specified postprocedural states; Z72.89 Other problems related to lifestyle; Z88.1 Allergy status to other antibiotic agents; Z88.0 Allergy status to penicillin; Z91.012 Allergy to eggs; Z79.899 Other long term (current) drug therapy; Z83.3 Family history of diabetes mellitus
CPT/HCPCS: 49083

== ENCOUNTER 2020-07-29 07:39 | Day surgery (SDC) | payer MEDICARE, MEDICAID ==
[~2020-07-29] VITALS: Ht 154.9 cm; Wt 66.7 kg
[2020-07-29 08:00] VITALS: BP 139/82
[2020-07-29] MEDS ORDERED: albumin 25% 100mL bottle x 1 IV PRN (08:15)
[2020-07-29 09:00] VITALS: BP 147/76
[2020-07-29] MEDS ORDERED: ondansetron 4mg rapidly disintigrating tab PO ONE (09:10)
[2020-07-29 09:15] VITALS: BP 153/87
[2020-07-29 09:30] VITALS: BP 149/82
[2020-07-29 09:45] VITALS: BP 148/87
[2020-07-29 10:15] VITALS: BP 147/76
== END 2020-07-29 10:25 | disposition home or self-care (01) ==
LOC: SSTAY O 07:39
PROVIDERS: ATTEND Radiology Diagnostic Radiology
DX: R18.8 Other ascites (principal); K74.60 Unspecified cirrhosis of liver; E11.22 Type 2 diabetes mellitus with diabetic chronic kidney disease; I13.2 Hypertensive heart and chronic kidney disease with heart failure and with stage 5 chronic kidney disease, or end stage renal disease; N18.6 End stage renal disease; I50.9 Heart failure, unspecified; E78.00 Pure hypercholesterolemia, unspecified; D64.9 Anemia, unspecified; Z99.2 Dependence on renal dialysis; Z87.01 Personal history of pneumonia (recurrent); Z87.440 Personal history of urinary (tract) infections; Z98.890 Other specified postprocedural states; Z72.89 Other problems related to lifestyle; Z88.0 Allergy status to penicillin; Z88.1 Allergy status to other antibiotic agents; Z91.012 Allergy to eggs; Z79.4 Long term (current) use of insulin; Z79.899 Other long term (current) drug therapy
CPT/HCPCS: 49083

== ENCOUNTER 2020-08-12 06:08 | Day surgery (SDC) | payer MEDICARE, MEDICAID ==
[~2020-08-12] VITALS: Ht 160 cm; Wt 67.9 kg
[~2020-08-12 06:08] MED LIST changes: -OMEP40CA13 PO; +OMEP40CA21 PO
[2020-08-12] MEDS ORDERED: normal saline 1000ml 1,000 ML IV PRN (06:35)
[2020-08-12] MEDS ORDERED: albumin 25% 100mL bottle x 1 IV PRN (06:35)
[2020-08-12 06:46] VITALS: BP 138/77
[2020-08-12 08:35] VITALS: BP 150/76
[2020-08-12 08:50] VITALS: BP 131/77
[2020-08-12 09:05] VITALS: BP 126/75
[2020-08-12 09:20] VITALS: BP 135/74
[2020-08-12 09:30] VITALS: BP 132/70
== END 2020-08-12 09:30 | disposition home or self-care (01) ==
LOC: SSTAY O 06:08
PROVIDERS: ATTEND Radiology Vascular & Interventional Radiology
DX: R18.8 Other ascites (principal); I50.9 Heart failure, unspecified; I11.0 Hypertensive heart disease with heart failure; E78.00 Pure hypercholesterolemia, unspecified; D64.9 Anemia, unspecified; E11.22 Type 2 diabetes mellitus with diabetic chronic kidney disease; Z83.3 Family history of diabetes mellitus; Z98.890 Other specified postprocedural states; Z87.01 Personal history of pneumonia (recurrent); Z79.899 Other long term (current) drug therapy
CPT/HCPCS: 49083

== ENCOUNTER 2020-08-26 06:29 | Day surgery (SDC) | payer MEDICARE, MEDICAID ==
[~2020-08-26] VITALS: Ht 162.6 cm; Wt 64.1 kg
[2020-08-26 06:59] VITALS: BP 131/82
[2020-08-26] MEDS ORDERED: albumin 25% 100mL bottle x 1 IV PRN (07:05)
[2020-08-26 08:45] VITALS: BP 132/80
[2020-08-26 09:00] VITALS: BP 131/75
[2020-08-26 09:15] VITALS: BP 128/74
== END 2020-08-26 09:25 | disposition home or self-care (01) ==
LOC: SSTAY O 06:29
PROVIDERS: ATTEND Radiology Vascular & Interventional Radiology
DX: R18.8 Other ascites (principal); R14.0 Abdominal distension (gaseous); K74.60 Unspecified cirrhosis of liver; E11.22 Type 2 diabetes mellitus with diabetic chronic kidney disease; I13.2 Hypertensive heart and chronic kidney disease with heart failure and with stage 5 chronic kidney disease, or end stage renal disease; N18.6 End stage renal disease; I50.9 Heart failure, unspecified; E78.00 Pure hypercholesterolemia, unspecified; D64.9 Anemia, unspecified; Z87.440 Personal history of urinary (tract) infections; Z87.01 Personal history of pneumonia (recurrent); Z98.890 Other specified postprocedural states; Z79.899 Other long term (current) drug therapy; Z72.89 Other problems related to lifestyle; Z83.3 Family history of diabetes mellitus
CPT/HCPCS: 49083

== ENCOUNTER 2020-09-11 06:16 | Day surgery (SDC) | payer MEDICARE, MEDICAID ==
[~2020-09-11] VITALS: Ht 162.6 cm; Wt 64.1 kg
[2020-09-11] MEDS ORDERED: albumin 25% 100mL bottle x 1 IV PRN (06:55)
[2020-09-11 06:56] VITALS: BP 143/84
--- NOTE | 2020-09-11 07:30 | NUR ---
Lt upper arm fistula w/bruit--skin intact Addendum: 09/11/20 at 1054 by Rianna Bhat RN Amended: Links added.
[2020-09-11 08:30] VITALS: BP 138/79
[2020-09-11 08:45] VITALS: BP 142/78
[2020-09-11 09:00] VITALS: BP 143/82
[2020-09-11 09:10] VITALS: BP 141/81
== END 2020-09-11 09:20 | disposition home or self-care (01) ==
LOC: SSTAY O 06:16
PROVIDERS: ATTEND Radiology Vascular & Interventional Radiology
DX: R18.8 Other ascites (principal); K74.60 Unspecified cirrhosis of liver; E11.22 Type 2 diabetes mellitus with diabetic chronic kidney disease; I13.2 Hypertensive heart and chronic kidney disease with heart failure and with stage 5 chronic kidney disease, or end stage renal disease; N18.6 End stage renal disease; I50.9 Heart failure, unspecified; E78.00 Pure hypercholesterolemia, unspecified; D64.9 Anemia, unspecified; Z87.440 Personal history of urinary (tract) infections; Z87.01 Personal history of pneumonia (recurrent); Z88.0 Allergy status to penicillin; Z88.1 Allergy status to other antibiotic agents; Z91.012 Allergy to eggs; Z79.4 Long term (current) use of insulin; Z79.899 Other long term (current) drug therapy; Z83.3 Family history of diabetes mellitus
CPT/HCPCS: 49083

== ENCOUNTER 2020-09-23 06:42 | Day surgery (SDC) | payer MEDICARE, MEDICAID ==
[~2020-09-23] VITALS: Ht 157.5 cm; Wt 64.6 kg
[2020-09-23] MEDS ORDERED: albumin 25% 100mL bottle x 1 IV PRN (07:05)
[2020-09-23] MEDS ORDERED: normal saline 1000ml 1,000 ML IV PRN (07:05)
[2020-09-23 07:15] VITALS: BP 144/86
[2020-09-23 09:11] VITALS: BP 145/88
[2020-09-23 09:30] VITALS: BP_SYST 143; BP_SYST 150; BP_DIAS 83; BP_DIAS 88
[2020-09-23 09:45] VITALS: BP 148/86
[2020-09-23 10:00] VITALS: BP 143/89
== END 2020-09-23 10:15 | disposition home or self-care (01) ==
LOC: SSTAY O 06:42
PROVIDERS: ATTEND Radiology Diagnostic Radiology
DX: R18.8 Other ascites (principal); R14.0 Abdominal distension (gaseous); K74.60 Unspecified cirrhosis of liver; E11.22 Type 2 diabetes mellitus with diabetic chronic kidney disease; I13.2 Hypertensive heart and chronic kidney disease with heart failure and with stage 5 chronic kidney disease, or end stage renal disease; N18.6 End stage renal disease; I50.9 Heart failure, unspecified; E78.00 Pure hypercholesterolemia, unspecified; D64.9 Anemia, unspecified; Z72.89 Other problems related to lifestyle; Z87.01 Personal history of pneumonia (recurrent); Z87.440 Personal history of urinary (tract) infections; Z98.890 Other specified postprocedural states; Z88.0 Allergy status to penicillin; Z88.1 Allergy status to other antibiotic agents; Z83.3 Family history of diabetes mellitus
CPT/HCPCS: 49083; P9047

== ENCOUNTER 2020-10-07 06:28 | Day surgery (SDC) | payer MEDICARE, MEDICAID ==
[2020-10-07] VITALS (7 sets, daily range): BP systolic 128–149; BP diastolic 79–89
== END 2020-10-07 10:00 | disposition home or self-care (01) ==
LOC: SSTAY O 06:28
PROVIDERS: ATTEND Radiology Vascular & Interventional Radiology
DX: R18.8 Other ascites (principal); R14.0 Abdominal distension (gaseous); E11.22 Type 2 diabetes mellitus with diabetic chronic kidney disease; I13.2 Hypertensive heart and chronic kidney disease with heart failure and with stage 5 chronic kidney disease, or end stage renal disease; I50.9 Heart failure, unspecified; N18.6 End stage renal disease; E78.00 Pure hypercholesterolemia, unspecified; D64.9 Anemia, unspecified; Z99.2 Dependence on renal dialysis; Z87.01 Personal history of pneumonia (recurrent); Z87.440 Personal history of urinary (tract) infections; Z98.890 Other specified postprocedural states; Z72.89 Other problems related to lifestyle; Z88.0 Allergy status to penicillin; Z88.1 Allergy status to other antibiotic agents; Z83.3 Family history of diabetes mellitus
CPT/HCPCS: 49083

== ENCOUNTER 2020-10-23 07:02 | Day surgery (SDC) | payer MEDICARE, MEDICAID ==
[~2020-10-23] VITALS: Ht 162.6 cm; Wt 64.3 kg
[2020-10-23] MEDS ORDERED: albumin 25% 100mL bottle x 1 IV PRN (07:35)
[2020-10-23 08:26] VITALS: BP 151/94
[2020-10-23 08:55] VITALS: BP 149/92
[2020-10-23 09:00] VITALS: BP 134/83
[2020-10-23 09:15] VITALS: BP 141/87
[2020-10-23 09:30] VITALS: BP 152/89
[2020-10-23 09:40] VITALS: BP 148/80
== END 2020-10-23 09:40 | disposition home or self-care (01) ==
LOC: SSTAY O 07:02
PROVIDERS: ATTEND Radiology Diagnostic Radiology
DX: R18.8 Other ascites (principal); K74.60 Unspecified cirrhosis of liver; E11.22 Type 2 diabetes mellitus with diabetic chronic kidney disease; I13.2 Hypertensive heart and chronic kidney disease with heart failure and with stage 5 chronic kidney disease, or end stage renal disease; N18.6 End stage renal disease; I50.9 Heart failure, unspecified; E78.00 Pure hypercholesterolemia, unspecified; D64.9 Anemia, unspecified; Z87.440 Personal history of urinary (tract) infections; Z88.0 Allergy status to penicillin; Z88.1 Allergy status to other antibiotic agents; Z91.012 Allergy to eggs; Z79.899 Other long term (current) drug therapy; Z83.3 Family history of diabetes mellitus
CPT/HCPCS: 49083

== ENCOUNTER 2020-11-04 06:52 | Day surgery (SDC) | payer MEDICARE, MEDICAID ==
[~2020-11-04] VITALS: Ht 162.6 cm; Wt 63.1 kg
[2020-11-04] MEDS ORDERED: albumin 25% 100mL bottle x 1 IV PRN (07:20)
[2020-11-04 07:21] VITALS: BP 123/81
[2020-11-04 08:30] VITALS: BP 120/67
[2020-11-04 09:30] VITALS: BP 135/79
== END 2020-11-04 09:55 | disposition home or self-care (01) ==
LOC: SSTAY O 06:52
PROVIDERS: ATTEND Radiology Diagnostic Radiology
DX: R18.8 Other ascites (principal); R14.0 Abdominal distension (gaseous); K74.60 Unspecified cirrhosis of liver; E11.22 Type 2 diabetes mellitus with diabetic chronic kidney disease; I13.2 Hypertensive heart and chronic kidney disease with heart failure and with stage 5 chronic kidney disease, or end stage renal disease; N18.6 End stage renal disease; I50.9 Heart failure, unspecified; E78.00 Pure hypercholesterolemia, unspecified; D64.9 Anemia, unspecified; Z87.01 Personal history of pneumonia (recurrent); Z87.440 Personal history of urinary (tract) infections; Z98.890 Other specified postprocedural states; Z72.89 Other problems related to lifestyle; Z83.3 Family history of diabetes mellitus
CPT/HCPCS: 49083

== ENCOUNTER 2020-11-18 06:34 | Day surgery (SDC) | payer MEDICARE, MEDICAID ==
[~2020-11-18] VITALS: Ht 162.6 cm; Wt 65.2 kg
[2020-11-18] MEDS ORDERED: albumin 25% 100mL bottle x 1 IV PRN (07:10)
[2020-11-18 07:15] VITALS: BP 129/89
[2020-11-18 08:20] VITALS: BP 148/88
[2020-11-18 08:45] VITALS: BP 139/82
[2020-11-18 09:15] VITALS: BP 133/81
[2020-11-18 09:34] LABS: BODY FLUID PH (NON-PLEURAL) 7.5
== END 2020-11-18 10:20 | disposition home or self-care (01) ==
LOC: SSTAY O 06:34
PROVIDERS: ATTEND Radiology Vascular & Interventional Radiology
DX: R18.8 Other ascites (principal); E11.22 Type 2 diabetes mellitus with diabetic chronic kidney disease; I13.0 Hypertensive heart and chronic kidney disease with heart failure and stage 1 through stage 4 chronic kidney disease, or unspecified chronic kidney disease; N18.9 Chronic kidney disease, unspecified; I50.9 Heart failure, unspecified; E78.00 Pure hypercholesterolemia, unspecified; D64.9 Anemia, unspecified; Z87.01 Personal history of pneumonia (recurrent); Z87.440 Personal history of urinary (tract) infections; Z98.890 Other specified postprocedural states; Z72.89 Other problems related to lifestyle; Z91.012 Allergy to eggs; Z88.0 Allergy status to penicillin; Z88.1 Allergy status to other antibiotic agents; Z83.3 Family history of diabetes mellitus
CPT/HCPCS: 49083; 83986; 87070; P9047; 88108; 88305

== ENCOUNTER 2020-12-02 06:32 | Day surgery (SDC) | payer MEDICARE, MEDICAID ==
[~2020-12-02] VITALS: Ht 162.6 cm; Wt 65.2 kg
[2020-12-02 06:45] VITALS: BP 133/80
[2020-12-02] MEDS ORDERED: albumin 25% 100mL bottle x 1 IV PRN (07:10)
[2020-12-02 08:10] VITALS: BP 165/88
[2020-12-02 08:25] VITALS: BP 128/81
[2020-12-02 08:40] VITALS: BP 137/86
[2020-12-02 08:45] VITALS: BP 138/84
[2020-12-02 09:00] VITALS: BP 123/77
== END 2020-12-02 09:10 | disposition home or self-care (01) ==
LOC: SSTAY O 06:32
PROVIDERS: ATTEND Radiology Vascular & Interventional Radiology
DX: R18.8 Other ascites (principal); E11.22 Type 2 diabetes mellitus with diabetic chronic kidney disease; I13.2 Hypertensive heart and chronic kidney disease with heart failure and with stage 5 chronic kidney disease, or end stage renal disease; N18.6 End stage renal disease; I50.9 Heart failure, unspecified; E78.00 Pure hypercholesterolemia, unspecified; D64.9 Anemia, unspecified; Z87.01 Personal history of pneumonia (recurrent); Z87.440 Personal history of urinary (tract) infections; Z98.890 Other specified postprocedural states; Z72.89 Other problems related to lifestyle; Z88.1 Allergy status to other antibiotic agents; Z88.0 Allergy status to penicillin; Z79.899 Other long term (current) drug therapy; Z79.4 Long term (current) use of insulin; Z83.3 Family history of diabetes mellitus
CPT/HCPCS: 49083; P9047

== ENCOUNTER 2020-12-12 16:20 | Emergency (ER) | payer MEDICARE, MEDICAID ==
[~2020-12-12] VITALS: Ht 162.6 cm; Wt 63.0 kg
[2020-12-12 23:20] LABS: BASOPHILS # (AUTO) 0.1 X10'3 (0-0.2); EOSINOPHILS # (AUTO) 0.2 X10'3 (0-0.9); EOSINOPHILS % (AUTO) 2.2 % (0-6); HEMATOCRIT 35.5 % (35.0-45.0); HEMOGLOBIN 11.8 g/dl (12.0-16.0); LYMPHOCYTES # (AUTO) 1.5 X10'3 (1.1-4.8); LYMPHOCYTES % (AUTO) 16.5 % (21-51); MEAN CORPUSCULAR HEMOGLOBIN 31.5 PG (27.0-31.0); MEAN CORPUSCULAR HGB CONC 33.4 g/dL (33.0-36.5); MEAN CORPUSCULAR VOLUME 94.6 FL (78-98); MEAN PLATELET VOLUME 7.7 FL (7.4-10.4); MONOCYTES # (AUTO) 0.7 X10'3 (0-0.9); MONOCYTES % (AUTO) 7.4 % (2-12); NEUTROPHILS # (AUTO) 6.6 X10'3 (1.8-7.7); NEUTROPHILS % (AUTO) 72.9 % (42-75); PLATELET COUNT 204 X10'3 (140-440); RED BLOOD COUNT 3.75 X10'6 (4.20-5.60); RED CELL DISTRIBUTION WIDTH 14.8 % (11.5-14.5)
[2020-12-12 23:27] LABS: ALANINE AMINOTRANSFERASE 24 U/L (12-78); ALBUMIN 3.1 G/DL (3.4-5.0); ALBUMIN/GLOBULIN RATIO 0.9 (1.1-1.5); ALKALINE PHOSPHATASE 197 IU/L (46-116); ANION GAP 11 (8-16); ASPARTATE AMINO TRANSFERASE 15 U/L (10-37); BILIRUBIN,TOTAL 0.5 MG/DL (0.1-1.0); BLOOD UREA NITROGEN 37 MG/DL (7-18); BUN/CREATININE RATIO 9.3 (6.6-38.0); CALCIUM 8.8 MG/DL (8.5-10.1); CHLORIDE 104 MMOL/L (99-107); GLUCOSE 174 MG/DL (70-104); SODIUM 142 MMOL/L (135-145); TOTAL CARBON DIOXIDE 26.7 MMOL/L (24-32); TOTAL PROTEIN 6.7 G/DL (6.4-8.2); eGFR 13 ML/MIN
[2020-12-13 01:42] VITALS: BP 150/89
[2020-12-13 02:02] LABS: BF WBC COUNT 1000 /CU MM (0-1000); BFAPPEAR CLOUDY; BFCOLOR RED; BFVOLUME 60 ML
[2020-12-13 02:03] LABS: BF RBC COUNT 12250 /CU MM
[2020-12-13 02:06] LABS: LYMPHOCYTES,BODY FLUID 35 %; NEUTROPHILS,BODY FLUID 10 %
[2020-12-13 02:07] LABS: BF MESOTHELIAL CELLS MODERATE; MONOCYTES,BODY FLUID 55 %
== END 2020-12-13 02:41 | disposition home or self-care (01) ==
LOC: ER 16:21
DX: R18.8 Other ascites (principal); I13.2 Hypertensive heart and chronic kidney disease with heart failure and with stage 5 chronic kidney disease, or end stage renal disease; E11.22 Type 2 diabetes mellitus with diabetic chronic kidney disease; N18.6 End stage renal disease; R14.0 Abdominal distension (gaseous); R10.84 Generalized abdominal pain; E78.00 Pure hypercholesterolemia, unspecified; Z99.2 Dependence on renal dialysis; Z87.01 Personal history of pneumonia (recurrent); Z86.2 Personal history of diseases of the blood and blood-forming organs and certain disorders involving the immune mechanism; Z87.440 Personal history of urinary (tract) infections; Z60.2 Problems related to living alone; Z91.012 Allergy to eggs; Z88.0 Allergy status to penicillin; Z88.1 Allergy status to other antibiotic agents; Z88.8 Allergy status to other drugs, medicaments and biological substances; Z79.4 Long term (current) use of insulin; Z79.899 Other long term (current) drug therapy
CPT/HCPCS: 36415; 49083; 76705; 80053; 85025; 87070; 89051; 99285

== ENCOUNTER 2020-12-18 06:54 | Day surgery (SDC) | payer MEDICARE, MEDICAID ==
[~2020-12-18] VITALS: Ht 162.6 cm; Wt 64.2 kg
[2020-12-18 07:00] VITALS: BP 146/87
[2020-12-18] MEDS ORDERED: albumin 25% 100mL bottle x 1 IV PRN (07:20)
[2020-12-18 08:40] VITALS: BP 145/89
[2020-12-18 08:55] VITALS: BP 141/83
[2020-12-18 09:10] VITALS: BP 141/80
[2020-12-18 09:25] VITALS: BP 137/82
[2020-12-18 09:45] VITALS: BP 143/77
== END 2020-12-18 09:45 | disposition home or self-care (01) ==
LOC: SSTAY O 06:54
PROVIDERS: ATTEND Radiology Vascular & Interventional Radiology
DX: R18.8 Other ascites (principal); R14.0 Abdominal distension (gaseous); E11.22 Type 2 diabetes mellitus with diabetic chronic kidney disease; I13.0 Hypertensive heart and chronic kidney disease with heart failure and stage 1 through stage 4 chronic kidney disease, or unspecified chronic kidney disease; N18.9 Chronic kidney disease, unspecified; I50.9 Heart failure, unspecified; E78.00 Pure hypercholesterolemia, unspecified; D64.9 Anemia, unspecified; Z87.440 Personal history of urinary (tract) infections; Z87.01 Personal history of pneumonia (recurrent); Z98.890 Other specified postprocedural states; Z72.89 Other problems related to lifestyle; Z91.012 Allergy to eggs; Z88.0 Allergy status to penicillin; Z88.1 Allergy status to other antibiotic agents; Z79.4 Long term (current) use of insulin; Z79.899 Other long term (current) drug therapy; Z83.3 Family history of diabetes mellitus
CPT/HCPCS: 49083

== ENCOUNTER 2020-12-25 06:26 | Day surgery (SDC) | payer MEDICARE, MEDICAID ==
[~2020-12-25] VITALS: Ht 162.6 cm; Wt 64.0 kg
[2020-12-25] MEDS ORDERED: normal saline 1000ml 1,000 ML IV PRN (06:55)
[2020-12-25] MEDS ORDERED: albumin 25% 100mL bottle x 1 IV PRN (06:55)
[2020-12-25 07:02] VITALS: BP 137/84
[2020-12-25] MEDS ORDERED: ondansetron 4mg rapidly disintigrating tab PO STA (07:12)
[2020-12-25 08:50] VITALS: BP 142/87
[2020-12-25 09:08] VITALS: BP 136/77
[2020-12-25 09:23] VITALS: BP 151/89
== END 2020-12-25 09:40 | disposition home or self-care (01) ==
LOC: SSTAY O 06:26
PROVIDERS: ATTEND Preventive Medicine Aerospace Medicine
DX: R18.8 Other ascites (principal); K74.60 Unspecified cirrhosis of liver; E11.22 Type 2 diabetes mellitus with diabetic chronic kidney disease; I13.2 Hypertensive heart and chronic kidney disease with heart failure and with stage 5 chronic kidney disease, or end stage renal disease; N18.6 End stage renal disease; I50.9 Heart failure, unspecified; Z99.2 Dependence on renal dialysis; E78.00 Pure hypercholesterolemia, unspecified; D64.9 Anemia, unspecified; Z87.01 Personal history of pneumonia (recurrent); Z87.440 Personal history of urinary (tract) infections; Z98.890 Other specified postprocedural states; Z72.89 Other problems related to lifestyle; Z83.3 Family history of diabetes mellitus
CPT/HCPCS: 49083

== ENCOUNTER 2021-01-01 07:52 | Day surgery (SDC) | payer MEDICARE, MEDICAID ==
[2021-01-01] VITALS (10 sets, daily range): BP systolic 122–142; BP diastolic 70–90
[~2021-01-01] VITALS: Ht 162.6 cm; Wt 63.0 kg
[~2021-01-01 07:52] MED LIST changes: -ATOR-2 PO; -CARCD120C PO; -HYDR-4069 PO; -ISOS10TA2 PO; -LOSA50TA3 PO; -SODI454P9 PO
[2021-01-01] MEDS ORDERED: albumin 25% 100mL bottle x 1 IV PRN (08:15)
== END 2021-01-01 11:45 | disposition home or self-care (01) ==
LOC: SSTAY O 07:52
PROVIDERS: ATTEND Preventive Medicine Aerospace Medicine
DX: R18.8 Other ascites (principal); R14.0 Abdominal distension (gaseous); K74.60 Unspecified cirrhosis of liver; E11.22 Type 2 diabetes mellitus with diabetic chronic kidney disease; I13.2 Hypertensive heart and chronic kidney disease with heart failure and with stage 5 chronic kidney disease, or end stage renal disease; N18.6 End stage renal disease; I50.9 Heart failure, unspecified; E78.00 Pure hypercholesterolemia, unspecified; D64.9 Anemia, unspecified; Z99.2 Dependence on renal dialysis; Z88.0 Allergy status to penicillin; Z91.012 Allergy to eggs; Z88.1 Allergy status to other antibiotic agents; Z87.01 Personal history of pneumonia (recurrent); Z87.440 Personal history of urinary (tract) infections; Z98.890 Other specified postprocedural states; Z72.89 Other problems related to lifestyle; Z83.3 Family history of diabetes mellitus
CPT/HCPCS: 49083; 82948; P9047

== ENCOUNTER 2021-01-12 07:15 | Day surgery (SDC) | payer MEDICARE, MEDICAID ==
[~2021-01-12] VITALS: Ht 162.6 cm; Wt 66.0 kg
[2021-01-12 07:15] VITALS: BP 155/76
[~2021-01-12 07:15] MED LIST changes: -AMIT10TA6 PO; +LIDOcaine 1% 30ml preserv. free vial SQ STA
[2021-01-12] MEDS ORDERED: albumin 25% 100mL bottle x 1 IV PRN (07:45)
== END 2021-01-12 09:05 | disposition home or self-care (01) ==
LOC: SSTAY O 07:15
PROVIDERS: ATTEND Radiology Diagnostic Radiology
DX: R18.8 Other ascites (principal); R14.0 Abdominal distension (gaseous); E11.22 Type 2 diabetes mellitus with diabetic chronic kidney disease; I13.2 Hypertensive heart and chronic kidney disease with heart failure and with stage 5 chronic kidney disease, or end stage renal disease; N18.6 End stage renal disease; I50.9 Heart failure, unspecified; E78.00 Pure hypercholesterolemia, unspecified; D64.9 Anemia, unspecified; Z87.01 Personal history of pneumonia (recurrent); Z87.440 Personal history of urinary (tract) infections; Z98.890 Other specified postprocedural states; Z72.89 Other problems related to lifestyle; Z88.0 Allergy status to penicillin; Z88.1 Allergy status to other antibiotic agents; Z79.899 Other long term (current) drug therapy; Z79.4 Long term (current) use of insulin
CPT/HCPCS: 49083

== ENCOUNTER 2021-01-20 07:13 | Day surgery (SDC) | payer MEDICARE, MEDICAID ==
[~2021-01-20] VITALS: Ht 162.6 cm; Wt 61.3 kg
[2021-01-20 07:41] VITALS: BP 132/80
[2021-01-20] MEDS ORDERED: albumin 25% 100mL bottle x 1 IV PRN (07:45)
[2021-01-20 09:01] VITALS: BP 137/78
[2021-01-20 09:16] VITALS: BP 147/85
[2021-01-20 09:31] VITALS: BP 145/89
[2021-01-20 09:46] VITALS: BP 142/80
== END 2021-01-20 10:00 | disposition home or self-care (01) ==
LOC: SSTAY O 07:13
PROVIDERS: ATTEND Radiology Vascular & Interventional Radiology
DX: R18.8 Other ascites (principal); R14.0 Abdominal distension (gaseous); E11.22 Type 2 diabetes mellitus with diabetic chronic kidney disease; I12.9 Hypertensive chronic kidney disease with stage 1 through stage 4 chronic kidney disease, or unspecified chronic kidney disease; I50.9 Heart failure, unspecified; E78.00 Pure hypercholesterolemia, unspecified; D64.9 Anemia, unspecified; Z87.01 Personal history of pneumonia (recurrent); Z87.440 Personal history of urinary (tract) infections; Z98.890 Other specified postprocedural states; Z72.89 Other problems related to lifestyle; Z91.012 Allergy to eggs; Z88.0 Allergy status to penicillin; Z88.1 Allergy status to other antibiotic agents; Z79.4 Long term (current) use of insulin; Z79.899 Other long term (current) drug therapy; Z83.3 Family history of diabetes mellitus
CPT/HCPCS: 49083; J2001; P9047

== ENCOUNTER 2021-01-27 07:15 | Day surgery (SDC) | payer MEDICARE, MEDICAID ==
[~2021-01-27] VITALS: Ht 162.6 cm; Wt 63.9 kg
[2021-01-27 09:34] VITALS: BP 156/90
[2021-01-27 10:30] VITALS: BP 145/92
== END 2021-01-27 10:00 | disposition home or self-care (01) ==
LOC: SSTAY O 07:15
PROVIDERS: ATTEND Preventive Medicine Aerospace Medicine
DX: R18.8 Other ascites (principal); R14.0 Abdominal distension (gaseous); E78.00 Pure hypercholesterolemia, unspecified; D64.9 Anemia, unspecified; E11.22 Type 2 diabetes mellitus with diabetic chronic kidney disease; I13.0 Hypertensive heart and chronic kidney disease with heart failure and stage 1 through stage 4 chronic kidney disease, or unspecified chronic kidney disease; N18.9 Chronic kidney disease, unspecified; Z87.440 Personal history of urinary (tract) infections; Z98.890 Other specified postprocedural states; Z72.89 Other problems related to lifestyle; Z88.0 Allergy status to penicillin; Z88.1 Allergy status to other antibiotic agents
CPT/HCPCS: 49083

== ENCOUNTER 2021-02-05 07:55 | Day surgery (SDC) | payer MEDICARE, MEDICAID ==
[~2021-02-05] VITALS: Ht 162.6 cm; Wt 65.2 kg
[~2021-02-05 07:55] MED LIST changes: -LIDOcaine 1% 30ml preserv. free vial SQ STA
[2021-02-05 08:12] VITALS: BP 151/89
[2021-02-05 08:30] VITALS: BP 151/89
[2021-02-05] MEDS ORDERED: albumin 25% 100mL bottle x 1 IV PRN (08:35)
[2021-02-05 09:30] VITALS: BP 140/83
[2021-02-05 09:42] VITALS: BP 146/78
[2021-02-05 09:45] VITALS: BP 138/80
--- NOTE | 2021-02-05 10:05 | NUR ---
pt observed in w/c with mother pushing out in [place]. No distress noted. When asked if they wanted discharge instructions, pt and mother refused.
== END 2021-02-05 10:00 | disposition home or self-care (01) ==
LOC: SSTAY O 07:55
PROVIDERS: ATTEND Preventive Medicine Aerospace Medicine
DX: R18.8 Other ascites (principal); R14.0 Abdominal distension (gaseous); E78.00 Pure hypercholesterolemia, unspecified; D64.9 Anemia, unspecified; E11.22 Type 2 diabetes mellitus with diabetic chronic kidney disease; I13.0 Hypertensive heart and chronic kidney disease with heart failure and stage 1 through stage 4 chronic kidney disease, or unspecified chronic kidney disease; N18.9 Chronic kidney disease, unspecified; Z87.440 Personal history of urinary (tract) infections; Z87.01 Personal history of pneumonia (recurrent); Z98.890 Other specified postprocedural states; Z72.89 Other problems related to lifestyle
CPT/HCPCS: 49083

== ENCOUNTER 2021-02-12 06:02 | Day surgery (SDC) | payer MEDICARE, MEDICAID ==
[~2021-02-12] VITALS: Ht 162.6 cm; Wt 63.2 kg
[2021-02-12] MEDS ORDERED: LIDOcaine 1% 30ml preserv. free vial IJ STA (06:16)
[2021-02-12] MEDS ORDERED: albumin 25% 100mL bottle x 1 IV PRN (06:25)
[2021-02-12 06:30] VITALS: BP 153/90
[2021-02-12 08:20] VITALS: BP 158/96
[2021-02-12 08:35] VITALS: BP 155/89
[2021-02-12] MEDS ORDERED: acetaminophen 325mg tablet PO PRN (08:35)
[2021-02-12 08:50] VITALS: BP 155/86
[2021-02-12 09:05] VITALS: BP 154/82
[2021-02-12 10:05] VITALS: BP 154/85
== END 2021-02-12 09:20 | disposition home or self-care (01) ==
LOC: SSTAY O 06:02
PROVIDERS: ATTEND Radiology Vascular & Interventional Radiology
DX: R18.8 Other ascites (principal); R14.0 Abdominal distension (gaseous); K74.60 Unspecified cirrhosis of liver; E11.22 Type 2 diabetes mellitus with diabetic chronic kidney disease; I13.2 Hypertensive heart and chronic kidney disease with heart failure and with stage 5 chronic kidney disease, or end stage renal disease; I50.9 Heart failure, unspecified; N18.6 End stage renal disease; E78.00 Pure hypercholesterolemia, unspecified; D64.9 Anemia, unspecified; Z87.01 Personal history of pneumonia (recurrent); Z87.440 Personal history of urinary (tract) infections; Z98.890 Other specified postprocedural states; Z72.89 Other problems related to lifestyle
CPT/HCPCS: 49083

== ENCOUNTER 2021-02-24 08:11 | Day surgery (SDC) | payer MEDICARE, MEDICAID ==
[~2021-02-24] VITALS: Ht 162.6 cm; Wt 63.2 kg
[2021-02-24] MEDS ORDERED: albumin 25% 100mL bottle x 1 IV PRN (08:30)
[2021-02-24] MEDS ORDERED: TETR-59 PO (08:43)
[2021-02-24 09:15] VITALS: BP 142/83
[2021-02-24 09:16] VITALS: BP 136/86
[2021-02-24 09:22] VITALS: BP 137/83
[2021-02-24 09:37] VITALS: BP 134/81
[2021-02-24 09:52] VITALS: BP 133/76
[2021-02-24 10:07] VITALS: BP 147/85
== END 2021-02-24 10:15 | disposition home or self-care (01) ==
LOC: SSTAY O 08:11
PROVIDERS: ATTEND Preventive Medicine Aerospace Medicine
DX: R18.8 Other ascites (principal); R14.0 Abdominal distension (gaseous); E11.22 Type 2 diabetes mellitus with diabetic chronic kidney disease; I13.0 Hypertensive heart and chronic kidney disease with heart failure and stage 1 through stage 4 chronic kidney disease, or unspecified chronic kidney disease; N18.9 Chronic kidney disease, unspecified; I50.9 Heart failure, unspecified; E78.00 Pure hypercholesterolemia, unspecified; D64.9 Anemia, unspecified; Z87.440 Personal history of urinary (tract) infections; Z87.01 Personal history of pneumonia (recurrent); Z72.89 Other problems related to lifestyle; Z98.890 Other specified postprocedural states; Z88.0 Allergy status to penicillin; Z88.1 Allergy status to other antibiotic agents; Z91.012 Allergy to eggs; Z79.899 Other long term (current) drug therapy; Z79.4 Long term (current) use of insulin; Z83.3 Family history of diabetes mellitus
CPT/HCPCS: 49083

== ENCOUNTER 2021-03-05 08:03 | Day surgery (SDC) | payer MEDICARE, MEDICAID ==
[~2021-03-05] VITALS: Ht 162.6 cm; Wt 63.7 kg
[~2021-03-05 08:03] MED LIST changes: +TETR-59 PO
[2021-03-05] MEDS ORDERED: albumin 25% 100mL bottle x 1 IV PRN (08:30)
[2021-03-05 09:01] VITALS: BP 146/86
[2021-03-05 09:40] VITALS: BP 150/86
[2021-03-05 09:55] VITALS: BP 150/83
[2021-03-05 10:10] VITALS: BP 150/85
[2021-03-05 10:20] VITALS: BP 153/87
== END 2021-03-05 10:20 | disposition home or self-care (01) ==
LOC: SSTAY O 08:03
PROVIDERS: ATTEND Radiology Vascular & Interventional Radiology
DX: R18.8 Other ascites (principal); R14.0 Abdominal distension (gaseous); K74.60 Unspecified cirrhosis of liver; E11.22 Type 2 diabetes mellitus with diabetic chronic kidney disease; I13.2 Hypertensive heart and chronic kidney disease with heart failure and with stage 5 chronic kidney disease, or end stage renal disease; N18.6 End stage renal disease; I50.9 Heart failure, unspecified; E78.00 Pure hypercholesterolemia, unspecified; D64.9 Anemia, unspecified; Z87.440 Personal history of urinary (tract) infections; Z87.01 Personal history of pneumonia (recurrent)
CPT/HCPCS: 49083

== ENCOUNTER 2021-03-17 08:12 | Day surgery (SDC) | payer MEDICARE, MEDICAID ==
[~2021-03-17] VITALS: Ht 162.6 cm; Wt 65.2 kg
[~2021-03-17 08:12] MED LIST changes: -TETR-59 PO
[2021-03-17 08:30] VITALS: BP 146/86
[2021-03-17] MEDS ORDERED: LIDOcaine 1% 30ml preserv. free vial SQ STA (08:32)
[2021-03-17 08:40] VITALS: BP 141/86
[2021-03-17] MEDS ORDERED: albumin 25% 100mL bottle x 1 IV PRN (08:45)
[2021-03-17 09:00] VITALS: BP 144/87
[2021-03-17 09:15] VITALS: BP 141/80
[2021-03-17 09:20] VITALS: BP 141/80
--- NOTE | 2021-03-17 09:37 | NUR ---
Patient declines albumin infusion today, MYRA Collins made aware. Pt educated regarding benefits of albumin.
== END 2021-03-17 09:40 | disposition home or self-care (01) ==
LOC: SSTAY O 08:12
PROVIDERS: ATTEND Radiology Diagnostic Radiology
DX: R18.8 Other ascites (principal); R14.0 Abdominal distension (gaseous); K74.60 Unspecified cirrhosis of liver; E11.22 Type 2 diabetes mellitus with diabetic chronic kidney disease; I13.2 Hypertensive heart and chronic kidney disease with heart failure and with stage 5 chronic kidney disease, or end stage renal disease; N18.6 End stage renal disease; I50.9 Heart failure, unspecified; D64.9 Anemia, unspecified; E78.00 Pure hypercholesterolemia, unspecified; Z87.01 Personal history of pneumonia (recurrent); Z87.440 Personal history of urinary (tract) infections; Z98.890 Other specified postprocedural states; Z79.4 Long term (current) use of insulin; Z79.899 Other long term (current) drug therapy; Z88.0 Allergy status to penicillin; Z88.1 Allergy status to other antibiotic agents
CPT/HCPCS: 49083

== ENCOUNTER 2021-03-26 06:38 | Day surgery (SDC) | payer MEDICARE, MEDICAID ==
[~2021-03-26] VITALS: Ht 162.6 cm; Wt 63.0 kg
[2021-03-26] MEDS ORDERED: albumin 25% 100mL bottle x 1 IV PRN (07:20)
[2021-03-26 08:03] VITALS: BP 143/76
[2021-03-26 08:39] VITALS: BP 150/87
[2021-03-26 08:53] VITALS: BP 147/81
== END 2021-03-26 09:30 | disposition home or self-care (01) ==
LOC: SSTAY O 06:38
PROVIDERS: ATTEND Radiology Vascular & Interventional Radiology
DX: R18.8 Other ascites (principal); R14.0 Abdominal distension (gaseous); E11.22 Type 2 diabetes mellitus with diabetic chronic kidney disease; I13.0 Hypertensive heart and chronic kidney disease with heart failure and stage 1 through stage 4 chronic kidney disease, or unspecified chronic kidney disease; N18.9 Chronic kidney disease, unspecified; I50.9 Heart failure, unspecified; D64.9 Anemia, unspecified; Z88.0 Allergy status to penicillin; Z88.1 Allergy status to other antibiotic agents; Z87.440 Personal history of urinary (tract) infections; Z87.01 Personal history of pneumonia (recurrent); Z98.890 Other specified postprocedural states
CPT/HCPCS: 49083

== ENCOUNTER 2021-04-07 07:34 | Day surgery (SDC) | payer MEDICARE, MEDICAID ==
[~2021-04-07] VITALS: Ht 162.6 cm; Wt 64.6 kg
[2021-04-07] MEDS ORDERED: albumin 25% 100mL bottle x 1 IV PRN (08:00)
[2021-04-07 08:03] VITALS: BP 140/85
[2021-04-07] MEDS ORDERED: LIDOcaine 1% 30ml preserv. free vial SQ STA (08:13)
[2021-04-07 08:50] VITALS: BP 144/83
[2021-04-07 09:00] VITALS: BP 150/94
[2021-04-07 09:15] VITALS: BP 141/78
[2021-04-07 09:20] VITALS: BP 143/77
== END 2021-04-07 09:40 | disposition home or self-care (01) ==
LOC: SSTAY O 07:34
PROVIDERS: ATTEND Radiology Vascular & Interventional Radiology
DX: R18.8 Other ascites (principal); R14.0 Abdominal distension (gaseous); K74.60 Unspecified cirrhosis of liver; E11.22 Type 2 diabetes mellitus with diabetic chronic kidney disease; I12.0 Hypertensive chronic kidney disease with stage 5 chronic kidney disease or end stage renal disease; N18.6 End stage renal disease; I50.9 Heart failure, unspecified; E78.00 Pure hypercholesterolemia, unspecified; D64.9 Anemia, unspecified; Z87.01 Personal history of pneumonia (recurrent); Z87.440 Personal history of urinary (tract) infections; Z91.012 Allergy to eggs; Z88.0 Allergy status to penicillin; Z88.1 Allergy status to other antibiotic agents; Z79.4 Long term (current) use of insulin; Z79.899 Other long term (current) drug therapy; Z83.3 Family history of diabetes mellitus
CPT/HCPCS: 49083

== ENCOUNTER 2021-04-21 07:11 | Day surgery (SDC) | payer MEDICARE, MEDICAID ==
[~2021-04-21] VITALS: Ht 162.6 cm; Wt 66.0 kg
[2021-04-21 07:37] VITALS: BP 129/79
[2021-04-21] MEDS ORDERED: albumin 25% 100mL bottle x 1 IV PRN (09:20)
[2021-04-21 09:25] VITALS: BP 142/86
[2021-04-21 09:37] VITALS: BP 142/84
[2021-04-21 09:52] VITALS: BP 133/78
[2021-04-21 10:07] VITALS: BP 128/73
[2021-04-21 10:20] VITALS: BP 130/76
== END 2021-04-21 10:30 | disposition home or self-care (01) ==
LOC: SSTAY O 07:11
PROVIDERS: ATTEND Radiology Vascular & Interventional Radiology
DX: R18.8 Other ascites (principal); R14.0 Abdominal distension (gaseous); K74.60 Unspecified cirrhosis of liver; E11.22 Type 2 diabetes mellitus with diabetic chronic kidney disease; I13.2 Hypertensive heart and chronic kidney disease with heart failure and with stage 5 chronic kidney disease, or end stage renal disease; I50.9 Heart failure, unspecified; N18.6 End stage renal disease; E78.00 Pure hypercholesterolemia, unspecified; D64.9 Anemia, unspecified; Z87.01 Personal history of pneumonia (recurrent); Z99.2 Dependence on renal dialysis; Z87.440 Personal history of urinary (tract) infections; Z98.890 Other specified postprocedural states
CPT/HCPCS: 49083; P9047

== ENCOUNTER 2021-05-05 08:31 | Day surgery (SDC) | payer MEDICARE, MEDICAID ==
[2021-05-05] VITALS (8 sets, daily range): BP systolic 142–156; BP diastolic 82–93
[~2021-05-05] VITALS: Ht 162.6 cm; Wt 68.2 kg
[2021-05-05] MEDS ORDERED: LIDOcaine 1% 30ml preserv. free vial SQ STA ×2 (08:41→08:51)
[2021-05-05] MEDS ORDERED: albumin 25% 100mL bottle x 1 IV PRN (08:55)
[2021-05-05] MEDS ORDERED: morphine 4 MG/ML inj SYRINge IV ONE (10:25)
[2021-05-05 11:38] LABS: GLUCOSE,BODY FLUID 229 MG/DL
[2021-05-05 12:49] LABS: LYMPHOCYTES,BODY FLUID 31 %; MONOCYTES,BODY FLUID 49 %; NEUTROPHILS,BODY FLUID 20 %
[2021-05-05 12:54] LABS: BFAPPEAR CLOUDY; BFCOLOR YELLOW; BFVOLUME 52 ML
[2021-05-05 12:55] LABS: BF RBC COUNT 2375 /CU MM; BF WBC COUNT 103 /CU MM (0-1000)
== END 2021-05-05 11:45 | disposition home or self-care (01) ==
LOC: SSTAY O 08:31
PROVIDERS: ATTEND Radiology Vascular & Interventional Radiology
DX: R18.8 Other ascites (principal); E78.00 Pure hypercholesterolemia, unspecified; E11.22 Type 2 diabetes mellitus with diabetic chronic kidney disease; I13.0 Hypertensive heart and chronic kidney disease with heart failure and stage 1 through stage 4 chronic kidney disease, or unspecified chronic kidney disease; I50.9 Heart failure, unspecified; N18.9 Chronic kidney disease, unspecified; D64.9 Anemia, unspecified; Z87.01 Personal history of pneumonia (recurrent); Z87.440 Personal history of urinary (tract) infections; Z98.890 Other specified postprocedural states; Z88.0 Allergy status to penicillin; Z88.1 Allergy status to other antibiotic agents; Z91.012 Allergy to eggs; Z79.4 Long term (current) use of insulin; Z79.899 Other long term (current) drug therapy; Z83.3 Family history of diabetes mellitus
CPT/HCPCS: 49083; 82945; 87070; 89051; J2270; P9047

== ENCOUNTER 2021-05-14 09:04 | Day surgery (SDC) | payer MEDICARE, MEDICAID ==
[~2021-05-14 09:04] MED LIST changes: +LIDOcaine 1%/PF 5ML 10 MG/ML VIAL IJ ONE
[2021-05-14 09:10] VITALS: BP 139/79
[2021-05-14] MEDS ORDERED: albumin 25% 100mL bottle x 1 IV PRN (09:30)
[2021-05-14 10:13] VITALS: BP 139/79
[2021-05-14 10:15] VITALS: BP 139/87
[2021-05-14 10:30] VITALS: BP 139/87
[2021-05-14 10:40] VITALS: BP 132/80
== END 2021-05-14 11:10 | disposition home or self-care (01) ==
LOC: SSTAY O 09:04
PROVIDERS: ATTEND Radiology Vascular & Interventional Radiology
DX: R18.8 Other ascites (principal); R14.0 Abdominal distension (gaseous); K74.60 Unspecified cirrhosis of liver; E11.22 Type 2 diabetes mellitus with diabetic chronic kidney disease; I13.2 Hypertensive heart and chronic kidney disease with heart failure and with stage 5 chronic kidney disease, or end stage renal disease; N18.6 End stage renal disease; I50.9 Heart failure, unspecified; E78.00 Pure hypercholesterolemia, unspecified; D64.9 Anemia, unspecified; Z87.01 Personal history of pneumonia (recurrent); Z98.890 Other specified postprocedural states; Z88.1 Allergy status to other antibiotic agents; Z88.0 Allergy status to penicillin; Z79.899 Other long term (current) drug therapy
CPT/HCPCS: 49083

== ENCOUNTER 2021-05-26 07:19 | Day surgery (SDC) | payer MEDICARE, MEDICAID ==
[~2021-05-26] VITALS: Ht 162.6 cm; Wt 68.3 kg
[~2021-05-26 07:19] MED LIST changes: -LIDOcaine 1%/PF 5ML 10 MG/ML VIAL IJ ONE
[2021-05-26] MEDS ORDERED: normal saline 1000ml 1,000 ML IV PRN (07:50)
[2021-05-26] MEDS ORDERED: albumin 25% 100mL bottle x 1 IV PRN (07:50)
[2021-05-26 07:55] VITALS: BP 131/79
[2021-05-26] MEDS ORDERED: LIDOcaine 1%/PF 5ML 10 MG/ML VIAL SQ ONE (07:55)
[2021-05-26 08:41] VITALS: BP 144/86
[2021-05-26 08:48] VITALS: BP 137/78
[2021-05-26 08:56] VITALS: BP 136/84
[2021-05-26 09:05] VITALS: BP 134/80
== END 2021-05-26 09:20 | disposition home or self-care (01) ==
LOC: SSTAY O 07:19
PROVIDERS: ATTEND Radiology Diagnostic Radiology
DX: R18.8 Other ascites (principal); R14.0 Abdominal distension (gaseous); E11.22 Type 2 diabetes mellitus with diabetic chronic kidney disease; I13.2 Hypertensive heart and chronic kidney disease with heart failure and with stage 5 chronic kidney disease, or end stage renal disease; N18.6 End stage renal disease; I50.9 Heart failure, unspecified; E78.00 Pure hypercholesterolemia, unspecified; D64.9 Anemia, unspecified; Z87.01 Personal history of pneumonia (recurrent); Z87.440 Personal history of urinary (tract) infections; Z98.890 Other specified postprocedural states
CPT/HCPCS: 49083

== ENCOUNTER 2021-06-05 06:33 | Day surgery (SDC) | payer MEDICARE, MEDICAID ==
[~2021-06-05] VITALS: Ht 162.6 cm; Wt 69.7 kg
[~2021-06-05 06:33] MED LIST changes: +LIDOcaine 1%/PF 5ML 10 MG/ML VIAL IJ ONE
[2021-06-05] MEDS ORDERED: albumin 25% 100mL bottle x 1 IV PRN (07:00)
[2021-06-05 07:02] VITALS: BP 133/86
[2021-06-05 08:21] VITALS: BP 128/81
[2021-06-05 08:36] VITALS: BP 132/79
[2021-06-05 08:51] VITALS: BP 136/72
== END 2021-06-05 09:08 | disposition home or self-care (01) ==
LOC: SSTAY O 06:33
PROVIDERS: ATTEND Radiology Vascular & Interventional Radiology
DX: R18.8 Other ascites (principal); R14.0 Abdominal distension (gaseous); K74.60 Unspecified cirrhosis of liver; E11.22 Type 2 diabetes mellitus with diabetic chronic kidney disease; I13.2 Hypertensive heart and chronic kidney disease with heart failure and with stage 5 chronic kidney disease, or end stage renal disease; N18.6 End stage renal disease; I50.9 Heart failure, unspecified; E78.00 Pure hypercholesterolemia, unspecified; D64.9 Anemia, unspecified; Z88.1 Allergy status to other antibiotic agents; Z91.012 Allergy to eggs; Z88.0 Allergy status to penicillin; Z87.440 Personal history of urinary (tract) infections; Z87.01 Personal history of pneumonia (recurrent); Z98.890 Other specified postprocedural states; Z79.899 Other long term (current) drug therapy; Z79.4 Long term (current) use of insulin; Z83.3 Family history of diabetes mellitus
CPT/HCPCS: 49083

== ENCOUNTER 2021-06-16 06:37 | Day surgery (SDC) | payer MEDICARE, MEDICAID ==
[2021-06-16] VITALS (10 sets, daily range): BP systolic 132–145; BP diastolic 66–91
[~2021-06-16] VITALS: Ht 162.6 cm; Wt 71.6 kg
[~2021-06-16 06:37] MED LIST changes: -LIDOcaine 1%/PF 5ML 10 MG/ML VIAL IJ ONE
[2021-06-16] MEDS ORDERED: albumin 25% 100mL bottle x 1 IV PRN (07:00)
[2021-06-16] MEDS ORDERED: LIDOcaine 1%/PF 5ML 10 MG/ML VIAL SQ ONE ×2 (07:40→09:00)
[2021-06-16 07:56] LABS: BASOPHILS # (AUTO) 0.1 X10'3 (0-0.2); BASOPHILS % (AUTO) 0.9 % (0-1); EOSINOPHILS # (AUTO) 0.3 X10'3 (0-0.9); EOSINOPHILS % (AUTO) 2.5 % (0-6); HEMATOCRIT 32.3 % (35.0-45.0); HEMOGLOBIN 10.5 g/dl (12.0-16.0); LYMPHOCYTES # (AUTO) 1.1 X10'3 (1.1-4.8); LYMPHOCYTES % (AUTO) 10.7 % (21-51); MEAN CORPUSCULAR HGB CONC 32.6 g/dL (33.0-36.5); MEAN CORPUSCULAR VOLUME 95.1 FL (78-98); MEAN PLATELET VOLUME 7.4 FL (7.4-10.4); MONOCYTES # (AUTO) 0.7 X10'3 (0-0.9); MONOCYTES % (AUTO) 7.3 % (2-12); NEUTROPHILS % (AUTO) 78.6 % (42-75); PLATELET COUNT 165 X10'3 (140-440); RED CELL DISTRIBUTION WIDTH 13.7 % (11.5-14.5); WHITE BLOOD COUNT 10.2 X10'3 (4.5-11.0)
[2021-06-16 08:11] LABS: ALANINE AMINOTRANSFERASE 24 U/L (12-78); ALBUMIN 2.7 G/DL (3.4-5.0); ALBUMIN/GLOBULIN RATIO 0.8 (1.1-1.5); ALKALINE PHOSPHATASE 133 IU/L (46-116); ANION GAP 10 (8-16); ASPARTATE AMINO TRANSFERASE 17 U/L (10-37); BILIRUBIN,TOTAL 0.4 MG/DL (0.1-1.0); BLOOD UREA NITROGEN 58 MG/DL (7-18); BUN/CREATININE RATIO 9.9 (6.6-38.0); CHLORIDE 104 MMOL/L (99-107); CREATININE 5.85 MG/DL (0.40-0.90); GLUCOSE 175 MG/DL (70-104); POTASSIUM 5.5 MMOL/L (3.5-5.1); SODIUM 138 MMOL/L (135-145); TOTAL PROTEIN 6.2 G/DL (6.4-8.2); eGFR 8 ML/MIN
[2021-06-16 10:14] LABS: ALBUMIN,BODY FLUID 1.4 G/DL; TOTAL PROTEIN,BODY FLUID 3.3 G/DL
[2021-06-16 10:25] LABS: BASOPHILS,BODY FLUID 1 %; EOSINOPHILS,BODY FLUID 2 %; LYMPHOCYTES,BODY FLUID 31 %; MONOCYTES,BODY FLUID 37 %; NEUTROPHILS,BODY FLUID 29 %
[2021-06-16 10:28] LABS: BF RBC COUNT 2050 /CU MM; BF WBC COUNT 116 /CU MM (0-1000); BFAPPEAR CLOUDY; BFCOLOR YELLOW; BFVOLUME 49 ML
[2021-06-17 07:39] LABS: AFP,SERUM, TUMOR MARKER 2.1 ng/mL (0.0-6.4)
== END 2021-06-16 11:00 | disposition home or self-care (01) ==
LOC: SSTAY O 06:37
PROVIDERS: ATTEND Radiology Vascular & Interventional Radiology
DX: R18.8 Other ascites (principal); J90 Pleural effusion, not elsewhere classified; K74.60 Unspecified cirrhosis of liver; E11.22 Type 2 diabetes mellitus with diabetic chronic kidney disease; I13.2 Hypertensive heart and chronic kidney disease with heart failure and with stage 5 chronic kidney disease, or end stage renal disease; N18.6 End stage renal disease; I50.9 Heart failure, unspecified; E78.00 Pure hypercholesterolemia, unspecified; D64.9 Anemia, unspecified; Z87.01 Personal history of pneumonia (recurrent); Z87.440 Personal history of urinary (tract) infections; Z98.890 Other specified postprocedural states; Z79.899 Other long term (current) drug therapy
CPT/HCPCS: 32555; 36415; 49083; 80053; 82042; 82103; 82977; 84157; 85025; 85610; 87070; 89051; P9047

== ENCOUNTER 2021-06-25 06:40 | Day surgery (SDC) | payer MEDICARE, MEDICAID ==
[~2021-06-25] VITALS: Ht 162.6 cm; Wt 69.8 kg
[~2021-06-25 06:40] MED LIST changes: +LIDOcaine 1%/PF 5ML 10 MG/ML VIAL IJ ONE
[2021-06-25] MEDS ORDERED: albumin 25% 100mL bottle x 1 IV PRN (07:05)
[2021-06-25 08:02] VITALS: BP 150/87
[2021-06-25 08:50] VITALS: BP 153/90
[2021-06-25 09:05] VITALS: BP 150/93
[2021-06-25 09:17] VITALS: BP 152/88
== END 2021-06-25 09:41 | disposition home or self-care (01) ==
LOC: SSTAY O 06:40
PROVIDERS: ATTEND Radiology Vascular & Interventional Radiology
DX: R18.8 Other ascites (principal); R14.0 Abdominal distension (gaseous); K74.60 Unspecified cirrhosis of liver; E11.22 Type 2 diabetes mellitus with diabetic chronic kidney disease; I13.2 Hypertensive heart and chronic kidney disease with heart failure and with stage 5 chronic kidney disease, or end stage renal disease; N18.6 End stage renal disease; I50.9 Heart failure, unspecified; E78.00 Pure hypercholesterolemia, unspecified; D64.9 Anemia, unspecified; Z87.01 Personal history of pneumonia (recurrent); Z87.440 Personal history of urinary (tract) infections; Z98.890 Other specified postprocedural states; Z79.899 Other long term (current) drug therapy
CPT/HCPCS: 49083; J3490

== ENCOUNTER 2021-07-09 06:30 | Day surgery (SDC) | payer MEDICARE, MEDICAID ==
[2021-07-09] VITALS (9 sets, daily range): BP systolic 138–154; BP diastolic 78–89
[~2021-07-09] VITALS: Ht 162.6 cm; Wt 70.9 kg
[~2021-07-09 06:30] MED LIST changes: -LIDOcaine 1%/PF 5ML 10 MG/ML VIAL IJ ONE
[2021-07-09] MEDS ORDERED: LIDOcaine 1%/PF 5ML 10 MG/ML VIAL SQ ONE ×2 (06:45→08:15)
[2021-07-09] MEDS ORDERED: albumin 25% 100mL bottle x 1 IV PRN (06:50)
[2021-07-09] MEDS ORDERED: normal saline 1000ml 1,000 ML IV PRN (06:50)
== END 2021-07-09 11:17 | disposition home or self-care (01) ==
LOC: SSTAY O 06:30
PROVIDERS: ATTEND Radiology Diagnostic Radiology
DX: R18.8 Other ascites (principal); J90 Pleural effusion, not elsewhere classified; K74.60 Unspecified cirrhosis of liver; E11.22 Type 2 diabetes mellitus with diabetic chronic kidney disease; I13.2 Hypertensive heart and chronic kidney disease with heart failure and with stage 5 chronic kidney disease, or end stage renal disease; N18.6 End stage renal disease; I50.9 Heart failure, unspecified; E78.00 Pure hypercholesterolemia, unspecified; D64.9 Anemia, unspecified; Z99.2 Dependence on renal dialysis; Z87.01 Personal history of pneumonia (recurrent); Z87.440 Personal history of urinary (tract) infections; Z98.890 Other specified postprocedural states; Z91.012 Allergy to eggs; Z88.1 Allergy status to other antibiotic agents; Z88.0 Allergy status to penicillin; Z79.4 Long term (current) use of insulin; Z79.899 Other long term (current) drug therapy; Z83.3 Family history of diabetes mellitus; Z82.49 Family history of ischemic heart disease and other diseases of the circulatory system
CPT/HCPCS: 32555; 49083; J3490; P9047

== ENCOUNTER 2021-07-21 07:22 | Day surgery (SDC) | payer MEDICARE, MEDICAID ==
[~2021-07-21] VITALS: Ht 162.6 cm; Wt 71.0 kg
[2021-07-21] VITALS (8 sets, daily range): BP systolic 142–154; BP diastolic 76–98
[2021-07-21] MEDS ORDERED: albumin 25% 100mL bottle x 1 IV PRN (07:55)
[2021-07-21] MEDS ORDERED: LIDOcaine 1%/PF 5ML 10 MG/ML VIAL SQ ONE (08:05)
--- NOTE | 2021-07-21 10:21 | NUR ---
Pt albumin completed infusion. PIV DC cath intact. Pt sitting on side of bed eating breakfast. VSS. Dressing to right abd CD&I
--- NOTE | 2021-07-21 10:50 | NUR ---
Dc pt to home, mom helped transfer pt to private car via WC with all belongings.
== END 2021-07-21 10:50 | disposition home or self-care (01) ==
LOC: SSTAY O 07:22
PROVIDERS: ATTEND Radiology Diagnostic Radiology
DX: R18.8 Other ascites (principal); R14.0 Abdominal distension (gaseous); E11.22 Type 2 diabetes mellitus with diabetic chronic kidney disease; I13.0 Hypertensive heart and chronic kidney disease with heart failure and stage 1 through stage 4 chronic kidney disease, or unspecified chronic kidney disease; N18.9 Chronic kidney disease, unspecified; I50.9 Heart failure, unspecified; D64.9 Anemia, unspecified; E78.00 Pure hypercholesterolemia, unspecified; Z87.01 Personal history of pneumonia (recurrent); Z87.440 Personal history of urinary (tract) infections; Z79.899 Other long term (current) drug therapy
CPT/HCPCS: 49083; J3490; P9047; 32555

== ENCOUNTER 2021-07-29 07:16 | Day surgery (SDC) | payer MEDICARE, MEDICAID ==
[~2021-07-29] VITALS: Ht 162.6 cm; Wt 69.0 kg
[2021-07-29] VITALS (9 sets, daily range): BP systolic 125–146; BP diastolic 76–81
[2021-07-29] MEDS ORDERED: LIDOcaine 1%/PF 5ML 10 MG/ML VIAL SQ ONE (07:35)
[2021-07-29] MEDS ORDERED: albumin 25% 100mL bottle x 1 IV PRN (07:45)
== END 2021-07-29 10:45 | disposition home or self-care (01) ==
LOC: SSTAY O 07:16
PROVIDERS: ATTEND Radiology Vascular & Interventional Radiology
DX: R18.8 Other ascites (principal); K74.60 Unspecified cirrhosis of liver; E11.22 Type 2 diabetes mellitus with diabetic chronic kidney disease; I13.2 Hypertensive heart and chronic kidney disease with heart failure and with stage 5 chronic kidney disease, or end stage renal disease; N18.6 End stage renal disease; I50.9 Heart failure, unspecified; Z99.2 Dependence on renal dialysis; Z91.012 Allergy to eggs; Z88.0 Allergy status to penicillin; Z88.1 Allergy status to other antibiotic agents; Z98.890 Other specified postprocedural states; Z82.49 Family history of ischemic heart disease and other diseases of the circulatory system
CPT/HCPCS: 49083; J3490; P9047

== ENCOUNTER 2021-08-11 07:20 | Day surgery (SDC) | payer MEDICARE, MEDICAID ==
[2021-08-11] VITALS (7 sets, daily range): BP systolic 117–136; BP diastolic 65–88
[~2021-08-11] VITALS: Ht 162.6 cm; Wt 71.6 kg
[2021-08-11] MEDS ORDERED: albumin 25% 100mL bottle x 1 IV PRN (07:35)
[2021-08-11] MEDS ORDERED: LIDOcaine 1%/PF 5ML 10 MG/ML VIAL SQ ONE ×2 (08:10→09:30)
== END 2021-08-11 10:55 | disposition home or self-care (01) ==
LOC: SSTAY O 07:20
PROVIDERS: ATTEND Radiology Vascular & Interventional Radiology
DX: R18.8 Other ascites (principal); R14.0 Abdominal distension (gaseous); J90 Pleural effusion, not elsewhere classified; E78.00 Pure hypercholesterolemia, unspecified; E11.22 Type 2 diabetes mellitus with diabetic chronic kidney disease; I13.2 Hypertensive heart and chronic kidney disease with heart failure and with stage 5 chronic kidney disease, or end stage renal disease; N18.6 End stage renal disease; I50.9 Heart failure, unspecified; D64.9 Anemia, unspecified; Z87.440 Personal history of urinary (tract) infections; Z87.01 Personal history of pneumonia (recurrent); Z98.890 Other specified postprocedural states; Z99.2 Dependence on renal dialysis; Z79.899 Other long term (current) drug therapy
CPT/HCPCS: 32555; 49083; J3490; P9047; A6258

== ENCOUNTER 2021-08-24 07:32 | Day surgery (SDC) | payer MEDICARE, MEDICAID ==
[~2021-08-24] VITALS: Ht 162.6 cm; Wt 73.7 kg
[2021-08-24] VITALS (9 sets, daily range): BP systolic 137–171; BP diastolic 78–96
[2021-08-24] MEDS ORDERED: LIDOcaine 1% 30ml preserv. free vial SQ STA (07:46)
[2021-08-24] MEDS ORDERED: albumin 25% 100mL bottle x 1 IV PRN (07:55)
== END 2021-08-24 10:15 | disposition home or self-care (01) ==
LOC: SSTAY O 07:32
PROVIDERS: ATTEND Preventive Medicine Aerospace Medicine
DX: R18.8 Other ascites (principal); R14.0 Abdominal distension (gaseous); J90 Pleural effusion, not elsewhere classified; E78.00 Pure hypercholesterolemia, unspecified; E11.22 Type 2 diabetes mellitus with diabetic chronic kidney disease; I13.0 Hypertensive heart and chronic kidney disease with heart failure and stage 1 through stage 4 chronic kidney disease, or unspecified chronic kidney disease; N18.9 Chronic kidney disease, unspecified; I50.9 Heart failure, unspecified; D64.9 Anemia, unspecified; Z87.01 Personal history of pneumonia (recurrent); Z87.440 Personal history of urinary (tract) infections; Z98.890 Other specified postprocedural states; Z79.899 Other long term (current) drug therapy
CPT/HCPCS: 32555; 49083; J3490; P9047; Z7610; A6258; A6449

== ENCOUNTER 2021-09-04 08:25 | Day surgery (SDC) | payer MEDICARE, MEDICAID ==
[2021-09-04] VITALS (8 sets, daily range): BP systolic 134–143; BP diastolic 77–84
[~2021-09-04] VITALS: Ht 162.6 cm; Wt 73.8 kg
[2021-09-04] MEDS ORDERED: LIDOcaine 1%/PF 5ML 10 MG/ML VIAL SQ ONE (08:35)
[2021-09-04] MEDS ORDERED: albumin 25% 100mL bottle x 1 IV PRN (08:45)
== END 2021-09-04 11:05 | disposition home or self-care (01) ==
LOC: SSTAY O 08:25
PROVIDERS: ATTEND Radiology Diagnostic Radiology
DX: R18.8 Other ascites (principal); E11.22 Type 2 diabetes mellitus with diabetic chronic kidney disease; I13.0 Hypertensive heart and chronic kidney disease with heart failure and stage 1 through stage 4 chronic kidney disease, or unspecified chronic kidney disease; N18.9 Chronic kidney disease, unspecified; I50.9 Heart failure, unspecified; E78.00 Pure hypercholesterolemia, unspecified; D64.9 Anemia, unspecified; Z87.01 Personal history of pneumonia (recurrent); Z87.440 Personal history of urinary (tract) infections; Z98.890 Other specified postprocedural states; Z79.899 Other long term (current) drug therapy
CPT/HCPCS: 49083; J3490; P9047; Z7610; A6258; A6449

== ENCOUNTER 2021-09-29 07:31 | Day surgery (SDC) | payer MEDICARE, MEDICAID ==
[~2021-09-29] VITALS: Ht 162.6 cm; Wt 73.5 kg
[2021-09-29 07:50] VITALS: BP 144/80
[2021-09-29] MEDS ORDERED: albumin 25% 100mL bottle x 1 IV PRN (08:20)
[2021-09-29] MEDS ORDERED: LIDOcaine 1%/PF 5ML 10 MG/ML VIAL SQ ONE (08:35)
[2021-09-29 09:45] VITALS: BP 155/75
[2021-09-29 10:00] VITALS: BP 133/73
[2021-09-29 10:15] VITALS: BP 133/76
[2021-09-29 10:30] VITALS: BP 147/85
[2021-09-29 10:45] VITALS: BP 144/82
== END 2021-09-29 11:15 | disposition home or self-care (01) ==
LOC: SSTAY O 07:31
PROVIDERS: ATTEND Preventive Medicine Aerospace Medicine
DX: R18.8 Other ascites (principal); E11.22 Type 2 diabetes mellitus with diabetic chronic kidney disease; N18.6 End stage renal disease; Z82.49 Family history of ischemic heart disease and other diseases of the circulatory system; Z79.899 Other long term (current) drug therapy; Z88.0 Allergy status to penicillin; Z88.8 Allergy status to other drugs, medicaments and biological substances; Z88.1 Allergy status to other antibiotic agents; Z91.012 Allergy to eggs; Z98.890 Other specified postprocedural states; K74.60 Unspecified cirrhosis of liver; Z87.01 Personal history of pneumonia (recurrent); Z79.4 Long term (current) use of insulin; Z83.3 Family history of diabetes mellitus
CPT/HCPCS: 49083; J3490; P9047; A6258; A6402

== ENCOUNTER 2021-10-07 09:31 | Day surgery (SDC) | payer MEDICARE, MEDICAID ==
[~2021-10-07] VITALS: Ht 162.6 cm; Wt 72.7 kg
[2021-10-07] VITALS (8 sets, daily range): BP systolic 133–151; BP diastolic 75–93
[2021-10-07] MEDS ORDERED: LIDOcaine 1%/PF 5ML 10 MG/ML VIAL SQ ONE (09:40)
[2021-10-07] MEDS ORDERED: PATI8.4P PO (10:08)
[2021-10-07] MEDS ORDERED: CYAN1TAB69 (10:08)
--- NOTE | 2021-10-07 10:33 | NUR ---
Admission assessment: Pt initially charted as pediatric, pt is not. She is an adult.
[2021-10-07] MEDS ORDERED: albumin 25% 100mL bottle x 1 IV PRN (10:50)
== END 2021-10-07 13:05 | disposition home or self-care (01) ==
LOC: SSTAY O 09:31
PROVIDERS: ATTEND Radiology Diagnostic Radiology
DX: R18.8 Other ascites (principal)
CPT/HCPCS: 49083; J3490; P9047; A6258; A6449

== ENCOUNTER 2021-10-20 05:59 | Day surgery (SDC) | payer MEDICARE, MEDICAID ==
[~2021-10-20] VITALS: Ht 162.6 cm; Wt 73.4 kg
[2021-10-20] VITALS (8 sets, daily range): BP systolic 116–135; BP diastolic 61–83
[~2021-10-20 05:59] MED LIST changes: +CYAN1TAB69; +PATI8.4P PO
[2021-10-20] MEDS ORDERED: albumin 25% 100mL bottle x 1 IV PRN (06:25)
[2021-10-20] MEDS ORDERED: LIDOcaine 1%/PF 5ML 10 MG/ML VIAL SQ ONE (06:30)
[2021-10-20] MEDS ORDERED: LIDOcaine 1% 30ml preserv. free vial SQ STA (06:46)
== END 2021-10-20 10:05 | disposition home or self-care (01) ==
LOC: SSTAY O 05:59
PROVIDERS: ATTEND Radiology Diagnostic Radiology
DX: R18.8 Other ascites (principal); J90 Pleural effusion, not elsewhere classified; Z79.899 Other long term (current) drug therapy; Z82.49 Family history of ischemic heart disease and other diseases of the circulatory system; Z98.890 Other specified postprocedural states; Z79.4 Long term (current) use of insulin; I50.9 Heart failure, unspecified; I13.0 Hypertensive heart and chronic kidney disease with heart failure and stage 1 through stage 4 chronic kidney disease, or unspecified chronic kidney disease; N18.9 Chronic kidney disease, unspecified; E11.22 Type 2 diabetes mellitus with diabetic chronic kidney disease; E78.00 Pure hypercholesterolemia, unspecified; D64.9 Anemia, unspecified; Z87.01 Personal history of pneumonia (recurrent); Z87.440 Personal history of urinary (tract) infections; Z91.012 Allergy to eggs; Z88.0 Allergy status to penicillin; Z88.1 Allergy status to other antibiotic agents; Z88.8 Allergy status to other drugs, medicaments and biological substances; Z83.3 Family history of diabetes mellitus
CPT/HCPCS: 32555; 49083; J3490; P9047; A6258; A6449

== ENCOUNTER 2021-10-30 08:17 | Day surgery (SDC) | payer MEDICARE, MEDICAID ==
[~2021-10-30] VITALS: Ht 162.6 cm; Wt 73.6 kg
[2021-10-30] VITALS (7 sets, daily range): BP systolic 137–155; BP diastolic 78–92
[2021-10-30] MEDS ORDERED: LIDOcaine 1%/PF 5ML 10 MG/ML VIAL SQ ONE (08:30)
[2021-10-30] MEDS ORDERED: albumin 25% 100mL bottle x 1 IV PRN (08:35)
== END 2021-10-30 11:30 | disposition home or self-care (01) ==
LOC: SSTAY O 08:17
PROVIDERS: ATTEND Preventive Medicine Aerospace Medicine
DX: R18.8 Other ascites (principal); K74.60 Unspecified cirrhosis of liver; N18.6 End stage renal disease; I11.0 Hypertensive heart disease with heart failure; I50.9 Heart failure, unspecified; E78.00 Pure hypercholesterolemia, unspecified; D64.9 Anemia, unspecified; I12.9 Hypertensive chronic kidney disease with stage 1 through stage 4 chronic kidney disease, or unspecified chronic kidney disease; N18.9 Chronic kidney disease, unspecified; Z87.440 Personal history of urinary (tract) infections; E11.22 Type 2 diabetes mellitus with diabetic chronic kidney disease; Z98.890 Other specified postprocedural states; Z79.899 Other long term (current) drug therapy; Z87.01 Personal history of pneumonia (recurrent)
CPT/HCPCS: 49083; J3490; P9047; 32555; A6258

== ENCOUNTER 2021-11-10 07:57 | Day surgery (SDC) | payer MEDICARE, MEDICAID ==
[~2021-11-10] VITALS: Ht 162.6 cm; Wt 73.3 kg
[2021-11-10] MEDS ORDERED: albumin 25% 100mL bottle x 1 IV PRN (08:15)
[2021-11-10] MEDS ORDERED: LIDOcaine 1% 30ml preserv. free vial IJ STA (08:16)
[2021-11-10 08:26] VITALS: BP 135/86
[2021-11-10 08:43] VITALS: BP 135/84
[2021-11-10 08:45] VITALS: BP 135/86
[2021-11-10 08:56] VITALS: BP 132/78
[2021-11-10 09:11] VITALS: BP 138/84
== END 2021-11-10 09:28 | disposition home or self-care (01) ==
LOC: SSTAY O 07:57
PROVIDERS: ATTEND Radiology Diagnostic Radiology
DX: R18.8 Other ascites (principal); K74.60 Unspecified cirrhosis of liver; N18.6 End stage renal disease; I13.2 Hypertensive heart and chronic kidney disease with heart failure and with stage 5 chronic kidney disease, or end stage renal disease; I50.9 Heart failure, unspecified; E78.00 Pure hypercholesterolemia, unspecified; D64.9 Anemia, unspecified; E11.22 Type 2 diabetes mellitus with diabetic chronic kidney disease; Z87.440 Personal history of urinary (tract) infections; Z98.890 Other specified postprocedural states; Z79.899 Other long term (current) drug therapy; Z87.01 Personal history of pneumonia (recurrent)
CPT/HCPCS: 49083; J3490; P9047; A6258

== ENCOUNTER 2021-12-01 07:33 | Day surgery (SDC) | payer MEDICARE, MEDICAID ==
[~2021-12-01] VITALS: Ht 162.6 cm; Wt 74.1 kg
[2021-12-01] VITALS (9 sets, daily range): BP systolic 157–176; BP diastolic 93–99
[2021-12-01] MEDS ORDERED: albumin 25% 100mL bottle x 1 IV PRN (07:55)
[2021-12-01] MEDS ORDERED: LIDOcaine 1% 30ml preserv. free vial SQ STA (08:01)
[2021-12-01 11:26] LABS: ALBUMIN,BODY FLUID 1.4 G/DL; TOTAL PROTEIN,BODY FLUID 2.9 G/DL
[2021-12-01 11:46] LABS: BFAPPEAR HAZY; BFCOLOR YELLOW
[2021-12-01 11:47] LABS: BF RBC COUNT 1440 /CU MM; BF WBC COUNT 170 /CU MM (0-1000); BFVOLUME 60 ML; LYMPHOCYTES,BODY FLUID 44 %; MONOCYTES,BODY FLUID 45 %; NEUTROPHILS,BODY FLUID 11 %
[2021-12-01 19:36] LABS: BF MESOTHELIAL CELLS FEW
== END 2021-12-01 10:30 | disposition home or self-care (01) ==
LOC: SSTAY O 07:33
PROVIDERS: ATTEND Radiology Vascular & Interventional Radiology
DX: R18.8 Other ascites (principal); Z79.899 Other long term (current) drug therapy
CPT/HCPCS: 49083; 82042; 84157; 87070; 89051; J3490; P9047; A6258; A6449

== ENCOUNTER 2021-12-10 07:58 | Day surgery (SDC) | payer MEDICARE, MEDICAID ==
[~2021-12-10] VITALS: Ht 162.6 cm; Wt 74.8 kg
[2021-12-10] VITALS (7 sets, daily range): BP systolic 136–161; BP diastolic 81–98
[2021-12-10] MEDS ORDERED: ACET-1025 PO (08:19)
[2021-12-10] MEDS ORDERED: LIDOcaine 1% 30ml preserv. free vial SQ STA (08:24)
[2021-12-10] MEDS ORDERED: normal saline 1000ml 1,000 ML IV PRN (08:25)
[2021-12-10] MEDS ORDERED: albumin 25% 100mL bottle x 1 IV PRN (08:25)
[2021-12-10] MEDS ORDERED: acetaminophen 325mg tablet PO PRN (08:25)
== END 2021-12-10 10:53 | disposition home or self-care (01) ==
LOC: SSTAY O 07:58
PROVIDERS: ATTEND Radiology Diagnostic Radiology
DX: R18.8 Other ascites (principal); K74.60 Unspecified cirrhosis of liver; N18.6 End stage renal disease; E78.00 Pure hypercholesterolemia, unspecified; I50.9 Heart failure, unspecified; I13.0 Hypertensive heart and chronic kidney disease with heart failure and stage 1 through stage 4 chronic kidney disease, or unspecified chronic kidney disease; Z87.01 Personal history of pneumonia (recurrent); D64.9 Anemia, unspecified; E11.22 Type 2 diabetes mellitus with diabetic chronic kidney disease; Z87.440 Personal history of urinary (tract) infections; Z20.822 Contact with and (suspected) exposure to COVID-19; Z79.899 Other long term (current) drug therapy; Z98.890 Other specified postprocedural states
CPT/HCPCS: 49083; J3490; P9047; A6258

== ENCOUNTER 2021-12-22 07:25 | Day surgery (SDC) | payer MEDICARE, MEDICAID ==
[~2021-12-22] VITALS: Ht 162.6 cm; Wt 74.8 kg
[~2021-12-22 07:25] MED LIST changes: +ACET-1025 PO
[2021-12-22 07:30] VITALS: BP 130/77
[2021-12-22] MEDS ORDERED: LIDOcaine 1%/PF 5ML 10 MG/ML VIAL SQ ONE (08:10)
[2021-12-22] MEDS ORDERED: LIDOcaine 1% 30ml preserv. free vial SQ STA (08:21)
[2021-12-22] MEDS ORDERED: albumin 25% 100mL bottle x 1 IV PRN (08:25)
[2021-12-22 09:19] VITALS: BP 131/78
[2021-12-22 09:34] VITALS: BP 127/78
[2021-12-22 09:49] VITALS: BP 149/75
[2021-12-22 10:04] VITALS: BP 159/79
== END 2021-12-22 10:20 | disposition home or self-care (01) ==
LOC: SSTAY O 07:25
PROVIDERS: ATTEND Radiology Vascular & Interventional Radiology
DX: R18.8 Other ascites (principal); I11.0 Hypertensive heart disease with heart failure; I50.9 Heart failure, unspecified; E78.00 Pure hypercholesterolemia, unspecified; D64.9 Anemia, unspecified; N18.9 Chronic kidney disease, unspecified; E11.22 Type 2 diabetes mellitus with diabetic chronic kidney disease; Z98.890 Other specified postprocedural states; Z88.0 Allergy status to penicillin; Z88.8 Allergy status to other drugs, medicaments and biological substances; Z91.012 Allergy to eggs; Z83.3 Family history of diabetes mellitus; Z82.49 Family history of ischemic heart disease and other diseases of the circulatory system; Z79.899 Other long term (current) drug therapy
CPT/HCPCS: 49083; J3490; P9047; A6258; A6449

== ENCOUNTER 2021-12-31 08:14 | Day surgery (SDC) | payer MEDICARE, MEDICAID ==
[~2021-12-31] VITALS: Ht 162.6 cm; Wt 71.9 kg
[2021-12-31] VITALS (7 sets, daily range): BP systolic 145–156; BP diastolic 83–91
[2021-12-31] MEDS ORDERED: LIDOcaine 1% 30ml preserv. free vial SQ STA (09:03)
[2021-12-31] MEDS ORDERED: albumin 25% 100mL bottle x 1 IV PRN (09:30)
== END 2021-12-31 10:57 | disposition home or self-care (01) ==
LOC: SSTAY O 08:14
PROVIDERS: ATTEND Radiology Diagnostic Radiology
DX: R18.8 Other ascites (principal); I50.9 Heart failure, unspecified; Z87.01 Personal history of pneumonia (recurrent); E78.00 Pure hypercholesterolemia, unspecified; I13.0 Hypertensive heart and chronic kidney disease with heart failure and stage 1 through stage 4 chronic kidney disease, or unspecified chronic kidney disease; D64.9 Anemia, unspecified; N18.9 Chronic kidney disease, unspecified; E11.22 Type 2 diabetes mellitus with diabetic chronic kidney disease; Z87.440 Personal history of urinary (tract) infections; Z98.890 Other specified postprocedural states; Z79.899 Other long term (current) drug therapy
CPT/HCPCS: 49083; J3490; P9047; A6258

== ENCOUNTER 2022-01-12 07:16 | Day surgery (SDC) | payer MEDICARE, MEDICAID ==
[~2022-01-12] VITALS: Ht 162.6 cm; Wt 73.8 kg
[2022-01-12] VITALS (7 sets, daily range): BP systolic 150–158; BP diastolic 88–101
[2022-01-12] MEDS ORDERED: albumin 25% 100mL bottle x 1 IV PRN (07:35)
[2022-01-12] MEDS ORDERED: LIDOcaine 1% 30ml preserv. free vial SQ STA (08:27)
== END 2022-01-12 10:17 | disposition home or self-care (01) ==
LOC: SSTAY O 07:16
PROVIDERS: ATTEND Radiology Vascular & Interventional Radiology
DX: R18.8 Other ascites (principal); I50.9 Heart failure, unspecified; E78.00 Pure hypercholesterolemia, unspecified; D64.9 Anemia, unspecified; I13.0 Hypertensive heart and chronic kidney disease with heart failure and stage 1 through stage 4 chronic kidney disease, or unspecified chronic kidney disease; N18.9 Chronic kidney disease, unspecified; E11.22 Type 2 diabetes mellitus with diabetic chronic kidney disease; Z98.890 Other specified postprocedural states; Z79.899 Other long term (current) drug therapy
CPT/HCPCS: 49083; J3490; P9047; A6258

== ENCOUNTER 2022-01-22 07:24 | Day surgery (SDC) | payer MEDICARE, MEDICAID ==
[2022-01-22] VITALS (8 sets, daily range): BP systolic 142–158; BP diastolic 77–96
[~2022-01-22] VITALS: Ht 162.6 cm; Wt 73.5 kg
[2022-01-22] MEDS ORDERED: LIDOcaine 1% 30ml preserv. free vial SQ STA (07:41)
[2022-01-22] MEDS ORDERED: albumin 25% 100mL bottle x 1 IV PRN (07:45)
== END 2022-01-22 11:00 | disposition home or self-care (01) ==
LOC: SSTAY O 07:24
PROVIDERS: ATTEND Radiology Diagnostic Radiology
DX: R18.8 Other ascites (principal); I13.0 Hypertensive heart and chronic kidney disease with heart failure and stage 1 through stage 4 chronic kidney disease, or unspecified chronic kidney disease; E11.22 Type 2 diabetes mellitus with diabetic chronic kidney disease; I50.9 Heart failure, unspecified; N18.9 Chronic kidney disease, unspecified; Z83.3 Family history of diabetes mellitus; Z82.49 Family history of ischemic heart disease and other diseases of the circulatory system; Z79.899 Other long term (current) drug therapy; Z98.890 Other specified postprocedural states; Z88.0 Allergy status to penicillin; Z88.1 Allergy status to other antibiotic agents; Z88.8 Allergy status to other drugs, medicaments and biological substances; E78.00 Pure hypercholesterolemia, unspecified; Z87.440 Personal history of urinary (tract) infections
CPT/HCPCS: 49083; J3490; P9047; A6258; A6449

== ENCOUNTER 2022-02-02 07:32 | Day surgery (SDC) | payer MEDICARE, MEDICAID ==
[2022-02-02] VITALS (7 sets, daily range): BP systolic 136–146; BP diastolic 72–83
[~2022-02-02] VITALS: Ht 162.6 cm; Wt 73.3 kg
[2022-02-02] MEDS ORDERED: LIDOcaine 1% 30ml preserv. free vial SQ STA (07:40)
[2022-02-02] MEDS ORDERED: albumin 25% 100mL bottle x 1 IV PRN (07:55)
== END 2022-02-02 10:32 | disposition home or self-care (01) ==
LOC: SSTAY O 07:32
PROVIDERS: ATTEND Radiology Diagnostic Radiology
DX: R18.8 Other ascites (principal); K74.60 Unspecified cirrhosis of liver; N18.6 End stage renal disease; Z79.899 Other long term (current) drug therapy
CPT/HCPCS: 49083; J3490; P9047; A6258; A6449

== ENCOUNTER 2022-02-16 07:13 | Day surgery (SDC) | payer MEDICARE, MEDICAID ==
[2022-02-16] VITALS (8 sets, daily range): BP systolic 141–155; BP diastolic 80–96
[~2022-02-16] VITALS: Ht 162.6 cm; Wt 77.5 kg
[2022-02-16] MEDS ORDERED: LIDOcaine 1% 30ml preserv. free vial SQ STA ×2 (07:18→07:20)
[2022-02-16] MEDS ORDERED: albumin 25% 100mL bottle x 1 IV PRN (07:45)
== END 2022-02-16 11:00 | disposition home or self-care (01) ==
LOC: SSTAY O 07:13
PROVIDERS: ATTEND Radiology Vascular & Interventional Radiology
DX: R18.8 Other ascites (principal); K74.60 Unspecified cirrhosis of liver; I13.0 Hypertensive heart and chronic kidney disease with heart failure and stage 1 through stage 4 chronic kidney disease, or unspecified chronic kidney disease; I50.9 Heart failure, unspecified; E11.22 Type 2 diabetes mellitus with diabetic chronic kidney disease; N18.6 End stage renal disease; D63.1 Anemia in chronic kidney disease; E78.00 Pure hypercholesterolemia, unspecified; D64.9 Anemia, unspecified; Z98.890 Other specified postprocedural states; Z88.1 Allergy status to other antibiotic agents; Z88.0 Allergy status to penicillin; Z91.012 Allergy to eggs; Z79.4 Long term (current) use of insulin; Z79.899 Other long term (current) drug therapy; Z87.01 Personal history of pneumonia (recurrent)
CPT/HCPCS: 49083; J3490; P9047; A6258

== ENCOUNTER 2022-03-02 07:40 | Day surgery (SDC) | payer MEDICARE, MEDICAID ==
[~2022-03-02] VITALS: Ht 162.6 cm; Wt 77.6 kg
[2022-03-02] VITALS (8 sets, daily range): BP systolic 129–152; BP diastolic 77–94
[2022-03-02] MEDS ORDERED: albumin 25% 100mL bottle x 1 IV PRN (08:00)
--- NOTE | 2022-03-02 08:10 | NUR ---
Patient complained of SOB; Spoke w/ N. MYRA Faustin; orders in for thoracentesis
[2022-03-02] MEDS ORDERED: LIDOcaine 1% 30ml preserv. free vial SQ STA (08:14)
== END 2022-03-02 10:30 | disposition home or self-care (01) ==
LOC: SSTAY O 07:40
PROVIDERS: ATTEND Radiology Diagnostic Radiology
DX: R18.8 Other ascites (principal); J90 Pleural effusion, not elsewhere classified; K74.60 Unspecified cirrhosis of liver; E78.00 Pure hypercholesterolemia, unspecified; I13.0 Hypertensive heart and chronic kidney disease with heart failure and stage 1 through stage 4 chronic kidney disease, or unspecified chronic kidney disease; E11.22 Type 2 diabetes mellitus with diabetic chronic kidney disease; I50.9 Heart failure, unspecified; D64.9 Anemia, unspecified; N18.9 Chronic kidney disease, unspecified; Z87.440 Personal history of urinary (tract) infections; Z98.890 Other specified postprocedural states; Z87.01 Personal history of pneumonia (recurrent); Z79.899 Other long term (current) drug therapy
CPT/HCPCS: 32555; 49083; J3490; P9047; A6258; C1729

== ENCOUNTER 2022-03-11 07:42 | Day surgery (SDC) | payer MEDICARE, MEDICAID ==
[~2022-03-11] VITALS: Ht 162.6 cm; Wt 76.7 kg
[2022-03-11] MEDS ORDERED: LIDOcaine 1% 30ml preserv. free vial SQ STA (08:04)
[2022-03-11] MEDS ORDERED: albumin 25% 100mL bottle x 1 IV PRN (08:15)
[2022-03-11 08:25] VITALS: BP 156/84
[2022-03-11 08:28] VITALS: BP 155/82
[2022-03-11 08:43] VITALS: BP_SYST 147; BP_SYST 155; BP_DIAS 81; BP_DIAS 85
[2022-03-11 08:58] VITALS: BP 160/91
[2022-03-11 09:25] VITALS: BP 156/84
== END 2022-03-11 10:25 | disposition home or self-care (01) ==
LOC: SSTAY O 07:42
PROVIDERS: ATTEND Radiology Vascular & Interventional Radiology
DX: R18.8 Other ascites (principal); I50.9 Heart failure, unspecified; I11.0 Hypertensive heart disease with heart failure; E78.00 Pure hypercholesterolemia, unspecified; Z87.01 Personal history of pneumonia (recurrent); D64.9 Anemia, unspecified; N18.9 Chronic kidney disease, unspecified; E11.22 Type 2 diabetes mellitus with diabetic chronic kidney disease; Z87.440 Personal history of urinary (tract) infections; Z98.890 Other specified postprocedural states; Z79.899 Other long term (current) drug therapy; Z88.1 Allergy status to other antibiotic agents; Z88.8 Allergy status to other drugs, medicaments and biological substances; Z91.012 Allergy to eggs; Z82.49 Family history of ischemic heart disease and other diseases of the circulatory system; Z83.3 Family history of diabetes mellitus
CPT/HCPCS: 49083; J3490; P9047; A6258; A6449

== ENCOUNTER 2022-04-02 08:10 | Day surgery (SDC) | payer MEDICARE, MEDICAID ==
[2022-04-02] VITALS (9 sets, daily range): BP systolic 159–183; BP diastolic 89–110
[~2022-04-02] VITALS: Ht 162.6 cm; Wt 79.1 kg
[~2022-04-02 08:10] MED LIST changes: +LIDOcaine 1% 30ml preserv. free vial SQ STA
[2022-04-02] MEDS ORDERED: albumin 25% 100mL bottle x 1 IV PRN (08:30)
== END 2022-04-02 11:20 | disposition home or self-care (01) ==
LOC: SSTAY O 08:10
PROVIDERS: ATTEND Radiology Vascular & Interventional Radiology
DX: R18.8 Other ascites (principal); R14.0 Abdominal distension (gaseous); K74.60 Unspecified cirrhosis of liver; E11.22 Type 2 diabetes mellitus with diabetic chronic kidney disease; I13.0 Hypertensive heart and chronic kidney disease with heart failure and stage 1 through stage 4 chronic kidney disease, or unspecified chronic kidney disease; N18.6 End stage renal disease; I50.9 Heart failure, unspecified; E78.00 Pure hypercholesterolemia, unspecified; D64.9 Anemia, unspecified; Z88.1 Allergy status to other antibiotic agents; Z91.012 Allergy to eggs; Z88.0 Allergy status to penicillin; Z99.2 Dependence on renal dialysis; Z87.01 Personal history of pneumonia (recurrent); Z87.440 Personal history of urinary (tract) infections; Z98.890 Other specified postprocedural states; Z79.4 Long term (current) use of insulin; Z79.899 Other long term (current) drug therapy
CPT/HCPCS: 49083; J3490; P9047; A6258

== ENCOUNTER 2022-04-13 07:59 | Day surgery (SDC) | payer MEDICARE, MEDICAID ==
[2022-04-13] VITALS (7 sets, daily range): BP systolic 136–157; BP diastolic 70–100
[~2022-04-13] VITALS: Ht 175.3 cm; Wt 80.0 kg
[2022-04-13] MEDS ORDERED: albumin 25% 100mL bottle x 1 IV PRN (08:35)
== END 2022-04-13 10:45 | disposition home or self-care (01) ==
LOC: SSTAY O 07:59
PROVIDERS: ATTEND Radiology Vascular & Interventional Radiology
DX: R18.8 Other ascites (principal); R14.0 Abdominal distension (gaseous); E11.22 Type 2 diabetes mellitus with diabetic chronic kidney disease; I13.2 Hypertensive heart and chronic kidney disease with heart failure and with stage 5 chronic kidney disease, or end stage renal disease; N18.6 End stage renal disease; I50.9 Heart failure, unspecified; Z99.2 Dependence on renal dialysis; E78.00 Pure hypercholesterolemia, unspecified; D64.9 Anemia, unspecified; Z87.01 Personal history of pneumonia (recurrent); Z87.440 Personal history of urinary (tract) infections; Z98.890 Other specified postprocedural states; Z88.1 Allergy status to other antibiotic agents; Z88.0 Allergy status to penicillin; Z91.012 Allergy to eggs; Z79.4 Long term (current) use of insulin; Z79.899 Other long term (current) drug therapy; Z83.3 Family history of diabetes mellitus; Z82.49 Family history of ischemic heart disease and other diseases of the circulatory system
CPT/HCPCS: 49083; J3490; P9047; A6258; A6402; C1729

== ENCOUNTER 2022-04-23 06:04 | Day surgery (SDC) | payer MEDICARE, MEDICAID ==
[~2022-04-23] VITALS: Ht 162.6 cm; Wt 77.4 kg
[~2022-04-23 06:04] MED LIST changes: -LIDOcaine 1% 30ml preserv. free vial SQ STA
[2022-04-23] MEDS ORDERED: LIDOcaine 1% 30ml preserv. free vial SQ STA (06:19)
[2022-04-23] MEDS ORDERED: albumin 25% 100mL bottle x 1 IV PRN (06:25)
[2022-04-23 06:40] VITALS: BP 151/88
[2022-04-23 08:30] VITALS: BP 139/99
[2022-04-23 08:45] VITALS: BP 147/90
[2022-04-23 09:00] VITALS: BP 143/83
[2022-04-23 09:15] VITALS: BP 147/88
[2022-04-23 09:25] VITALS: BP 152/86
== END 2022-04-23 09:30 | disposition home or self-care (01) ==
LOC: SSTAY O 06:04
PROVIDERS: ATTEND Radiology Diagnostic Radiology
DX: R18.8 Other ascites (principal); E78.00 Pure hypercholesterolemia, unspecified; I50.9 Heart failure, unspecified; I13.0 Hypertensive heart and chronic kidney disease with heart failure and stage 1 through stage 4 chronic kidney disease, or unspecified chronic kidney disease; N18.9 Chronic kidney disease, unspecified; E11.22 Type 2 diabetes mellitus with diabetic chronic kidney disease; Z98.890 Other specified postprocedural states; Z79.899 Other long term (current) drug therapy
CPT/HCPCS: 49083; J3490; P9047; A6258; A6449

== ENCOUNTER 2022-05-04 07:32 | Day surgery (SDC) | payer MEDICARE, MEDICAID ==
[~2022-05-04] VITALS: Ht 162.6 cm; Wt 74.3 kg
[~2022-05-04 07:32] MED LIST changes: -ACET-1025 PO; -INSU100I31 SQ
[2022-05-04 07:53] VITALS: BP 162/96
[2022-05-04] MEDS ORDERED: albumin 25% 100mL bottle x 1 IV PRN (08:05)
[2022-05-04] MEDS ORDERED: LIDOcaine 1% 30ml preserv. free vial SQ STA (08:13)
[2022-05-04 08:37] VITALS: BP 155/101
[2022-05-04 08:45] VITALS: BP 170/107
[2022-05-04 09:00] VITALS: BP 156/91
[2022-05-04 09:15] VITALS: BP 146/89
== END 2022-05-04 10:35 | disposition home or self-care (01) ==
LOC: SSTAY O 07:32
PROVIDERS: ATTEND Radiology Vascular & Interventional Radiology
DX: R18.8 Other ascites (principal); R14.0 Abdominal distension (gaseous); E11.22 Type 2 diabetes mellitus with diabetic chronic kidney disease; I13.0 Hypertensive heart and chronic kidney disease with heart failure and stage 1 through stage 4 chronic kidney disease, or unspecified chronic kidney disease; N18.9 Chronic kidney disease, unspecified; I50.9 Heart failure, unspecified; E78.00 Pure hypercholesterolemia, unspecified; D64.9 Anemia, unspecified; Z87.440 Personal history of urinary (tract) infections; Z87.01 Personal history of pneumonia (recurrent); Z98.890 Other specified postprocedural states; Z79.4 Long term (current) use of insulin; Z79.899 Other long term (current) drug therapy
CPT/HCPCS: 49083; J3490; P9047; A6258; A6449

== ENCOUNTER 2022-05-13 08:36 | Day surgery (SDC) | payer MEDICARE, MEDICAID ==
[~2022-05-13] VITALS: Ht 162.6 cm; Wt 74.3 kg
[~2022-05-13 08:36] MED LIST changes: +LIDOcaine 1% 30ml preserv. free vial SQ ONE
[2022-05-13 08:55] VITALS: BP 157/95
[2022-05-13] MEDS ORDERED: albumin 25% 100mL bottle x 1 IV PRN (09:10)
[2022-05-13 09:35] VITALS: BP 169/104
[2022-05-13 09:50] VITALS: BP 168/101
[2022-05-13 10:00] VITALS: BP 167/97
[2022-05-13 10:15] VITALS: BP 164/95
== END 2022-05-13 10:25 | disposition home or self-care (01) ==
LOC: SSTAY O 08:36
PROVIDERS: ATTEND Radiology Vascular & Interventional Radiology
DX: R18.8 Other ascites (principal); R14.0 Abdominal distension (gaseous); E11.22 Type 2 diabetes mellitus with diabetic chronic kidney disease; I13.2 Hypertensive heart and chronic kidney disease with heart failure and with stage 5 chronic kidney disease, or end stage renal disease; N18.6 End stage renal disease; I50.9 Heart failure, unspecified; E78.00 Pure hypercholesterolemia, unspecified; D64.9 Anemia, unspecified; Z87.440 Personal history of urinary (tract) infections; Z87.01 Personal history of pneumonia (recurrent); Z98.890 Other specified postprocedural states; Z91.012 Allergy to eggs; Z88.0 Allergy status to penicillin; Z88.1 Allergy status to other antibiotic agents; Z79.4 Long term (current) use of insulin; Z79.899 Other long term (current) drug therapy; Z83.3 Family history of diabetes mellitus; Z82.49 Family history of ischemic heart disease and other diseases of the circulatory system
CPT/HCPCS: 49083; J3490; A6258; A6402

== ENCOUNTER 2022-05-25 07:48 | Day surgery (SDC) | payer MEDICARE, MEDICAID ==
[~2022-05-25] VITALS: Ht 162.6 cm; Wt 73.4 kg
[~2022-05-25 07:48] MED LIST changes: -LIDOcaine 1% 30ml preserv. free vial SQ ONE
[2022-05-25] MEDS ORDERED: LIDOcaine 1% 30ml preserv. free vial SQ STA (08:02)
[2022-05-25] MEDS ORDERED: albumin 25% 100mL bottle x 1 IV PRN (08:25)
[2022-05-25 08:26] VITALS: BP 159/81
[2022-05-25 10:03] VITALS: BP 144/87
[2022-05-25 10:30] VITALS: BP 170/93
[2022-05-25 10:45] VITALS: BP 161/93
[2022-05-25 11:15] VITALS: BP 150/87
== END 2022-05-25 11:05 | disposition home or self-care (01) ==
LOC: SSTAY O 07:48
PROVIDERS: ATTEND Radiology Diagnostic Radiology
DX: R18.8 Other ascites (principal); R14.0 Abdominal distension (gaseous); E78.00 Pure hypercholesterolemia, unspecified; E11.22 Type 2 diabetes mellitus with diabetic chronic kidney disease; I13.2 Hypertensive heart and chronic kidney disease with heart failure and with stage 5 chronic kidney disease, or end stage renal disease; N18.6 End stage renal disease; I50.9 Heart failure, unspecified; D64.9 Anemia, unspecified; Z87.440 Personal history of urinary (tract) infections; Z87.01 Personal history of pneumonia (recurrent); Z98.890 Other specified postprocedural states; Z88.1 Allergy status to other antibiotic agents; Z88.0 Allergy status to penicillin; Z79.899 Other long term (current) drug therapy; Z79.4 Long term (current) use of insulin; Z99.2 Dependence on renal dialysis
CPT/HCPCS: 49083; J3490; P9047; A4615; A6258

== ENCOUNTER 2022-06-04 06:01 | Day surgery (SDC) | payer MEDICARE, MEDICAID ==
[~2022-06-04] VITALS: Ht 162.6 cm; Wt 75.1 kg
[2022-06-04] MEDS ORDERED: LIDOcaine 1% 30ml preserv. free vial SQ STA (06:09)
[2022-06-04] MEDS ORDERED: albumin 25% 100mL bottle x 1 IV PRN (06:20)
[2022-06-04 06:35] VITALS: BP 151/93
[2022-06-04 08:19] VITALS: BP 142/90
[2022-06-04 08:35] VITALS: BP 134/81
[2022-06-04 08:46] VITALS: BP 126/75
== END 2022-06-04 09:05 | disposition home or self-care (01) ==
LOC: SSTAY O 06:01
PROVIDERS: ATTEND Radiology Vascular & Interventional Radiology
DX: R18.8 Other ascites (principal); I50.9 Heart failure, unspecified; E78.00 Pure hypercholesterolemia, unspecified; D64.9 Anemia, unspecified; I13.0 Hypertensive heart and chronic kidney disease with heart failure and stage 1 through stage 4 chronic kidney disease, or unspecified chronic kidney disease; N18.9 Chronic kidney disease, unspecified; Z87.440 Personal history of urinary (tract) infections; E11.22 Type 2 diabetes mellitus with diabetic chronic kidney disease; Z98.890 Other specified postprocedural states; Z79.899 Other long term (current) drug therapy
CPT/HCPCS: 49083; J3490; A6258; A6449

== ENCOUNTER 2022-06-17 07:48 | Day surgery (SDC) | payer MEDICARE, MEDICAID ==
[~2022-06-17] VITALS: Ht 162.6 cm; Wt 73.9 kg
[2022-06-17 08:02] VITALS: BP 131/74
[2022-06-17] MEDS ORDERED: albumin 25% 100mL bottle x 1 IV PRN (08:15)
[2022-06-17 08:17] VITALS: BP 128/74
[2022-06-17 08:24] VITALS: BP 127/76
[2022-06-17 08:32] VITALS: BP 130/73
[2022-06-17 08:47] VITALS: BP 126/75
== END 2022-06-17 09:20 | disposition home or self-care (01) ==
LOC: SSTAY O 07:48
PROVIDERS: ATTEND Radiology Vascular & Interventional Radiology
DX: R18.8 Other ascites (principal); R14.0 Abdominal distension (gaseous); E11.22 Type 2 diabetes mellitus with diabetic chronic kidney disease; I13.2 Hypertensive heart and chronic kidney disease with heart failure and with stage 5 chronic kidney disease, or end stage renal disease; I50.9 Heart failure, unspecified; N18.6 End stage renal disease; E78.00 Pure hypercholesterolemia, unspecified; D64.9 Anemia, unspecified; Z87.01 Personal history of pneumonia (recurrent); Z87.440 Personal history of urinary (tract) infections; Z98.890 Other specified postprocedural states; Z91.012 Allergy to eggs; Z88.0 Allergy status to penicillin; Z88.1 Allergy status to other antibiotic agents; Z79.4 Long term (current) use of insulin; Z79.899 Other long term (current) drug therapy; Z99.2 Dependence on renal dialysis; Z83.3 Family history of diabetes mellitus
CPT/HCPCS: 49083; C1729; P9047; A6258; A6449

== ENCOUNTER 2022-06-29 07:16 | Day surgery (SDC) | payer MEDICARE, MEDICAID ==
[2022-06-29] VITALS (8 sets, daily range): BP systolic 141–155; BP diastolic 73–85
[~2022-06-29] VITALS: Ht 162.6 cm; Wt 77.7 kg
[2022-06-29] MEDS ORDERED: LIDOcaine 1% 30ml preserv. free vial SQ STA (07:37)
[2022-06-29] MEDS ORDERED: albumin 25% 100mL bottle x 1 IV PRN (07:55)
[2022-06-29] MEDS ORDERED: METO5TAB98 PO (08:00)
[2022-06-29] MEDS ORDERED: ondansetron 4mg rapidly disintigrating tab PO ONE (08:30)
== END 2022-06-29 10:45 | disposition home or self-care (01) ==
LOC: SSTAY O 07:16
PROVIDERS: ATTEND Radiology Diagnostic Radiology
DX: R18.8 Other ascites (principal); R14.0 Abdominal distension (gaseous); E11.22 Type 2 diabetes mellitus with diabetic chronic kidney disease; I13.0 Hypertensive heart and chronic kidney disease with heart failure and stage 1 through stage 4 chronic kidney disease, or unspecified chronic kidney disease; N18.9 Chronic kidney disease, unspecified; I50.9 Heart failure, unspecified; E78.00 Pure hypercholesterolemia, unspecified; D64.9 Anemia, unspecified; Z87.01 Personal history of pneumonia (recurrent); Z87.440 Personal history of urinary (tract) infections; Z98.890 Other specified postprocedural states; Z79.899 Other long term (current) drug therapy; Z79.4 Long term (current) use of insulin; Z88.0 Allergy status to penicillin; Z88.1 Allergy status to other antibiotic agents; Z91.012 Allergy to eggs
CPT/HCPCS: 49083; J3490; P9047; A4615; A6258; A6449

== ENCOUNTER 2022-07-09 06:51 | Day surgery (SDC) | payer MEDICARE, MEDICAID ==
[~2022-07-09] VITALS: Ht 170.2 cm; Wt 77.6 kg
[~2022-07-09 06:51] MED LIST changes: +METO5TAB98 PO
[2022-07-09] MEDS ORDERED: albumin 25% 100mL bottle x 1 IV PRN (07:10)
[2022-07-09] MEDS ORDERED: LIDOcaine 1%/PF 5ML 10 MG/ML VIAL IJ STA (07:40)
[2022-07-09 08:15] VITALS: BP 148/85
[2022-07-09] MEDS ORDERED: LORA10CA PO (08:27)
[2022-07-09 09:00] VITALS: BP 160/94
[2022-07-09 09:14] VITALS: BP 148/100
[2022-07-09 09:29] VITALS: BP 148/91
[2022-07-09 09:44] VITALS: BP 165/97
[2022-07-09 09:59] VITALS: BP 157/93
== END 2022-07-09 10:40 | disposition home or self-care (01) ==
LOC: SSTAY O 06:51
PROVIDERS: ATTEND Radiology Vascular & Interventional Radiology
DX: R18.8 Other ascites (principal); R14.0 Abdominal distension (gaseous); E11.22 Type 2 diabetes mellitus with diabetic chronic kidney disease; I13.2 Hypertensive heart and chronic kidney disease with heart failure and with stage 5 chronic kidney disease, or end stage renal disease; N18.6 End stage renal disease; I50.9 Heart failure, unspecified; E78.00 Pure hypercholesterolemia, unspecified; Z87.01 Personal history of pneumonia (recurrent); D64.9 Anemia, unspecified; Z87.440 Personal history of urinary (tract) infections; Z98.890 Other specified postprocedural states; Z88.0 Allergy status to penicillin; Z88.1 Allergy status to other antibiotic agents; Z91.012 Allergy to eggs
CPT/HCPCS: 49083; J3490; P9047; A6258

== ENCOUNTER 2022-07-20 08:11 | Day surgery (SDC) | payer MEDICARE, MEDICAID ==
[~2022-07-20] VITALS: Ht 162.6 cm; Wt 76.2 kg
[~2022-07-20 08:11] MED LIST changes: +LORA10CA PO
[2022-07-20 08:30] VITALS: BP 140/78
[2022-07-20] MEDS ORDERED: albumin 25% 100mL bottle x 1 IV PRN (08:50)
[2022-07-20] MEDS ORDERED: LIDOcaine 1%/PF 5ML 10 MG/ML VIAL SQ ONE (09:15)
[2022-07-20 09:40] VITALS: BP 135/78
[2022-07-20 09:55] VITALS: BP 146/86
[2022-07-20 10:05] VITALS: BP 153/75
[2022-07-20 10:20] VITALS: BP 142/84
== END 2022-07-20 10:40 | disposition home or self-care (01) ==
LOC: SSTAY O 08:11
PROVIDERS: ATTEND Radiology Diagnostic Radiology
DX: R18.8 Other ascites (principal); R14.0 Abdominal distension (gaseous); E11.22 Type 2 diabetes mellitus with diabetic chronic kidney disease; I13.2 Hypertensive heart and chronic kidney disease with heart failure and with stage 5 chronic kidney disease, or end stage renal disease; I50.9 Heart failure, unspecified; N18.6 End stage renal disease; E78.00 Pure hypercholesterolemia, unspecified; D64.9 Anemia, unspecified; Z87.01 Personal history of pneumonia (recurrent); Z87.440 Personal history of urinary (tract) infections; Z98.890 Other specified postprocedural states; Z91.012 Allergy to eggs; Z88.0 Allergy status to penicillin; Z88.1 Allergy status to other antibiotic agents; Z79.899 Other long term (current) drug therapy; Z79.4 Long term (current) use of insulin; Z82.49 Family history of ischemic heart disease and other diseases of the circulatory system; Z83.3 Family history of diabetes mellitus
CPT/HCPCS: 49083; J3490; P9047; A6258; A6449

== ENCOUNTER 2022-08-03 06:32 | Day surgery (SDC) | payer MEDICARE, MEDICAID ==
[~2022-08-03] VITALS: Ht 160 cm; Wt 75.9 kg
[2022-08-03] VITALS (7 sets, daily range): BP systolic 141–160; BP diastolic 76–90
[2022-08-03] MEDS ORDERED: LIDOcaine 1%/PF 5ML 10 MG/ML VIAL SQ ONE (07:00)
[2022-08-03] MEDS ORDERED: albumin 25% 100mL bottle x 1 IV PRN (07:15)
== END 2022-08-03 09:50 | disposition home or self-care (01) ==
LOC: SSTAY O 06:32
PROVIDERS: ATTEND Radiology Diagnostic Radiology
DX: R18.8 Other ascites (principal); R14.0 Abdominal distension (gaseous); E11.22 Type 2 diabetes mellitus with diabetic chronic kidney disease; I13.2 Hypertensive heart and chronic kidney disease with heart failure and with stage 5 chronic kidney disease, or end stage renal disease; N18.6 End stage renal disease; I50.9 Heart failure, unspecified; E78.00 Pure hypercholesterolemia, unspecified; D64.9 Anemia, unspecified; Z87.01 Personal history of pneumonia (recurrent); Z87.442 Personal history of urinary calculi; Z98.890 Other specified postprocedural states; Z99.2 Dependence on renal dialysis
CPT/HCPCS: 49083; J3490; P9047; A6258; A6449

== ENCOUNTER 2022-09-28 07:29 | Day surgery (SDC) | payer MEDICARE, MEDICAID ==
[~2022-09-28] VITALS: Ht 152.4 cm; Wt 79.4 kg
[~2022-09-28 07:29] MED LIST changes: -LORA10CA PO; +MONT-47 PO
[2022-09-28] MEDS ORDERED: albumin 25% 100mL bottle x 1 IV PRN (07:50)
[2022-09-28 07:55] VITALS: BP 145/84; PULSE 81; RESP 18; TEMP 99.2; O2SAT 97
[2022-09-28 08:36] VITALS: BP 147/84; PULSE 83; RESP 14; O2SAT 96
[2022-09-28 08:51] VITALS: BP 151/84; PULSE 80; RESP 16; O2SAT 96
[2022-09-28 09:06] VITALS: BP 142/78; PULSE 80; RESP 16; O2SAT 95
[2022-09-28 09:21] VITALS: BP 145/73; PULSE 86; RESP 16; O2SAT 98
[2022-09-28 09:36] VITALS: BP 144/79; PULSE 81; RESP 14; O2SAT 98
== END 2022-09-28 09:45 | disposition home or self-care (01) ==
LOC: SSTAY O 07:29
PROVIDERS: ATTEND Radiology Diagnostic Radiology
DX: R18.8 Other ascites (principal); E11.22 Type 2 diabetes mellitus with diabetic chronic kidney disease; I13.0 Hypertensive heart and chronic kidney disease with heart failure and stage 1 through stage 4 chronic kidney disease, or unspecified chronic kidney disease; I50.9 Heart failure, unspecified; N18.6 End stage renal disease; E78.00 Pure hypercholesterolemia, unspecified; D64.9 Anemia, unspecified; Z87.01 Personal history of pneumonia (recurrent); Z99.2 Dependence on renal dialysis; Z87.440 Personal history of urinary (tract) infections; Z88.1 Allergy status to other antibiotic agents; Z88.0 Allergy status to penicillin; Z93.0 Tracheostomy status; Z91.012 Allergy to eggs; Z79.899 Other long term (current) drug therapy
CPT/HCPCS: 49083; C1729; J3490; P9047; A6258; A6449

== ENCOUNTER 2022-10-08 06:26 | Day surgery (SDC) | payer MEDICARE, MEDICAID ==
[~2022-10-08] VITALS: Ht 162.6 cm; Wt 78.3 kg
[2022-10-08] MEDS ORDERED: albumin 25% 100mL bottle x 1 IV PRN (06:50)
[2022-10-08 07:10] VITALS: BP 124/71; PULSE 78; RESP 16; TEMP 98.6; O2SAT 95
[2022-10-08] MEDS ORDERED: TIMO5DRO15 EACHEYE (07:10)
[2022-10-08] MEDS ORDERED: LATA2.5D14 EACHEYE (07:10)
[2022-10-08 08:20] VITALS: BP 156/70; PULSE 78; RESP 15; O2SAT 95
[2022-10-08 08:35] VITALS: BP 139/78; PULSE 80; RESP 16; O2SAT 94
[2022-10-08 08:50] VITALS: BP 136/75; PULSE 79; RESP 14; O2SAT 94
[2022-10-08 09:05] VITALS: BP 137/74; PULSE 78; RESP 15; O2SAT 92
[2022-10-08 09:25] VITALS: BP 135/82; PULSE 78; RESP 16; O2SAT 92
== END 2022-10-08 09:30 | disposition home or self-care (01) ==
LOC: SSTAY O 06:26
PROVIDERS: ATTEND Radiology Vascular & Interventional Radiology
DX: R18.8 Other ascites (principal); R14.0 Abdominal distension (gaseous); E11.22 Type 2 diabetes mellitus with diabetic chronic kidney disease; I13.2 Hypertensive heart and chronic kidney disease with heart failure and with stage 5 chronic kidney disease, or end stage renal disease; N18.6 End stage renal disease; I50.9 Heart failure, unspecified; E78.00 Pure hypercholesterolemia, unspecified; D64.9 Anemia, unspecified; Z87.440 Personal history of urinary (tract) infections; Z87.01 Personal history of pneumonia (recurrent); Z88.0 Allergy status to penicillin; Z88.1 Allergy status to other antibiotic agents; Z91.012 Allergy to eggs; Z98.890 Other specified postprocedural states; Z79.4 Long term (current) use of insulin; Z79.899 Other long term (current) drug therapy; Z72.89 Other problems related to lifestyle; Z99.2 Dependence on renal dialysis; Z83.3 Family history of diabetes mellitus; Z82.49 Family history of ischemic heart disease and other diseases of the circulatory system
CPT/HCPCS: 49083; C1729; J3490; P9047; A6258; A6449

== ENCOUNTER 2022-10-19 07:22 | Day surgery (SDC) | payer MEDICARE, MEDICAID ==
[~2022-10-19] VITALS: Ht 162.6 cm; Wt 76.9 kg
[~2022-10-19 07:22] MED LIST changes: +LATA2.5D14 EACHEYE; +TIMO5DRO15 EACHEYE
[2022-10-19 07:50] VITALS: BP 154/92; PULSE 82; RESP 16; TEMP 98.4; O2SAT 96
[2022-10-19] MEDS ORDERED: albumin 25% 100mL bottle x 1 IV PRN (07:50)
[2022-10-19 09:00] VITALS: BP 153/88; PULSE 81; RESP 17; O2SAT 97
[2022-10-19 09:15] VITALS: BP 155/81; PULSE 79; RESP 16; O2SAT 97
[2022-10-19 09:30] VITALS: BP 151/83; PULSE 80; RESP 15; O2SAT 95
[2022-10-19 09:35] VITALS: BP 151/88; PULSE 81; RESP 15; O2SAT 94
[2022-10-19 09:50] VITALS: BP 151/79; PULSE 80; RESP 16; O2SAT 98
== END 2022-10-19 10:00 | disposition home or self-care (01) ==
LOC: SSTAY O 07:22
PROVIDERS: ATTEND Radiology Vascular & Interventional Radiology
DX: R18.8 Other ascites (principal); R14.0 Abdominal distension (gaseous); E78.00 Pure hypercholesterolemia, unspecified; D64.9 Anemia, unspecified; E11.22 Type 2 diabetes mellitus with diabetic chronic kidney disease; I13.2 Hypertensive heart and chronic kidney disease with heart failure and with stage 5 chronic kidney disease, or end stage renal disease; I50.9 Heart failure, unspecified; N18.6 End stage renal disease; Z87.01 Personal history of pneumonia (recurrent); Z87.440 Personal history of urinary (tract) infections; Z99.2 Dependence on renal dialysis; Z98.890 Other specified postprocedural states; Z79.899 Other long term (current) drug therapy; Z79.4 Long term (current) use of insulin; Z88.0 Allergy status to penicillin; Z88.1 Allergy status to other antibiotic agents; Z91.012 Allergy to eggs
CPT/HCPCS: 49083; C1729; J3490; P9047; A6258; A6449

== ENCOUNTER 2022-10-28 07:25 | Day surgery (SDC) | payer MEDICARE, MEDICAID ==
[~2022-10-28] VITALS: Ht 162.6 cm; Wt 74.5 kg
[2022-10-28 07:45] VITALS: BP 172/97; PULSE 82; RESP 16; TEMP 98.5; O2SAT 97
[2022-10-28] MEDS ORDERED: albumin 25% 100mL bottle x 1 IV PRN (07:45)
[2022-10-28 09:40] VITALS: BP 159/95; PULSE 82; RESP 18; O2SAT 96
[2022-10-28 09:50] VITALS: BP 177/106; PULSE 82; RESP 17; O2SAT 96
[2022-10-28 10:05] VITALS: BP 164/98; PULSE 80; RESP 17; O2SAT 98
[2022-10-28 10:10] VITALS: BP 164/96; PULSE 81; RESP 16; O2SAT 96
[2022-10-28 10:25] VITALS: BP 163/101; PULSE 85; RESP 16; O2SAT 98
== END 2022-10-28 10:40 | disposition home or self-care (01) ==
LOC: SSTAY O 07:25
PROVIDERS: ATTEND Radiology Vascular & Interventional Radiology
DX: R18.8 Other ascites (principal); R14.0 Abdominal distension (gaseous); E78.00 Pure hypercholesterolemia, unspecified; D64.9 Anemia, unspecified; E11.22 Type 2 diabetes mellitus with diabetic chronic kidney disease; I13.2 Hypertensive heart and chronic kidney disease with heart failure and with stage 5 chronic kidney disease, or end stage renal disease; N18.6 End stage renal disease; I50.9 Heart failure, unspecified; Z99.2 Dependence on renal dialysis; Z87.01 Personal history of pneumonia (recurrent); Z87.440 Personal history of urinary (tract) infections; Z98.890 Other specified postprocedural states; Z88.0 Allergy status to penicillin; Z88.1 Allergy status to other antibiotic agents; Z93.0 Tracheostomy status
CPT/HCPCS: 49083; C1729; J3490; P9047; A6258; A6449

== ENCOUNTER 2022-11-09 07:16 | Day surgery (SDC) | payer MEDICARE, MEDICAID ==
[~2022-11-09] VITALS: Ht 162.6 cm; Wt 76.0 kg
[2022-11-09] MEDS ORDERED: albumin 25% 100mL bottle x 1 IV PRN (07:55)
[2022-11-09 07:57] VITALS: BP 145/86; PULSE 81; RESP 14; TEMP 98; O2SAT 94
[2022-11-09 09:38] VITALS: BP 168/97; PULSE 77; RESP 14; O2SAT 95
[2022-11-09 09:52] VITALS: BP 169/94; PULSE 75; RESP 14; O2SAT 96
[2022-11-09 10:01] VITALS: BP 149/74; PULSE 75; RESP 14; O2SAT 96
[2022-11-09 10:22] VITALS: BP 151/84; PULSE 76; RESP 14; O2SAT 96
[2022-11-09 10:37] VITALS: BP 153/91; PULSE 78; RESP 14; O2SAT 97
== END 2022-11-09 11:40 | disposition home or self-care (01) ==
LOC: SSTAY O 07:16
PROVIDERS: ATTEND Radiology Vascular & Interventional Radiology
DX: R18.8 Other ascites (principal); R14.0 Abdominal distension (gaseous); E11.22 Type 2 diabetes mellitus with diabetic chronic kidney disease; I13.2 Hypertensive heart and chronic kidney disease with heart failure and with stage 5 chronic kidney disease, or end stage renal disease; I50.9 Heart failure, unspecified; N18.6 End stage renal disease; E78.00 Pure hypercholesterolemia, unspecified; D64.9 Anemia, unspecified; Z99.2 Dependence on renal dialysis; Z87.01 Personal history of pneumonia (recurrent); Z87.440 Personal history of urinary (tract) infections; Z98.890 Other specified postprocedural states; Z88.0 Allergy status to penicillin; Z88.1 Allergy status to other antibiotic agents; Z91.012 Allergy to eggs; Z79.899 Other long term (current) drug therapy; Z79.4 Long term (current) use of insulin; Z83.3 Family history of diabetes mellitus; Z82.49 Family history of ischemic heart disease and other diseases of the circulatory system
CPT/HCPCS: 49083; C1729; J3490; P9047; A6258; A6402

== ENCOUNTER 2022-11-19 08:06 | Day surgery (SDC) | payer MEDICARE, MEDICAID ==
[2022-11-19] VITALS (7 sets, daily range): BP systolic 160–172; BP diastolic 77–95; PULSE 77–81; RESP 16; TEMP 98.7; O2SAT 96–99
[~2022-11-19] VITALS: Ht 162.6 cm; Wt 77.3 kg
[2022-11-19] MEDS ORDERED: LOSA25TA41 PO (08:27)
[2022-11-19] MEDS ORDERED: albumin 25% 100mL bottle x 1 IV PRN (08:30)
[2022-11-19] MEDS ORDERED: LIDOcaine 1% (10mg/ml) 2ml vial ONE (08:31)
== END 2022-11-19 10:43 | disposition home or self-care (01) ==
LOC: SSTAY O 08:06
PROVIDERS: ATTEND Radiology Vascular & Interventional Radiology
DX: R18.8 Other ascites (principal); R14.0 Abdominal distension (gaseous); E78.00 Pure hypercholesterolemia, unspecified; D64.9 Anemia, unspecified; E11.22 Type 2 diabetes mellitus with diabetic chronic kidney disease; I13.2 Hypertensive heart and chronic kidney disease with heart failure and with stage 5 chronic kidney disease, or end stage renal disease; N18.6 End stage renal disease; I50.9 Heart failure, unspecified; Z87.01 Personal history of pneumonia (recurrent); Z87.440 Personal history of urinary (tract) infections; Z98.890 Other specified postprocedural states; Z99.2 Dependence on renal dialysis
CPT/HCPCS: 49083; C1729; J3490; P9047; A6449

== ENCOUNTER 2022-12-10 08:09 | Day surgery (SDC) | payer MEDICARE, MEDICAID ==
[~2022-12-10] VITALS: Ht 162.6 cm; Wt 72.2 kg
[~2022-12-10 08:09] MED LIST changes: +LOSA25TA41 PO
[2022-12-10] MEDS ORDERED: LIDOcaine 1% (10mg/ml) 2ml vial ONE (08:35)
[2022-12-10] MEDS ORDERED: albumin 25% 100mL bottle x 1 IV PRN (08:50)
[2022-12-10 09:30] VITALS: BP 167/63; PULSE 78; RESP 16; TEMP 98.3; O2SAT 94
[2022-12-10 09:35] VITALS: BP 161/92; PULSE 78; RESP 16; O2SAT 95
[2022-12-10 09:49] VITALS: BP 157/97; PULSE 76; RESP 16; O2SAT 98
[2022-12-10 10:04] VITALS: BP 158/94; PULSE 74; RESP 16; O2SAT 99
[2022-12-10 10:10] VITALS: BP_SYST 161; BP_DIAS 91; BP_DIAS 92; PULSE 77; RESP 16; O2SAT 99
== END 2022-12-10 10:45 | disposition home or self-care (01) ==
LOC: SSTAY O 08:09
PROVIDERS: ATTEND Radiology Diagnostic Radiology
DX: R18.8 Other ascites (principal); R14.0 Abdominal distension (gaseous); E11.22 Type 2 diabetes mellitus with diabetic chronic kidney disease; I13.2 Hypertensive heart and chronic kidney disease with heart failure and with stage 5 chronic kidney disease, or end stage renal disease; N18.6 End stage renal disease; I50.9 Heart failure, unspecified; E78.00 Pure hypercholesterolemia, unspecified; D64.9 Anemia, unspecified; Z87.01 Personal history of pneumonia (recurrent); Z87.440 Personal history of urinary (tract) infections; Z79.899 Other long term (current) drug therapy; Z98.890 Other specified postprocedural states; Z88.0 Allergy status to penicillin; Z88.1 Allergy status to other antibiotic agents; Z91.012 Allergy to eggs; Z83.3 Family history of diabetes mellitus; Z82.49 Family history of ischemic heart disease and other diseases of the circulatory system
CPT/HCPCS: 49083; C1729; J3490; P9047; 96360; A6258

== ENCOUNTER 2022-12-21 07:34 | Day surgery (SDC) | payer MEDICARE, MEDICAID ==
[2022-12-21] VITALS (8 sets, daily range): BP systolic 158–171; BP diastolic 84–95; PULSE 78–83; RESP 16–18; TEMP 98.5; O2SAT 97–100
[~2022-12-21] VITALS: Ht 162.6 cm; Wt 76.4 kg
[2022-12-21] MEDS ORDERED: albumin 25% 100mL bottle x 1 IV PRN (07:55)
[2022-12-21] MEDS ORDERED: normal saline 1000ml 1,000 ML IV PRN (07:55)
== END 2022-12-21 10:05 | disposition home or self-care (01) ==
LOC: SSTAY O 07:34
PROVIDERS: ATTEND Radiology Vascular & Interventional Radiology
DX: R18.8 Other ascites (principal); J90 Pleural effusion, not elsewhere classified; I50.9 Heart failure, unspecified; E78.00 Pure hypercholesterolemia, unspecified; I10 Essential (primary) hypertension; Z87.01 Personal history of pneumonia (recurrent); N18.6 End stage renal disease; Z87.440 Personal history of urinary (tract) infections; Z98.890 Other specified postprocedural states; Z79.899 Other long term (current) drug therapy
CPT/HCPCS: 32555; 49083; C1729; J3490; P9047; 96360; A6258; A6449

== ENCOUNTER 2022-12-31 09:09 | Day surgery (SDC) | payer MEDICARE, MEDICAID ==
[~2022-12-31] VITALS: Ht 162.6 cm; Wt 73.5 kg
[~2022-12-31 09:09] MED LIST changes: -LOSA25TA41 PO
[2022-12-31 09:30] VITALS: RESP 18; O2SAT 97
[2022-12-31] MEDS ORDERED: normal saline 1000ml 1,000 ML IV PRN (09:35)
[2022-12-31] MEDS ORDERED: albumin 25% 100mL bottle x 1 IV PRN (09:35)
[2022-12-31 11:12] LABS: BASOPHILS # (AUTO) 0.1 X10'3 (0-0.2); BASOPHILS % (AUTO) 1.3 % (0-1); EOSINOPHILS # (AUTO) 0.5 X10'3 (0-0.9); EOSINOPHILS % (AUTO) 5.3 % (0-6); HEMOGLOBIN 9.1 g/dl (12.0-16.0); MEAN CORPUSCULAR HEMOGLOBIN 30.6 PG (27.0-31.0); MEAN CORPUSCULAR HGB CONC 33.6 g/dL (33.0-36.5); MEAN CORPUSCULAR VOLUME 91.2 FL (78-98); MEAN PLATELET VOLUME 7.2 FL (7.4-10.4); MONOCYTES # (AUTO) 0.6 X10'3 (0-0.9); MONOCYTES % (AUTO) 6.3 % (2-12); NEUTROPHILS % (AUTO) 77.1 % (42-75); PLATELET COUNT 250 X10'3 (140-440); RED BLOOD COUNT 2.96 X10'6 (4.20-5.60); RED CELL DISTRIBUTION WIDTH 14.9 % (11.5-14.5); WHITE BLOOD COUNT 10.4 X10'3 (4.5-11.0)
--- NOTE | 2022-12-31 11:15 | NUR ---
Cedric Faustin PA updated via phone re patients condition. H/H result stable and blood transfusion not needed. vs continue to be stable and pt states she feels well. PA in agreement.
== END 2022-12-31 12:15 | disposition home or self-care (01) ==
LOC: SSTAY O 09:09
PROVIDERS: ATTEND Radiology Vascular & Interventional Radiology
DX: R18.8 Other ascites (principal); R14.0 Abdominal distension (gaseous); I13.2 Hypertensive heart and chronic kidney disease with heart failure and with stage 5 chronic kidney disease, or end stage renal disease; E11.22 Type 2 diabetes mellitus with diabetic chronic kidney disease; N18.6 End stage renal disease; I50.9 Heart failure, unspecified; E78.00 Pure hypercholesterolemia, unspecified; Z87.440 Personal history of urinary (tract) infections; Z98.890 Other specified postprocedural states
CPT/HCPCS: 49083; 85025; C1729; J3490; P9047; A6258; A6449

== ENCOUNTER 2023-01-11 07:26 | Day surgery (SDC) | payer MEDICARE, MEDICAID ==
[~2023-01-11] VITALS: Ht 162.6 cm; Wt 74.6 kg
[2023-01-11] VITALS (7 sets, daily range): BP systolic 158–186; BP diastolic 81–100; PULSE 81–87; RESP 18; TEMP 98.2; O2SAT 93–96
[2023-01-11] MEDS ORDERED: albumin 25% 100mL bottle x 1 IV PRN (07:55)
== END 2023-01-11 09:20 | disposition home or self-care (01) ==
LOC: SSTAY O 07:26
PROVIDERS: ATTEND Radiology Vascular & Interventional Radiology
DX: R18.8 Other ascites (principal); R14.0 Abdominal distension (gaseous); E78.00 Pure hypercholesterolemia, unspecified; D64.9 Anemia, unspecified; E11.22 Type 2 diabetes mellitus with diabetic chronic kidney disease; I13.2 Hypertensive heart and chronic kidney disease with heart failure and with stage 5 chronic kidney disease, or end stage renal disease; N18.6 End stage renal disease; I50.9 Heart failure, unspecified; Z99.2 Dependence on renal dialysis; Z87.440 Personal history of urinary (tract) infections; Z98.890 Other specified postprocedural states
CPT/HCPCS: 49083; C1729; P9047; A6258; A6449

== ENCOUNTER 2023-01-21 07:31 | Day surgery (SDC) | payer MEDICARE, MEDICAID ==
[~2023-01-21] VITALS: Ht 162.6 cm; Wt 74.9 kg
[2023-01-21] MEDS ORDERED: albumin 25% 100mL bottle x 1 IV PRN (08:05)
[2023-01-21 08:11] VITALS: BP 175/94; PULSE 89; RESP 15; TEMP 98; O2SAT 98
[2023-01-21 09:00] VITALS: BP 153/90; PULSE 82; RESP 14; O2SAT 97
[2023-01-21 09:15] VITALS: BP 159/96; PULSE 84; RESP 14; O2SAT 97
[2023-01-21 09:30] VITALS: BP 150/92; PULSE 86; RESP 16; O2SAT 97
[2023-01-21 10:52] VITALS: BP 144/88; PULSE 80; RESP 16; O2SAT 95
== END 2023-01-21 10:00 | disposition home or self-care (01) ==
LOC: SSTAY O 07:31
PROVIDERS: ATTEND Radiology Vascular & Interventional Radiology
DX: R18.8 Other ascites (principal); R14.0 Abdominal distension (gaseous); E78.00 Pure hypercholesterolemia, unspecified; D64.9 Anemia, unspecified; E11.22 Type 2 diabetes mellitus with diabetic chronic kidney disease; I13.2 Hypertensive heart and chronic kidney disease with heart failure and with stage 5 chronic kidney disease, or end stage renal disease; N18.6 End stage renal disease; I50.9 Heart failure, unspecified; Z87.01 Personal history of pneumonia (recurrent); Z98.890 Other specified postprocedural states; Z91.012 Allergy to eggs; Z88.1 Allergy status to other antibiotic agents; Z88.0 Allergy status to penicillin; Z79.899 Other long term (current) drug therapy; Z83.3 Family history of diabetes mellitus
CPT/HCPCS: 49083; C1729; P9047; A6258; J7030

== ENCOUNTER 2023-02-01 07:41 | Day surgery (SDC) | payer MEDICARE, MEDICAID ==
[~2023-02-01] VITALS: Ht 162.6 cm; Wt 78.6 kg
[2023-02-01 08:10] VITALS: BP 190/103; PULSE 82; RESP 22; TEMP 98.2
[2023-02-01] MEDS ORDERED: albumin 25% 100mL bottle x 1 IV PRN (08:10)
[2023-02-01 09:00] VITALS: RESP 16; O2SAT 99
[2023-02-01 09:25] VITALS: BP 173/101; PULSE 81; RESP 18; O2SAT 96
[2023-02-01 09:40] VITALS: BP 176/102; PULSE 86; RESP 18; O2SAT 96
[2023-02-01 09:55] VITALS: BP 184/92; PULSE 81; RESP 18; O2SAT 99
[2023-02-01 10:10] VITALS: BP 188/105; PULSE 81; RESP 18; O2SAT 99
== END 2023-02-01 10:30 | disposition home or self-care (01) ==
LOC: SSTAY O 07:41
PROVIDERS: ATTEND Radiology Vascular & Interventional Radiology
DX: R18.8 Other ascites (principal); R14.0 Abdominal distension (gaseous); E11.22 Type 2 diabetes mellitus with diabetic chronic kidney disease; I13.2 Hypertensive heart and chronic kidney disease with heart failure and with stage 5 chronic kidney disease, or end stage renal disease; I50.9 Heart failure, unspecified; N18.6 End stage renal disease; E78.00 Pure hypercholesterolemia, unspecified; D64.9 Anemia, unspecified; Z87.01 Personal history of pneumonia (recurrent); Z87.440 Personal history of urinary (tract) infections; Z99.2 Dependence on renal dialysis; Z98.890 Other specified postprocedural states; Z79.899 Other long term (current) drug therapy; Z93.0 Tracheostomy status; Z88.1 Allergy status to other antibiotic agents; Z88.0 Allergy status to penicillin
CPT/HCPCS: 49083; C1729; P9047; A6258

== ENCOUNTER 2023-02-11 07:48 | Day surgery (SDC) | payer MEDICARE, MEDICAID ==
[~2023-02-11] VITALS: Ht 162.6 cm; Wt 78.2 kg
[2023-02-11 08:24] VITALS: BP 181/102; PULSE 79; RESP 20; TEMP 98; O2SAT 97
[2023-02-11] MEDS ORDERED: albumin 25% 100mL bottle x 1 IV PRN (08:30)
[2023-02-11 09:00] VITALS: RESP 15; O2SAT 98
[2023-02-11 09:28] VITALS: BP 171/102; PULSE 83; RESP 16; O2SAT 94
[2023-02-11 09:42] VITALS: BP 159/88; PULSE 79; RESP 18; O2SAT 95
[2023-02-11 09:57] VITALS: BP 161/91; PULSE 80; RESP 17; O2SAT 96
[2023-02-11 10:10] VITALS: BP 175/77; PULSE 68; RESP 18; O2SAT 95
== END 2023-02-11 10:40 | disposition home or self-care (01) ==
LOC: SSTAY O 07:48
PROVIDERS: ATTEND Radiology Vascular & Interventional Radiology
DX: R18.8 Other ascites (principal); R14.0 Abdominal distension (gaseous); E11.22 Type 2 diabetes mellitus with diabetic chronic kidney disease; I13.2 Hypertensive heart and chronic kidney disease with heart failure and with stage 5 chronic kidney disease, or end stage renal disease; N18.6 End stage renal disease; I50.9 Heart failure, unspecified; E78.00 Pure hypercholesterolemia, unspecified; D50.0 Iron deficiency anemia secondary to blood loss (chronic); Z99.2 Dependence on renal dialysis; Z87.440 Personal history of urinary (tract) infections; Z87.01 Personal history of pneumonia (recurrent); Z98.890 Other specified postprocedural states; Z88.0 Allergy status to penicillin; Z88.1 Allergy status to other antibiotic agents; Z91.012 Allergy to eggs; Z79.899 Other long term (current) drug therapy; Z79.4 Long term (current) use of insulin; Z83.3 Family history of diabetes mellitus; Z82.49 Family history of ischemic heart disease and other diseases of the circulatory system
CPT/HCPCS: 49083; C1729; P9047; A4615; A6258; A6449

== ENCOUNTER 2023-02-22 08:10 | Day surgery (SDC) | payer MEDICARE, MEDICAID ==
[~2023-02-22] VITALS: Ht 162.6 cm; Wt 77.4 kg
[2023-02-22 08:25] VITALS: BP 163/92; PULSE 81; RESP 16; TEMP 98.8; O2SAT 98
[2023-02-22] MEDS ORDERED: albumin 25% 100mL bottle x 1 IV PRN (08:30)
[2023-02-22] MEDS ORDERED: normal saline 1000ml 1,000 ML IV PRN (08:35)
[2023-02-22 10:05] VITALS: BP 162/91; PULSE 81; RESP 16; O2SAT 99
[2023-02-22 10:20] VITALS: BP 169/81; PULSE 87; RESP 15; O2SAT 96
[2023-02-22 10:35] VITALS: BP 161/91; PULSE 80; RESP 17; O2SAT 96
[2023-02-22 10:40] VITALS: BP 162/94; PULSE 81; RESP 16; O2SAT 97
[2023-02-22 10:55] VITALS: BP 164/87; PULSE 80; RESP 16; O2SAT 97
== END 2023-02-22 11:05 | disposition home or self-care (01) ==
LOC: SSTAY O 08:10
PROVIDERS: ATTEND Radiology Vascular & Interventional Radiology
DX: R18.8 Other ascites (principal); R14.0 Abdominal distension (gaseous); E11.22 Type 2 diabetes mellitus with diabetic chronic kidney disease; I13.2 Hypertensive heart and chronic kidney disease with heart failure and with stage 5 chronic kidney disease, or end stage renal disease; I50.9 Heart failure, unspecified; N18.6 End stage renal disease; D64.9 Anemia, unspecified; Z87.442 Personal history of urinary calculi; Z87.01 Personal history of pneumonia (recurrent); Z98.890 Other specified postprocedural states; Z79.899 Other long term (current) drug therapy; Z79.4 Long term (current) use of insulin; Z88.0 Allergy status to penicillin; Z88.1 Allergy status to other antibiotic agents; Z91.012 Allergy to eggs
CPT/HCPCS: 49083; C1729; P9047; A6258; A6449

== ENCOUNTER 2023-03-03 08:56 | Day surgery (SDC) | payer MEDICARE, MEDICAID ==
[2023-03-03] VITALS (7 sets, daily range): BP systolic 161–193; BP diastolic 97–109; PULSE 79–86; RESP 16; TEMP 99.4; O2SAT 92–98
[~2023-03-03] VITALS: Ht 162.6 cm; Wt 71.5 kg
[2023-03-03] MEDS ORDERED: albumin 25% 100mL bottle x 1 IV PRN (09:20)
== END 2023-03-03 11:25 | disposition home or self-care (01) ==
LOC: SSTAY O 08:56
PROVIDERS: ATTEND Radiology Vascular & Interventional Radiology
DX: R18.8 Other ascites (principal); R14.0 Abdominal distension (gaseous); E11.22 Type 2 diabetes mellitus with diabetic chronic kidney disease; I13.2 Hypertensive heart and chronic kidney disease with heart failure and with stage 5 chronic kidney disease, or end stage renal disease; I50.9 Heart failure, unspecified; N18.6 End stage renal disease; E78.00 Pure hypercholesterolemia, unspecified; D64.9 Anemia, unspecified; Z87.01 Personal history of pneumonia (recurrent); Z87.440 Personal history of urinary (tract) infections; Z98.890 Other specified postprocedural states; Z79.899 Other long term (current) drug therapy; Z79.4 Long term (current) use of insulin; Z83.3 Family history of diabetes mellitus; Z82.49 Family history of ischemic heart disease and other diseases of the circulatory system
CPT/HCPCS: 49083; C1729; P9047; A6258; A6449

== ENCOUNTER 2023-03-15 08:22 | Day surgery (SDC) | payer MEDICARE, MEDICAID ==
[~2023-03-15] VITALS: Ht 162.6 cm; Wt 73.8 kg
[2023-03-15] VITALS (7 sets, daily range): BP systolic 155–171; BP diastolic 90–108; PULSE 82–86; RESP 12–14; TEMP 98; O2SAT 94–98
[2023-03-15] MEDS ORDERED: albumin 25% 100mL bottle x 1 IV PRN (08:40)
== END 2023-03-15 09:45 | disposition home or self-care (01) ==
LOC: SSTAY O 08:22
PROVIDERS: ATTEND Radiology Diagnostic Radiology
DX: R18.8 Other ascites (principal); R14.0 Abdominal distension (gaseous); J90 Pleural effusion, not elsewhere classified; E11.22 Type 2 diabetes mellitus with diabetic chronic kidney disease; I13.2 Hypertensive heart and chronic kidney disease with heart failure and with stage 5 chronic kidney disease, or end stage renal disease; N18.6 End stage renal disease; I50.9 Heart failure, unspecified; E78.00 Pure hypercholesterolemia, unspecified; D50.9 Iron deficiency anemia, unspecified; Z87.440 Personal history of urinary (tract) infections; Z98.890 Other specified postprocedural states; Z88.0 Allergy status to penicillin; Z88.1 Allergy status to other antibiotic agents; Z91.012 Allergy to eggs; Z87.01 Personal history of pneumonia (recurrent); Z79.4 Long term (current) use of insulin; Z79.899 Other long term (current) drug therapy; Z83.3 Family history of diabetes mellitus; Z82.49 Family history of ischemic heart disease and other diseases of the circulatory system
CPT/HCPCS: 32555; 49083; C1729; J7030; P9047; A6258; A6449

== ENCOUNTER 2023-03-25 08:13 | Day surgery (SDC) | payer MEDICARE, MEDICAID ==
[~2023-03-25] VITALS: Ht 152.4 cm; Wt 74.9 kg
[2023-03-25] VITALS (7 sets, daily range): BP systolic 155–185; BP diastolic 91–109; PULSE 76–82; RESP 12–14; TEMP 98.2; O2SAT 95–99
[2023-03-25] MEDS ORDERED: albumin 25% 100mL bottle x 1 IV PRN (08:35)
== END 2023-03-25 10:45 | disposition home or self-care (01) ==
LOC: SSTAY O 08:13
PROVIDERS: ATTEND Radiology Vascular & Interventional Radiology
DX: R18.8 Other ascites (principal); R14.0 Abdominal distension (gaseous); I13.2 Hypertensive heart and chronic kidney disease with heart failure and with stage 5 chronic kidney disease, or end stage renal disease; E11.22 Type 2 diabetes mellitus with diabetic chronic kidney disease; N18.6 End stage renal disease; I50.9 Heart failure, unspecified; E78.00 Pure hypercholesterolemia, unspecified; J45.909 Unspecified asthma, uncomplicated; D64.9 Anemia, unspecified; Z87.440 Personal history of urinary (tract) infections; Z79.899 Other long term (current) drug therapy; Z98.890 Other specified postprocedural states; Z99.2 Dependence on renal dialysis; Z88.0 Allergy status to penicillin; Z88.8 Allergy status to other drugs, medicaments and biological substances; Z82.49 Family history of ischemic heart disease and other diseases of the circulatory system; Z83.3 Family history of diabetes mellitus
CPT/HCPCS: 49083; C1729; P9047; A6258; A6449

== ENCOUNTER 2023-04-05 07:47 | Day surgery (SDC) | payer MEDICARE, MEDICAID ==
[~2023-04-05] VITALS: Ht 162.6 cm; Wt 74.3 kg
[2023-04-05] VITALS (12 sets, daily range): BP systolic 104–146; BP diastolic 52–86; PULSE 81–87; RESP 15–18; TEMP 97.9; O2SAT 95–99
[2023-04-05] MEDS: albumin 25% 100mL bottle x 1 IV PRN (08:41)
[2023-04-05 10:01] LABS: BASOPHILS # (AUTO) 0.1 X10'3 (0-0.2); EOSINOPHILS # (AUTO) 0.4 X10'3 (0-0.9); EOSINOPHILS % (AUTO) 4.6 % (0-6); HEMATOCRIT 28.7 % (35.0-45.0); HEMOGLOBIN 9.4 g/dl (12.0-16.0); LYMPHOCYTES # (AUTO) 1.1 X10'3 (1.1-4.8); LYMPHOCYTES % (AUTO) 13.2 % (21-51); MEAN CORPUSCULAR HEMOGLOBIN 30.4 PG (27.0-31.0); MEAN CORPUSCULAR HGB CONC 32.8 g/dL (33.0-36.5); MEAN CORPUSCULAR VOLUME 92.7 FL (78-98); MEAN PLATELET VOLUME 7.5 FL (7.4-10.4); MONOCYTES # (AUTO) 0.6 X10'3 (0-0.9); MONOCYTES % (AUTO) 7.9 % (2-12); NEUTROPHILS # (AUTO) 5.9 X10'3 (1.8-7.7); NEUTROPHILS % (AUTO) 73.3 % (42-75); PLATELET COUNT 177 X10'3 (140-440); RED CELL DISTRIBUTION WIDTH 14.8 % (11.5-14.5)
[2023-04-05] MEDS: ondansetron/PF 4mg/2ml inj ONE (11:04)
[2023-04-05] MEDS ORDERED: ondansetron/PF 4mg/2ml inj IV ONE (11:05)
== END 2023-04-05 14:00 | disposition home or self-care (01) ==
LOC: SSTAY O 07:47
PROVIDERS: ATTEND Radiology Diagnostic Radiology
DX: R18.8 Other ascites (principal); R14.0 Abdominal distension (gaseous); E78.00 Pure hypercholesterolemia, unspecified; E11.22 Type 2 diabetes mellitus with diabetic chronic kidney disease; I13.2 Hypertensive heart and chronic kidney disease with heart failure and with stage 5 chronic kidney disease, or end stage renal disease; N18.6 End stage renal disease; I50.9 Heart failure, unspecified; D50.0 Iron deficiency anemia secondary to blood loss (chronic); Z87.440 Personal history of urinary (tract) infections; Z99.2 Dependence on renal dialysis; Z87.01 Personal history of pneumonia (recurrent); Z98.890 Other specified postprocedural states; Z79.899 Other long term (current) drug therapy
CPT/HCPCS: 36415; 49083; 85025; 86885; 86900; 86901; A6258; A6449; C1729; J2405; P9047

== ENCOUNTER 2023-04-19 06:58 | Day surgery (SDC) | payer MEDICARE, MEDICAID ==
[2023-04-19] VITALS (7 sets, daily range): BP systolic 141–157; BP diastolic 87–94; PULSE 77–84; RESP 18; TEMP 98.1; O2SAT 93–98
[~2023-04-19] VITALS: Ht 162.6 cm; Wt 78.5 kg
[2023-04-19] MEDS: albumin 25% 100mL bottle x 1 IV PRN (07:38)
[2023-04-19 10:00] LABS: BASOPHILS # (AUTO) 0.2 X10'3 (0-0.2); BASOPHILS % (AUTO) 2.1 % (0-1); EOSINOPHILS # (AUTO) 0.5 X10'3 (0-0.9); EOSINOPHILS % (AUTO) 6.1 % (0-6); HEMATOCRIT 29.7 % (35.0-45.0); HEMOGLOBIN 9.5 g/dl (12.0-16.0); MEAN CORPUSCULAR HEMOGLOBIN 29.8 PG (27.0-31.0); MEAN CORPUSCULAR HGB CONC 32.1 g/dL (33.0-36.5); MEAN CORPUSCULAR VOLUME 92.9 FL (78-98); MEAN PLATELET VOLUME 7.3 FL (7.4-10.4); MONOCYTES # (AUTO) 0.8 X10'3 (0-0.9); MONOCYTES % (AUTO) 9.2 % (2-12); NEUTROPHILS # (AUTO) 6.4 X10'3 (1.8-7.7); NEUTROPHILS % (AUTO) 71.6 % (42-75); PLATELET COUNT 209 X10'3 (140-440); RED BLOOD COUNT 3.19 X10'6 (4.20-5.60); RED CELL DISTRIBUTION WIDTH 16.2 % (11.5-14.5); WHITE BLOOD COUNT 8.9 X10'3 (4.5-11.0)
== END 2023-04-19 10:20 | disposition home or self-care (01) ==
LOC: SSTAY O 06:58
PROVIDERS: ATTEND Radiology Vascular & Interventional Radiology
DX: R18.8 Other ascites (principal); I13.2 Hypertensive heart and chronic kidney disease with heart failure and with stage 5 chronic kidney disease, or end stage renal disease; E11.22 Type 2 diabetes mellitus with diabetic chronic kidney disease; I50.9 Heart failure, unspecified; N18.6 End stage renal disease; D64.9 Anemia, unspecified; E78.00 Pure hypercholesterolemia, unspecified; Z98.890 Other specified postprocedural states; Z99.2 Dependence on renal dialysis; Z87.01 Personal history of pneumonia (recurrent); Z87.440 Personal history of urinary (tract) infections; Z79.899 Other long term (current) drug therapy
CPT/HCPCS: 36415; 49083; 85025; 86885; 86900; 86901; C1729; P9047; A6258

== ENCOUNTER 2023-05-03 07:35 | Day surgery (SDC) | payer MEDICARE, MEDICAID ==
[~2023-05-03] VITALS: Ht 162.6 cm; Wt 75.8 kg
[2023-05-03 07:59] VITALS: BP 168/104; PULSE 84; RESP 22; TEMP 99.5; O2SAT 98
[2023-05-03] MEDS ORDERED: LOSA25TA41 PO (08:19)
[2023-05-03] MEDS ORDERED: AMLO5TAB16 PO (08:19)
[2023-05-03] MEDS: albumin 25% 100mL bottle x 1 IV PRN (08:52)
[2023-05-03 09:15] VITALS: BP 172/111; PULSE 60; RESP 16; O2SAT 98
[2023-05-03 09:25] VITALS: BP 160/99; PULSE 61; RESP 16; O2SAT 98
[2023-05-03 09:40] VITALS: BP 170/100; PULSE 70; RESP 16; O2SAT 98
[2023-05-03 09:55] VITALS: BP 168/101; PULSE 88; RESP 16; O2SAT 98
[2023-05-03 10:10] VITALS: BP 162/99; PULSE 89; RESP 20; O2SAT 98
[2023-05-03] MEDS: ondansetron/PF 4mg/2ml inj IV STA (10:14)
== END 2023-05-03 10:30 | disposition home or self-care (01) ==
LOC: SSTAY O 07:35
PROVIDERS: ATTEND Radiology Diagnostic Radiology
DX: R18.8 Other ascites (principal); R14.0 Abdominal distension (gaseous); I13.2 Hypertensive heart and chronic kidney disease with heart failure and with stage 5 chronic kidney disease, or end stage renal disease; E11.22 Type 2 diabetes mellitus with diabetic chronic kidney disease; N18.6 End stage renal disease; I50.9 Heart failure, unspecified; E78.00 Pure hypercholesterolemia, unspecified; Z87.440 Personal history of urinary (tract) infections; Z99.2 Dependence on renal dialysis; Z98.890 Other specified postprocedural states
CPT/HCPCS: 49083; C1729; J2405; P9047; A6258